=== PATIENT | female | born 1955 | race Two or more races ===

== ENCOUNTER 2025-02-03 01:26 | Inpatient (IN) | payer MEDICAID, SELFPAY ==
[2025-02-03] VITALS (166 sets, daily range): BP systolic 69–300; BP diastolic 2–95; PULSE 69–158; RESP 0–86; TEMP 36.3–41; O2SAT 86–100; BMI 26.6
--- NOTE | 2025-02-03 01:37 | EKG_ITS ---
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
--- NOTE | 2025-02-03 01:38 | EDNOTE_ITS ---
ED SOB =RME/HPI General Chief Complaint: Shortness of Breath/Dyspnea Stated Complaint: SOB Time Seen by Provider: 02/03/25 01:37 Arrival date/time: 02/03/25 01:26 RME / HPI RME / HPI Narrative: Dr. Barrera?s Main ED Evaluation: 69yo female with known history of cirrhosis brought in by EMS after neighbors found the patient down in respiratory distress. Patient was found to be hypoxic with an oxygen saturation in the mid 80s and was placed on a nonrebreather mask with correction of hypoxia. Patient was minimally tachycardic in the field in the 140s and is febrile with a temperature of 105.8. Upon ED arrival, patient noted having a productive cough and diarrhea for the last 2 days. No reported dysuria, vomiting, or chest pain. Related Data Home Medications ?Medication ?Instructions ?Recorded ?Confirmed No Known Home Medications 10/18/2309/25 Allergies Allergy/AdvReac Type Severity Reaction Status Date / Time No Known Allergies Allergy Verified 10/18/23 07:36 Review of Systems Review of Systems Systems Reviewed: All systems reviewed, normal except as documented Past Medical History Past Medical History NEUROLOGIC: Negative Seizures CARDIAC: Negative Congestive Heart Failure RESPIRATORY: Negative Chronic Obstructive Pulmonary Disease (COPD) GENITOURINARY: Negative Renal Disease MUSCULOSKELETAL: Positive Fractures (left leg fx years ago) ENDOCRINE: Negative Diabetes Mellitus Type 1 or Diabetes Mellitus Type 2 OTHER HISTORY: Negative Blood Transfusions, Blood Transfusion Reaction or Anesthesia Reactions Social History SMOKING STATUS: Never smoker ED Exam Narrative Physical exam: GENERAL APPEARANCE: alert and oriented x 2/3 with assistance, notably moderately jaundiced, in mild distress HEENT: Normocephalic, atraumatic; pupils equal, round, reactive to light; EOMI; scleral icterus; mucous membranes pink, moist; oropharynx clear NECK: Supple, no JVD; mild tenderness to the posterior midline cervical thoracic junction LUNGS: Diminished breath sounds; no wheezes, no rales, no rhonchi HEART: Regular rate, regular rhythm; normal S1, S2; no murmurs ABDOMEN: non distended; soft, nontender BACK: no CVA tenderness EXTREMITIES: atraumatic; no edema NEUROLOGIC: awake; alert and oriented x2/3; can follow simple commands, cranial nerves II-XII grossly intact; no focal sensory or motor deficits PSYCHIATRIC: appropriate mood and affect SKIN: warm, dry, jaundice; no rashes Course Course Course Narrative: 0123: Sepsis alert initiated. Orders made at this time are congruent with ED Adult Sepsis Order List. Re-evaluation is to be completed. 0205: LR IVF started. We are being cautious with IVF due to the patient's history of cirrhosis. 0336: Sepsis reassessment performed consisting of lab review, vitals, physical exam including auscultation of heart, lungs, and visual evaluation of capillary refills, mucosal membranes and extremities. Quality Measures Possible source: genitourinary Blood cultures ordered: yes Antibiotic ordered: Yes Pertinent labs: 02/03/25 02:05 Lactic Acid 15.0 H* mMol/L (0.4-2.0) Procalcitonin 7.47 H ng/ml (0.0-0.49) sepsis Orders Category Date Time Status Sole Seamer STAT Care 02/03/25 01:58 Active Continuous Pulse Oximetry STAT Care 02/03/25 01:58 Completed Cooling [place] Application NOW Care 02/03/25 01:56 Active EKG (ED ONLY) *Do not use* NOW Care 02/03/25 01:37 Completed Myles [Urinary Catheter] QS Care 02/03/25 02:13 Active In and Out Catheter [id number] Care 02/03/25 01:58 Completed Insert IV NOW Care 02/03/25 01:58 Active NPO STAT Care 02/03/25 01:58 Active Strict Intake and Output Routine Care 02/03/25 01:[address] abdomen pelvis wo con Stat Exams 02/03/25 02:[address] cervical spine wo con Stat Exams 02/03/25 02:[address] facial bones wo con Stat Exams 02/03/25 02:[address] head/brain wo con Stat Exams 02/03/25 02:[address] lumbar spine wo con Stat Exams 02/03/25 02:[address] thoracic spine wo con Stat Exams 02/03/25 02:13 Taken EKG (ED Only) Stat Exams 02/03/25 01:37 Draft US abdomen limited Stat Exams 02/03/25 04:23 Taken XR chest 1V SEPSIS PROTOCOL Stat Exams 02/03/25 02:05 Taken ABG [Arterial Blood Gas] Stat Lab 02/03/25 02:47 Completed ABG [Arterial Blood Gas] Stat Lab 02/03/25 06:09 Completed Ammonia Stat Lab 02/03/25 04:24 Ordered B-Type Natriuretic Peptide Stat Lab 02/03/25 02:05 Completed Blood Culture (Lab) Stat Lab 02/03/25 02:05 Received CBC Stat Lab 02/03/25 02:05 Results Comprehensive Metabolic Panel Stat Lab 02/03/25 02:05 Completed LDH (Lactate Dehydrogenase) Stat Lab 02/03/25 02:05 Completed Lactate (Lactic Acid) Stat Lab 02/03/25 02:05 Completed Lactic Acid, 3 HR Stat Lab 02/03/25 05:23 Ordered Lipase Stat Lab 02/03/25 02:05 Completed Magnesium Stat Lab 02/03/25 02:05 Completed Partial Thromboplastin Time Stat Lab 02/03/25 02:10 Completed Phosphorous Stat Lab 02/03/25 02:05 Completed Procalcitonin Stat Lab 02/03/25 02:05 Completed Prothrombin Time with INR Stat Lab 02/03/25 02:10 Completed Troponin I Stat Lab 02/03/25 02:05 Completed Urinalysis Stat Lab 02/03/25 02:14 Completed Urine Culture Stat Lab 02/03/25 02:14 Received Acetaminophen Supp [Tylenol Supp] Med 02/03/25 01:58 Discontinued 650 mg OR Q8HR PRN Acetaminophen Supp [Tylenol Supp] Med 02/03/25 01:56 Discontinued 650 mg OR X1 ONE Dextrose 5%-Water [D5w] 1,000 ml Med 02/03/25 03:38 Discontinued Sodium Bicarb 8.4% 50ml Vial* 150 meq IV 100 mls/hr Dextrose 5%-Water [D5w] 1,000 ml Med 02/03/25 06:18 Ordered Sodium Bicarb 8.4% 50ml Vial* 150 meq IV 200 mls/hr Dextrose 5%-Water [D5w] 1,000 ml Med 02/03/25 03:41 Discontinued Sodium Bicarb 8.4% 50ml Vial* 150 meq IV 75 mls/hr Norepinephrine/D5W 8mg/250ml [Levophed in D5W 8mg/250ml Med 02/03/25 05:57 Discontinued ] 8 mg in 250 ml IV .STK-MED Norepinephrine/D5W 8mg/250ml [Levophed in D5W 8mg/250ml Med 02/03/25 06:02 Active ] 8 mg in 250 ml IV 0.05 mcg/kg/min Ondansetron Inj [Zofran Inj] Med 02/03/25 02:03 Active 4 mg IVP Q6HR PRN Pharmacy Renal Dose Adjustment Med 02/03/25 02:03 Active 1 each XX PRN PRN Piper/Tazo 3.375 gm Premix [Zosyn] Med 02/03/25 01:58 Discontinued 3.375 gm in 50 ml IV X1 Ringers Lactated 1000 ml [Lactated Ringers] 1,000 ml Med 02/03/25 01:57 Discontinued IV 999 mls/hr Sodium Bicarb 8.4% 50ml Vial* Med 02/03/25 03:26 Discontinued 50 meq IV X1 ONE Sodium Bicarb 8.4% 50ml Vial* Med 02/03/25 03:26 Discontinued 50 meq IV X1 ONE Sodium Bicarb 8.4% 50ml Vial* Med 02/03/25 06:17 Once 50 meq IV X1 ONE Sodium Bicarb 8.4% 50ml Vial* Med 02/03/25 06:18 Once 50 meq IV X1 ONE Oxygen Delivery NOW RT 02/03/25 01:58 Active Vital Signs Vital signs: Vital Signs Temperature 105.8 F H 02/03/25 01:31 Pulse Rate 138 H 02/03/25 01:31 Respiratory Rate 30 H 02/03/25 01:31 Blood Pressure 111/46 L 02/03/25 01:31 Pulse Oximetry (%) 98 02/03/25 01:31 Oxygen Delivery Method Oxy Mask 02/03/25 01:31 Oxygen Flow Rate 15 02/03/25 01:31 Shortness of Breath / Dyspnea MDM Narrative MDM Narrative:: Scribe Attestation: 02/03/25 Shaenka Seaman am scribing for and in the presence of Dr. Barrera. 69yo female with known history of cirrhosis brought in by EMS after neighbors found the patient down in respiratory distress. Patient was found to be hypoxic with an oxygen saturation in the mid 80s and was placed on a nonrebreather mask with correction of hypoxia. Please see PE findings. Lab markers demonstrate normal WBC count, chronic anemia Hgb 10.9, platelets pending, no left shift or associated bandemia. Coagulation tests demonstrate markedly increased INR a 1.8. Chemistries note CO2 <10, HIRA with markedly reduction in eGFR from 60 to 40, Lactate markedly elevated at 15, Total Bilirubin with elevated transaminases and alkaline phosphatase in addition to LDH. Troponin elevated at 0.7 and BNP 487. Procalcitonin 7.4. UA with gross evidence of infection, toxicology negative. CT head and cervical spine are pending. Patient was immediately triaged to monitor bed and sepsis protocol initiated. After cultures were obtained, empiric antibiotics were administered. Patient was treated aggressively with antipyretic therapies with reduction of temperature from 105 to 100.8. Patient's sensorium remained unchanged, easily arousable and able to follow simple commands. Patient presenting with severe sepsis with associated significant UTI and biliary obstruction. Discussed case with hospitalist, who suggests gallbladder ultrasound to r/o ascending cholangitis. Will also obtain serum ammonia to r/o hepatic encephalopathy. Patient's tachycardic improved and sodium bicarb drip initiated to correct underlying acidosis. Patient started becoming hypotensive to the 60s-70s systolic and was started on Levophed. Patient signed out to AM provider. Dx: acute severe sepsis, UTI, obstructive jaundice, severe metabolic acidosis, HIRA. Patient data External records reviewed:: [facility] previous records (Per chart review, patient was seen here on 08/28/23 for skin irritation.) and EMS form Clinical information provided by:: patient Social determinants that could affect healthcare access:: none Patient has the following chronic illnesses:: cirrhosis How is presenting disease/condition affected by chronic disease/condition?: exacerbated by Evaluation data The following diagnostics were reviewed and interpreted by me:: lab results, radiology exam(s) and EKG tracing(s) Lab and/or radiology exams considered but not ordered:: none Interpretation Summary: CXR shows no pleural effusions, borderline cardiomegaly, slightly increased interstitial markings throughout, according to my interpretation. EKG done at 0138, sinus tachycardia, rate of 144, no ST segment changes, left axis deviation, normal intervals, low QRS voltage, according to my interpretation. [facility] Preliminary Report Draft Patient: ARTHUR BLEVINS [facility]. Record#: [id number] Birthdate: 1955 Age/Sex: 69 / F Location: [facility] Attending Dr: Ordering Physician: Date of Service: Procedure(s): Accession Number(s): cc: ~ CT maxillofacial without intravenous contrast (axial sections with sagittal and coronal reformats). February 03, 2025 at 0414 hours Clinical History: Fall. Comparison: No prior study is available for comparison. Findings: There is no fracture. The maxillary sinus and orbital boucher are intact. No fluid levels are seen. No evidence of intraorbital hematoma, proptosis, globe injury or radiodense foreign body. The zygomatic arches and mandible are intact. The visualized soft tissues are unremarkable. The left maxillary sinus is filled with mucus. Dental cavities. Impression: No acute maxillofacial fracture. Severe left maxillary sinusitis. Dental cavities. Referral through dental services recommended. Report Electronically Signed By: Alexi Corrales 02/03/2025 5:27:43 AM [EST]- [facility] Preliminary Report Draft Patient: ARTHUR BLEVINS [facility]. Record#: [id number] Birthdate: 1955 Age/Sex: 69 / F Location: [facility] Attending Dr: Ordering Physician: Date of Service: Procedure(s): Accession Number(s): cc: ~ CT scan of the head without intravenous contrast (axial sections with sagittal and coronal reformats) February 03, 2025 0414 hours Clinical History: Fall. Comparison: None. Findings: There is no evidence of intracranial hemorrhage, mass effect or midline shift. There are periventricular white matter hypodensities, compatible with chronic small vessel ischemia. There is moderate volume loss. The calvarium is intact. The mastoid air cells are clear. The left maxillary sinus is filled with mucus. Subcutaneous right frontal scalp hematoma. Bilateral basal ganglia calcifications. Impression: 1. No evidence of intracranial hemorrhage, midline shift or calvarial fracture. 2. Periventricular chronic small vessel ischemia and volume loss. 3. Left maxillary sinusitis. Report Electronically Signed By: Alexi Corrales 02/03/2025 5:29:43 AM [EST [facility] Preliminary Report Draft Patient: ARTHUR BLEVINS [facility]. Record#: [id number] Birthdate: 1955 Age/Sex: 69 / F Location: [facility] Attending Dr: Ordering Physician: Date of Service: Procedure(s): Accession Number(s): cc: ~ CT scan of the cervical spine without intravenous contrast (axial sections with sagittal and coronal reformats) February 03, 2025 0414 hours Clinical History: Fall. Comparison: None. Findings: There is no fracture or subluxation. The prevertebral soft tissues are unremarkable. Degenerative changes of the imaged portions of the spine. Chronic multilevel disc disease. Impression: No evidence of fracture or subluxation. Report Electronically Signed By: Alexi Corrales 02/03/2025 5:34:11 AM [EST --------- [facility] Preliminary Report Draft Patient: ARTHUR BLEVINS [facility]. Record#: [id number] Birthdate: 1955 Age/Sex: 69 / F Location: [facility] Attending Dr: Ordering Physician: Date of Service: Procedure(s): Accession Number(s): cc: ~ CT scan of the lumbar spine without intravenous contrast (axial sections with sagittal and coronal reformats) February 03, 2025 0422 hours Clinical History: FALL Comparison: None. Findings: No acute fractures. Mild anterolisthesis of L4. Chronic multilevel disc disease without evidence of spinal canal stenosis or neuroforaminal narrowing. Impression: No acute fractures. Chronic multilevel disc disease, consider follow-up with MRI. Report Electronically Signed By: Alexi Corrales 02/03/2025 5:37:29 AM [EST] [facility] Preliminary Report Draft Patient: ARTHUR BLEVINS [facility]. Record#: [id number] Birthdate: 1955 Age/Sex: 69 / F Location: [facility] Attending Dr: Ordering Physician: Date of Service: Procedure(s): Accession Number(s): cc: ~ CT scan of the thoracic spine without intravenous contrast (axial sections with sagittal and coronal reformats) February 03, 2025 0422 hours Clinical History: FALL Comparison: None. 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 There is no fracture or subluxation. The thoracic vertebrae are normally aligned. The intervertebral disc spaces are maintained. There is no pre or paravertebral soft tissue abnormality. Impression: No acute fracture or subluxation. Report Electronically Signed By: Alexi Corrales 02/03/2025 5:40:00 AM [EST] [facility] Preliminary Report Draft Patient: ARTHUR BLEVINS. Record#: [id number] Birthdate: 1955 Age/Sex: 69 / F Location: [facility] Attending Dr: Ordering Physician: Date of Service: Procedure(s): Accession Number(s): cc: ~ CT scan of the abdomen and pelvis without intravenous contrast (axial sections with sagittal and coronal reformats) February 03, 2025 0420 hours Clinical History: Fall. Comparison: None. Findings: The lung bases are clear. The spleen, pancreas, adrenals and kidneys are unremarkable on this noncontrast study. Irregular liver margins. Status postcholecystectomy. Multiple (more than 10) hypodense liver lesions. The bowel is unremarkable. The urinary bladder is nondistended, limited evaluation. Myles catheter in place. Rectal probe in place. There is no free air. Small ascites. Degenerative changes of the imaged portions of the spine. Chronic multilevel disc disease. No acute fractures. Loss of the physiologic lumbar lordosis. Vascular calcifications. No evidence of appendicitis. The uterus and ovaries are within normal limits. Impression: 1. No acute fractures. 2. Cirrhosis associated with ascites. 3. Indeterminate hypodense liver lesions, further evaluation with EKG imaging to assess for acute or cellular carcinoma is recommended. Report Electronically Signed By: Alexi Corrales 02/03/2025 5:43:28 AM [EST] Medications / Prescriptions Medications or Prescriptions considered but not ordered:: none Medication administrations:: Medication Administration History Norepinephrine/Dextrose (Levophed In D5w 8mg/250ml) 8 mg in 250 mls @ 5.606 mls/hr IV .Q24H PRN; Protocol PRN Reason: PER PROTOCOL Stop: 03/05/25 06:01 Last Admin: 02/03/25 06:13 Dose: 0.05 mcg/kg/min, 5.606 mls/hr Documented By: ANA Sodium Bicarbonate 150 meq/ (Dextrose) 1,150 mls @ 200 mls/hr IV .Q5H45M [facility] Stop: 03/05/25 06:16 Ondansetron HCl (Ondansetron Inj 2 Mg/Ml Inj 2 Ml) 4 mg IVP Q6HR PRN; Protocol PRN Reason: NAUSEA OR VOMITING Stop: 03/05/25 02:02 Pharmacy Consult (Pharmacy Renal Dose Adjustment 1 Ea) 1 each XX PRN PRN PRN Reason: CONSULT Stop: 03/05/25 02:02 Sodium Bicarbonate (Sodium Bicarb Inj 8.4% 1 Meq/Ml 50 Ml Vial) 50 meq IV X1 ONE Stop: 02/03/25 06:18 Discontinued Medications Acetaminophen (Acetaminophen Supp 650 Mg Supp) 650 mg OR X1 ONE Stop: 02/03/25 01:57 Last Admin: 02/03/25 02:05 Dose: 650 mg Documented By: ANA Acetaminophen (Acetaminophen Supp 650 Mg Supp) 650 mg OR Q8HR PRN PRN Reason: Fever > 100.4 Stop: 03/05/25 01:57 Lactated Ringer's (Lactated Ringers) 1,000 mls @ 999 mls/hr IV .Q1H1M ONE Stop: 02/03/25 02:57 Last Infusion: 02/03/25 03:06 Dose: Infused Documented By: JOSE LUIS Admin: 02/03/25 02:05 Dose: 999 mls/hr Documented By: ANA Piperacillin/Tazobactam/Dextrose (Zosyn) 3.375 gm in 50 mls @ 100 mls/hr IV X1 ONE Stop: 02/03/25 02:27 Last Infusion: 02/03/25 02:53 Dose: Infused Documented By: JOSE LUIS Admin: 02/03/25 02:23 Dose: 100 mls/hr Documented By: KARI Sodium Bicarbonate 150 meq/ (Dextrose) 1,150 mls @ 100 mls/hr IV .[id number] [facility] Stop: 03/05/25 03:37 Last Admin: 02/03/25 04:45 Dose: Not Given Documented By: JOSE LUIS Non-Admin Reason: Discontinued Sodium Bicarbonate 150 meq/ (Dextrose) 1,150 mls @ 75 mls/hr IV .[id number] [facility] Stop: 03/05/25 03:40 Last Admin: 02/03/25 04:08 Dose: 75 mls/hr Documented By: ANA Norepinephrine/Dextrose (Levophed In D5w 8mg/250ml) Confirm Administered Dose 8 mg in 250 mls @ ud IV .STK-MED ONE Stop: 02/03/25 05:58 Last Admin: 02/03/25 06:12 Dose: Not Given Documented By: ANA Non-Admin Reason: Duplicate Medication on eMAR Sodium Bicarbonate (Sodium Bicarb Inj 8.4% 1 Meq/Ml 50 Ml Vial) 50 meq IV X1 ONE Stop: 02/03/25 03:27 Last Admin: 02/03/25 03:33 Dose: 50 meq Documented By: JOSE LUIS Sodium Bicarbonate (Sodium Bicarb Inj 8.4% 1 Meq/Ml 50 Ml Vial) 50 meq IV X1 ONE Stop: 02/03/25 03:27 Last Admin: 02/03/25 03:33 Dose: 50 meq Documented By: JOSE LUIS see above Consultations Consultation(s) initiated? (list below): Yes Consultation #1 (Physician, Specialty, Details): Discussed case with Dr. Rosales, the resident physician, attending Dr. Edgar from Hospitalist service regarding admission. Discussed patients ED course, exam findings, labs, and radiology results. The Hospitalist requests US abdomen and ammonia level. Time: 04:18 Diagnosis Shortness of Breath Differential Diagnosis: acute exacerbation of chronic obstructive airways disease, congestive heart failure, community acquired pneumonia, asthma with exacerbation and other (UTI, metabolic acidosis) Most likely diagnosis given after review of the tests above:: acute severe sepsis, UTI, obstructive jaundice, severe metabolic acidosis, HIRA Admission Indicated Admission indicated?: not indicated Admission Request Was there a request for admission?: No Disposition Plan Disposition Plan: other (specify) (Signed out to Dr. Blake at 6 AM.) Critical Care Time Critical Care Time Critical Care Time: Yes Total Critical Care Time (min.): 45 Attestation: The high probability of sudden, clinically significant deterioration in the patient?s condition required the highest level of my preparedness to intervene urgently. The services I provided to this patient were to treat and/or prevent clinically significant deterioration. Services included the following: chart data review, reviewing nursing notes and/or old charts, documentation time, media consultant collaboration regarding findings and treatment options, medication orders and management, direct patient care, vital sign assessments and ordering, interpreting and reviewing diagnostic studies and lab tests. Aggregate critical care time includes only time during which I was engaged in work directly related to the patient?s care, as described above, whether at bedside or elsewhere in the Emergency Department. It did not include time spent performing other reported procedures or the services of residents, students, nurses or physician assistants. Discharge Plan Prescriptions/Referrals Prescriptions/Med Rec: No Action No Known Home Medications Referrals: Jordan Back MD [Primary Care Provider] - In 1 week Problem List Clinical Impression: Severe sepsis, UTI (urinary tract infection) due to Enterococcus, Obstructive jaundice, Metabolic acidosis, HIRA (acute kidney injury) Patient/Caregiver Discharge Instructions Print Language: Qatari
[2025-02-03] MEDS: ACETAMINOPHEN SUPP 650 MG SUPP PR (02:05)
[2025-02-03] MEDS: RINGERS LACTATED 1000 ML 1,000 ML 999 ML IV (02:05)
--- NOTE | 2025-02-03 02:05 | XR_ITS ---
Examination: AP chest single view Technique one AP portable semiupright chest single view Date and time: February 03, 2025 0239 hours Comparison April 12, 2022 INDICATIONS: Sepsis protocol FINDINGS: Suspicious for early bilateral perihilar pneumonia. Normal heart size Moderate osteopenia IMPRESSION: Suspicious for early bilateral perihilar pneumonia.
--- NOTE | 2025-02-03 02:13 | XR_ITS ---
Examination: CT maxillofacial, without intravenous contrast. 2-D sagittal reconstructions. 3-D reconstructions. Date and time of exam:February 03, 2025 0414 hours INDICATIONS: Ground-level fall today with injury to the face, facial pain CTDI: vol (mGy):21.7. DLP: (mGycm):383. Technique: Multiple axial images of maxillofacial region, 3.0 mm slice thickness. 2-D sagittal and coronal reconstructions. 3-D reconstructions. Low dose protocols were performed. One or more of the following dose reduction techniques were used; automated exposure control, adjustment of the mA and/or KV according to patient size, use of iterative reconstruction technique. Findings: Frontal bone intact. Orbits intact. No nasal bone fracture. Opacification left maxillary antrum. Maxillary dental caries. Maxilla mandible is intact Patient motion degrades this study IMPRESSION: Limited study, patient motion. No acute facial fracture.
--- NOTE | 2025-02-03 02:13 | XR_ITS ---
Examination: CT brain head without contrast. 2-D sagittal coronal reconstructions Date and time of exam:February 03, 2025 0414 hours INDICATIONS: Ground-level fall today with injury to the head, head pain CTDI: vol (mGy):53.5. DLP: (mGycm):1003. Technique: Multiple CT axial sections of the brain have been obtained, 5 mm slice thickness. Contrast has not been administered. 2-D sagittal, coronal reconstructions have been obtained Low dose protocols were performed. One or more of the following dose reduction techniques were used; automated exposure control, adjustment of the mA and/or KV according to patient size, use of iterative reconstruction technique. Findings: No significant ventricular enlargement. Intra-axial or extra-axial hemorrhage density is not seen. No mass effect or midline shift Basal cisterns are not remarkable. Fourth ventricle is midline. Cranial vault intact. Impression: Negative for acute hemorrhage, mass effect or midline shift
--- NOTE | 2025-02-03 02:13 | XR_ITS ---
Examination: CT thoracic spine, without contrast. 2-D sagittal reconstructions. 2-D coronal reconstructions. 3-D reconstructions. Date and time of exam:February 03, 2025 0422 hours INDICATIONS: Ground-level fall today with injury to the back, back pain CTDI: vol (mGy):39.7 DLP: (mGycm):1341 Technique: Multiple 1.25 mm axial sections of the thoracic spine without intravenous contrast have been obtained. 2-D sagittal and coronal reconstructions have been obtained. 3-D reconstructions have been obtained. Low dose protocols were performed. One or more of the following dose reduction techniques were used; automated exposure control, adjustment of the mA and/or KV according to patient size, use of iterative reconstruction technique. Findings: Adequate alignment thoracic vertebral bodies on the lateral view No thoracic vertebral body compression fracture Thoracic pedicles lamina transverse and posterior spinous processes appear intact No focal thoracic disc protrusion IMPRESSION: No acute thoracic fracture
--- NOTE | 2025-02-03 02:13 | XR_ITS ---
Examination: CT lumbar spine, without contrast. 2-D sagittal reconstructions. 2-D coronal reconstructions. 3-D reconstructions. Date and time of exam:February 03, 2025 0422 hours INDICATIONS: Patient fell today with injury to the lower back, lower back pain CTDI: vol (mGy):37.1 DLP: (mGycm):879 Technique: Multiple 1.25 mm axial sections of the lumbar spine without intravenous contrast have been obtained. 2-D sagittal and coronal reconstructions have been obtained. 3-D reconstructions have been obtained. Low dose protocols were performed. One or more of the following dose reduction techniques were used; automated exposure control, adjustment of the mA and/or KV according to patient size, use of iterative reconstruction technique. Findings: Prominent osteopenia. Minimal anterolisthesis L4 on L5 No lumbar vertebral body compression fracture Lumbar pedicles laminae transverse and posterior spinous processes intact L5-S1 5 mm central lumbar disc bulge extending to the foraminal regions with mild right L5 ganglionic compression L4-L5 2 mm central lumbar disc bulge L3-L4 3 mm central lumbar disc bulge L2-L3 no disc protrusion L1-L2 no disc protrusion IMPRESSION: No acute lumbar fracture L5-S1 5 mm central number disc bulge with mild right L5 ganglionic compression
--- NOTE | 2025-02-03 02:13 | XR_ITS ---
Examination: CT cervical spine without contrast 2-D sagittal reconstructions 2-D coronal reconstructions 3-D reconstructions. Exam date and time:February 03, 2025 0414 hours INDICATIONS: Ground-level fall today with injury to the neck, neck pain CTDI:vol (mGy) 15 DLP: (mGycm) 264 Technique: Multiple 2 mm axial sections of the cervical spine have been obtained. The coronal and sagittal reconstructions have been obtained. 3-D reconstructions have been obtained. Low dose protocols were performed. One or more of the following dose reduction techniques were used; automated exposure control, adjustment of the mA and/or KV according to patient size, use of iterative reconstruction technique. Findings: Axial sections demonstrate intact base of the skull. C1 exhibit satisfactory relationship to the odontoid. No acute cervical vertebral body fracture seen. Alignment posterior spinous processes satisfactory. Impression: No acute cervical fracture.
--- NOTE | 2025-02-03 02:13 | XR_ITS ---
Examination: CT abdomen and pelvis without contrast. Coronal 3-D reconstructions. Sagittal 2-D reconstructions. Date and time of exam:February 03, 2025 0420 hours INDICATIONS: Patient fell today with injury to the abdomen, abdomen pain and pelvic pain CTDI: vol (mGy): 12.4 DLP: (mGycm): 655 Technique: Axial images of the abdomen have been obtained, 3 mm slice thickness Intravenous contrast material has not been administered. Low dose protocols were performed. One or more of the following dose reduction techniques were used; automated exposure control, adjustment of the mA and/or KV according to patient size, use of iterative reconstruction technique. Findings: Cirrhosis, liver lobular in contour Numerous subcentimeter liver lesions Mild to moderate ascites No liver or splenic or renal laceration Absent gallbladder No pancreatic mass Abdominal aorta intact No free air Normal appendix No bowel obstruction Anteverted uterus Urinary Myles catheter in contracted bladder No lumbar fracture Hips bones of the pelvis is intact IMPRESSION: No abdominal parenchymal laceration Cirrhosis Numerous liver lesions, recommend MRI abdomen liver follow up pre and postcontrast to exclude multifocal primary hepatocellular carcinoma, hepatic metastases Moderate ascites
[2025-02-03] MEDS: PIPER/TAZO 3.375 GM PREMIX 3.375 GM/50 ML BAG IV (02:23)
[2025-02-03 02:24] LABS: Collection Type, Urine Clean Catch
[2025-02-03 02:31] LABS: Lactate (Lactic Acid) 15.0 mMol/L (0.4-2.0)
[2025-02-03 02:46] LABS: Bacteria,Urine 4+; Bilirubin,Urine 4+ (Negative); Blood,Urine 2+ (Negative); Clarity,Urine Turbid (Clear/Hazy); Color,Urine Drk-Yellow (Lt Yel-Yel); Glucose, Urine Negative (Negative); Ketones,Urine Trace (Negative); Leukocyte Esterase,Urine Positive (Negative); Nitrite,Urine Positive (Negative); PH,Urine 6.0 (5.0-7.0); Protein,Urine 1+ (Neg - Trace); RBC,Urine 3 /hpf (0-3); Specific Gravity,Urine 1.013 (1.001-1.035); Squamous Epithelial Cell,Urine 1 /hpf (0-5); Urobilinogen,Urine 2.0 mg/dL (0.0-1.0); WBC,Urine 80 /hpf (0-5)
[2025-02-03 02:53] LABS: INR 1.8 (0.9-1.3); Partial Thromboplastin Time 41.3 Seconds (22.0-36.0); Prothrombin Time 18.6 Seconds (9.0-12.2)
[2025-02-03 02:58] LABS: Base Excess -17 (-3-3); HCO3 8 mEq/L (20-26); Inspired O2, VO2 Liters 10 L/min; Inspired Oxygen, FIO2 21 %; O2 Saturation 100 % (91-98); PCO2 18 mmHg (32.0-48.0); PO2 192 mmHg (83-108); pH, Arterial 7.25 (7.35-7.45)
[2025-02-03 02:59] LABS: Alanine Aminotransferase 58 U/L (10-49); Albumin, Serum 2.5 gm/dL (3.4-4.8); Albumin/Globulin Ratio 0.6 (1.2-2.2); Alkaline Phosphatase 301 U/L (46-116); Anion Gap 22 (7-16); Aspartate Amino Transferase 241 U/L (0-34); B-Type Natriuretic Peptide 487 pg/mL (0-100); BUN/Creatinine Ratio 9 Ratio (12-20); Bilirubin,Total 15.9 mg/dL (0.3-1.2); Blood Urea Nitrogen 13 mg/dL (9-23); Calcium 7.9 mg/dL (8.3-10.6); Calcium (Corrected) 9.1 mg/dL (8.5-10.1); Chloride 101 mMol/L (98-107); Creatinine (Component) 1.4 mg/dL (0.6-1.3); Estimated Creatinine Clearance 30.3 mL/min (>60); Globulin 4.5 gm/dL (2.3-3.5); Glucose 84 mg/dL (74-106); LDH (Lactate Dehydrogenase) 518 U/L (120-246); Lipase 64 U/L (12-53); Magnesium 1.4 mg/dL (1.6-2.6); Osmolality,Calculated 265 (275-295); Phosphorous 3.8 mg/dL (2.4-5.1); Potassium 4.9 mMol/L (3.4-5.1); Procalcitonin 7.47 ng/ml (0.0-0.49); Sodium 133 mMol/L (136-145); Total Protein 7.0 gm/dL (5.7-8.2); eGFR 41 See Note
[2025-02-03 03:06] LABS: Carbon Dioxide < 10.0 mMol/L (20.0-31.0); Troponin I 0.077 ng/mL (0.0-0.045)
[2025-02-03 03:07] LABS: Allen Test Performed/OK; Puncture Site Right Radial
[2025-02-03] MEDS: SODIUM BICARB INJ 8.4% 1 mEq/ML 50 ML VIAL 50 MEQ IV ×4 (03:33→06:25)
[2025-02-03 03:38] LABS: Basophils # (Auto) 0.1 Thou/mm3 (0.0-0.2); Basophils % (Auto) 1 % (0-2.5); Eosinophils # (Auto) 0.1 Thou/mm3 (0.0-0.5); Eosinophils % (Auto) 1 % (0-10); Hematocrit 32.3 % (36.0-46.0); Hemoglobin 10.9 g/dL (12.0-16.0); Immature Granulocytes Auto 0.14 Thou/mm3 (0.00-0.00); Lymphocytes # (Auto) 1.6 Thou/mm3 (1.0-4.8); Lymphocytes % (Auto) 22 % (10-50); Mean Corpuscular HGB Conc 33.7 g/dl (31.0-37.0); Mean Corpuscular Hemoglobin 37.8 pg (25.0-35.0); Mean Corpuscular Volume 112 fL (80-100); Monocytes # (Auto) 0.2 Thou/mm3 (0.0-0.8); Monocytes % (Auto) 2 % (0-12); Neutrophils # (Auto) 5.3 Thou/mm3 (1.8-7.7); Neutrophils % (Auto) 72 % (37-80); Nucleated Red Blood Cell # 0.05 Thou/mm3 (0.00-0.00); Nucleated Red Blood Cell % 1 /100 WBC (0); RDW Standard Deviation 80.3 fL (36.4-46.3); Red Blood Count 2.88 Miln/mm3 (4.00-5.20); White Blood Count 7.3 Thou/mm3 (3.6-11.0)
[2025-02-03] MEDS: Sodium Bicarb 8.4% 50ml Vial* 150 MEQ in DEXTROSE 5%-WATER 1,000 ML 75 MEQ IV (04:08)
--- NOTE | 2025-02-03 04:23 | XR_ITS ---
Examination: Abdomen sonogram, Limited Date and time of exam: February 03, 2025 0540 hours INDICATIONS: Altered mental status abdominal pain today Technique: Real-time dee scale transabdominal sonographic images of the upper abdomen obtained. Findings: Gallbladder not visualized Common bile duct 5 mm no stones Pancreatic head 2.2 cm Liver 10.8 cm irregular contour Normal hepatopedal portal venous flow Patent IVC Clat-pa-[id number] ascites IMPRESSION: No common bile duct stones Cirrhosis Drxc-qg-lznpxwha ascites
--- NOTE | 2025-02-03 04:40 | PC.NURSE ---
I HAVE CALLED THE [facility] 10 TIMES IF NOT MORE AND HAVEN'T RECEIVED A ANSWER YET. I CHECKED UP IN [facility] TO SEE IF THE TECH MIGHT BE UPSTAIRS AND THEY STATED THEY HAVENT SEEN HER. CHARGE NURSE ISMAEL WAS MADE AWARE.
[2025-02-03 05:23] LABS: Reflex Lactate? Y
--- NOTE | 2025-02-03 05:28 | PRELIM_ITS ---
CT maxillofacial without intravenous contrast (axial sections with sagittal and coronal reformats). February 03, 2025 at 0414 hours Clinical History: Fall. Comparison: No prior study is available for comparison. Findings: There is no fracture. The maxillary sinus and orbital boucher are intact. No fluid levels are seen. No evidence of intraorbital hematoma, proptosis, globe injury or radiodense foreign body. The zygomatic arches and mandible are intact. The visualized soft tissues are unremarkable. The left maxillary sinus is filled with mucus. Dental cavities. Impression: No acute maxillofacial fracture. Severe left maxillary sinusitis. Dental cavities. Referral through dental services recommended. Report Electronically Signed By: Alexi Corrales 02/03/2025 5:27:43 AM [EST]
--- NOTE | 2025-02-03 05:30 | PRELIM_ITS ---
CT scan of the head without intravenous contrast (axial sections with sagittal and coronal reformats) February 03, 2025 0414 hours Clinical History: Fall. Comparison: None. Findings: There is no evidence of intracranial hemorrhage, mass effect or midline shift. There are periventricular white matter hypodensities, compatible with chronic small vessel ischemia. There is moderate volume loss. The calvarium is intact. The mastoid air cells are clear. The left maxillary sinus is filled with mucus. Subcutaneous right frontal scalp hematoma. Bilateral basal ganglia calcifications. Impression: 1. No evidence of intracranial hemorrhage, midline shift or calvarial fracture. 2. Periventricular chronic small vessel ischemia and volume loss. 3. Left maxillary sinusitis. Report Electronically Signed By: Alexi Corrales 02/03/2025 5:29:43 AM [EST]
--- NOTE | 2025-02-03 05:34 | PRELIM_ITS ---
CT scan of the cervical spine without intravenous contrast (axial sections with sagittal and coronal reformats) February 03, 2025 0414 hours Clinical History: Fall. Comparison: None. Findings: There is no fracture or subluxation. The prevertebral soft tissues are unremarkable. Degenerative changes of the imaged portions of the spine. Chronic multilevel disc disease. Impression: No evidence of fracture or subluxation. Report Electronically Signed By: Alexi Corrales 02/03/2025 5:34:11 AM [EST]
--- NOTE | 2025-02-03 05:37 | PRELIM_ITS ---
CT scan of the lumbar spine without intravenous contrast (axial sections with sagittal and coronal reformats) February 03, 2025 0422 hours Clinical History: FALL Comparison: None. Findings: No acute fractures. Mild anterolisthesis of L4. Chronic multilevel disc disease without evidence of spinal canal stenosis or neuroforaminal narrowing. Impression: No acute fractures. Chronic multilevel disc disease, consider follow-up with MRI. Report Electronically Signed By: Alexi Corrales 02/03/2025 5:37:29 AM [EST]
--- NOTE | 2025-02-03 05:40 | PRELIM_ITS ---
CT scan of the thoracic spine without intravenous contrast (axial sections with sagittal and coronal reformats) February 03, 2025 0422 hours Clinical History: FALL Comparison: None. 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 There is no fracture or subluxation. The thoracic vertebrae are normally aligned. The intervertebral disc spaces are maintained. There is no pre or paravertebral soft tissue abnormality. Impression: No acute fracture or subluxation. Report Electronically Signed By: Alexi Corrales 02/03/2025 5:40:00 AM [EST]
--- NOTE | 2025-02-03 05:43 | PRELIM_ITS ---
CT scan of the abdomen and pelvis without intravenous contrast (axial sections with sagittal and coronal reformats) February 03, 2025 0420 hours Clinical History: Fall. Comparison: None. Findings: The lung bases are clear. The spleen, pancreas, adrenals and kidneys are unremarkable on this noncontrast study. Irregular liver margins. Status postcholecystectomy. Multiple (more than 10) hypodense liver lesions. The bowel is unremarkable. The urinary bladder is nondistended, limited evaluation. Myles catheter in place. Rectal probe in place. There is no free air. Small ascites. Degenerative changes of the imaged portions of the spine. Chronic multilevel disc disease. No acute fractures. Loss of the physiologic lumbar lordosis. Vascular calcifications. No evidence of appendicitis. The uterus and ovaries are within normal limits. Impression: 1. No acute fractures. 2. Cirrhosis associated with ascites. 3. Indeterminate hypodense liver lesions, further evaluation with EKG imaging to assess for acute or cellular carcinoma is recommended. Report Electronically Signed By: Alexi Corrales 02/03/2025 5:43:28 AM [EST]
[2025-02-03 06:11] LABS: Platelet Count 61 Thou/mm3 (140-440)
[2025-02-03 06:13] LABS: PCO2 63 mmHg (32.0-48.0)
[2025-02-03] MEDS: Norepinephrine/D5W 8mg/250ml 8 MG/250 ML BAG 5.606 MG IV (06:13)
[2025-02-03 06:14] LABS: Allen Test Performed/OK; Base Excess -16 (-3-3); HCO3 15 mEq/L (20-26); O2 Saturation 98 % (91-98); PO2 149 mmHg (83-108); Puncture Site Right Radial
[2025-02-03 06:15] LABS: pH, Arterial 7.00 (7.35-7.45)
[2025-02-03] MEDS: Sodium Bicarb 8.4% 50ml Vial* 150 MEQ in DEXTROSE 5%-WATER 1,000 ML 200 MEQ IV (06:26)
[2025-02-03] MEDS: SODIUM CHLORIDE 0.9% 500 ML 500 ML 1000 ML IV (06:36)
[2025-02-03 06:37] LABS: Path Review Blood Smear Sent to Pathologist; Slide Review Platelets confirmed
--- NOTE | 2025-02-03 06:37 | PC.NURSE ---
provider notified about seizure like activity. per provider its most likely tremors
[2025-02-03] MEDS: SODIUM CHLORIDE 0.9% 500 ML 500 ML IV ×2 (06:41→06:50)
--- NOTE | 2025-02-03 06:53 | EDNOTE_ITS ---
Emergency Room Addendum <Landy Singh - Last Filed: 02/03/25 08:46> Addendum Narrative: 0600: Care assumed from Dr. Barbour, the previous shift emergency physician. Past medical, surgical, social and family history reviewed. Vitals and home medications reviewed. I will assume the care of the patient at this time, pending ultrasound abdomen. Hospitalist team were requesting ultrasound to rule out ascending cholangitis prior to admission Please refer to the emergency department record for history and examination from initial visit.?The following addendum documentation note is intended to reflect any pending information, findings, or radiology results not included in the patient?s initial chart. EMS notes reviewed by me. Per EMS run sheet, the patient was found by neighbor at midnight today and evidently altered. Prehospital vital signs: 117/59, HR 140, RR 35, saturating 80s on room air and 98% on non-rebreather, started on IV fluids. Nursing notes reviewed by me. Vital signs reviewed by me. [facility] medical records reviewed by me. Patient was last evaluated in the ED 08/28/2023 for skin irritation. A chest xray performed to confirm ETT and OG tube placement. It appears the tube had shifted down to 23cm and was pulled back to 21cm. Repeat CXR appears improved. RADIOLOGY _ Ordering Physician: Chago Barbour DO Date of Service: 02/03/25 Procedure(s): US abdomen limited Accession Number(s): [id number] cc: Chago Barbour DO; Jordan Back MD; Lul Killian MD~ Examination: Abdomen sonogram, Limited Date and time of exam: February 03, 2025 0540 hours INDICATIONS: Altered mental status abdominal pain today Technique: Real-time dee scale transabdominal sonographic images of the upper abdomen obtained. Findings: Gallbladder not visualized Common bile duct 5 mm no stones Pancreatic head 2.2 cm Liver 10.8 cm irregular contour Normal hepatopedal portal venous flow Patent IVC Rlca-lp-[id number] ascites IMPRESSION: No common bile duct stones Cirrhosis Bnpx-pp-oerjrang ascites Dictated By: Lul Killian MD Signed By: <Electronically signed by Lul Killian MD in [place]>02/03/25 0747 _ <Clarisse Blake MD - Last Filed: 02/03/25 09:04> Addendum Narrative: 0600: Care assumed from Dr. Barbour, the previous shift emergency physician. Past medical, surgical, social and family history reviewed. Vitals and home medications reviewed. I will assume the care of the patient at this time, pending ultrasound abdomen. Hospitalist team were requesting ultrasound to rule out ascending cholangitis prior to admission Please refer to the emergency department record for history and examination from initial visit.?The following addendum documentation note is intended to reflect any pending information, findings, or radiology results not included in the patient?s initial chart. EMS notes reviewed by me. Per EMS run sheet, the patient was found by neighbor at midnight today and evidently altered. Prehospital vital signs: 117/59, HR 140, RR 35, saturating 80s on room air and 98% on non-rebreather, started on IV fluids. Nursing notes reviewed by me. Vital signs reviewed by me. [facility] medical records reviewed by me. Patient was last evaluated in the ED 08/28/2023 for skin irritation. 0805h: A chest xray performed to confirm ETT and OG tube placement. It appears the tube had shifted down to 23cm and was pulled back to 21cm at this time. Repeat CXR appears improved. Pt to be going to ICU. RADIOLOGY _ Ordering Physician: Chago Barbour DO Date of Service: 02/03/25 Procedure(s): US abdomen limited Accession Number(s): [id number] cc: Chago Barbour DO; Jordan Back MD; Lul Killian MD~ Examination: Abdomen sonogram, Limited Date and time of exam: February 03, 2025 0540 hours INDICATIONS: Altered mental status abdominal pain today Technique: Real-time dee scale transabdominal sonographic images of the upper abdomen obtained. Findings: Gallbladder not visualized Common bile duct 5 mm no stones Pancreatic head 2.2 cm Liver 10.8 cm irregular contour Normal hepatopedal portal venous flow Patent IVC [id number]-kv-vxgjgtrn ascites IMPRESSION: No common bile duct stones Cirrhosis Ntwi-ya-islsyniu ascites Dictated By: Lul Killian MD Signed By: <Electronically signed by Lul Killian MD in [place]>02/03/25 0747 _ ED Procedures <Landy Singh - Last Filed: 02/03/25 08:46> Central Line Placement Right IJ: Time Out Performed: Yes Patient Placed on Monitor/Pulse Ox: Yes Prep: mask, gown and gloves Central Line Prep: Chlorhexidine scrub Ultrasound Used for Placement: Yes Central Line Lumen Inserted: triple Post Procedure: sutured in place, good blood return, all ports aspirated, flushed, capped and sterile dressing applied Patient Tolerated Procedure: well and no complications Complications: none Intubation sedative: other (Propofol ) Mg Given: 90 paralytic: Rocuronium Mg Given: 70 Laryngoscope: Janette (#4) ET Tube Size: 7 ET Tube Uncuffed: No Tube Secured Depth (cm): 21 Tube Secured Location: other (gums) Tube Placement Confirmation: visualized tube passing through cords, equal breath sounds bilaterally, no breath sounds over epigastrium and confirmation by capnometry Patient Tolerated Procedure: well and no complications Intubation Complications: none
[2025-02-03] MEDS: PROPOFOL INJ 10 MG/ML VIAL 20 ML 90 MG IV (07:02)
[2025-02-03] MEDS: ROCURONIUM INJ 10 MG/ML VIAL 10 ML 70 MG IV (07:02)
--- NOTE | 2025-02-03 07:10 | XR_ITS ---
Examination: AP chest single view Technique one AP portable supine chest single view Date and time: February 03, 2025 0800 hours Comparison February 03, 2025 0239 hours INDICATIONS: Hypoxic respiratory failure postintubation. FINDINGS: Endotracheal tube tip projects 2.5 cm in the right mainstem bronchus with total atelectasis left lung Orogastric tube in the stomach, the tip is below the level of the film IMPRESSION: Retract the endotracheal tube 4 cm
--- NOTE | 2025-02-03 07:12 | PD.RESEVENT ---
Documentation for date of: 02/03/25 Event Note Event Note: Patient seen in the ED for evaluation of jaundice, altered mental status, and concern for acute liver failure with rule-out acute cholangitis and sepsis. On exam, patient is ill-appearing, minimally responsive, with marked jaundice and right periorbital contusion. Initial labs notable for severe metabolic acidosis (pH 7.25, HCO3 8, AG 22, lactate 15), hyperbilirubinemia (15.9), transaminitis, coagulopathy (INR 1.8), HIRA (Cr 1.4 from baseline 0.7), and UA with pyuria and bacteriuria. Blood and urine cultures sent; patient started on broad-spectrum antibiotics. . CT head, cervical spine, and chest/abdomen/pelvis are pending, as is repeat ABG. Also gallbladder ultrasound still pending to rule in rule out acute cholangitis. we evaluated the patient at bedside; ED will continue workup and discuss case with the morning medicine team for admission versus transfer. ----- Plan discussed with attending physician Dr. Tala Baker MD PGY-1 Internal Medicine
[2025-02-03 07:15] LABS: Lactic Acid, 3 HR 14.5 mMol/L (0.4-2.0)
--- NOTE | 2025-02-03 07:27 | XR_ITS ---
Examination: AP chest single view TECHNIQUE: AP portable supine chest single view Date and time: February 03, 2025 0809 hours Comparison February 03, 2025 0802 hours FINDINGS: Endotracheal tube tip remains in the right mainstem bronchus with partial atelectasis left lung Normal heart size Orogastric tube in the stomach Right internal jugular central line tip right atrium IMPRESSION: Retract the tracheal tube 3 cm
[2025-02-03 07:30] LABS: Ammonia 61 uMol/L (11-32)
--- NOTE | 2025-02-03 07:33 | ECHO_ITS ---
Transthoracic Echo Report Ht (in): 59 Wt (lb): 131 Exam Location: Echo Lab Status: Emergency Non Destructive Testing Technician: Estella Ross Indications: Procedure Performed: BP: 113 / 67 HR: 81 MEASUREMENTS (Male / Female) Normal Values 2D ECHO LV Diastolic Diameter PLAX 5.2 cm 4.2 - 5.9 / 3.9 - 5.3 cm LV Systolic Diameter PLAX 3.5 cm IVS Diastolic Thickness 0.7 cm 0.6 - 1.0 / 0.6 - 0.9 cm LVPW Diastolic Thickness 0.7 cm 0.6 - 1.0 / 0.6 - 0.9 cm LV Relative Wall Thickness 0.3 LVOT Diameter 1.7 cm Aortic Root Diameter 2.5 cm LA Systolic Diameter LX 3.3 cm 3.0 - 4.0 / 2.7 - 3.8 cm LV Ejection Fraction MOD BP 51.5 % >= 55 % LV Cardiac Index MOD BP 2195.5 cm?/min?m? LV Ejection Fraction MOD 4C 53.9 % LV Cardiac Index MOD 4C 2205.7 cm?/min?m? LV Ejection Fraction 4C AL 56.2 % LV Cardiac Index 4C AL 2411.8 cm?/min?m? LV Ejection Fraction MOD 2C 49.9 % LV Cardiac Index MOD 2C 2210.7 cm?/min?m? LV Ejection Fraction 2C AL 52.2 % LV Cardiac Index 2C AL 2359.7 cm?/min?m? LA Volume Index 23.9 cm?/m? 16 - 28 cm?/m? Ascending Aorta Diameter 2.4 cm M-MODE Aortic Root Diameter MM 2.4 cm LA Systolic Diameter MM 3.4 cm LA Ao Ratio MM 1.4 AV Cusp Separation MM 1.5 cm DOPPLER AV Peak Velocity 122.0 cm/s AV Peak Gradient 6.0 mmHg AV Mean Gradient 3.0 mmHg AV Velocity Time Integral 24.9 cm LVOT Peak Velocity 93.8 cm/s LVOT Peak Gradient 3.5 mmHg LVOT Velocity Time Integral 21.3 cm LVOT Cardiac Index 2462.7 cm?/min?m? AV Area Cont Eq vti 1.9 cm? AV Area Cont Eq pk 1.7 cm? MV Area PHT 3.8 cm? MR Peak Velocity 357.0 cm/s MR Peak Gradient 51.0 mmHg Mitral E Point Velocity 66.0 cm/s Mitral A Point Velocity 64.0 cm/s Mitral E to A Ratio 1.0 LV E' Lateral Velocity 6.5 cm/s Mitral E to LV E' Lateral Ratio 10.1 LV E' Septal Velocity 6.4 cm/s Mitral E to LV E' Septal Ratio 10.3 TR Peak Velocity 211.0 cm/s TR Peak Gradient 17.8 mmHg PV Peak Velocity 77.4 cm/s PV Peak Gradient 2.4 mmHg FINDINGS Left Ventricle Normal left ventricular size, wall thickness, systolic function with no obvious regional wall motion abnormalities.there is grade I diastolic dysfunction of the left ventricle (impaired relaxation pattern). The ejection fraction is visually estimated at 50-55 %. Right Ventricle The right ventricle is normal in size and systolic function. The estimated right ventricular systolic pressure, 26mmHg. Left Atrium The left atrium is normal by two-dimensional, color flow and Doppler imaging with no structural abnormalities, no thrombus formation present. Right Atrium The right atrium is normal by two-dimensional imaging, color flow and Doppler imaging with no structural abnormalities, no thrombus formation present. Atrial Septum The interatrial septum appears normal with no evidence of a shunt. Aorta The aorta is normal by two-dimensional, color flow and Doppler interrogation. Mitral Valve The mitral valve is normal by two-dimensional, color flow and Doppler interrogation. Mild mitral regurgitation. Aortic Valve There is no significant aortic valve regurgitation. Tricuspid Valve The tricuspid valve is normal by two-dimensional, color flow and Doppler interrogation. There is mild tricuspid valve regurgitation. Pulmonic Valve The pulmonic valve is not well visualized. There is no significant pulmonic valve regurgitation. Vessels The pulmonary artery appears normal. The inferior vena cava pulmonary and hepatic veins appear normal. Pericardium The pericardium is normal by two-dimensional imaging. There is no significant pericardial effusion. CONCLUSIONS Indication:Bradycardia Normal LV size and function.Grade I diastolic dysfunction. Estimated EF 55-60%. Normal RV size and function. Mildly elevated RVSP from 30 to 35 mmHg. Mild MR, Mild TR. No pericardial effusion Sukhdev Figueroa (Electronically Signed) Final Date: 05 February 2025 01:14
[2025-02-03 07:40] LABS: Base Excess -10 (-3-3); HCO3 18 mEq/L (20-26); Inspired Oxygen, FIO2 80 %; O2 Saturation 99 % (91-98); PCO2 49 mmHg (32.0-48.0); PO2 168 mmHg (83-108)
[2025-02-03 07:43] LABS: Allen Test Performed/OK; Puncture Site Left Radial; pH, Arterial 7.18 (7.35-7.45)
[2025-02-03 07:50] LABS: Base Excess, Venous -9 (-3-3); O2 Saturation, Venous 99 % (96-97); PCO2, Venous 37 mmHg (36-56); PO2, Venous 110 mmHg (15-58); pH, Venous 7.28 (7.33-7.66)
--- NOTE | 2025-02-03 08:12 | ESPR_ITS ---
Documentation for date of: 02/03/25 Subjective Subjective Interval history: This is a 69yo F who was found down at 1am in her house. A neighbor found her on the floor unresponsive and she had apparently fallen and hit her head. EMS was called and the pt was brought into the ER. On arrival she was noted to be altered and febrile with a temp of 105.8. Initial labs showed a metabolic acidosis with appropriate respiratory compensation. She became progressively more lethargic and obtunded as the night progressed. At 6am she was unresponsive and hypotensive. She was given a total of 2.5lts of IVF in the ER and intubated. She was started on vasopressor support and a central line was placed. Pt was brought up to the ICU. A bedside echo was done which showed a hyperdynamic LV with no pericardial effusion. SvO2 was sent off of the brown port from the central line and pt was given vanc/zosyn. A cheeta was placed for hemodynamics and PLR performed. pt was found to not be fluid responsive. There are no family available for additional information. pts s/o 2 months ago and there is no immediate family around. Critical Care Note Critical care time (min.): 80 Exam Vital Signs Temp Pulse Resp BP Pulse Ox O2 Del Method O2 Flow Rate 98.1 F 132 H 32 H 110/75 100 Mechanical Ventilation 11 02/03/25 07:49 02/03/25 07:49 02/03/25 07:49 02/03/25 07:49 02/03/25 07:49 02/03/25 07:49 02/03/25 05:00 FiO2 80 02/03/25 07:49 Narrative Exam Gen- intubated, not on sedation, obese, ill appearing, GCS 6T HEENT- NC, hematoma on R frontal area, bruising and echymosis over R eye, oral mucosa hydrated, sclera icteric, PERRL, ETT/OGT in place Chest- LCTAB, HRRR, no increase in WOB Abd- s/nt/bs+ sluggish, no rebound Ext- mottling to knees, pulses palp, no clubbing, no focal deficits Drips levophed Physical Exam Completion Physical Exam Complete?: Yes 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 02/04/25 12:02 02/04/25 12:02 Labs: Laboratory Results - last 24 hr 02/03/25 02/03/25 02/03/25 02:05 02:10 02:14 WBC 7.3 RBC 2.88 L Hgb 10.9 L Hct 32.3 L MCV 112 H MCH 37.8 H MCHC 33.7 RDW Std Deviation 80.3 H Plt Count 61 L Neut % (Auto) 72 Lymph % (Auto) 22 [place] % (Auto) 2 Eos % (Auto) 1 Baso % (Auto) 1 Neut # (Auto) 5.3 Lymph # (Auto) 1.6 [place] # (Auto) 0.2 Eos # (Auto) 0.1 Baso # (Auto) 0.1 Immature Gran # (Auto) 0.14 H Absolute Nucleated RBC 0.05 H Immature Gran % 2 H Nucleated RBC % 1 H Smear Path Review Sent to Pathologist PT 18.6 H INR 1.8 H APTT 41.3 H Puncture Site ABG pH ABG pCO2 ABG pO2 ABG HCO3 ABG O2 Saturation ABG Base Excess VBG pH VBG pCO2 VBG pO2 VBG O2 Sat (Joelle) VBG Base Excess Oxygen Liter Flow FiO2 Sodium 133 L Potassium 4.9 Chloride 101 Carbon Dioxide < 10.0 L* Anion Gap 22 H BUN 13 Creatinine 1.4 H Estim Creat Clear Calc 30.3 L eGFR 41 L BUN/Creatinine Ratio 9 L Glucose 84 Calculated Osmolality 265 L Lactic Acid 15.0 H* Calcium 7.9 L Corrected Calcium 9.1 Phosphorus 3.8 Magnesium 1.4 L Total Bilirubin 15.9 H AST 241 H ALT 58 H Alkaline Phosphatase 301 H Ammonia Lactate Dehydrogenase 518 H Troponin I 0.077 H* B-Natriuretic Peptide 487 H* Total Protein 7.0 Albumin 2.5 L Globulin 4.5 H Albumin/Globulin Ratio 0.6 L Lipase 64 H Procalcitonin 7.47 H Ur Collection Type Clean Catch Urine Color Drk-Yellow A Urine Clarity Turbid A Urine pH 6.0 Ur Specific [place] 1.013 Urine Protein 1+ A Urine Glucose (UA) Negative Urine Ketones Trace Urine Blood 2+ A Urine Nitrite Positive Urine Bilirubin 4+ A Urine Urobilinogen (Auto) 2.0 Ur Leukocyte Esterase Positive Urine RBC 3 Urine WBC 80 H Ur Squamous Epith Cells 1 Urine Bacteria 4+ A Misc Test Result Platelets confirmed 02/03/25 02/03/25 02/03/25 02:47 06:09 06:54 WBC RBC Hgb Hct MCV MCH MCHC RDW Std Deviation Plt Count Neut % (Auto) Lymph % (Auto) [place] % (Auto) Eos % (Auto) Baso % (Auto) Neut # (Auto) Lymph # (Auto) [place] # (Auto) Eos # (Auto) Baso # (Auto) Immature Gran # (Auto) Absolute Nucleated RBC Immature Gran % Nucleated RBC % Smear Path Review PT INR APTT Puncture Site Right Radial Right Radial ABG pH 7.25 L 7.00 L* D ABG pCO2 18 L* 63 H D ABG pO2 192 H 149 H D ABG HCO3 8 L* 15 L ABG O2 Saturation 100 H 98 ABG Base Excess -17 L -16 L VBG pH VBG pCO2 VBG pO2 VBG O2 Sat (Joelle) VBG Base Excess Oxygen Liter Flow 10 FiO2 21 Sodium Potassium Chloride Carbon Dioxide Anion Gap BUN Creatinine Estim Creat Clear Calc eGFR BUN/Creatinine Ratio Glucose Calculated Osmolality Lactic Acid 14.5 H* Calcium Corrected Calcium Phosphorus Magnesium Total Bilirubin AST ALT Alkaline Phosphatase Ammonia 61 H Lactate Dehydrogenase Troponin I B-Natriuretic Peptide Total Protein Albumin Globulin Albumin/Globulin Ratio Lipase Procalcitonin Ur Collection Type Urine Color Urine Clarity Urine pH Ur Specific [place] Urine Protein Urine Glucose (UA) Urine Ketones Urine Blood Urine Nitrite Urine Bilirubin Urine Urobilinogen (Auto) Ur Leukocyte Esterase Urine RBC Urine WBC Ur Squamous Epith Cells Urine Bacteria Misc Test Result 02/03/25 02/03/25 07:19 07:30 WBC RBC Hgb Hct MCV MCH MCHC RDW Std Deviation Plt Count Neut % (Auto) Lymph % (Auto) [place] % (Auto) Eos % (Auto) Baso % (Auto) Neut # (Auto) Lymph # (Auto) [place] # (Auto) Eos # (Auto) Baso # (Auto) Immature Gran # (Auto) Absolute Nucleated RBC Immature Gran % Nucleated RBC % Smear Path Review PT INR APTT Puncture Site Left Radial ABG pH 7.18 L* D ABG pCO2 49 H D ABG pO2 168 H ABG HCO3 18 L ABG O2 Saturation 99 H ABG Base Excess -10 L VBG pH 7.28 L VBG pCO2 37 VBG pO2 110 H VBG O2 Sat (Joelle) 99 H VBG Base Excess -9 L Oxygen Liter Flow FiO2 80 Sodium Potassium Chloride Carbon Dioxide Anion Gap BUN Creatinine Estim Creat Clear Calc eGFR BUN/Creatinine Ratio Glucose Calculated Osmolality Lactic Acid Calcium Corrected Calcium Phosphorus Magnesium Total Bilirubin AST ALT Alkaline Phosphatase Ammonia Lactate Dehydrogenase Troponin I B-Natriuretic Peptide Total Protein Albumin Globulin Albumin/Globulin Ratio Lipase Procalcitonin Ur Collection Type Urine Color Urine Clarity Urine pH Ur Specific [place] Urine Protein Urine Glucose (UA) Urine Ketones Urine Blood Urine Nitrite Urine Bilirubin Urine Urobilinogen (Auto) Ur Leukocyte Esterase Urine RBC Urine WBC Ur Squamous Epith Cells Urine Bacteria Misc Test Result Assessment & Plan Additional Plan Additional Plan: In brief this is a 69yo F admitted to the ICU with distributive 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 on vanc/zosyn, likely sepsis, bcx, sputum and ucx taken and pending. LA elevated -> given IVF - on levophed, start vasopressin if we reach moderate dose levophed Tropinemia- likely related to demand ischemia, fu on repeat, EKG without ST elevation or depression Resp Acute resp failure- intubated and on MV, fu with ABG and CXR Renal HypoNa- mild, monitor, in the setting of cirrhosis AGMA- 2/2 LA - initial ABG shows an appropriate respiratory compensation, fu ABG shows respiratory failure with a resp acidosis - breaux formula calculated HIRA- minimal UOP, monitor i/os - ? of hepatorenal therefore started on albumin, octreotide and on vasopressor support - check urine lytes - has received IVF HypoMg- replete with IV mag GI Cirrhosis- started on lactulose and rifaxamin - elevated LFTs - check viral hep panel - alcohol level added on Liver masses- check an AFP, will need eval for HCC hypoalbuminemia- in the setting of cirrhosis - check uprotein/cr ratio Endo stable Heme Anemia macrocytic- check b12/folate thrombocytopenia- in the setting of sepsis and cirrhosis Coagulopathy- INR of 1.8, monitor DVT proph- heparin [id number] ID UTI- on vanc/zosyn case d/w ICU team and ER labs, imaging, records reviewed ~ 80ccmin required for eval, exam, review, interention, discussion and formulation of POC for this critically ill pt in septic shock Provider Notation Provider Notation: Although this document has been carefully reviewed, there may still be some phonetic and other typographical errors. These errors are purely grammatical due to imperfections in the software program and should not be construed in any way to compromise the substance of the patient's medical care during this visit. Thank you for the opportunity and privilege in assisting you with this patient's care and management.
[2025-02-03] MEDS: ALBUMIN HUMAN 25% IVPB 25 GM/100 ML BTL IV ×5 (08:17→23:13)
[2025-02-03 08:18] LABS: Alanine Aminotransferase 145 U/L (10-49); Albumin, Serum 2.0 gm/dL (3.4-4.8); Albumin/Globulin Ratio 0.6 (1.2-2.2); Alkaline Phosphatase 261 U/L (46-116); Anion Gap 21 (7-16); Aspartate Amino Transferase 696 U/L (0-34); BUN/Creatinine Ratio 8 Ratio (12-20); Bilirubin,Total 13.2 mg/dL (0.3-1.2); Blood Urea Nitrogen 12 mg/dL (9-23); Calcium 7.1 mg/dL (8.3-10.6); Calcium (Corrected) 8.7 mg/dL (8.5-10.1); Carbon Dioxide 16.7 mMol/L (20.0-31.0); Chloride 102 mMol/L (98-107); Creatinine (Component) 1.6 mg/dL (0.6-1.3); Estimated Creatinine Clearance 26.5 mL/min (>60); Globulin 3.5 gm/dL (2.3-3.5); Glucose 80 mg/dL (74-106); Osmolality,Calculated 278 (275-295); Potassium 3.2 mMol/L (3.4-5.1); Sodium 140 mMol/L (136-145); Total Protein 5.5 gm/dL (5.7-8.2); eGFR 35 See Note
--- NOTE | 2025-02-03 08:56 | XR_ITS ---
Examination: AP chest single view TECHNIQUE: Portable AP sitting chest single view Date and time: February 03, 2025 0943 hours Comparison chest film today 0809 hours INDICATIONS: Hypoxic respiratory failure, repositioned tracheal tube. FINDINGS: Endotracheal tube tip 25 mm above marzena Minor atelectasis left base Right internal jugular central line tip right atrium Orogastric tube in the distal stomach versus duodenal bulb IMPRESSION: Endotracheal tube tip 25 mm above marzena
[2025-02-03] MEDS: PIPER/TAZO 2.25 GM 2.25 GM/50 ML BAG IV ×4 (09:15→23:13)
[2025-02-03] MEDS: Magnesium Sulfate 4 GM Ivpb 4 GM/50 ML BAG IV (09:15)
[2025-02-03] MEDS: VANCOMYCIN/WATER 1GM IVPB 200 ML IV (09:18)
[2025-02-03] MEDS: LACTULOSE SYRUP 20 GM/30 ML UDC NG (09:43)
--- NOTE | 2025-02-03 09:48 | PC.CC ---
0800-ASW attempted to complete an initial with pt; however, upon arriving to the bedside, pt was in the process of being intubated. ASW received a call from the pts tenant named Ivania [phone]. Ivania stated she found her landlord on the grass this morning and called the ambulance immediately. Ivania stated the pts spouse about 3 months ago and since the, the pt has been drinking non-stop daily. Ivania reported the pt drinks beer and hard liquor. Ivania reported the pt has brother who resides in [facility], but does not know his name or how to get a hold of him. Ivania reported that the pt has a man who lives with her and she will contact him to ask if he is related or if he can reach any family members. Ivania stated she will call back with any information she is able to find out. It should be known that Ivania stated the pt fell this morning around 12am, was not witnessed by Ivania, but was told to her by the person who lives with the pt. It should also be known that the person listed on the face sheet as Next of Kin is her .
--- NOTE | 2025-02-03 11:04 | PC.SS ---
PHYSICIAN OBSTETRICIAN conducted phone contact with patient?s friend Ivania Suarez .? Friend, Ivania Suarez; reports possessing acquaintance with patient for approximately 11 (+) years.? Patient?s spouse approximately 3 months ago.? Patient now possesses new roommate, friend of spouse.? Per friend, patient possesses a brother who resides in the [facility].? Friend, Ivania; does not possess contact information for patient?s brother.? Friend, Ivania; also relayed that the patient possesses a son who resides in [facility], no contact information available for patient?s son.? Friend, Ivania; expressed to PHYSICIAN OBSTETRICIAN willingness to be POC for the patient.? Friend, Ivania; will notify PHYSICIAN OBSTETRICIAN if able to obtain contact information for the patient?s brother.? PHYSICIAN OBSTETRICIAN updated ICU bedside nurse.
--- NOTE | 2025-02-03 11:12 | PC.SS ---
CONCRETE TILE MACHINE OPERATOR conducted phone contact with patient?s friend Ivania Suarez to conduct initial assessment on behalf of the patient.? Patient resides at home with roommate.? Patient utilizes a walker to assist with ambulation.? Patient does not utilize home oxygen.? Patient requires assistance with completion of ADL?s.? Friend assists the patient with meal preparation and transport.? Designation of surrogate medical decision maker is pending.? Friend attempting to obtain contact information to patient?s brother.? Patient?s PCP is Dr. Back JEREMÍAS.? Unknown if patient possesses any specialty providers.? financial services representative will discuss discharge needs at an appropriate future time.? No further intervention required at this time, social work manager will be available to address any further concerns.? POC: Ivania Suarez D/C Plan: Pending
--- NOTE | 2025-02-03 11:25 | PD.RESHP ---
Documentation for date of: 02/03/25 [facility] History of Present Illness Chief complaint: Altered sensorium History of present illness: Patient is intubated and mechanically ventilated so most of the history is taken from the chart review. 69-year-old female with unknown past medical history was brought to the hospital in view of altered sensorium. Per nurse, patient probably had a fall the day before admission in the morning following which she was okay until the neighbors blood to recheck her in the evening, found to be unconscious for which they called the EMS and was brought to the hospital. In the ED, patient is minimally responsive with marked icterus and periorbital contusion. Patient was found to be hypoxic with oxygen saturation in the mid 80s and was initially placed on a nonrebreather mask with correction of hypoxia. Later patient was found to be tachycardic with heart rate around 140s and febrile with a temperature of 105.8 ?F. Patient was intubated in view of acute encephalopathy and hypoxia. ICU is consulted in view of acute hypoxic respiratory failure in the setting of acute encephalopathy and suspected septic shock. In the ED, patient received 1 dose of acetaminophen 650 mg per rectum. 1 L LR bolus followed by 1.5 L of NS bolus in view of suspected septic shock. Initial labs revealed hemoglobin 10.9, platelets 61, INR 1.8, sodium 133, bicarb less than 10, anion gap 22, BUN 13, creatinine 1.4, lactic acid 15, magnesium 1.4, total bilirubin 15.9, AST 241, ALT 58, albumin 2.5, procalcitonin 7.47. EKG showed sinus tachycardia with no acute ST and T wave changes chest x-ray showed bilateral increased vascularity. Abdomen/pelvis CT showed cirrhosis, mild to moderate ascites, absent gallbladder. Cervical spine CT, face CT, head CT, thoracic spine CT, lumbar spine CT did not show any acute fractures. Abdominal ultrasound showed no CBD stones. Initial chest x-ray done showed endotracheal tube tip 2.5 cm in the right mainstem bronchus with atelectasis of the left lung following which the endotracheal tube is retacted and repeat chest x-ray was done that showed minor atelectasis of the left base. Patient is admitted to ICU in view of septic shock, possible decompensated cirrhosis, HIRA. Review of Systems Review of Systems ROS Unobtainable: unobtainable due to mental status, unobtainable due to medical condition and due to endotracheal tube Exam Vital Signs Temp Pulse Resp BP Pulse Ox O2 Del Method O2 Flow Rate 98.1 F 113 H 31 H 113/78 100 Mechanical Ventilation 11 02/03/25 07:49 02/03/25 10:15 02/03/25 10:15 02/03/25 10:15 02/03/25 10:15 02/03/25 07:49 02/03/25 05:00 FiO2 80 02/03/25 07:49 Narrative Exam General: Sedated and mechanically ventilated HEENT: Normocephalic, atraumatic, mucous membranes moist.Noted to have right frontal hematoma and ecchymosis on the right eye. Noted to have dislocated teeth. Heart: Regular rate and rhythm, no murmurs. Lungs: Clear to auscultation with no wheezing or crackles.Noted to have decreased breath sounds on the left side Abdomen: Soft, moderately distended, nontender, positive bowel sounds. ?No guarding or rebound tenderness. Neurologic:Sedated and mechanically ventilated Extremities: No edema. Noted all peripheral pulses Skin: Noted to have ecchymotic patches on the right side of the abdomen and also on the right hand from the IV catheterization Results: Labs 02/04/25 12:02 02/04/25 18:50 Labs: Short CBC 02/03/25 Range/Units 02:05 WBC 7.3 (3.6-11.0) Thou/mm3 Hgb 10.9 L (12.0-16.0) g/dL Hct 32.3 L (36.0-46.0) % Plt Count 61 L (140-440) Thou/mm3 BMP 02/03/25 02/03/25 02:05 07:30 Sodium 133 L 140 Potassium 4.9 3.2 L D Chloride 101 102 Carbon Dioxide < 10.0 L* 16.7 L BUN 13 12 Creatinine 1.4 H 1.6 H Glucose 84 80 Calcium 7.9 L 7.1 L Cardiac Enzymes 02/03/25 Range/Units 02:05 Troponin I 0.077 H* (0.0-0.045) ng/mL Liver Function 02/03/25 02/03/25 Range/Units 02:05 07:30 Total Bilirubin 15.9 H 13.2 H D (0.3-1.2) mg/dL AST 241 H 696 H* (0-34) U/L ALT 58 H 145 H (10-49) U/L Alkaline Phosphatase 301 H 261 H D (46-116) U/L Albumin 2.5 L 2.0 L D (3.4-4.8) gm/dL Urine 02/03/25 Range/Units 02:14 Urine Color Drk-Yellow A (Lt Yel-Yel) Urine Clarity Turbid A (Clear/Hazy) Urine pH 6.0 (5.0-7.0) Ur Specific [place] 1.013 (1.001-1.035) Urine Protein 1+ A (Neg - Trace) Urine Glucose (UA) Negative (Negative) ABG Interpretation ABG results: 02/03/25 02/03/25 02/03/25 02:47 06:09 07:19 ABG pH 7.25 L 7.00 L* D 7.18 L* D ABG pCO2 18 L* 63 H D 49 H D ABG pO2 192 H 149 H D 168 H ABG HCO3 8 L* 15 L 18 L ABG O2 Saturation 100 H 98 99 H ABG Base Excess -17 L -16 L -10 L VBG pH VBG pCO2 VBG pO2 VBG Base Excess 02/03/25 07:30 ABG pH ABG pCO2 ABG pO2 ABG HCO3 ABG O2 Saturation ABG Base Excess VBG pH 7.28 L VBG pCO2 37 VBG pO2 110 H VBG Base Excess -9 L Quality Measures Quality Measures sepsis Current suspected stage: septic shock (LA >4 and/or hypotension) Sepsis reassessment completed at (date): 02/03/25 Sepsis reassessment completed at (time): 15:00 Possible source: genitourinary Blood cultures ordered: yes Antibiotic ordered: Yes Advance care planning discussed with:: patient Medications Home Medications and Allergies Home Medications ?Medication ?Instructions ?Recorded ?Confirmed ?Type No Known Home Medications 10/18/23 10/18/23 History Allergies Allergy/AdvReac Type Severity Reaction Status Date / Time No Known Allergies Allergy Verified 10/18/23 07:36 Visit Medications Acetaminophen (Acetaminophen Supp 650 Mg Supp) 650 mg DC Q4HR PRN PRN Reason: PAIN SCALE 1-3 (mild Stop: 03/05/25 07:32 Norepinephrine/Dextrose (Levophed In D5w 8mg/250ml) 8 mg in 250 mls @ 5.606 mls/hr IV .Q24H PRN; Protocol PRN Reason: PER PROTOCOL Stop: 03/05/25 06:01 Last Titration: 02/03/25 06:30 Dose: 0.2 mcg/kg/min, 22.425 mls/hr Sodium Bicarbonate 150 meq/ (Dextrose) 1,150 mls @ 200 mls/hr IV .[id number] JAYRO Stop: 03/05/25 06:16 Last Infusion: 02/03/25 07:15 Dose: 0 mls/hr Dexmedetomidine/Sodium Chloride (Precedex Ivpb) 400 mcg in 100 mls @ 2.99 mls/hr IV .Q24H PRN; Protocol PRN Reason: Per PROTOCOL Stop: 03/05/25 06:50 Albumin Human (Albuminar-25 Ivpb) 25 gm in 100 mls @ 100 mls/hr IV QDAY JAYRO Stop: 02/06/25 08:59 Last Admin: 02/03/25 09:17 Dose: 100 mls/hr Magnesium Sulfate (Magnesium Sulfate Ivpb) 4 gm in 50 mls @ 12.5 mls/hr IV X1 ONE Stop: 02/03/25 11:36 Last Admin: 02/03/25 09:15 Dose: 12.5 mls/hr Piperacillin/Tazobactam/Dextrose (Zosyn) 2.25 gm in 50 mls @ 100 mls/hr IV Q6HR JAYRO Stop: 02/10/25 11:59 Albumin Human (Albuminar-25 Ivpb) 25 gm in 100 mls @ 100 mls/hr IV Q6HR JAYRO Stop: 02/06/25 11:59 Potassium Chloride (Kcl Ivpb) 20 meq in 100 mls @ 50 mls/hr IV Q2H JAYRO Stop: 02/03/25 15:16 Octreotide Acetate 1,000 mcg/ (Sodium Chloride) 102 mls @ 5.1 mls/hr IV .Q20H JAYRO; Protocol Stop: 02/08/25 11:19 Lactulose (Lactulose Syrup 20 Gm/30 Ml Udc) 30 gm NG TID JAYRO; Protocol Stop: 03/05/25 13:59 Ondansetron HCl (Ondansetron Inj 2 Mg/Ml Inj 2 Ml) 4 mg IVP Q6HR PRN; Protocol PRN Reason: NAUSEA OR VOMITING Stop: 03/05/25 02:02 Pantoprazole Sodium (Pantoprazole Inj 40 Mg Vial) 40 mg IVP QDAY [facility] Stop: 03/05/25 08:59 Last Admin: 02/03/25 09:42 Dose: 40 mg Pharmacy Consult (Pharmacy Renal Dose Adjustment 1 Ea) 1 each XX PRN PRN PRN Reason: CONSULT Stop: 03/05/25 02:02 Discontinued Medications Acetaminophen (Acetaminophen Supp 650 Mg Supp) 650 mg DC X1 ONE Stop: 02/03/25 01:57 Last Admin: 02/03/25 02:05 Dose: 650 mg Acetaminophen (Acetaminophen Supp 650 Mg Supp) 650 mg DC Q8HR PRN PRN Reason: Fever > 100.4 Stop: 03/05/25 01:57 Lactated Ringer's (Lactated Ringers) 1,000 mls @ 999 mls/hr IV .Q1H1M ONE Stop: 02/03/25 02:57 Last Infusion: 02/03/25 03:06 Dose: Infused Piperacillin/Tazobactam/Dextrose (Zosyn) 3.375 gm in 50 mls @ 100 mls/hr IV X1 ONE Stop: 02/03/25 02:27 Last Infusion: 02/03/25 02:53 Dose: Infused Sodium Bicarbonate 150 meq/ (Dextrose) 1,150 mls @ 100 mls/hr IV .[id number] [facility] Stop: 03/05/25 03:37 Last Admin: 02/03/25 04:45 Dose: Not Given Sodium Bicarbonate 150 meq/ (Dextrose) 1,150 mls @ 75 mls/hr IV .[id number] [facility] Stop: 03/05/25 03:40 Last Infusion: 02/03/25 07:15 Dose: 0 mls/hr Sodium Chloride (Ns) 500 mls @ 500 mls/hr IV .Q1H ONE Stop: 02/03/25 07:23 Last Infusion: 02/03/25 07:53 Dose: Infused Sodium Chloride (Ns) 500 mls @ 1,000 mls/hr IV .Q30M ONE Stop: 02/03/25 07:05 Last Infusion: 02/03/25 07:52 Dose: Infused Vancomycin HCl (Vancomycin/Water 1gm Ivpb) 200 mls @ 120 mls/hr IV X1 ONE Stop: 02/03/25 08:23 Last Admin: 02/03/25 09:18 Dose: 120 mls/hr Albumin Human (Albuminar-25 Ivpb) 25 gm in 100 mls @ 100 mls/hr IV X1 ONE Stop: 02/03/25 08:35 Last Admin: 02/03/25 08:17 Dose: 100 mls/hr Piperacillin/Tazobactam/Dextrose (Zosyn) 2.25 gm in 50 mls @ 100 mls/hr IV X1 ONE; Protocol Stop: 02/03/25 08:14 Last Admin: 02/03/25 09:15 Dose: 100 mls/hr Lactulose (Lactulose Syrup 20 Gm/30 Ml Udc) 20 gm NG TID JAYRO; Protocol Stop: 03/05/25 07:44 Last Admin: 02/03/25 09:43 Dose: 20 gm Lactulose (Lactulose Syrup 20 Gm/30 Ml Udc) 10 gm NG X1 ONE; Protocol Stop: 02/03/25 11:21 Midazolam HCl (Midazolam Inj 1 Mg/Ml Vial 2 Ml) 5 mg IVP X1 ONE Stop: 02/03/25 07:05 Last Admin: 02/03/25 07:09 Dose: Not Given Propofol (Propofol Inj 10 Mg/Ml Vial 20 Ml) 90 mg IV X1 ONE Stop: 02/03/25 06:49 Last Admin: 02/03/25 07:02 Dose: 90 mg Rocuronium [place] (Rocuronium Inj 10 Mg/Ml Vial 10 Ml) 70 mg IV X1 ONE Stop: 02/03/25 06:49 Last Admin: 02/03/25 07:02 Dose: 70 mg Sodium Bicarbonate (Sodium Bicarb Inj 8.4% 1 Meq/Ml 50 Ml Vial) 50 meq IV X1 ONE Stop: 02/03/25 03:27 Last Admin: 02/03/25 03:33 Dose: 50 meq Sodium Bicarbonate (Sodium Bicarb Inj 8.4% 1 Meq/Ml 50 Ml Vial) 50 meq IV X1 ONE Stop: 02/03/25 03:27 Last Admin: 02/03/25 03:33 Dose: 50 meq Sodium Bicarbonate (Sodium Bicarb Inj 8.4% 1 Meq/Ml 50 Ml Vial) 50 meq IV X1 ONE Stop: 02/03/25 06:18 Last Admin: 02/03/25 06:25 Dose: 50 meq Sodium Bicarbonate (Sodium Bicarb Inj 8.4% 1 Meq/Ml 50 Ml Vial) 50 meq IV X1 ONE Stop: 02/03/25 06:19 Last Admin: 02/03/25 06:25 Dose: 50 meq Assessment & Plan Plan 69-year-old female with unknown past medical history was brought to the hospital in view of altered sensorium. Per nurse, patient probably had a fall the day before admission in the morning following which she was okay until the neighbors blood to recheck her in the evening, found to be unconscious for which they called the EMS and was brought to the hospital. In the ED, patient is minimally responsive with marked icterus and periorbital contusion. Patient was found to be hypoxic with oxygen saturation in the mid 80s and was initially placed on a nonrebreather mask with correction of hypoxia. Later patient was found to be tachycardic with heart rate around 140s and febrile with a temperature of 105.8 ?F. Patient was intubated in view of acute encephalopathy and hypoxia. ICU is consulted in view of acute hypoxic respiratory failure in the setting of acute encephalopathy and suspected septic shock. 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 Could be possible cause of septic encephalopathy - Hepatic encephalopathy. Patient has stigmata of chronic liver failure. Icterus, appears chronically ill, ascites. - Metabolic encephalopathy: Patient was found to have high anion gap metabolic acidosis with lactic acidosis at the time of presentation. -Sedation: Patient received rocuronium and propofol for the intubation. In the setting of the liver failure, there will be decreased platelets that could cause the sedation but patient was noted to be in altered sensorium even before coming to the hospital. So less likely the cause of acute encephalopathy Diagnosis: - In the ED, temperature is 105.8 ?F - Labs showed bicarb less than 10, anion gap 22, lactic acid 15, total bilirubin 15.9, AST 241, ALT 58 - CT head did not show any evidence of fracture/hemorrhage. Plan: - Started on empiric antibiotics, Zosyn 2.25 g every 8 hourly [02/03- - Started on lactulose 30 g 3 times daily, rifaximin 550 Mg twice daily - Currently on Precedex and fentanyl drip, will wean off if patient becomes hemodynamically stable and underlying condition is resolved - For metabolic acidosis, patient was given multiple doses of bicarb despite which patient remained acidotic and was started on CRRT CVS # Shock Differential diagnosis: Distributive versus hypovolemic versus obstructive versus cardiogenic - Distributive: Likely sepsis. Patient does not have any hives or airway edema which rules out anaphylaxis. Patient was noted to have temperature of 105.8 ?F. -Hypovolemic: History is unknown. No evidence of any recent severe GI bleed as the hemoglobin is stable - Obstructive versus cardiogenic:. Bedside echocardiogram was done and heart appears to be hyperdynamic without any evidence of cardiac tamponade or RV strain Diagnostic test: - Patient was found to have low MAP less than 65 mmHg despite fluid resuscitation - In the ED, temperature is 105.8 ?F - Labs showed bicarb less than 10, anion gap 22, lactic acid 15, total bilirubin 15.9, AST 241, ALT 58 - Procalcitonin is 7.47 Plan: - Blood and urine cultures were sent - Started on Zosyn [02/03- - 2.5 L of bolus was given in the ED - NICOM done at the bedside showed unresponsiveness to the fluid - Started on Levophed in view of low MAP - Started on albumin 25 g every 6 hourly - Arterial line is placed to measure blood pressure accurately - Patient was given a dose of hydrocortisone 100 mg # Sinus tachycardia - At the time of admission, patient was found to have pulse rate of 138 - EKG showed sinus tachycardia with no ST and T wave changes - Likely in response to the febrile episode Plan: - Patient was given 2.5 L of IV fluid bolus - Will continue telemetry monitoring # Elevated troponins Likely in the setting of demand ischemia -Troponin at the tie of admission is 0.077 - EKG showed sinus tachycardia with no ST and T wave changes - Will continue Telemetry monitoring - Very low suspicion of ACS at this point of time Respiratory # Acute hypoxic respiratory failure Likely multifactorial, in the setting of Acute encephalopathy and Sepsis - Patient came in with altered sensorium and found aline having mixed metabolic and respiratory acidosis - ABG at the time of admission is pH 7.25, pCO2 18, HCO3 8 - Patient is intubated in the ED for which she received Rocuronium and propofol Plan - Will continue mechanical ventilation - Will treat the underlying sepsis and shock - On precedex and fentanyl drip GI # Decompensated Cirrhosis with Ascites, cause unknown # Hyperbilirubinemia # Hypoalbuminemia - Patient came in altered sensorium and couldnt get much history - Noted icterus and abdominal distension at the time of admission - Labs showed hyperbilirubinemia, 15.9, AST 241, ALT 58, albumin 2.5, INR 1.8 - Noted to have previous history of hemorrhoids - CT Abdomen showed cirrhosis with ascites - MELD score is 29, 27 to 32% mortality in the next 90 days - Child class C Plan - Ordered hepatitis panel - Patient appears to have poor prognosis in the setting of high MELD score and Trista class C - If the patient improves after this acute setting, will recommend to follow-up for the liver transplant. # Transaminitis - At the time of admission, AST is 241, ALT is 58 - Repeat liver panel showed significant elevations transaminase levels to 696, 145 - Likely patient had ischemic hepatitis in the setting of ongoing shock Plan - Will start patient on CRRT in view of multiorgan dysfunction - Will continue to monitor liver enzymes # Hypoalbuminemia - Albumin at the time of admission is 2.5 - Patient was given 50 g of albumin at the time of admission Plan - Will will continue patient on 25 g albumin IV every 6 hourly Renal # Acute kidney injury - Baseline creatinine is 0.6 - Creatinine at the time of admission is 1.4 and patient appears to be oliguric with urine output less than 400 mL in the last 24 hours - Repeat renal functions showed continues uptrending creatinine and clinically patient is oliguric - Likely in the setting of ongoing shock, HRS cannot be ruled out at this time as the patient is having shock Plan - Dialysis catheter was placed in the right femoral vein - [employer] Teacher, Dr. Steward is consulted and will start on CRRT based on her recommendations. - Urine electrolytes sent - Will continue to monitor renal functions and renally dose medications # High anion gap metabolic acidosis # Lactic acidosis - Likely in the setting of ongoing shock and multiorgan dysfunction - Found to have bicarb less than 10, anion gap 22, lactate 15 at the time of admission Plan - Patient was given 2 doses of bicarb at the time of admission - Patient is started on CRRT - Will continue to monitor renal functions and trend lactate # Mild hyponatremia - Sodium at the time of the admission is 133 likely in the setting of chronic liver disease and ongoing HIRA Plan - Will monitor sodium levels and treat accordingly # Hypomagnesemia - Magnesium at the time of admission is 1.4, likely nutritional in the setting of suspected chronic liver disease Plan - Patient was repleted with 4 g of IV magnesium - Will continue to monitor the magnesium levels Hematology # Thrombocytopenia - Platelets at the time of admission is 61,000 but patient does not appear to be actively bleeding at this point of time - Likely in the setting of sepsis and chronic liver disease Plan - Will continue to monitor platelets and if patient develops any bleeding manifestations or if the platelet counts trend downward critically, we will consider transfusion ID # Sepsis - Blood cultures showed GNR bacteremia Plan - Started on Zosyn - Will wait for final cultures Musculoskeletal # No active problems as of now Endocrinology # No acute problems as of now Hospital Maintenance: Dispo: ICU for septic shock DVT ppx: SCD GI ppx: Protonix Diet: NPO for now IV lines: Right IJV CENTRAL line, Right femoral arterial and dialysis catheter Code status: Full Patient plan of care was discussed with the Superintendent Pipelines Dr. Aurelia Leslie, PGY2
[2025-02-03 11:27] LABS: Alcohol, Blood Medical < 10.0 mg/dL (0-10.0)
[2025-02-03] MEDS: POTASSIUM CHL 20 mEq IVPB 20 MEQ/100 ML BAG 50 MEQ IV ×2 (11:49→14:14)
[2025-02-03] MEDS: OCTREOTIDE ACET INJ 1,000 MCG in SODIUM CHLORIDE 0.9% 100 ML 5.1 MCG IV (11:50)
[2025-02-03] MEDS: LACTULOSE SYRUP 20 GM/30 ML UDC 10 GM NG (12:06)
[2025-02-03 13:43] LABS: Allen Test Performed/OK; Base Excess -13 (-3-3); HCO3 12 mEq/L (20-26); Inspired Oxygen, FIO2 50 %; O2 Saturation 100 % (91-98); PCO2 23 mmHg (32.0-48.0); PO2 159 mmHg (83-108); Puncture Site Right Radial; pH, Arterial 7.30 (7.35-7.45)
[2025-02-03] MEDS: LACTULOSE SYRUP 20 GM/30 ML UDC 30 GM NG ×2 (14:15→21:47)
[2025-02-03 14:27] LABS: Lactate (Lactic Acid) 18.0 mMol/L (0.4-2.0)
[2025-02-03 14:47] LABS: Alanine Aminotransferase 330 U/L (10-49); Albumin, Serum 2.7 gm/dL (3.4-4.8); Albumin/Globulin Ratio 0.8 (1.2-2.2); Alkaline Phosphatase 155 U/L (46-116); Anion Gap 27 (7-16); BUN/Creatinine Ratio 7 Ratio (12-20); Bilirubin,Total 15.1 mg/dL (0.3-1.2); Blood Urea Nitrogen 15 mg/dL (9-23); Calcium 7.4 mg/dL (8.3-10.6); Calcium (Corrected) 8.4 mg/dL (8.5-10.1); Chloride 101 mMol/L (98-107); Creatinine (Component) 2.1 mg/dL (0.6-1.3); Estimated Creatinine Clearance 20.2 mL/min (>60); Globulin 3.3 gm/dL (2.3-3.5); Glucose 51 mg/dL (74-106); Osmolality,Calculated 275 (275-295); Potassium 3.8 mMol/L (3.4-5.1); Sodium 139 mMol/L (136-145); Total Protein 6.0 gm/dL (5.7-8.2); eGFR 25 See Note
[2025-02-03] MEDS: DEXMEDETOMIDINE 400 MCG IVPB 400 MCG/100 ML BAG IV (14:49)
[2025-02-03 15:06] LABS: Carbon Dioxide 11.5 mMol/L (20.0-31.0)
[2025-02-03 15:07] LABS: Aspartate Amino Transferase 1657 U/L (0-34)
[2025-02-03] MEDS: fentaNYL CIT INJ 50 mCg/ML AMP 2ML IVP (15:20)
[2025-02-03] MEDS: fentaNYL 2,500 MCG/250 ML BAG 2,500 MCG/250 ML BAG IV (15:30)
[2025-02-03 15:43] LABS: AFP Non-Pregnant 3.30 ng/mL (<8.10); Hepatitis A Antibody IgM Non Reactive (Non React); Hepatitis B Core Antibody IgM Non Reactive (Non React); Hepatitis B Surface Antigen Non Reactive (Non React); Hepatitis C Antibody Non Reactive (Non React)
[2025-02-03 15:47] LABS: Peritoneal Fluid WBC 192 /cmm
[2025-02-03 15:48] LABS: Peritoneal Fluid Mononuclear 82 %; Peritoneal Fluid Polynuclear 18 %; RBC,Peritoneal Fluid 1000 /cmm
[2025-02-03 15:49] LABS: Peritoneal Fluid Appearance Hazy; Peritoneal Fluid Color Yellow
[2025-02-03] MEDS: MIDAZOLAM INJ 1 MG/ML VIAL 2 ML 2 MG IVP (15:58)
[2025-02-03 15:59] LABS: Folate 11.72 ng/mL (>5.38)
[2025-02-03 16:05] LABS: Albumin, Peritoneal Fluid 1.3 gm/dL; Amylase,Peritoneal Fluid 30 IU/L; Glucose,Peritoneal Fluid 80 mg/dL; Protein Total,Peritoneal Fluid 3 g/dL
[2025-02-03] MEDS: Norepinephrine/D5W 8mg/250ml 8 MG/250 ML BAG 31.395 MG IV (16:06)
[2025-02-03] MEDS: VASOPRESSIN IN NS IVPB 20 UNIT/100 ML BAG 9 UNIT IV (16:30)
[2025-02-03] MEDS: HYDROCORTISONE SOD SUCC INJ 100 MG 2 ML VIAL IV (16:30)
[2025-02-03 17:20] LABS: Reflex Lactate? Y
--- NOTE | 2025-02-03 17:32 | PC.SS ---
REGIONAL COORDINATOR met at bedside with patient's spouse previous career placement specialist, Rell Delgado . staker surveying informed REGIONAL COORDINATOR that he possessed regular contact with the patient including after expiration of patient's spouse. staker surveying confirmed that patient possessed a brother in [place] area but did not have contact information. staker surveying, Rell Delgado; inquired about being designated patient's POC. REGIONAL COORDINATOR shared that patient's friend Ivania Romeljean pierrepankaj listed as POC. REGIONAL COORDINATOR contacted Ivania Boucher to confirm transitioning POC to Rell Delgado. Ivania Boucher confirmed that Lorena Delgado was familiar with patient and had provided career placement specialist services to patient's spouse. Ivania Boucher agreed that Rell Delgado should by patient's POC. REGIONAL COORDINATOR updated ICU community health education coordinator and bedside nurse.
--- NOTE | 2025-02-03 17:37 | PD.RESCONSUL ---
HPI Data of Consult Consult date: 02/03/25 Requesting Physician: Aurelia Blake MD Admitting Provider: Aurelia Blake MD Attending Provider: Aurelia Blake MD Primary Care Provider: Jordan Back MD Consult Narrative Reason for consult: intractable lactic acidosis, cf HD History of present illness: unable to obtain history from patient as she is intubated. HPI per chart review I attempted to call the life partner number listed in chart, number not in service. Ms. Merino is a 69 yo woman with unknown past medical history, who was found down at 1 am by her neighbor, she was unresponsive and with head strike, facial contusions and fractured teeth noted, she was brought to the ED, where she had altered mental status, was febrile to 105. Pt became increasingly legargic and obtunded. Pt was assessed by the night IM team, who described her as ll-appearing, minimally responsive, with marked jaundice and right periorbital contusion. Initial labs notable for severe metabolic acidosis (pH 7.25, HCO3 8, AG 22, lactate 15), hyperbilirubinemia (15.9), transaminitis, coagulopathy (INR 1.8), HIRA (Cr 1.4 from baseline 0.7), and UA with pyuria and bacteriuria. Blood and urine cultures sent; patient started on broad-spectrum antibiotics. . CT head, cervical spine, and chest/abdomen/pelvis are pending, as is repeat ABG. Also gallbladder ultrasound still pending to rule in rule out acute cholangitis. ED gave 2.5 L fluids, and intubated pt. SHe was started on pressors, central line was placed and admitted to the ICU. ECHO demonstrated hyper dynamic LV wo pericardial effusion. SvO2 was sent off of the brown port from the central line and pt was given vanc/zosyn. A cheeta was placed for hemodynamics and PLR performed. pt was found to not be fluid responsive. There are no family available for additional information. pts s/o 2 months ago and there is no immediate family around. 02/03/2025 Nephrology consulted. Pt seen and examined at bedside in ICU. Pt with UE in restraints, severely jaundiced, sclera icteric, with + fluid wave. is intubated. R IJ and R fem line, art line with SBPs 140s. Pt on nor epi and vasopressin. Lactic acidosis uptrended to 18. Cr 2.1, egfr 25. AGMA. cirrhosis with shock liver, hep panel negative, UTI, on vanc and zosyn. Plan for CRRT today. cc:: cc: Aurelia Blake MD Review of Systems Review of Systems ROS Unobtainable: due to endotracheal tube Past Medical History Past Medical History NEUROLOGIC: Negative Seizures CARDIAC: Negative Congestive Heart Failure RESPIRATORY: Negative Chronic Obstructive Pulmonary Disease (COPD) GENITOURINARY: Negative Renal Disease MUSCULOSKELETAL: Positive Fractures ENDOCRINE: Negative Diabetes Mellitus Type 1 or Diabetes Mellitus Type 2 OTHER HISTORY: Negative Blood Transfusions, Blood Transfusion Reaction or Anesthesia Reactions Family History OTHER FAMILY HX: unable to obtain Surgical History OTHER SURGICAL HX: unable to obtain Social History SMOKING STATUS: Unknown if ever smoked Exam Vital Signs Temp Pulse Resp BP Pulse Ox O2 Del Method O2 Flow Rate 98.3 F 94 34 H 112/71 99 Mechanical Ventilation 11 02/03/25 16:00 02/03/25 17:10 02/03/25 17:10 02/03/25 17:10 02/03/25 17:10 02/03/25 16:00 02/03/25 05:00 FiO2 80 02/03/25 16:00 Narrative Exam GENERAL: pt intubated with UE in restraints, no acute distress. HEENT: Head AT/ NC. Mucous membranes moist. eyes icteric, R central line NECK: Supple, no lymphadenopathy, no carotid bruits. CARDIOVASCULAR: RRR. Normal S1/S2, No m/r/g. No pitting edema of bilateral LEs. RESPIRATORY: intubated on mechanical ventilation. lungs with crackles bilaterally GASTROINTESTINAL: Abdomen soft, non tender no palpable masses. Bowel sounds hypoactive, + fluid wave mildly distended , right fem cath MUSCULOSKELETAL:? No cyanosis or edema, no visible joint swelling. LE cold to touch, pulses palpable , UE with restraints, SCDs in place NEUROLOGICAL: unable to assess neuro fxn pt intubated SKIN: No obvious rashes, jaundice, normal turgor. Results Labs 02/03/25 02:05 02/03/25 23:32 Labs: Short CBC 02/03/25 Range/Units 02:05 WBC 7.3 (3.6-11.0) Thou/mm3 Hgb 10.9 L (12.0-16.0) g/dL Hct 32.3 L (36.0-46.0) % Plt Count 61 L (140-440) Thou/mm3 BMP 02/03/25 02/03/25 02/03/25 02:05 07:30 14:08 Sodium 133 L 140 139 Potassium 4.9 3.2 L D 3.8 D Chloride 101 102 101 Carbon Dioxide < 10.0 L* 16.7 L 11.5 L* BUN 13 12 15 Creatinine 1.4 H 1.6 H 2.1 H D Glucose 84 80 51 L Calcium 7.9 L 7.1 L 7.4 L Cardiac Enzymes 02/03/25 Range/Units 02:05 Troponin I 0.077 H* (0.0-0.045) ng/mL Liver Function 02/03/25 02/03/25 02/03/25 Range/Units 02:05 07:30 14:08 Total Bilirubin 15.9 H 13.2 H D 15.1 H D (0.3-1.2) mg/dL AST 241 H 696 H* 1657 H* (0-34) U/L ALT 58 H 145 H 330 H (10-49) U/L Alkaline Phosphatase 301 H 261 H D 155 H D (46-116) U/L Albumin 2.5 L 2.0 L D 2.7 L D (3.4-4.8) gm/dL Urine 02/03/25 Range/Units 02:14 Urine Color Drk-Yellow A (Lt Yel-Yel) Urine Clarity Turbid A (Clear/Hazy) Urine pH 6.0 (5.0-7.0) Ur Specific [place] 1.013 (1.001-1.035) Urine Protein 1+ A (Neg - Trace) Urine Glucose (UA) Negative (Negative) ABG Interpretation ABG results: 02/03/25 02/03/25 02/03/25 02:47 06:09 07:19 ABG pH 7.25 L 7.00 L* D 7.18 L* D ABG pCO2 18 L* 63 H D 49 H D ABG pO2 192 H 149 H D 168 H ABG HCO3 8 L* 15 L 18 L ABG O2 Saturation 100 H 98 99 H ABG Base Excess -17 L -16 L -10 L VBG pH VBG pCO2 VBG pO2 VBG Base Excess 02/03/25 02/03/25 07:30 13:32 ABG pH 7.30 L D ABG pCO2 23 L D ABG pO2 159 H ABG HCO3 12 L ABG O2 Saturation 100 H ABG Base Excess -13 L VBG pH 7.28 L VBG pCO2 37 VBG pO2 110 H VBG Base Excess -9 L Quality Measures Quality Measures sepsis Current suspected stage: septic shock (LA >4 and/or hypotension) Sepsis reassessment completed at (date): 02/03/25 Sepsis reassessment completed at (time): 18:00 Possible source: genitourinary Blood cultures ordered: yes Antibiotic ordered: Yes Advance care planning discussed with:: other (pt intubated, unable to contact family ) Medications Home Medications and Allergies Home Medications ?Medication ?Instructions ?Recorded ?Confirmed ?Type No Known Home Medications 10/18/23 10/18/23 History Allergies Allergy/AdvReac Type Severity Reaction Status Date / Time No Known Allergies Allergy Verified 10/18/23 07:36 Visit Medications Acetaminophen (Acetaminophen Supp 650 Mg Supp) 650 mg HI Q4HR PRN PRN Reason: PAIN SCALE 1-3 (mild Stop: 03/05/25 07:32 Hydrocortisone Sodium Succinate (Hydrocortisone Sod Succ Inj 100 Mg 2 Ml Vial) 50 mg IV Q6HR JAYRO Stop: 03/05/25 17:59 Norepinephrine/Dextrose (Levophed In D5w 8mg/250ml) 8 mg in 250 mls @ 5.606 mls/hr IV .Q24H PRN; Protocol PRN Reason: PER PROTOCOL Stop: 03/05/25 06:01 Last Titration: 02/03/25 17:15 Dose: 0.32 mcg/kg/min, 35.88 mls/hr Dexmedetomidine/Sodium Chloride (Precedex Ivpb) 400 mcg in 100 mls @ 2.99 mls/hr IV .Q24H PRN; Protocol PRN Reason: Per PROTOCOL Stop: 03/05/25 06:50 Last Titration: 02/03/25 17:00 Dose: 1.4 mcg/kg/hr, 20.93 mls/hr Piperacillin/Tazobactam/Dextrose (Zosyn) 2.25 gm in 50 mls @ 100 mls/hr IV Q6HR JAYRO Stop: 02/10/25 11:59 Last Admin: 02/03/25 12:06 Dose: 100 mls/hr Albumin Human (Albuminar-25 Ivpb) 25 gm in 100 mls @ 100 mls/hr IV Q6HR JAYRO Stop: 02/06/25 11:59 Last Admin: 02/03/25 12:06 Dose: 100 mls/hr Octreotide Acetate 1,000 mcg/ (Sodium Chloride) 102 mls @ 5.1 mls/hr IV .Q20H JAYRO; Protocol Stop: 02/08/25 11:19 Last Admin: 02/03/25 11:50 Dose: 50 mcg/hr, 5.1 mls/hr Fentanyl Citrate (Sublimaze Inj 2,500 Mcg/250 Ml Bag) 2,500 mcg in 250 mls @ 2.5 mls/hr IV .Q24H PRN; Protocol PRN Reason: PER PROTOCOL Stop: 02/08/25 15:26 Last Titration: 02/03/25 17:00 Dose: 75 mcg/hr, 7.5 mls/hr Vasopressin/Sodium Chloride (Vasostrict/Ns Ivpb) 20 unit in 100 mls @ 9 mls/hr IV .Q11H7M PRN; Protocol PRN Reason: PER PROTOCOL Stop: 03/05/25 16:14 Last Admin: 02/03/25 16:30 Dose: 0.03 unit/min, 9 mls/hr Lactulose (Lactulose Syrup 20 Gm/30 Ml Udc) 30 gm NG TID JAYRO; Protocol Stop: 03/05/25 13:59 Last Admin: 02/03/25 14:15 Dose: 30 gm Ondansetron HCl (Ondansetron Inj 2 Mg/Ml Inj 2 Ml) 4 mg IVP Q6HR PRN; Protocol PRN Reason: NAUSEA OR VOMITING Stop: 03/05/25 02:02 Pantoprazole Sodium (Pantoprazole Inj 40 Mg Vial) 40 mg IVP QDAY JAYRO Stop: 03/05/25 08:59 Last Admin: 02/03/25 09:42 Dose: 40 mg Pharmacy Consult (Pharmacy Renal Dose Adjustment 1 Ea) 1 each XX PRN PRN PRN Reason: CONSULT Stop: 03/05/25 02:02 Rifaximin (Rifaximin 550 Mg Tablet) 550 mg NG BID [facility] Stop: 02/10/25 13:29 Last Admin: 02/03/25 14:14 Dose: 550 mg Discontinued Medications Acetaminophen (Acetaminophen Supp 650 Mg Supp) 650 mg HI X1 ONE Stop: 02/03/25 01:57 Last Admin: 02/03/25 02:05 Dose: 650 mg Acetaminophen (Acetaminophen Supp 650 Mg Supp) 650 mg HI Q8HR PRN PRN Reason: Fever > 100.4 Stop: 03/05/25 01:57 Fentanyl Citrate (Fentanyl Cit Inj 50 Mcg/Ml Amp 2ml) 50 mcg IVP X1 ONE Stop: 02/03/25 15:17 Last Admin: 02/03/25 15:20 Dose: 50 mcg Hydrocortisone Sodium Succinate (Hydrocortisone Sod Succ Inj 100 Mg 2 Ml Vial) 100 mg IV X1 ONE Stop: 02/03/25 16:16 Last Admin: 02/03/25 16:30 Dose: 100 mg Lactated Ringer's (Lactated Ringers) 1,000 mls @ 999 mls/hr IV .Q1H1M ONE Stop: 02/03/25 02:57 Last Infusion: 02/03/25 03:06 Dose: Infused Piperacillin/Tazobactam/Dextrose (Zosyn) 3.375 gm in 50 mls @ 100 mls/hr IV X1 ONE Stop: 02/03/25 02:27 Last Infusion: 02/03/25 02:53 Dose: Infused Sodium Bicarbonate 150 meq/ (Dextrose) 1,150 mls @ 100 mls/hr IV .[id number] [facility] Stop: 03/05/25 03:37 Last Admin: 02/03/25 04:45 Dose: Not Given Sodium Bicarbonate 150 meq/ (Dextrose) 1,150 mls @ 75 mls/hr IV .[id number] [facility] Stop: 03/05/25 03:40 Last Infusion: 02/03/25 07:15 Dose: 0 mls/hr Sodium Bicarbonate 150 meq/ (Dextrose) 1,150 mls @ 200 mls/hr IV .Q5H45M [facility] Stop: 03/05/25 06:16 Last Admin: 02/03/25 12:25 Dose: Not Given Sodium Chloride (Ns) 500 mls @ 500 mls/hr IV .Q1H ONE Stop: 02/03/25 07:23 Last Infusion: 02/03/25 07:53 Dose: Infused Sodium Chloride (Ns) 500 mls @ 1,000 mls/hr IV .Q30M ONE Stop: 02/03/25 07:05 Last Infusion: 02/03/25 07:52 Dose: Infused Vancomycin HCl (Vancomycin/Water 1gm Ivpb) 200 mls @ 120 mls/hr IV X1 ONE Stop: 02/03/25 08:23 Last Admin: 02/03/25 09:18 Dose: 120 mls/hr Albumin Human (Albuminar-25 Ivpb) 25 gm in 100 mls @ 100 mls/hr IV QDAY [facility] Stop: 02/06/25 08:59 Last Admin: 02/03/25 09:17 Dose: 100 mls/hr Albumin Human (Albuminar-25 Ivpb) 25 gm in 100 mls @ 100 mls/hr IV X1 ONE Stop: 02/03/25 08:35 Last Admin: 02/03/25 08:17 Dose: 100 mls/hr Magnesium Sulfate (Magnesium Sulfate Ivpb) 4 gm in 50 mls @ 12.5 mls/hr IV X1 ONE Stop: 02/03/25 11:36 Last Admin: 02/03/25 09:15 Dose: 12.5 mls/hr Piperacillin/Tazobactam/Dextrose (Zosyn) 2.25 gm in 50 mls @ 100 mls/hr IV X1 ONE; Protocol Stop: 02/03/25 08:14 Last Admin: 02/03/25 09:15 Dose: 100 mls/hr Potassium Chloride (Kcl Ivpb) 20 meq in 100 mls @ 50 mls/hr IV Q2H JAYRO Stop: 02/03/25 15:16 Last Admin: 02/03/25 14:14 Dose: 50 mls/hr Dexmedetomidine/Sodium Chloride (Precedex Ivpb) 200 mcg in 50 mls @ 2.99 mls/hr IV .[id number] PRN; Protocol PRN Reason: Per PROTOCOL Stop: 03/05/25 13:40 Lactulose (Lactulose Syrup 20 Gm/30 Ml Udc) 20 gm NG TID JAYRO; Protocol Stop: 03/05/25 07:44 Last Admin: 02/03/25 09:43 Dose: 20 gm Lactulose (Lactulose Syrup 20 Gm/30 Ml Udc) 10 gm NG X1 ONE; Protocol Stop: 02/03/25 11:21 Last Admin: 02/03/25 12:06 Dose: 10 gm Midazolam HCl (Midazolam Inj 1 Mg/Ml Vial 2 Ml) 5 mg IVP X1 ONE Stop: 02/03/25 07:05 Last Admin: 02/03/25 07:09 Dose: Not Given Midazolam HCl (Midazolam Inj 1 Mg/Ml Vial 2 Ml) 2 mg IVP X1 ONE Stop: 02/03/25 15:53 Last Admin: 02/03/25 15:58 Dose: 2 mg Propofol (Propofol Inj 10 Mg/Ml Vial 20 Ml) 90 mg IV X1 ONE Stop: 02/03/25 06:49 Last Admin: 02/03/25 07:02 Dose: 90 mg Rocuronium [place] (Rocuronium Inj 10 Mg/Ml Vial 10 Ml) 70 mg IV X1 ONE Stop: 02/03/25 06:49 Last Admin: 02/03/25 07:02 Dose: 70 mg Sodium Bicarbonate (Sodium Bicarb Inj 8.4% 1 Meq/Ml 50 Ml Vial) 50 meq IV X1 ONE Stop: 02/03/25 03:27 Last Admin: 02/03/25 03:33 Dose: 50 meq Sodium Bicarbonate (Sodium Bicarb Inj 8.4% 1 Meq/Ml 50 Ml Vial) 50 meq IV X1 ONE Stop: 02/03/25 03:27 Last Admin: 02/03/25 03:33 Dose: 50 meq Sodium Bicarbonate (Sodium Bicarb Inj 8.4% 1 Meq/Ml 50 Ml Vial) 50 meq IV X1 ONE Stop: 02/03/25 06:18 Last Admin: 02/03/25 06:25 Dose: 50 meq Sodium Bicarbonate (Sodium Bicarb Inj 8.4% 1 Meq/Ml 50 Ml Vial) 50 meq IV X1 ONE Stop: 02/03/25 06:19 Last Admin: 02/03/25 06:25 Dose: 50 meq Assessment & Plan Plan Ms Merino, is a 69 yo woman with an unknown PMH, who was admitted to the ICU for mgmt of distributive shock. Pt was intubated in the ED. AGAMA 2/2 Lactic acid uptrended to 18. remains on pressors, levofed and vasopressin. Nephrology consulted. #Anion Gap Metabolic Acidosis 2/2 lactic acidosis Lactic acidosis uptrended to 18 PLAN: - CRRT today, given LA is dialyzable, no heparin with HD, given coagulopathic labs - gave bicarb #HIRA #query ATN type 1 vs hepatorenal syndrome given pt is in shock, cannot dx hepatorenal syndrome. pt remains on pressors see #septic shock below Dx - UA with 1+ protein - pending Urine proteine Cr ration - strict I and O, pt has greco - renally dose medications - avoid nephrotoxic agents #Septic Shock #query 2/2 SBP vs UTI sofa score: 13 end organ damage: shock liver, >>LFTs 2/2 shock, acute elevation in troponin 0.077 (no st elevations or depressions on EKG) BP 70s /40s, procal 7.74, febrile on admission Greco catheter in place draining dark urine with blood. arterial line in place Dx - UA with 4+ biliruben, Leuk est + and nitrities + with WBC 80 and 4+ bacteria - pending Urine Cx - Blood culture pending - paracentesis fluid analysis: Alb 1.3, WBC 18%, Tx - fluid ressucitation per shock protocol, given ~3L fluids - on vanc and zosyn - on norepi and vassopressin per ICU team - ICU to manage #Cirrhosis #Acute ischemic hepatitis/shock liver #Acites, SAAG >1.1 #query malignancy given numerous liver masses on CTAP acute rise in LFT likely 2/2 to hypotension in setting of septic shock coagulopathy with elevated PT, INR, PTT thrombocytopenia with PLT 61 pt is severely jaundiced on exam, sclera icteric, +abdominal fluid wave Dx - Abdominal US with mild ascites, cirrhosis, - hepatitis panel negative - Utox negative, etoh negative - Tumor markers: AFP wnl, Tx - albumin 25 bid - octreotide drip #electrolyte abnormalities #acute hypoxic respiratory failure- intubated #acute encephalopathy (query etiology 2/2 sepsis vs shock vs acidosis) #Facial trauma 2/2 fall with headstrike, no fractures #L orbital eye contusion #Tooth fractures #macrocytic anemia - f/u b12 and folate Plan discussed with nephrology attending Dr. Bin Sagastume MD Internal Medicine PGY-1 Attending Provider Attestation/Addendum Patient seen and examined with resident physician Dr. Sagastume. Note reviewed, agree with findings and recommendations. Patient with septic shock, intractable lactic acidosis and HIRA. Decided to proceed with CRRT. She is currently on 2 pressors. Orders for CRRT given. CRRT for 16 hours 3K 40 bicarbonate 3.5 calcium qB 100-150 qD 100 Saline flush 50 mL/h Citrasate, no heparin prognosis remains guarded. Thank you Dr. Blake for allowing me to participate in the care of Ms. Merino
[2025-02-03 18:11] LABS: Lactic Acid, 3 HR 18.0 mMol/L (0.4-2.0)
[2025-02-03 18:14] LABS: Chloride,Urine Random < 20.0 mMol/L (55.0-125.0); Creatinine,Random Urine 109 mg/dL (30-125); Protein Total, Random Urine 88 mg/dL (1-14); Sodium,Urine Random < 15.0 mMol/L (20.0-110.0)
[2025-02-03] MEDS: HYDROCORTISONE SOD SUCC INJ 100 MG 2 ML VIAL 50 MG IV ×2 (18:32→23:12)
[2025-02-03 18:40] LABS: Albumin, Serum 2.6 gm/dL (3.4-4.8); Anion Gap 27 (7-16); BUN/Creatinine Ratio 7 Ratio (12-20); Blood Urea Nitrogen 17 mg/dL (9-23); Calcium 7.3 mg/dL (8.3-10.6); Calcium (Corrected) 8.4 mg/dL (8.5-10.1); Chloride 102 mMol/L (98-107); Creatinine (Component) 2.3 mg/dL (0.6-1.3); Estimated Creatinine Clearance 18.4 mL/min (>60); Glucose 58 mg/dL (74-106); Osmolality,Calculated 278 (275-295); Phosphorous 5.9 mg/dL (2.4-5.1); Potassium 4.3 mMol/L (3.4-5.1); Sodium 140 mMol/L (136-145); eGFR 23 See Note
[2025-02-03 18:47] LABS: Carbon Dioxide 10.8 mMol/L (20.0-31.0)
[2025-02-03] MEDS: DEXMEDETOMIDINE 400 MCG IVPB 400 MCG/100 ML BAG 20.93 MCG IV (19:00)
--- NOTE | 2025-02-03 19:06 | PD.INTPROC ---
PROCEDURES: Procedure Date / Time 02/03/25 735 Arterial Line Indication(s): frequent arterial line sampling and shock Informed consent obtained: procedure done urgently Time out done, and the following verified: correct patient, side and site, procedure and patient position Technique used: guide wire technique Post-Procedure: line sutured into place Patient tolerated procedure: well Complications: pain Site: right and femoral Procedure comment: hematoma at site Central Line Placement Right Femoral: Indication(s): other (HD catheter) Informed consent obtained: procedure done urgently Time out done, and the following verified: correct patient, side and site, procedure and patient position Patient placed on monitor/pulse ox: Yes Hand Hygiene: scrub and alcohol-based hand rub Max Sterile Barrier Techniques used: cap, mask, sterile gown, sterile gloves and sterile full body drape Central line prep: Chlorhexidine scrub and sterile drapes applied Local anesthesia used: lidocaine 1% Amount of anesthesia used (mL): 5 Ultrasound used for placement: Yes Sterile Technique if Ultrasound used, including sterile gel: yes Central line lumen inserted: triple (TriFlow) Post procedure: sutured in place, good blood return, all ports aspirated, flushed, capped and sterile dressing applied Patient tolerated procedure: well and no complications EBL(ml): 8 Complications: none
[2025-02-03 20:49] LABS: Base Excess -16 (-3-3); HCO3 10 mEq/L (20-26); Inspired Oxygen, FIO2 50 %; O2 Saturation 100 % (91-98); PCO2 23 mmHg (32.0-48.0); PO2 145 mmHg (83-108); pH, Arterial 7.25 (7.35-7.45)
[2025-02-03 20:50] LABS: Allen Test Performed/OK; Puncture Site Arterial Line
--- NOTE | 2025-02-03 21:18 | PC.RT ---
fio2 titrated to 35% per abg results
--- NOTE | 2025-02-03 21:20 | PC.RT ---
fio2 increased back to 50% per DR. hartley order
--- NOTE | 2025-02-03 22:25 | PC.NURSE ---
Pt's ventilator began to malfunction with circuit disconnect and low baseline alarm. RT Annetta contacted to troubleshoot. Pt temporarily bagged while ventilator replaced. Volume control settings resumed on new ventilator: VT 400, RR 34, Peep 5, FiO2 50%, pt tolderating well
[2025-02-03] MEDS: DEXTROSE 50%-WATER INJ 50 ML SYRINGE IVP (22:49)
[2025-02-03] MEDS: Norepinephrine/D5W 8mg/250ml 8 MG/250 ML BAG 17.94 MG IV (23:43)
[2025-02-04] VITALS (198 sets, daily range): BP systolic 73–183; BP diastolic 30–93; PULSE 63–94; RESP 5–35; TEMP 35.9–36.5; O2SAT 65–100; BMI 27.3
[2025-02-04 00:07] LABS: Lactate (Lactic Acid) 12.6 mMol/L (0.4-2.0)
[2025-02-04 00:18] LABS: Carcinoembryonic Antigen 4.3 ng/mL (0.0-5.0)
[2025-02-04 01:03] LABS: Alanine Aminotransferase 429 U/L (10-49); Albumin, Serum 2.8 gm/dL (3.4-4.8); Alkaline Phosphatase 121 U/L (46-116); Anion Gap 23 (7-16); BUN/Creatinine Ratio 10 Ratio (12-20); Bilirubin,Direct 10.8 mg/dL (0.0-0.3); Bilirubin,Total 15.9 mg/dL (0.3-1.2); Blood Urea Nitrogen 14 mg/dL (9-23); Calcium 7.3 mg/dL (8.3-10.6); Carbon Dioxide 16.7 mMol/L (20.0-31.0); Chloride 98 mMol/L (98-107); Creatinine (Component) 1.4 mg/dL (0.6-1.3); Estimated Creatinine Clearance 30.3 mL/min (>60); Glucose 156 mg/dL (74-106); Osmolality,Calculated 279 (275-295); Phosphorous 3.3 mg/dL (2.4-5.1); Potassium 4.1 mMol/L (3.4-5.1); Sodium 138 mMol/L (136-145); Total Protein 5.8 gm/dL (5.7-8.2); eGFR 41 See Note
[2025-02-04 01:11] LABS: Aspartate Amino Transferase 2246 U/L (0-34)
[2025-02-04] MEDS: VASOPRESSIN IN NS IVPB 20 UNIT/100 ML BAG 9 UNIT IV ×2 (01:24→13:04)
[2025-02-04 02:39] LABS: Reflex Lactate? Y
[2025-02-04 03:12] LABS: Lactic Acid, 3 HR 9.6 mMol/L (0.4-2.0)
[2025-02-04 04:05] LABS: Base Excess 2 (-3-3); HCO3 23 mEq/L (20-26); Inspired Oxygen, FIO2 50 %; O2 Saturation 101 % (91-98); PCO2 24 mmHg (32.0-48.0); PO2 150 mmHg (83-108); pH, Arterial 7.60 (7.35-7.45)
[2025-02-04 04:08] LABS: Puncture Site Arterial Line
[2025-02-04 04:09] LABS: Allen Test Performed/OK
--- NOTE | 2025-02-04 04:33 | PC.RT ---
fio2 titrated to 40%BG RESULTS. Dr. hartley made aware.
[2025-02-04] MEDS: PIPER/TAZO 2.25 GM 2.25 GM/50 ML BAG IV ×4 (05:06→23:54)
[2025-02-04] MEDS: ALBUMIN HUMAN 25% IVPB 25 GM/100 ML BTL IV ×4 (05:06→23:54)
[2025-02-04] MEDS: HYDROCORTISONE SOD SUCC INJ 100 MG 2 ML VIAL 50 MG IV ×4 (05:07→23:54)
[2025-02-04] MEDS: LACTULOSE SYRUP 20 GM/30 ML UDC 30 GM NG (05:07)
[2025-02-04] MEDS: fentaNYL 2,500 MCG/250 ML BAG 2,500 MCG/250 ML BAG 17.5 MCG IV (05:36)
[2025-02-04] MEDS: DEXMEDETOMIDINE 400 MCG IVPB 400 MCG/100 ML BAG 20.93 MCG IV ×4 (05:36→22:11)
[2025-02-04] MEDS: DEXTROSE 50%-WATER INJ 50 ML SYRINGE IVP (05:56)
[2025-02-04 06:04] LABS: Lactate (Lactic Acid) 8.1 mMol/L (0.4-2.0)
[2025-02-04 06:07] LABS: Basophils # (Auto) 0.0 Thou/mm3 (0.0-0.2); Basophils % (Auto) 0 % (0-2.5); Eosinophils # (Auto) 0.0 Thou/mm3 (0.0-0.5); Eosinophils % (Auto) 0 % (0-10); Hematocrit 20.2 % (36.0-46.0); Immature Granulocytes Auto 0.60 Thou/mm3 (0.00-0.00); Lymphocytes # (Auto) 0.3 Thou/mm3 (1.0-4.8); Lymphocytes % (Auto) 3 % (10-50); Mean Corpuscular HGB Conc 34.2 g/dl (31.0-37.0); Mean Corpuscular Hemoglobin 37.3 pg (25.0-35.0); Mean Corpuscular Volume 109 fL (80-100); Monocytes # (Auto) 0.5 Thou/mm3 (0.0-0.8); Monocytes % (Auto) 4 % (0-12); Neutrophils # (Auto) 10.7 Thou/mm3 (1.8-7.7); Neutrophils % (Auto) 88 % (37-80); Nucleated Red Blood Cell # 0.02 Thou/mm3 (0.00-0.00); Nucleated Red Blood Cell % 0 /100 WBC (0); RDW Standard Deviation 79.4 fL (36.4-46.3); Red Blood Count 1.85 Miln/mm3 (4.00-5.20); White Blood Count 12.1 Thou/mm3 (3.6-11.0)
[2025-02-04 06:54] LABS: Hemoglobin 6.9 g/dL (12.0-16.0)
[2025-02-04 06:55] LABS: Platelet Count 18 Thou/mm3 (140-440)
[2025-02-04 06:56] LABS: Base Excess 0 (-3-3); HCO3 25 mEq/L (20-26); Inspired Oxygen, FIO2 40 %; O2 Saturation 95 % (91-98); PCO2 36 mmHg (32.0-48.0); PO2 71 mmHg (83-108); pH, Arterial 7.44 (7.35-7.45)
[2025-02-04 06:56] LABS: Alanine Aminotransferase 474 U/L (10-49); Albumin, Serum 2.9 gm/dL (3.4-4.8); Albumin/Globulin Ratio 1.0 (1.2-2.2); Alkaline Phosphatase 111 U/L (46-116); Anion Gap 16 (7-16); BUN/Creatinine Ratio 7 Ratio (12-20); Bilirubin,Total 16.1 mg/dL (0.3-1.2); Blood Urea Nitrogen 6 mg/dL (9-23); Calcium 7.8 mg/dL (8.3-10.6); Calcium (Corrected) 8.7 mg/dL (8.5-10.1); Carbon Dioxide 24.3 mMol/L (20.0-31.0); Chloride 97 mMol/L (98-107); Creatinine (Component) 0.9 mg/dL (0.6-1.3); Estimated Creatinine Clearance 47.8 mL/min (>60); Globulin 2.9 gm/dL (2.3-3.5); Glucose 68 mg/dL (74-106); Osmolality,Calculated 269 (275-295); Phosphorous 1.7 mg/dL (2.4-5.1); Potassium 4.1 mMol/L (3.4-5.1); Sodium 137 mMol/L (136-145); Total Protein 5.8 gm/dL (5.7-8.2); eGFR > 60 See Note
[2025-02-04 07:00] LABS: Allen Test Not Performed; Puncture Site Arterial Line
[2025-02-04 07:07] LABS: Aspartate Amino Transferase 2385 U/L (0-34)
--- NOTE | 2025-02-04 07:21 | XR_ITS ---
Examination: AP chest single view Technique one AP portable semiupright chest single view Date and time: February 04, 2025 0740 hours Comparison February 03, 2025 INDICATIONS: History left lung atelectasis hypoxic respiratory failure postintubation FINDINGS: Mild atelectasis left lung remains Endotracheal tube tip 11 mm above marzena Right internal jugular central line tip right atrium Orogastric tube in the stomach IMPRESSION: There remains mild atelectasis left lung
[2025-02-04] MEDS: OCTREOTIDE ACET INJ 1,000 MCG in SODIUM CHLORIDE 0.9% 100 ML 5.1 MCG IV (07:22)
[2025-02-04 07:47] LABS: Basophils # (Auto) 0.1 Thou/mm3 (0.0-0.2); Basophils % (Auto) 1 % (0-2.5); Eosinophils # (Auto) 0.0 Thou/mm3 (0.0-0.5); Eosinophils % (Auto) 0 % (0-10); Immature Granulocytes Auto 0.29 Thou/mm3 (0.00-0.00); Lymphocytes # (Auto) 0.4 Thou/mm3 (1.0-4.8); Lymphocytes % (Auto) 3 % (10-50); Mean Corpuscular HGB Conc 34.8 g/dl (31.0-37.0); Mean Corpuscular Hemoglobin 38.1 pg (25.0-35.0); Mean Corpuscular Volume 110 fL (80-100); Monocytes # (Auto) 0.4 Thou/mm3 (0.0-0.8); Monocytes % (Auto) 4 % (0-12); Neutrophils # (Auto) 9.7 Thou/mm3 (1.8-7.7); Neutrophils % (Auto) 90 % (37-80); Nucleated Red Blood Cell # 0.00 Thou/mm3 (0.00-0.00); Nucleated Red Blood Cell % 0 /100 WBC (0); RDW Standard Deviation 79.4 fL (36.4-46.3); Red Blood Count 1.68 Miln/mm3 (4.00-5.20); White Blood Count 10.8 Thou/mm3 (3.6-11.0)
[2025-02-04 08:09] LABS: Hematocrit 18.4 % (36.0-46.0); Platelet Count 16 Thou/mm3 (140-440)
[2025-02-04 08:10] LABS: Hemoglobin 6.4 g/dL (12.0-16.0); Troponin I 0.369 ng/mL (0.0-0.045)
[2025-02-04] MEDS: PHYTONADIONE INJ 10 MG/ML AMP SC (08:30)
[2025-02-04 08:39] LABS: INR 4.3 (0.9-1.3); Partial Thromboplastin Time 73.5 Seconds (22.0-36.0)
[2025-02-04 08:40] LABS: Prothrombin Time 42.6 Seconds (9.0-12.2)
[2025-02-04 08:45] LABS: Reflex Lactate? Y
[2025-02-04 09:06] LABS: Slide Review Platelets confirmed
[2025-02-04 09:08] LABS: Slide Review Platelets confirmed
--- NOTE | 2025-02-04 09:12 | ESPR_ITS ---
Documentation for date of: 02/04/25 Subjective Subjective Interval history: hx per chart review: Ms. Merino is a 69 yo woman with unknown past medical history, who was found down at 1 am by her neighbor, she was unresponsive and with head strike, facial contusions and fractured teeth noted, she was brought to the ED, where she had altered mental status, was febrile to 105. Pt became increasingly legargic and obtunded. Pt was assessed by the night IM team, who described her as ll- appearing, minimally responsive, with marked jaundice and right periorbital contusion. Initial labs notable for severe metabolic acidosis (pH 7.25, HCO3 8, AG 22, lactate 15), hyperbilirubinemia (15.9), transaminitis, coagulopathy (INR 1.8), HIRA (Cr 1.4 from baseline 0.7), and UA with pyuria and bacteriuria. Blood and urine cultures sent; patient started on broad-spectrum antibiotics. . CT head, cervical spine, and chest/abdomen/pelvis are pending, as is repeat ABG. Also gallbladder ultrasound still pending to rule in rule out acute cholangitis. ED gave 2.5 L fluids, and intubated pt. SHe was started on pressors, central line was placed and admitted to the ICU. ECHO demonstrated hyper dynamic LV wo pericardial effusion. SvO2 was sent off of the brown port from the central line and pt was given vanc/zosyn. A cheeta was placed for hemodynamics and PLR performed. pt was found to not be fluid responsive. There are no family available for additional information. pts s/o 2 months ago and there is no immediate family around. 02/03/2025 Nephrology consulted. Pt seen and examined at bedside in ICU. Pt with UE in restraints, severely jaundiced, sclera icteric, with + fluid wave. is intubated. R IJ and R fem line, art line with SBPs 140s. Pt on nor epi and vasopressin. Lactic acidosis uptrended to 18. Cr 2.1, egfr 25. AGMA. cirrhosis with shock liver, hep panel negative, UTI, on vanc and zosyn. Plan for CRRT today. 02/04/2025: patient seen and examined in ICU. Pt with BUE in restraints. jaundiced, remaines intubated. RIJ and R fem line, art line with SBP 110s. Pt remains on pressors, however have been weaned. Lactic acidosis downtrending to 6.4. Cr 0.9, egfr >60. AGMA, LFTs continue to uptrend in setting of shocked liver. UTI continues on vanc and zosyn. CRRT continues. Exam Vital Signs Temp Pulse Resp BP Pulse Ox O2 Del Method O2 Flow Rate 97.2 F 78 22 H 88/62 L 98 Mechanical Ventilation 11 02/04/25 09:03 02/04/25 09:03 02/04/25 09:03 02/04/25 09:03 02/04/25 09:03 02/04/25 08:00 02/03/25 05:00 FiO2 40 02/04/25 08:00 Narrative Exam GENERAL: pt intubated with UE in restraints, no acute distress. HEENT: Head AT/ NC. Mucous membranes moist. eyes icteric, R central line NECK: Supple, no lymphadenopathy, no carotid bruits. CARDIOVASCULAR: RRR. Normal S1/S2, No m/r/g. No pitting edema of bilateral LEs. RESPIRATORY: intubated on mechanical ventilation. lungs with crackles bilaterally GASTROINTESTINAL: Abdomen soft, non tender no palpable masses. Bowel sounds hypoactive, + fluid wave mildly distended , right fem cath MUSCULOSKELETAL:? No cyanosis or edema, no visible joint swelling. LE cold to touch, pulses palpable , UE with restraints, SCDs in place NEUROLOGICAL: unable to assess neuro fxn pt intubated SKIN: No obvious rashes, jaundice, normal turgor. Objective Labs 02/05/25 05:35 02/04/25 22:23 Labs: Laboratory Results - last 24 hr 02/03/25 02/03/25 02/03/25 02:10 02:14 07:30 WBC RBC Hgb Hct MCV MCH MCHC RDW Std Deviation Plt Count Neut % (Auto) Lymph % (Auto) Wharton % (Auto) Eos % (Auto) Baso % (Auto) Neut # (Auto) Lymph # (Auto) Wharton # (Auto) Eos # (Auto) Baso # (Auto) Immature Gran # (Auto) Absolute Nucleated RBC Immature Gran % Nucleated RBC % PT INR APTT Puncture Site ABG pH ABG pCO2 ABG pO2 ABG HCO3 ABG O2 Saturation ABG Base Excess FiO2 Sodium Potassium Chloride Carbon Dioxide Anion Gap BUN Creatinine Estim Creat Clear Calc eGFR BUN/Creatinine Ratio Glucose Calculated Osmolality Lactic Acid Calcium Corrected Calcium Phosphorus Total Bilirubin Direct Bilirubin AST ALT Alkaline Phosphatase Troponin I Total Protein Albumin Globulin Albumin/Globulin Ratio Tumor Marker AFP 3.30 Carcinoembryonic Ag Folate 11.72 Ur Random Creatinine 109 U Random Total Protein 88 H Ur Random Sodium < 15.0 L Ur Random Chloride < 20.0 L Peritoneal Color Peritoneal Appearance Peritoneal WBC Peritoneal RBC Periton Polynucl WBCs Periton Mononucl WBCs Peritoneal Tot Protein Peritoneal Albumin Peritoneal Glucose Peritoneal Amylase Ethyl Alcohol < 10.0 Hepatitis A IgM Ab Non Reactive Hep Bs Antigen Non Reactive Hep B Core IgM Ab Non Reactive Hepatitis C Antibody Non Reactive Misc Test Result Blood Type Antibody Screen Crossmatch Blood Bank Wristband ID 02/03/25 02/03/25 02/03/25 13:30 13:32 14:08 WBC RBC Hgb Hct MCV MCH MCHC RDW Std Deviation Plt Count Neut % (Auto) Lymph % (Auto) Wharton % (Auto) Eos % (Auto) Baso % (Auto) Neut # (Auto) Lymph # (Auto) Wharton # (Auto) Eos # (Auto) Baso # (Auto) Immature Gran # (Auto) Absolute Nucleated RBC Immature Gran % Nucleated RBC % PT INR APTT Puncture Site Right Radial ABG pH 7.30 L D ABG pCO2 23 L D ABG pO2 159 H ABG HCO3 12 L ABG O2 Saturation 100 H ABG Base Excess -13 L FiO2 50 Sodium 139 Potassium 3.8 D Chloride 101 Carbon Dioxide 11.5 L* Anion Gap 27 H BUN 15 Creatinine 2.1 H D Estim Creat Clear Calc 20.2 L eGFR 25 L BUN/Creatinine Ratio 7 L Glucose 51 L Calculated Osmolality 275 Lactic Acid 18.0 H* Calcium 7.4 L Corrected Calcium 8.4 L Phosphorus Total Bilirubin 15.1 H D Direct Bilirubin AST 1657 H* ALT 330 H Alkaline Phosphatase 155 H D Troponin I Total Protein 6.0 Albumin 2.7 L D Globulin 3.3 Albumin/Globulin Ratio 0.8 L Tumor Marker AFP Carcinoembryonic Ag Folate Ur Random Creatinine U Random Total Protein Ur Random Sodium Ur Random Chloride Peritoneal Color Yellow Peritoneal Appearance Hazy Peritoneal WBC 192 Peritoneal RBC 1000 Periton Polynucl WBCs 18 Periton Mononucl WBCs 82 Peritoneal Tot Protein 3 Peritoneal Albumin 1.3 Peritoneal Glucose 80 Peritoneal Amylase 30 Ethyl Alcohol Hepatitis A IgM Ab Hep Bs Antigen Hep B Core IgM Ab Hepatitis C Antibody Misc Test Result Blood Type Antibody Screen Crossmatch Blood Bank Wristband ID 02/03/25 02/03/25 02/03/25 17:55 20:35 23:32 WBC RBC Hgb Hct MCV MCH MCHC RDW Std Deviation Plt Count Neut % (Auto) Lymph % (Auto) Wharton % (Auto) Eos % (Auto) Baso % (Auto) Neut # (Auto) Lymph # (Auto) Wharton # (Auto) Eos # (Auto) Baso # (Auto) Immature Gran # (Auto) Absolute Nucleated RBC Immature Gran % Nucleated RBC % PT INR APTT Puncture Site Arterial Line ABG pH 7.25 L ABG pCO2 23 L ABG pO2 145 H ABG HCO3 10 L ABG O2 Saturation 100 H ABG Base Excess -16 L FiO2 50 Sodium 140 138 Potassium 4.3 D 4.1 Chloride 102 98 Carbon Dioxide 10.8 L* 16.7 L Anion Gap 27 H 23 H BUN 17 14 Creatinine 2.3 H 1.4 H D Estim Creat Clear Calc 18.4 L 30.3 L eGFR 23 L 41 L BUN/Creatinine Ratio 7 L 10 L Glucose 58 L 156 H D Calculated Osmolality 278 279 Lactic Acid 18.0 H* 12.6 H* Calcium 7.3 L 7.3 L Corrected Calcium 8.4 L Phosphorus 5.9 H 3.3 Total Bilirubin 15.9 H D Direct Bilirubin 10.8 H AST 2246 H* ALT 429 H Alkaline Phosphatase 121 H D Troponin I Total Protein 5.8 Albumin 2.6 L 2.8 L Globulin Albumin/Globulin Ratio Tumor Marker AFP Carcinoembryonic Ag 4.3 Folate Ur Random Creatinine U Random Total Protein Ur Random Sodium Ur Random Chloride Peritoneal Color Peritoneal Appearance Peritoneal WBC Peritoneal RBC Periton Polynucl WBCs Periton Mononucl WBCs Peritoneal Tot Protein Peritoneal Albumin Peritoneal Glucose Peritoneal Amylase Ethyl Alcohol Hepatitis A IgM Ab Hep Bs Antigen Hep B Core IgM Ab Hepatitis C Antibody Misc Test Result Blood Type Antibody Screen Crossmatch Blood Bank Wristband ID 02/04/25 02/04/25 02/04/25 02:55 03:51 05:10 WBC 12.1 H D RBC 1.85 L* Hgb 6.9 L* D Hct 20.2 L* D MCV 109 H MCH 37.3 H MCHC 34.2 RDW Std Deviation 79.4 H Plt Count 18 L* D Neut % (Auto) 88 H Lymph % (Auto) 3 L Wharton % (Auto) 4 Eos % (Auto) 0 Baso % (Auto) 0 Neut # (Auto) 10.7 H Lymph # (Auto) 0.3 L Wharton # (Auto) 0.5 Eos # (Auto) 0.0 Baso # (Auto) 0.0 Immature Gran # (Auto) 0.60 H Absolute Nucleated RBC 0.02 H Immature Gran % 5 H Nucleated RBC % 0 PT INR APTT Puncture Site Arterial Line ABG pH 7.60 H D ABG pCO2 24 L ABG pO2 150 H ABG HCO3 23 ABG O2 Saturation 101 H ABG Base Excess 2 FiO2 50 Sodium 137 Potassium 4.1 Chloride 97 L Carbon Dioxide 24.3 Anion Gap 16 BUN 6 L Creatinine 0.9 D Estim Creat Clear Calc 47.8 L eGFR > 60 BUN/Creatinine Ratio 7 L Glucose 68 L D Calculated Osmolality 269 L Lactic Acid 9.6 H* 8.1 H* Calcium 7.8 L Corrected Calcium 8.7 Phosphorus 1.7 L Total Bilirubin 16.1 H Direct Bilirubin AST 2385 H* ALT 474 H Alkaline Phosphatase 111 Troponin I Total Protein 5.8 Albumin 2.9 L Globulin 2.9 Albumin/Globulin Ratio 1.0 L Tumor Marker AFP Carcinoembryonic Ag Folate Ur Random Creatinine U Random Total Protein Ur Random Sodium Ur Random Chloride Peritoneal Color Peritoneal Appearance Peritoneal WBC Peritoneal RBC Periton Polynucl WBCs Periton Mononucl WBCs Peritoneal Tot Protein Peritoneal Albumin Peritoneal Glucose Peritoneal Amylase Ethyl Alcohol Hepatitis A IgM Ab Hep Bs Antigen Hep B Core IgM Ab Hepatitis C Antibody Misc Test Result Platelets confirmed Blood Type Antibody Screen Crossmatch Blood Bank Wristband ID 02/04/25 02/04/25 06:42 07:32 WBC 10.8 RBC 1.68 L* Hgb 6.4 L* Hct 18.4 L* MCV 110 H MCH 38.1 H MCHC 34.8 RDW Std Deviation 79.4 H Plt Count 16 L* Neut % (Auto) 90 H Lymph % (Auto) 3 L Wharton % (Auto) 4 Eos % (Auto) 0 Baso % (Auto) 1 Neut # (Auto) 9.7 H Lymph # (Auto) 0.4 L Wharton # (Auto) 0.4 Eos # (Auto) 0.0 Baso # (Auto) 0.1 Immature Gran # (Auto) 0.29 H Absolute Nucleated RBC 0.00 Immature Gran % 3 H Nucleated RBC % 0 PT 42.6 H* D INR 4.3 H* APTT 73.5 H D Puncture Site Arterial Line ABG pH 7.44 D ABG pCO2 36 D ABG pO2 71 L D ABG HCO3 25 ABG O2 Saturation 95 ABG Base Excess 0 FiO2 40 Sodium Potassium Chloride Carbon Dioxide Anion Gap BUN Creatinine Estim Creat Clear Calc eGFR BUN/Creatinine Ratio Glucose Calculated Osmolality Lactic Acid Calcium Corrected Calcium Phosphorus Total Bilirubin Direct Bilirubin AST ALT Alkaline Phosphatase Troponin I 0.369 H* D Total Protein Albumin Globulin Albumin/Globulin Ratio Tumor Marker AFP Carcinoembryonic Ag Folate Ur Random Creatinine U Random Total Protein Ur Random Sodium Ur Random Chloride Peritoneal Color Peritoneal Appearance Peritoneal WBC Peritoneal RBC Periton Polynucl WBCs Periton Mononucl WBCs Peritoneal Tot Protein Peritoneal Albumin Peritoneal Glucose Peritoneal Amylase Ethyl Alcohol Hepatitis A IgM Ab Hep Bs Antigen Hep B Core IgM Ab Hepatitis C Antibody Misc Test Result Platelets confirmed Blood Type O Positive Antibody Screen NEGATIVE Crossmatch See Detail Blood Bank Wristband ID Yes ABG Interpretation ABG results: 02/03/25 02/03/25 02/03/25 02:47 06:09 07:19 ABG pH 7.25 L 7.00 L* D 7.18 L* D ABG pCO2 18 L* 63 H D 49 H D ABG pO2 192 H 149 H D 168 H ABG HCO3 8 L* 15 L 18 L ABG O2 Saturation 100 H 98 99 H ABG Base Excess -17 L -16 L -10 L VBG pH VBG pCO2 VBG pO2 VBG Base Excess 02/03/25 02/03/25 02/03/25 07:30 13:32 20:35 ABG pH 7.30 L D 7.25 L ABG pCO2 23 L D 23 L ABG pO2 159 H 145 H ABG HCO3 12 L 10 L ABG O2 Saturation 100 H 100 H ABG Base Excess -13 L -16 L VBG pH 7.28 L VBG pCO2 37 VBG pO2 110 H VBG Base Excess -9 L 02/04/25 02/04/25 03:51 06:42 ABG pH 7.60 H D 7.44 D ABG pCO2 24 L 36 D ABG pO2 150 H 71 L D ABG HCO3 23 25 ABG O2 Saturation 101 H 95 ABG Base Excess 2 0 VBG pH VBG pCO2 VBG pO2 VBG Base Excess Quality Measures Quality Measures sepsis Current suspected stage: sepsis Possible source: genitourinary Blood cultures ordered: yes Antibiotic ordered: Yes Advance care planning discussed with:: other (no family, no working contact info. ) Assessment & Plan Assessment Current Active Medications: Generic Name Dose Route Start Last Admin Trade Name Freq PRN Reason Stop Dose Admin Acetaminophen 650 mg 02/03/25 07:33 Acetaminophen Supp 650 Mg Supp [place] 03/05/25 07:32 Q4HR PRN PAIN SCALE 1-3 (mild Hydrocortisone Sodium Succinate 50 mg 02/03/25 18:00 02/04/25 05:07 Hydrocortisone Sod Succ Inj 100 Mg 2 Ml Vial IV 03/05/25 17:59 50 mg Q6HR JAYRO Administration Norepinephrine/Dextrose 8 mg in 250 mls @ 5.606 mls/hr 02/03/25 06:02 02/04/25 07:25 Levophed In D5w 8mg/250ml IV 03/05/25 06:01 0.04 mcg/kg/min .Q24H PRN 4.485 mls/hr PER PROTOCOL Titration Protocol 0.05 MCG/KG/MIN Dexmedetomidine/Sodium Chloride 400 mcg in 100 mls @ 2.99 mls/hr 02/03/25 06:51 02/04/25 08:00 Precedex Ivpb IV 03/05/25 06:50 1.4 mcg/kg/hr .Q24H PRN 20.93 mls/hr Per PROTOCOL Titration Protocol 0.2 MCG/KG/HR Piperacillin/Tazobactam/Dextrose 2.25 gm in 50 mls @ 100 mls/hr 02/03/25 12:00 02/04/25 05:06 Zosyn IV 02/10/25 11:59 100 mls/hr Q6HR JAYRO Administration Albumin Human 25 gm in 100 mls @ 100 mls/hr 02/03/25 12:00 02/04/25 08:02 Albuminar-25 Ivpb IV 02/06/25 11:59 Infused Q6HR JAYRO Infusion Octreotide Acetate 1,000 mcg/ 102 mls @ 5.1 mls/hr 02/03/25 11:19 02/04/25 07:22 Sodium Chloride IV 02/08/25 11:19 50 mcg/hr .Q20H JAYRO 5.1 mls/hr Administration Protocol 50 MCG/HR Fentanyl Citrate 2,500 mcg in 250 mls @ 2.5 mls/hr 02/03/25 15:27 02/04/25 07:50 Sublimaze Inj 2,500 Mcg/250 Ml Bag IV 02/08/25 15:26 0 mcg/hr .Q24H PRN 0 mls/hr PER PROTOCOL Titration Protocol 25 MCG/HR Vasopressin/Sodium Chloride 20 unit in 100 mls @ 9 mls/hr 02/03/25 16:15 02/04/25 01:24 Vasostrict/Ns Ivpb IV 03/05/25 16:14 0.03 unit/min .Q11H7M PRN 9 mls/hr PER PROTOCOL Administration Protocol 0.03 UNIT/MIN Lactulose 30 gm 02/03/25 14:00 02/04/25 05:07 Lactulose Syrup 20 Gm/30 Ml Udc NG 03/05/25 13:59 30 gm TID JAYRO Administration Protocol Ondansetron HCl 4 mg 02/03/25 02:03 Ondansetron Inj 2 Mg/Ml Inj 2 Ml IVP 03/05/25 02:02 Q6HR PRN NAUSEA OR VOMITING Protocol Pantoprazole Sodium 40 mg 02/03/25 09:00 02/04/25 08:30 Pantoprazole Inj 40 Mg Vial IVP 03/05/25 08:59 40 mg QDAY JAYRO Administration Pharmacy Consult 1 each 02/03/25 02:03 Pharmacy Renal Dose Adjustment 1 Ea XX 03/05/25 02:02 PRN PRN CONSULT Rifaximin 550 mg 02/03/25 13:30 02/03/25 21:47 Rifaximin 550 Mg Tablet NG 02/10/25 13:29 550 mg BID JAYRO Administration Plan Ms Merino, is a 69 yo woman with an unknown PMH, who was admitted to the ICU for mgmt of distributive shock. Pt was intubated in the ED. AGAMA 2/2 Lactic acid now downtrending to 6 today. Pt remains on pressors, levofed and vasopressin, weening. Nephrology consulted. Cont on CRRT today, with improvement in lactic acid. GNR bacteremia. LFT incr in setting of shock liver. query if social work can get in contact with neighbor who called 911 #Anion Gap Metabolic Acidosis 2/2 lactic acidosis Lactic acidosis uptrended to 18, now downtrending to 6 CRRT: 02/03 started at 2100, will continue 02/04 for ~24 hrs of HD PLAN: - cont CRRT - gave bicarb #HIRA #query ATN type 1 vs hepatorenal syndrome given pt is in shock, cannot dx hepatorenal syndrome. pt remains on pressors see #septic shock below on 02/04 Cr. 0.9 from 1.4 , BUN 6 from 14 Dx - UA with 1+ protein, 2+ RBC - Urine proteine Cr ratio 0.807 - strict I and O, pt has greco - renally dose medications - avoid nephrotoxic agents #Septic Shock #query 2/2 SBP vs UTI #GNR bacteremia 2/2 sofa score: 13 end organ damage: shock liver, >>LFTs 2/2 shock, acute elevation in troponin 0.077 (no st elevations or depressions on EKG) continues to uptrend, 0.369 BP 70s /40s, procal 7.74, febrile on admission on 02/04 SBP from art line 110s decreased pressure requirement Greco catheter in place draining dark urine with blood, UOP ~500 cc arterial line in place Dx - UA with 4+ biliruben, Leuk est + and nitrities + with WBC 80 and 4+ bacteria - pending Urine Cx - Blood culture GNR , pending speciation - paracentesis fluid analysis: Alb 1.3, WBC 18%, Tx - fluid ressucitation per shock protocol, given ~3L fluids given - on vanc and zosyn - on norepi and vassopressin being weaned per ICU team - ICU to manage #Cirrhosis #Acute ischemic hepatitis/shock liver #Acites, SAAG >1.1 #query malignancy given numerous liver masses on CTAP acute rise in LFT likely 2/2 to hypotension in setting of septic shock coagulopathy with elevated PT, INR, PTT thrombocytopenia with PLT 61 pt is severely jaundiced on exam, sclera icteric, +abdominal fluid wave Dx - Abdominal US with mild ascites, cirrhosis, - hepatitis panel negative - Utox negative, etoh negative - Tumor markers: AFP wnl, CEA wnl Tx - albumin 25 bid - octreotide drip #electrolyte abnormalities #acute hypoxic respiratory failure- intubated #acute encephalopathy (query etiology 2/2 sepsis vs shock vs acidosis) #Facial trauma 2/2 fall with headstrike, no fractures #L orbital eye contusion #Tooth fractures #macrocytic anemia - f/u b12 - folate wnl Plan discussed with nephrology attending Dr. Bin Sagastume MD Internal Medicine PGY-1 Attending Provider Attestation/Addendum Patient seen and examined with resident physician Dr. Sagastume. Note reviewed, agree with findings and recommendations. Patient with septic shock, intractable lactic acidosis and HIRA. Decided to proceed with CRRT. She is currently on 2 pressors. Remains on ventilator. Currently in ICU. Continue with CRRT today Lactic acid improving. Orders for CRRT given. CRRT for 12 hours 3K 40 bicarbonate 3.5 calcium qB 100-150 qD 100 Saline flush 50 mL/h Citrasate, no heparin prognosis remains guarded. Critical care time spent more than 40 minutes regarding plan of care and disease management Please see CRRT flowsheet.
[2025-02-04 09:41] LABS: Lactic Acid, 3 HR 6.4 mMol/L (0.4-2.0)
[2025-02-04 09:58] LABS: D-Dimer > 3820 ng/mL (<600)
[2025-02-04] MEDS: HEPARIN SOD INJ 1000 UNIT/ML VIAL 10 ML 3000 UNIT INDWELLCAT (10:12)
--- NOTE | 2025-02-04 10:52 | PC.DIETICIAN ---
Nutrition prescription Vital 1.2 at 20 ml/hr via NG tube by pump. Advance 10 ml every 8 hrs to goal rate of 50 ml/hr x 24 hrs. If no IV fluids, water flushes of 25 ml/hr (or per MD).
[2025-02-04] MEDS: DEXMEDETOMIDINE 400 MCG IVPB 400 MCG/100 ML BAG 17.94 MCG IV (11:11)
[2025-02-04] MEDS: POT PHOS 15 mMol in NS 250 ML 15 MMOL/250 ML BAG 62.5 MMOL IV (11:31)
--- NOTE | 2025-02-04 11:59 | PC.SS ---
Update: Patient remains intubated/sedated. Patient participating with dialysis. Roll Picker is Dr. Steward. Patient receiving pressor support. NG tube in place, feedings started. Patient receiving IV antibiotics. Nettie catheter in place. Dr. Dailey is consulting.
[2025-02-04 12:19] LABS: Basophils # (Auto) 0.1 Thou/mm3 (0.0-0.2); Basophils % (Auto) 1 % (0-2.5); Eosinophils # (Auto) 0.0 Thou/mm3 (0.0-0.5); Eosinophils % (Auto) 0 % (0-10); Hematocrit 23.0 % (36.0-46.0); Immature Granulocytes Auto 0.08 Thou/mm3 (0.00-0.00); Lymphocytes # (Auto) 0.3 Thou/mm3 (1.0-4.8); Lymphocytes % (Auto) 4 % (10-50); Mean Corpuscular HGB Conc 34.8 g/dl (31.0-37.0); Mean Corpuscular Hemoglobin 36.4 pg (25.0-35.0); Mean Corpuscular Volume 105 fL (80-100); Monocytes # (Auto) 0.2 Thou/mm3 (0.0-0.8); Monocytes % (Auto) 3 % (0-12); Neutrophils # (Auto) 6.7 Thou/mm3 (1.8-7.7); Neutrophils % (Auto) 91 % (37-80); Nucleated Red Blood Cell # 0.00 Thou/mm3 (0.00-0.00); Nucleated Red Blood Cell % 0 /100 WBC (0); RDW Standard Deviation 79.1 fL (36.4-46.3); Red Blood Count 2.20 Miln/mm3 (4.00-5.20); White Blood Count 7.4 Thou/mm3 (3.6-11.0)
[2025-02-04 12:29] LABS: Hemoglobin 8.0 g/dL (12.0-16.0); Platelet Count 15 Thou/mm3 (140-440)
[2025-02-04 12:35] LABS: Albumin, Serum 3.1 gm/dL (3.4-4.8); Anion Gap 15 (7-16); BUN/Creatinine Ratio 7 Ratio (12-20); Blood Urea Nitrogen 6 mg/dL (9-23); Calcium 7.4 mg/dL (8.3-10.6); Calcium (Corrected) 8.1 mg/dL (8.5-10.1); Carbon Dioxide 21.9 mMol/L (20.0-31.0); Chloride 97 mMol/L (98-107); Creatinine (Component) 0.9 mg/dL (0.6-1.3); Estimated Creatinine Clearance 47.8 mL/min (>60); Glucose 81 mg/dL (74-106); Osmolality,Calculated 264 (275-295); Phosphorous 2.6 mg/dL (2.4-5.1); Potassium 4.3 mMol/L (3.4-5.1); Sodium 134 mMol/L (136-145); eGFR > 60 See Note
[2025-02-04 13:05] LABS: Fibrinogen 116 mg/dL (175-375); INR 4.7 (0.9-1.3); Partial Thromboplastin Time 84.1 Seconds (22.0-36.0)
[2025-02-04] MEDS: LACTULOSE SYRUP 20 GM/30 ML UDC 45 GM NG ×2 (13:06→21:12)
[2025-02-04 13:24] LABS: Prothrombin Time 46.1 Seconds (9.0-12.2)
[2025-02-04] MEDS: MIDAZOLAM INJ 1 MG/ML VIAL 2 ML 2 MG IVP (13:30)
--- NOTE | 2025-02-04 13:56 | PD.INTPROG ---
Documentation for date of: 02/04/25 Subjective Subjective Interval history: This is a 69yo F who was found down at 1am in her house. A neighbor found her on the floor unresponsive and she had apparently fallen and hit her head. EMS was called and the pt was brought into the ER. On arrival she was noted to be altered and febrile with a temp of 105.8. Initial labs showed a metabolic acidosis with appropriate respiratory compensation. She became progressively more lethargic and obtunded as the night progressed. At 6am she was unresponsive and hypotensive. She was given a total of 2.5lts of IVF in the ER and intubated. She was started on vasopressor support and a central line was placed. Pt was brought up to the ICU. A bedside echo was done which showed a hyperdynamic LV with no pericardial effusion. SvO2 was sent off of the brown port from the central line and pt was given vanc/zosyn. A cheeta was placed for hemodynamics and PLR performed. pt was found to not be fluid responsive. There are no family available for additional information. pts s/o 2 months ago and there is no immediate family around. 02/04- overnight dropped h/h , no evidence of active bleed, wakes up but does not follow commands, decrease in levo needs today, 1 BM yesterday, no fever overnight, poor UOP Critical Care Note Critical care time (min.): 45 Exam Vital Signs Temp Pulse Resp BP Pulse Ox O2 Del Method O2 Flow Rate 97.7 F 83 35 H 120/55 L 99 Mechanical Ventilation 11 02/04/25 12:42 02/04/25 12:42 02/04/25 12:42 02/04/25 12:42 02/04/25 12:42 02/04/25 08:00 02/03/25 05:00 FiO2 40 02/04/25 10:24 Narrative Exam Gen- intubated, sedated, obese, ill appearing, jaundice HEENT- NC, echymosis over R eye and hematoma over R forehead, pinpoint pupils, ETT/OGT in place Chest- LCTAB, HRRR, no increase in WOB Abd- firm, bs diminished, no palp masses Ext - no edema, pulses palp but weak, mottling has improved somewhat from yesterday, no focal deficits Vent AC VC Drips levo vaso octreotide Physical Exam Completion Physical Exam Complete?: Yes Objective - Supervising Floorperson Labs 02/04/25 12:02 02/04/25 12:02 Labs: Laboratory Results - last 24 hr 02/03/25 02/03/25 02/03/25 02:10 02:14 07:30 WBC RBC Hgb Hct MCV MCH MCHC RDW Std Deviation Plt Count Neut % (Auto) Lymph % (Auto) Island % (Auto) Eos % (Auto) Baso % (Auto) Neut # (Auto) Lymph # (Auto) Island # (Auto) Eos # (Auto) Baso # (Auto) Immature Gran # (Auto) Absolute Nucleated RBC Immature Gran % Nucleated RBC % PT INR APTT Fibrinogen D-Dimer Puncture Site ABG pH ABG pCO2 ABG pO2 ABG HCO3 ABG O2 Saturation ABG Base Excess FiO2 Sodium Potassium Chloride Carbon Dioxide Anion Gap BUN Creatinine Estim Creat Clear Calc eGFR BUN/Creatinine Ratio Glucose Calculated Osmolality Lactic Acid Calcium Corrected Calcium Phosphorus Total Bilirubin Direct Bilirubin AST ALT Alkaline Phosphatase Troponin I Total Protein Albumin Globulin Albumin/Globulin Ratio Tumor Marker AFP 3.30 Carcinoembryonic Ag Folate 11.72 Ur Random Creatinine 109 U Random Total Protein 88 H Ur Random Sodium < 15.0 L Ur Random Chloride < 20.0 L Peritoneal Color Peritoneal Appearance Peritoneal WBC Peritoneal RBC Periton Polynucl WBCs Periton Mononucl WBCs Peritoneal Tot Protein Peritoneal Albumin Peritoneal Glucose Peritoneal Amylase Hepatitis A IgM Ab Non Reactive Hep Bs Antigen Non Reactive Hep B Core IgM Ab Non Reactive Hepatitis C Antibody Non Reactive Misc Test Result Blood Type Antibody Screen Crossmatch Blood Bank Wristband ID Blood Bank Comment 02/03/25 02/03/25 02/03/25 13:30 14:08 17:55 WBC RBC Hgb Hct MCV MCH MCHC RDW Std Deviation Plt Count Neut % (Auto) Lymph % (Auto) Island % (Auto) Eos % (Auto) Baso % (Auto) Neut # (Auto) Lymph # (Auto) Island # (Auto) Eos # (Auto) Baso # (Auto) Immature Gran # (Auto) Absolute Nucleated RBC Immature Gran % Nucleated RBC % PT INR APTT Fibrinogen D-Dimer Puncture Site ABG pH ABG pCO2 ABG pO2 ABG HCO3 ABG O2 Saturation ABG Base Excess FiO2 Sodium 139 140 Potassium 3.8 D 4.3 D Chloride 101 102 Carbon Dioxide 11.5 L* 10.8 L* Anion Gap 27 H 27 H BUN 15 17 Creatinine 2.1 H D 2.3 H Estim Creat Clear Calc 20.2 L 18.4 L eGFR 25 L 23 L BUN/Creatinine Ratio 7 L 7 L Glucose 51 L 58 L Calculated Osmolality 275 278 Lactic Acid 18.0 H* 18.0 H* Calcium 7.4 L 7.3 L Corrected Calcium 8.4 L 8.4 L Phosphorus 5.9 H Total Bilirubin 15.1 H D Direct Bilirubin AST 1657 H* ALT 330 H Alkaline Phosphatase 155 H D Troponin I Total Protein 6.0 Albumin 2.7 L D 2.6 L Globulin 3.3 Albumin/Globulin Ratio 0.8 L Tumor Marker AFP Carcinoembryonic Ag Folate Ur Random Creatinine U Random Total Protein Ur Random Sodium Ur Random Chloride Peritoneal Color Yellow Peritoneal Appearance Hazy Peritoneal WBC 192 Peritoneal RBC 1000 Periton Polynucl WBCs 18 Periton Mononucl WBCs 82 Peritoneal Tot Protein 3 Peritoneal Albumin 1.3 Peritoneal Glucose 80 Peritoneal Amylase 30 Hepatitis A IgM Ab Hep Bs Antigen Hep B Core IgM Ab Hepatitis C Antibody Misc Test Result Blood Type Antibody Screen Crossmatch Blood Bank Wristband ID Blood Bank Comment 02/03/25 02/03/25 02/04/25 20:35 23:32 02:55 WBC RBC Hgb Hct MCV MCH MCHC RDW Std Deviation Plt Count Neut % (Auto) Lymph % (Auto) Island % (Auto) Eos % (Auto) Baso % (Auto) Neut # (Auto) Lymph # (Auto) Island # (Auto) Eos # (Auto) Baso # (Auto) Immature Gran # (Auto) Absolute Nucleated RBC Immature Gran % Nucleated RBC % PT INR APTT Fibrinogen D-Dimer Puncture Site Arterial Line ABG pH 7.25 L ABG pCO2 23 L ABG pO2 145 H ABG HCO3 10 L ABG O2 Saturation 100 H ABG Base Excess -16 L FiO2 50 Sodium 138 Potassium 4.1 Chloride 98 Carbon Dioxide 16.7 L Anion Gap 23 H BUN 14 Creatinine 1.4 H D Estim Creat Clear Calc 30.3 L eGFR 41 L BUN/Creatinine Ratio 10 L Glucose 156 H D Calculated Osmolality 279 Lactic Acid 12.6 H* 9.6 H* Calcium 7.3 L Corrected Calcium Phosphorus 3.3 Total Bilirubin 15.9 H D Direct Bilirubin 10.8 H AST 2246 H* ALT 429 H Alkaline Phosphatase 121 H D Troponin I Total Protein 5.8 Albumin 2.8 L Globulin Albumin/Globulin Ratio Tumor Marker AFP Carcinoembryonic Ag 4.3 Folate Ur Random Creatinine U Random Total Protein Ur Random Sodium Ur Random Chloride Peritoneal Color Peritoneal Appearance Peritoneal WBC Peritoneal RBC Periton Polynucl WBCs Periton Mononucl WBCs Peritoneal Tot Protein Peritoneal Albumin Peritoneal Glucose Peritoneal Amylase Hepatitis A IgM Ab Hep Bs Antigen Hep B Core IgM Ab Hepatitis C Antibody Misc Test Result Blood Type Antibody Screen Crossmatch Blood Bank Wristband ID Blood Bank Comment 02/04/25 02/04/25 02/04/25 03:51 05:10 06:42 WBC 12.1 H D RBC 1.85 L* Hgb 6.9 L* D Hct 20.2 L* D MCV 109 H MCH 37.3 H MCHC 34.2 RDW Std Deviation 79.4 H Plt Count 18 L* D Neut % (Auto) 88 H Lymph % (Auto) 3 L Island % (Auto) 4 Eos % (Auto) 0 Baso % (Auto) 0 Neut # (Auto) 10.7 H Lymph # (Auto) 0.3 L Island # (Auto) 0.5 Eos # (Auto) 0.0 Baso # (Auto) 0.0 Immature Gran # (Auto) 0.60 H Absolute Nucleated RBC 0.02 H Immature Gran % 5 H Nucleated RBC % 0 PT INR APTT Fibrinogen D-Dimer Puncture Site Arterial Line Arterial Line ABG pH 7.60 H D 7.44 D ABG pCO2 24 L 36 D ABG pO2 150 H 71 L D ABG HCO3 23 25 ABG O2 Saturation 101 H 95 ABG Base Excess 2 0 FiO2 50 40 Sodium 137 Potassium 4.1 Chloride 97 L Carbon Dioxide 24.3 Anion Gap 16 BUN 6 L Creatinine 0.9 D Estim Creat Clear Calc 47.8 L eGFR > 60 BUN/Creatinine Ratio 7 L Glucose 68 L D Calculated Osmolality 269 L Lactic Acid 8.1 H* Calcium 7.8 L Corrected Calcium 8.7 Phosphorus 1.7 L Total Bilirubin 16.1 H Direct Bilirubin AST 2385 H* ALT 474 H Alkaline Phosphatase 111 Troponin I Total Protein 5.8 Albumin 2.9 L Globulin 2.9 Albumin/Globulin Ratio 1.0 L Tumor Marker AFP Carcinoembryonic Ag Folate Ur Random Creatinine U Random Total Protein Ur Random Sodium Ur Random Chloride Peritoneal Color Peritoneal Appearance Peritoneal WBC Peritoneal RBC Periton Polynucl WBCs Periton Mononucl WBCs Peritoneal Tot Protein Peritoneal Albumin Peritoneal Glucose Peritoneal Amylase Hepatitis A IgM Ab Hep Bs Antigen Hep B Core IgM Ab Hepatitis C Antibody Misc Test Result Platelets confirmed Blood Type Antibody Screen Crossmatch Blood Bank Wristband ID Blood Bank Comment 02/04/25 02/04/25 02/04/25 07:32 09:19 12:02 WBC 10.8 7.4 RBC 1.68 L* 2.20 L Hgb 6.4 L* 8.0 L D Hct 18.4 L* 23.0 L MCV 110 H 105 H MCH 38.1 H 36.4 H MCHC 34.8 34.8 RDW Std Deviation 79.4 H 79.1 H Plt Count 16 L* 15 L* Neut % (Auto) 90 H 91 H Lymph % (Auto) 3 L 4 L Island % (Auto) 4 3 Eos % (Auto) 0 0 Baso % (Auto) 1 1 Neut # (Auto) 9.7 H 6.7 Lymph # (Auto) 0.4 L 0.3 L Island # (Auto) 0.4 0.2 Eos # (Auto) 0.0 0.0 Baso # (Auto) 0.1 0.1 Immature Gran # (Auto) 0.29 H 0.08 H Absolute Nucleated RBC 0.00 0.00 Immature Gran % 3 H 1 H Nucleated RBC % 0 0 PT 42.6 H* D 46.1 H* D INR 4.3 H* 4.7 H* APTT 73.5 H D 84.1 H D Fibrinogen 116 L D-Dimer > 3820 H Puncture Site ABG pH ABG pCO2 ABG pO2 ABG HCO3 ABG O2 Saturation ABG Base Excess FiO2 Sodium 134 L Potassium 4.3 Chloride 97 L Carbon Dioxide 21.9 Anion Gap 15 BUN 6 L Creatinine 0.9 Estim Creat Clear Calc 47.8 L eGFR > 60 BUN/Creatinine Ratio 7 L Glucose 81 Calculated Osmolality 264 L Lactic Acid 6.4 H* Calcium 7.4 L Corrected Calcium 8.1 L Phosphorus 2.6 Total Bilirubin Direct Bilirubin AST ALT Alkaline Phosphatase Troponin I 0.369 H* D Total Protein Albumin 3.1 L Globulin Albumin/Globulin Ratio Tumor Marker AFP Carcinoembryonic Ag Folate Ur Random Creatinine U Random Total Protein Ur Random Sodium Ur Random Chloride Peritoneal Color Peritoneal Appearance Peritoneal WBC Peritoneal RBC Periton Polynucl WBCs Periton Mononucl WBCs Peritoneal Tot Protein Peritoneal Albumin Peritoneal Glucose Peritoneal Amylase Hepatitis A IgM Ab Hep Bs Antigen Hep B Core IgM Ab Hepatitis C Antibody Misc Test Result Platelets confirmed Blood Type O Positive Antibody Screen NEGATIVE Crossmatch See Detail Blood Bank Wristband ID Yes Blood Bank Comment FFP Ready Assessment & Plan Additional Plan Additional Plan: In brief this is a 69yo F admitted to the ICU with distributive shock a/p [employer] REHAB[employer]IT[employer]IST Acute encephalopathy- multifactorial and 2/2 sepsis, shock, acidosis and hepatic etiologies - on lacutlose - on sedation at this time Facial Trauma- CT without fx CV Shock- cheeta and bedside echo done, hemodynamic data consistent with distributive shock. on vanc/zosyn, likely sepsis, bcx, sputum and ucx taken and pending. LA elevated -> given IVF - on levophed and vasopressin - Bcx with GNR - LA cleared with CRRT Tropinemia- likely related to demand ischemia, fu on repeat, EKG without ST elevation or depression - minimally elevated in setting of HIRA and shock - echo pending Resp Acute resp failure- intubated and on MV, fu with ABG and CXR - ween as able Renal HypoNa- mild, monitor, in the setting of cirrhosis AGMA- 2/2 LA - initial ABG shows an appropriate respiratory compensation, fu ABG shows respiratory failure with a resp acidosis - breaux formula calculated - improving today HIRA- minimal UOP, monitor i/os - ? of hepatorenal therefore started on albumin, octreotide and on vasopressor support - check urine lytes - has received IVF - creatinine improved however on CRRT-> still with low UOP HypoMg- replete with IV mag GI Cirrhosis- started on lactulose and rifaxamin - elevated LFTs-> ? 2/2 ischemic hepatitis - check viral hep panel-> NTD - alcohol level added on->NTD Liver masses- check an AFP, will need eval for HCC hypoalbuminemia- in the setting of cirrhosis - check uprotein/cr ratio Endo Hypoglycemia- started on tube feeds Heme Anemia macrocytic- check b12/folate-> wnl - h/h trended down overnight - no overt bleeding noted - ? dilutional v occult bleed - given 2uPRBCs and fu on h/h - PLTs are 16 and therefore at risk for spontaneous bleeds thrombocytopenia- in the setting of sepsis and cirrhosis - dropped today - check DIC panel - transfuse - ? replated to sepsis Coagulopathy- INR up to 4 today - FFP DVT proph- heparin [id number] - on hold today for increased risk of bleeding ID UTI- on vanc/zosyn - stop vanc and cont zosyn Sepsis- on zosyn with GNR bacteremia case d/w ICU team and ER labs, imaging, records reviewed ~ 45ccmin required for eval, exam, review, interention, discussion and formulation of POC for this critically ill pt in septic shock Provider Notation Provider Notation: Although this document has been carefully reviewed, there may still be some phonetic and other typographical errors. These errors are purely grammatical due to imperfections in the software program and should not be construed in any way to compromise the substance of the patient's medical care during this visit. Thank you for the opportunity and privilege in assisting you with this patient's care and management.
[2025-02-04 14:45] LABS: Slide Review Platelets confirmed
--- NOTE | 2025-02-04 19:03 | PC.NURSE ---
at 1600, multiple attempts to obtain consent for HD unsuccesfull from pt POC, per Dr. Leslie and Dr. Steward, HD emergent
--- NOTE | 2025-02-04 19:05 | PC.NURSE ---
at 0946, TABLO machine alarming to shutdown and manually return blood, manual return complete, [employer] representative called by Ramin at bedside, per Rep., heat cycle complete as well as machine checks, all completed, machine restarted and priming, machine again alarms to shutdown middle of prime, per [employer] rep. use different machine, TABLO 8 undergoing heat cycle will be complete at about 1400 per Ramin, Dr. Steward notified of machine stopped as well as new lab results, Per Dr. Steward, complete 12 hours and K and Ca changed per Bin Luna orders
[2025-02-04 19:06] LABS: Lactate (Lactic Acid) 6.7 mMol/L (0.4-2.0)
[2025-02-04 19:36] LABS: Albumin, Serum 3.6 gm/dL (3.4-4.8); Anion Gap 13 (7-16); BUN/Creatinine Ratio 6 Ratio (12-20); Blood Urea Nitrogen < 5 mg/dL (9-23); Calcium 9.0 mg/dL (8.3-10.6); Calcium (Corrected) 9.3 mg/dL (8.5-10.1); Carbon Dioxide 24.6 mMol/L (20.0-31.0); Chloride 98 mMol/L (98-107); Creatinine (Component) 0.8 mg/dL (0.6-1.3); Estimated Creatinine Clearance 53.7 mL/min (>60); Glucose 101 mg/dL (74-106); Osmolality,Calculated 269 (275-295); Phosphorous 2.5 mg/dL (2.4-5.1); Potassium 5.0 mMol/L (3.4-5.1); Sodium 136 mMol/L (136-145); eGFR > 60 See Note
--- NOTE | 2025-02-04 21:53 | PD.RESPRO ---
Documentation for date of: 02/04/25 Subjective Subjective Interval history: Patient is intubated and mechanically ventilated so most of the history is taken from the chart review. 69-year-old female with unknown past medical history was brought to the hospital in view of altered sensorium. Per nurse, patient probably had a fall the day before admission in the morning following which she was okay until the neighbors blood to recheck her in the evening, found to be unconscious for which they called the EMS and was brought to the hospital. In the ED, patient is minimally responsive with marked icterus and periorbital contusion. Patient was found to be hypoxic with oxygen saturation in the mid 80s and was initially placed on a nonrebreather mask with correction of hypoxia. Later patient was found to be tachycardic with heart rate around 140s and febrile with a temperature of 105.8 ?F. Patient was intubated in view of acute encephalopathy and hypoxia. ICU is consulted in view of acute hypoxic respiratory failure in the setting of acute encephalopathy and suspected septic shock. In the ED, patient received 1 dose of acetaminophen 650 mg per rectum. 1 L LR bolus followed by 1.5 L of NS bolus in view of suspected septic shock. Initial labs revealed hemoglobin 10.9, platelets 61, INR 1.8, sodium 133, bicarb less than 10, anion gap 22, BUN 13, creatinine 1.4, lactic acid 15, magnesium 1.4, total bilirubin 15.9, AST 241, ALT 58, albumin 2.5, procalcitonin 7.47. EKG showed sinus tachycardia with no acute ST and T wave changes chest x-ray showed bilateral increased vascularity. Abdomen/pelvis CT showed cirrhosis, mild to moderate ascites, absent gallbladder. Cervical spine CT, face CT, head CT, thoracic spine CT, lumbar spine CT did not show any acute fractures. Abdominal ultrasound showed no CBD stones. Initial chest x-ray done showed endotracheal tube tip 2.5 cm in the right mainstem bronchus with atelectasis of the left lung following which the endotracheal tube is retacted and repeat chest x-ray was done that showed minor atelectasis of the left base. Patient is admitted to ICU in view of septic shock, possible decompensated cirrhosis, HIRA. 02/04/2025: Patient is seen and examined at bedside in the ICU. Sedated and on mechanical ventilator. Overnight, patient was found to have hypoglycemic episodes blood glucose of 50 for which patient was given D50 twice. Patient was on CRRT throughout the night. Vitals are stable and patient was found to decreased vasopressors since last night. On examination, patient is found to have abdominal distention for which she was kept on low intermittent suction and later was started on trickle feeds. Labs done this morning showed hemoglobin 6.9, platelets 18,000, WBC 12.1, INR 4.7, BUN 6, creatinine 0.9, lactate 8.1, total bilirubin 16.1, AST 2385, ALT 474. Later fibrinogen is ordered to evaluate for DIC. Repeat CBC showed hemoglobin of 6.4 and platelet count of 16. Ordered 2 PRBC, 1 platelet, 3 FFP transfusions. 1 PRBC and FFP's kept on hold. Will repeat H&H after the blood transfusion. Consent for transfusion is taken from her friend Danny, could not get hold of her brother. Will continue CRRT till 7 PM. Will continue to monitor renal and liver function tests. Despite CRRT, patient is likely to have poor prognosis in the setting of acute liver failure and acute kidney failure. Exam Vital Signs Temp Pulse Resp BP Pulse Ox O2 Del Method O2 Flow Rate 97.1 F 64 24 H 78/59 L 96 Mechanical Ventilation 11 02/04/25 21:39 02/04/25 21:45 02/04/25 21:39 02/04/25 21:45 02/04/25 21:39 02/04/25 16:00 02/03/25 05:00 FiO2 40 02/04/25 19:54 Narrative Exam General: Sedated and mechanically ventilated HEENT: Normocephalic, atraumatic, mucous membranes moist.Noted to have right frontal hematoma and ecchymosis on the right eye. Noted to have dislocated teeth. Heart: Regular rate and rhythm, no murmurs. Lungs: Clear to auscultation with no wheezing or crackles.Noted to have decreased breath sounds on the left side Abdomen: Soft, moderately distended, nontender, positive bowel sounds. ?No guarding or rebound tenderness. Neurologic:Sedated and mechanically ventilated Extremities: No edema. Noted all peripheral pulses Skin: Noted to have ecchymotic patches on the right side of the abdomen and also on the right hand from the IV catheterization Objective Labs 02/05/25 05:35 02/05/25 05:35 Labs: Laboratory Results - last 24 hr 02/03/25 02/04/25 02/04/25 23:32 02:55 03:51 WBC RBC Hgb Hct MCV MCH MCHC RDW Std Deviation Plt Count Neut % (Auto) Lymph % (Auto) Canyon % (Auto) Eos % (Auto) Baso % (Auto) Neut # (Auto) Lymph # (Auto) [place] # (Auto) Eos # (Auto) Baso # (Auto) Immature Gran # (Auto) Absolute Nucleated RBC Immature Gran % Nucleated RBC % PT INR APTT Fibrinogen D-Dimer Puncture Site Arterial Line ABG pH 7.60 H D ABG pCO2 24 L ABG pO2 150 H ABG HCO3 23 ABG O2 Saturation 101 H ABG Base Excess 2 FiO2 50 Sodium 138 Potassium 4.1 Chloride 98 Carbon Dioxide 16.7 L Anion Gap 23 H BUN 14 Creatinine 1.4 H D Estim Creat Clear Calc 30.3 L eGFR 41 L BUN/Creatinine Ratio 10 L Glucose 156 H D Calculated Osmolality 279 Lactic Acid 12.6 H* 9.6 H* Calcium 7.3 L Corrected Calcium Phosphorus 3.3 Total Bilirubin 15.9 H D Direct Bilirubin 10.8 H AST 2246 H* ALT 429 H Alkaline Phosphatase 121 H D Troponin I Total Protein 5.8 Albumin 2.8 L Globulin Albumin/Globulin Ratio Carcinoembryonic Ag 4.3 Misc Test Result Blood Type Antibody Screen Crossmatch Blood Bank Wristband ID Blood Bank Comment 02/04/25 02/04/25 02/04/25 05:10 06:42 07:32 WBC 12.1 H D 10.8 RBC 1.85 L* 1.68 L* Hgb 6.9 L* D 6.4 L* Hct 20.2 L* D 18.4 L* MCV 109 H 110 H MCH 37.3 H 38.1 H MCHC 34.2 34.8 RDW Std Deviation 79.4 H 79.4 H Plt Count 18 L* D 16 L* Neut % (Auto) 88 H 90 H Lymph % (Auto) 3 L 3 L [place] % (Auto) 4 4 Eos % (Auto) 0 0 Baso % (Auto) 0 1 Neut # (Auto) 10.7 H 9.7 H Lymph # (Auto) 0.3 L 0.4 L [place] # (Auto) 0.5 0.4 Eos # (Auto) 0.0 0.0 Baso # (Auto) 0.0 0.1 Immature Gran # (Auto) 0.60 H 0.29 H Absolute Nucleated RBC 0.02 H 0.00 Immature Gran % 5 H 3 H Nucleated RBC % 0 0 PT 42.6 H* D INR 4.3 H* APTT 73.5 H D Fibrinogen D-Dimer Puncture Site Arterial Line ABG pH 7.44 D ABG pCO2 36 D ABG pO2 71 L D ABG HCO3 25 ABG O2 Saturation 95 ABG Base Excess 0 FiO2 40 Sodium 137 Potassium 4.1 Chloride 97 L Carbon Dioxide 24.3 Anion Gap 16 BUN 6 L Creatinine 0.9 D Estim Creat Clear Calc 47.8 L eGFR > 60 BUN/Creatinine Ratio 7 L Glucose 68 L D Calculated Osmolality 269 L Lactic Acid 8.1 H* Calcium 7.8 L Corrected Calcium 8.7 Phosphorus 1.7 L Total Bilirubin 16.1 H Direct Bilirubin AST 2385 H* ALT 474 H Alkaline Phosphatase 111 Troponin I 0.369 H* D Total Protein 5.8 Albumin 2.9 L Globulin 2.9 Albumin/Globulin Ratio 1.0 L Carcinoembryonic Ag Misc Test Result Platelets confirmed Platelets confirmed Blood Type O Positive Antibody Screen NEGATIVE Crossmatch See Detail Blood Bank Wristband ID Yes Blood Bank Comment FFP Ready 02/04/25 02/04/25 02/04/25 09:19 12:02 18:50 WBC 7.4 RBC 2.20 L Hgb 8.0 L D Hct 23.0 L MCV 105 H MCH 36.4 H MCHC 34.8 RDW Std Deviation 79.1 H Plt Count 15 L* Neut % (Auto) 91 H Lymph % (Auto) 4 L Canyon % (Auto) 3 Eos % (Auto) 0 Baso % (Auto) 1 Neut # (Auto) 6.7 Lymph # (Auto) 0.3 L [place] # (Auto) 0.2 Eos # (Auto) 0.0 Baso # (Auto) 0.1 Immature Gran # (Auto) 0.08 H Absolute Nucleated RBC 0.00 Immature Gran % 1 H Nucleated RBC % 0 PT 46.1 H* D INR 4.7 H* APTT 84.1 H D Fibrinogen 116 L D-Dimer > 3820 H Puncture Site ABG pH ABG pCO2 ABG pO2 ABG HCO3 ABG O2 Saturation ABG Base Excess FiO2 Sodium 134 L 136 Potassium 4.3 5.0 D Chloride 97 L 98 Carbon Dioxide 21.9 24.6 Anion Gap 15 13 BUN 6 L < 5 L Creatinine 0.9 0.8 Estim Creat Clear Calc 47.8 L 53.7 L eGFR > 60 > 60 BUN/Creatinine Ratio 7 L 6 L Glucose 81 101 Calculated Osmolality 264 L 269 L Lactic Acid 6.4 H* 6.7 H* Calcium 7.4 L 9.0 D Corrected Calcium 8.1 L 9.3 Phosphorus 2.6 2.5 Total Bilirubin Direct Bilirubin AST ALT Alkaline Phosphatase Troponin I Total Protein Albumin 3.1 L 3.6 D Globulin Albumin/Globulin Ratio Carcinoembryonic Ag Misc Test Result Platelets confirmed Blood Type Antibody Screen Crossmatch Blood Bank Wristband ID Blood Bank Comment ABG Interpretation ABG results: 02/03/25 02/03/25 02/03/25 02:47 06:09 07:19 ABG pH 7.25 L 7.00 L* D 7.18 L* D ABG pCO2 18 L* 63 H D 49 H D ABG pO2 192 H 149 H D 168 H ABG HCO3 8 L* 15 L 18 L ABG O2 Saturation 100 H 98 99 H ABG Base Excess -17 L -16 L -10 L VBG pH VBG pCO2 VBG pO2 VBG Base Excess 02/03/25 02/03/25 02/03/25 07:30 13:32 20:35 ABG pH 7.30 L D 7.25 L ABG pCO2 23 L D 23 L ABG pO2 159 H 145 H ABG HCO3 12 L 10 L ABG O2 Saturation 100 H 100 H ABG Base Excess -13 L -16 L VBG pH 7.28 L VBG pCO2 37 VBG pO2 110 H VBG Base Excess -9 L 02/04/25 02/04/25 03:51 06:42 ABG pH 7.60 H D 7.44 D ABG pCO2 24 L 36 D ABG pO2 150 H 71 L D ABG HCO3 23 25 ABG O2 Saturation 101 H 95 ABG Base Excess 2 0 VBG pH VBG pCO2 VBG pO2 VBG Base Excess Quality Measures Quality Measures sepsis Current suspected stage: septic shock (LA >4 and/or hypotension) Sepsis reassessment completed at (date): 02/04/25 Sepsis reassessment completed at (time): 18:00 Possible source: genitourinary Blood cultures ordered: yes Antibiotic ordered: Yes Advance care planning discussed with:: other Assessment & Plan Assessment Current Active Medications: Generic Name Dose Route Start Last Admin Trade Name Freq PRN Reason Stop Dose Admin Acetaminophen 650 mg 02/03/25 07:33 Acetaminophen Supp 650 Mg Supp MD 03/05/25 07:32 Q4HR PRN PAIN SCALE 1-3 (mild Heparin Sodium (Porcine) 3,000 unit 02/04/25 10:06 02/04/25 10:12 Heparin Sod Inj 1000 Unit/Ml Vial 10 Ml INDWELLCAT 02/18/25 10:05 3,000 unit PRN PRN Administration HD catheter Hydrocortisone Sodium Succinate 50 mg 02/03/25 18:00 02/04/25 17:14 Hydrocortisone Sod Succ Inj 100 Mg 2 Ml Vial IV 03/05/25 17:59 50 mg Q6HR JAYRO Administration Norepinephrine/Dextrose 8 mg in 250 mls @ 5.606 mls/hr 02/03/25 06:02 02/04/25 21:00 Levophed In D5w 8mg/250ml IV 03/05/25 06:01 0.01 mcg/kg/min .Q24H PRN 1.121 mls/hr PER PROTOCOL Titration Protocol 0.05 MCG/KG/MIN Dexmedetomidine/Sodium Chloride 400 mcg in 100 mls @ 2.99 mls/hr 02/03/25 06:51 02/04/25 21:00 Precedex Ivpb IV 03/05/25 06:50 1.4 mcg/kg/hr .Q24H PRN 20.93 mls/hr Per PROTOCOL Titration Protocol 0.2 MCG/KG/HR Piperacillin/Tazobactam/Dextrose 2.25 gm in 50 mls @ 100 mls/hr 02/03/25 12:00 02/04/25 17:13 Zosyn IV 02/10/25 11:59 100 mls/hr Q6HR JAYRO Administration Albumin Human 25 gm in 100 mls @ 100 mls/hr 02/03/25 12:00 02/04/25 17:13 Albuminar-25 Ivpb IV 02/06/25 11:59 100 mls/hr Q6HR JAYRO Administration Octreotide Acetate 1,000 mcg/ 102 mls @ 5.1 mls/hr 02/03/25 11:19 08/12/25 07:22 Sodium Chloride IV 02/08/25 11:19 50 mcg/hr .Q20H JAYRO 5.1 mls/hr Administration Protocol 50 MCG/HR Fentanyl Citrate 2,500 mcg in 250 mls @ 2.5 mls/hr 02/03/25 15:27 02/04/25 21:00 Sublimaze Inj 2,500 Mcg/250 Ml Bag IV 02/08/25 15:26 125 mcg/hr .Q24H PRN 12.5 mls/hr PER PROTOCOL Titration Protocol 25 MCG/HR Vasopressin/Sodium Chloride 20 unit in 100 mls @ 9 mls/hr 02/03/25 16:15 02/04/25 13:04 Vasostrict/Ns Ivpb IV 03/05/25 16:14 0.03 unit/min .Q11H7M PRN 9 mls/hr PER PROTOCOL Administration Protocol 0.03 UNIT/MIN Lactulose 45 gm 02/04/25 14:00 02/04/25 21:12 Lactulose Syrup 20 Gm/30 Ml Udc NG 03/06/25 13:59 45 gm TID JAYRO Administration Protocol Ondansetron HCl 4 mg 02/03/25 02:03 Ondansetron Inj 2 Mg/Ml Inj 2 Ml IVP 03/05/25 02:02 Q6HR PRN NAUSEA OR VOMITING Protocol Pantoprazole Sodium 40 mg 02/03/25 09:00 02/04/25 08:30 Pantoprazole Inj 40 Mg Vial IVP 03/05/25 08:59 40 mg QDAY JAYRO Administration Pharmacy Consult 1 each 02/03/25 02:03 Pharmacy Renal Dose Adjustment 1 Ea XX 03/05/25 02:02 PRN PRN CONSULT Rifaximin 550 mg 02/03/25 13:30 02/04/25 21:11 Rifaximin 550 Mg Tablet NG 02/10/25 13:29 550 mg BID JAYRO Administration Plan 69-year-old female with unknown past medical history was brought to the hospital in view of altered sensorium. Per nurse, patient probably had a fall the day before admission in the morning following which she was okay until the neighbors blood to recheck her in the evening, found to be unconscious for which they called the EMS and was brought to the hospital. In the ED, patient is minimally responsive with marked icterus and periorbital contusion. Patient was found to be hypoxic with oxygen saturation in the mid 80s and was initially placed on a nonrebreather mask with correction of hypoxia. Later patient was found to be tachycardic with heart rate around 140s and febrile with a temperature of 105.8 ?F. Patient was intubated in view of acute encephalopathy and hypoxia. 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 Could be possible cause of septic encephalopathy - Hepatic encephalopathy. Patient has stigmata of chronic liver failure. Icterus, appears chronically ill, ascites. - Metabolic encephalopathy: Patient was found to have high anion gap metabolic acidosis with lactic acidosis at the time of presentation. -Sedation: Patient received rocuronium and propofol for the intubation. In the setting of the liver failure, there will be decreased platelets that could cause the sedation but patient was noted to be in altered sensorium even before coming to the hospital. So less likely the cause of acute encephalopathy Diagnosis: - In the ED, temperature is 105.8 ?F - Labs showed bicarb less than 10, anion gap 22, lactic acid 15, total bilirubin 15.9, AST 241, ALT 58 - CT head did not show any evidence of fracture/hemorrhage. Plan: - Started on empiric antibiotics, Zosyn 2.25 g every 8 hourly [02/03- - Started on lactulose 30 g 3 times daily and increased to 45 g 3 times daily as of 02/04/2025, rifaximin 550 Mg twice daily - Currently on Precedex and fentanyl drip, will wean off if patient becomes hemodynamically stable and underlying condition is improving - For metabolic acidosis, patient was given multiple doses of bicarb despite which patient remained acidotic and was started on CRRT - Will continue CRRT CVS # Shock Differential diagnosis: Distributive versus hypovolemic versus obstructive versus cardiogenic - Distributive: Likely sepsis. Patient does not have any hives or airway edema which rules out anaphylaxis. Patient was noted to have temperature of 105.8 ?F. -Hypovolemic: History is unknown. No evidence of any recent severe GI bleed as the hemoglobin is stable - Obstructive versus cardiogenic:. Bedside echocardiogram was done and heart appears to be hyperdynamic without any evidence of cardiac tamponade or RV strain Diagnostic test: - Patient was found to have low MAP less than 65 mmHg despite fluid resuscitation - In the ED, temperature is 105.8 ?F - Labs showed bicarb less than 10, anion gap 22, lactic acid 15, total bilirubin 15.9, AST 241, ALT 58 - Procalcitonin is 7.47 - Blood cultures showed Gram negative bacteremia Plan: - Started on Zosyn [02/03- - 2.5 L of bolus was given in the ED - NICOM done at the bedside showed unresponsiveness to the fluid - Started on Levophed and vasopressin in view of low MAP - Started on albumin 25 g IV every 6 hourly - Arterial line is placed to measure blood pressure accurately - Patient was given a dose of hydrocortisone 100 mg and started on Hydrocortisone 50mg IV every 6th hrly. # Sinus tachycardia - At the time of admission, patient was found to have pulse rate of 138 - EKG showed sinus tachycardia with no ST and T wave changes - Likely in response to the febrile episode. Later as patient is started on levophed, found to be tachycardic which is likely due to vasopressors Plan: - Patient was given 2.5 L of IV fluid bolus - Will continue telemetry monitoring # Elevated troponins Likely in the setting of demand ischemia -Troponin at the time of admission is 0.077, later downtrended - EKG showed sinus tachycardia with no ST and T wave changes - Will continue Telemetry monitoring - Very low suspicion of ACS at this point of time Respiratory # Acute hypoxic respiratory failure Likely multifactorial, in the setting of Acute encephalopathy and Sepsis - Patient came in with altered sensorium and found aline having mixed metabolic and respiratory acidosis - ABG at the time of admission is pH 7.25, pCO2 18, HCO3 8 - Patient is intubated in the ED for which she received Rocuronium and propofol Plan - Will continue mechanical ventilation - Will treat the underlying sepsis and shock - On precedex and fentanyl drip GI # Decompensated Cirrhosis with Ascites, 2/2 Alcohol # Hyperbilirubinemia # Hypoalbuminemia - Patient came in altered sensorium and couldnt get much history - Noted icterus and abdominal distension at the time of admission - Labs showed hyperbilirubinemia, 15.9, AST 241, ALT 58, albumin 2.5, INR 1.8 - Noted to have previous history of hemorrhoids - CT Abdomen showed cirrhosis with ascites - MELD score is 29, 27 to 32% mortality in the next 90 days - Child class C Plan - Ordered hepatitis panel, came back negative - Patient appears to have poor prognosis in the setting of high MELD score and Trista class C - If the patient improves after this acute setting, will recommend to follow-up for the liver transplant. # Transaminitis - At the time of admission, AST is 241, ALT is 58 - Repeat liver panel showed significant elevations transaminase levels to 696, 145 - Likely patient had ischemic hepatitis in the setting of ongoing shock Plan - Will start patient on CRRT in view of multiorgan dysfunction - Will continue to monitor liver enzymes # Hypoalbuminemia - Albumin at the time of admission is 2.5 - Patient was given 50 g of albumin at the time of admission Plan - Will will continue patient on 25 g albumin IV every 6 hourly Renal # Acute kidney injury - Baseline creatinine is 0.6 - Creatinine at the time of admission is 1.4 and patient appears to be oliguric with urine output less than 400 mL in the last 24 hours - Repeat renal functions showed continues uptrending creatinine and clinically patient is oliguric - Likely in the setting of ongoing shock, HRS cannot be ruled out at this time as the patient is having shock Plan - Dialysis catheter was placed in the right femoral vein - Evaporator Supervisor, Dr. Steward is consulted and will start on CRRT based on her recommendations - Urine electrolytes sent, FeNa is 0.5 --> Likely prerenal in the setting of Shock - Will continue to monitor renal functions and renally dose medications # High anion gap metabolic acidosis # Lactic acidosis - Likely in the setting of ongoing shock and multiorgan dysfunction - Found to have bicarb less than 10, anion gap 22, lactate 15 at the time of admission Plan - Patient was given 2 doses of bicarb at the time of admission - Patient is started on CRRT - Will continue to monitor renal functions and trend lactate # Mild hyponatremia - Sodium at the time of the admission is 133 likely in the setting of chronic liver disease and ongoing HIRA Plan - Will monitor sodium levels and treat accordingly # Hypomagnesemia - Magnesium at the time of admission is 1.4, likely nutritional in the setting of suspected chronic liver disease Plan - Patient was repleted with 4 g of IV magnesium - Will continue to monitor the magnesium levels Hematology # Thrombocytopenia - Platelets at the time of admission is 61,000 but patient does not appear to be actively bleeding at this point of time - Likely in the setting of sepsis and chronic liver disease - Platelets on 02/04/2025 is 16,000 Plan - Started on 1 platelet transfusion - Will continue to monitor the platelet count and bleeding manifestations # Anemia - Hemoglobin at the time of admission is at 10.9, but her baseline hemoglobin is around 8, the hemoglobin in the admission could be due to some hemoconcentration - Hemoglobin on 02/04/2025 is 6.9, repeat hemoglobin is 6.4 - Monitor could be multifactorial, likely in the setting of multiple build with the dose and correction of hemoconcentration, suspicion of possible DIC Plan - Started on 2 PRBC transfusion - Will repeat H&H after the transfusion - 1 PRBC is kept in reserve # Coagulopathy - INR at the time of admission is 1.8 - INR on 02/04/2025 is 4.7 - Likely multifactorial in the setting of sepsis, decompensated liver disease, suspected possible DIC - Currently patient does not noted to have any active bleeding manifestations Plan - Ordered 4 FFP's - Each bag contains 300 mL and patient weighs around 60 kg - Per calculation, patient needs 15 mL/kg-so patient needs 900 mL of FFP's - 1 FFP is kept in the resolved. Will repeat coagulation studies if the INR is still elevated, will transfuse the FFP in the next 6 hours. # Suspected DIC - Likely multifactorial in the setting of liver disease, sepsis - Patient might be having coagulopathy from the liver disease, completely cannot be ruled out but as the patient developing worsening INR, low platelet count, anemia, suspecting DIC Plan - Fibrinogen levels are ordered - 2 PRBC, 3 FFP, 1 platelet transfusion is ordered - Will repeat CBC and coagulation studies after the transfusions - Will continue to monitor for bleeding manifestations and we will try to treat the underlying condition. ID # Sepsis - Blood cultures showed GNR bacteremia Plan - Started on Zosyn - Will wait for final cultures Musculoskeletal # No active problems as of now Endocrinology # No acute problems as of now Hospital Maintenance: Dispo: ICU for septic shock DVT ppx: SCD GI ppx: Protonix Diet: Tube feeds, trickle IV lines: Right IJV CENTRAL line, Right femoral arterial and dialysis catheter Code status: Full Patient plan of care was discussed with the Radioisotope Production Operator Dr. Aurelia Leslie, PGY2
[2025-02-04 21:59] LABS: Reflex Lactate? Y
[2025-02-04 22:39] LABS: Lactic Acid, 3 HR 5.5 mMol/L (0.4-2.0)
[2025-02-04 23:25] LABS: Base Excess 1 (-3-3); HCO3 28 mEq/L (20-26); Inspired Oxygen, FIO2 40 %; O2 Saturation 94 % (91-98); PCO2 57 mmHg (32.0-48.0); PO2 78 mmHg (83-108); pH, Arterial 7.30 (7.35-7.45)
[2025-02-04 23:28] LABS: Allen Test Not Performed; Puncture Site Right Femoral
[2025-02-04 23:59] LABS: Albumin, Serum 3.7 gm/dL (3.4-4.8); Anion Gap 10 (7-16); BUN/Creatinine Ratio 6 Ratio (12-20); Blood Urea Nitrogen < 5 mg/dL (9-23); Calcium 9.3 mg/dL (8.3-10.6); Calcium (Corrected) 9.5 mg/dL (8.5-10.1); Carbon Dioxide 27.0 mMol/L (20.0-31.0); Chloride 97 mMol/L (98-107); Creatinine (Component) 0.8 mg/dL (0.6-1.3); Estimated Creatinine Clearance 53.7 mL/min (>60); Glucose 103 mg/dL (74-106); Osmolality,Calculated 265 (275-295); Phosphorous 2.0 mg/dL (2.4-5.1); Potassium 4.4 mMol/L (3.4-5.1); Sodium 134 mMol/L (136-145); eGFR > 60 See Note
[2025-02-05] VITALS (156 sets, daily range): BP systolic 51–183; BP diastolic 26–89; PULSE 7–96; RESP 12–53; TEMP 35.6–36.6; O2SAT 88–100
[2025-02-05] MEDS: VASOPRESSIN IN NS IVPB 20 UNIT/100 ML BAG 9 UNIT IV ×3 (01:01→22:50)
[2025-02-05 01:18] LABS: Basophils # (Auto) 0.0 Thou/mm3 (0.0-0.2); Basophils % (Auto) 0 % (0-2.5); Eosinophils # (Auto) 0.9 Thou/mm3 (0.0-0.5); Eosinophils % (Auto) 7 % (0-10); Hematocrit 26.7 % (36.0-46.0); Hemoglobin 8.9 g/dL (12.0-16.0); Immature Granulocytes Auto 0.15 Thou/mm3 (0.00-0.00); Lymphocytes # (Auto) 0.4 Thou/mm3 (1.0-4.8); Lymphocytes % (Auto) 3 % (10-50); Mean Corpuscular HGB Conc 33.3 g/dl (31.0-37.0); Mean Corpuscular Hemoglobin 32.7 pg (25.0-35.0); Mean Corpuscular Volume 98 fL (80-100); Monocytes # (Auto) 0.4 Thou/mm3 (0.0-0.8); Monocytes % (Auto) 4 % (0-12); Neutrophils # (Auto) 9.8 Thou/mm3 (1.8-7.7); Neutrophils % (Auto) 85 % (37-80); Nucleated Red Blood Cell # 0.00 Thou/mm3 (0.00-0.00); Nucleated Red Blood Cell % 0 /100 WBC (0); RDW Standard Deviation 95.1 fL (36.4-46.3); Red Blood Count 2.72 Miln/mm3 (4.00-5.20); White Blood Count 11.6 Thou/mm3 (3.6-11.0)
[2025-02-05 01:30] LABS: Base Excess 3 (-3-3); HCO3 28 mEq/L (20-26); Inspired Oxygen, FIO2 75 %; O2 Saturation 94 % (91-98); PCO2 45 mmHg (32.0-48.0); PO2 69 mmHg (83-108); pH, Arterial 7.40 (7.35-7.45)
[2025-02-05 01:36] LABS: Allen Test Performed/OK; Puncture Site Right Radial
[2025-02-05] MEDS: fentaNYL 2,500 MCG/250 ML BAG 2,500 MCG/250 ML BAG 27.5 MCG IV (02:00)
[2025-02-05] MEDS: ALBUTEROL/IPRATROPIUM (Duoneb) RT SOL 3 ML NEBU INH (02:47)
[2025-02-05 03:34] LABS: Platelet Count 41 Thou/mm3 (140-440)
[2025-02-05] MEDS: DEXMEDETOMIDINE 400 MCG IVPB 400 MCG/100 ML BAG 20.93 MCG IV ×3 (03:36→20:10)
[2025-02-05 03:59] LABS: Slide Review Platelets confirmed
[2025-02-05 04:03] LABS: Band Neutrophils (Manual) 5 % (0-6); Lymphocytes (Manual) 2 % (20-44); Metamyelocytes (Manual) 2 % (0-0); Monocytes (Manual) 2 % (2-9); Neutrophils (Manual) 89 % (50-70); Toxic Vacuolation Slight
[2025-02-05 04:04] LABS: Toxic Granulation 1+
[2025-02-05] MEDS: OCTREOTIDE ACET INJ 1,000 MCG in SODIUM CHLORIDE 0.9% 100 ML 5.1 MCG IV (04:19)
[2025-02-05] MEDS: HEPARIN SOD INJ 1000 UNIT/ML VIAL 10 ML 3000 UNIT INDWELLCAT (04:37)
[2025-02-05 05:02] LABS: Base Excess 4 (-3-3); HCO3 29 mEq/L (20-26); Inspired Oxygen, FIO2 65 %; O2 Saturation 99 % (91-98); PCO2 44 mmHg (32.0-48.0); PO2 100 mmHg (83-108); pH, Arterial 7.42 (7.35-7.45)
[2025-02-05] MEDS: ALBUMIN HUMAN 25% IVPB 25 GM/100 ML BTL IV ×3 (05:03→18:13)
[2025-02-05] MEDS: HYDROCORTISONE SOD SUCC INJ 100 MG 2 ML VIAL 50 MG IV ×3 (05:03→18:14)
[2025-02-05] MEDS: LACTULOSE SYRUP 20 GM/30 ML UDC 45 GM NG (05:04)
[2025-02-05] MEDS: PIPER/TAZO 2.25 GM 2.25 GM/50 ML BAG IV ×3 (05:04→18:14)
[2025-02-05 05:16] LABS: Allen Test Not Performed; Puncture Site Arterial Line
--- NOTE | 2025-02-05 06:00 | XR_ITS ---
Examination: AP chest single view Technique one AP portable semiupright chest single view Date and time: February 05, 2025 0454 hours Comparison February 04, 2025 INDICATIONS: Hypoxic respiratory failure, history total left lung atelectasis this week FINDINGS: There remains atelectasis and/or pneumonia at the left lung base Right internal jugular central line tip right atrium Endotracheal tube tip 3.2 cm above marzena Mild vascular congestion Orogastric tube is in the stomach, the tip is below the level of the film IMPRESSION: There remains atelectasis and/or pneumonia at the left lung base, clinical correlation advised
[2025-02-05 06:08] LABS: Lactate (Lactic Acid) 5.1 mMol/L (0.4-2.0)
[2025-02-05 06:14] LABS: Basophils # (Auto) 0.0 Thou/mm3 (0.0-0.2); Basophils % (Auto) 0 % (0-2.5); Eosinophils # (Auto) 0.0 Thou/mm3 (0.0-0.5); Eosinophils % (Auto) 0 % (0-10); Hematocrit 26.7 % (36.0-46.0); Hemoglobin 9.0 g/dL (12.0-16.0); Immature Granulocytes Auto 0.12 Thou/mm3 (0.00-0.00); Lymphocytes # (Auto) 0.3 Thou/mm3 (1.0-4.8); Lymphocytes % (Auto) 3 % (10-50); Mean Corpuscular HGB Conc 33.7 g/dl (31.0-37.0); Mean Corpuscular Hemoglobin 32.8 pg (25.0-35.0); Mean Corpuscular Volume 97 fL (80-100); Monocytes # (Auto) 0.4 Thou/mm3 (0.0-0.8); Monocytes % (Auto) 4 % (0-12); Neutrophils # (Auto) 9.2 Thou/mm3 (1.8-7.7); Neutrophils % (Auto) 92 % (37-80); Nucleated Red Blood Cell # 0.02 Thou/mm3 (0.00-0.00); Nucleated Red Blood Cell % 0 /100 WBC (0); RDW Standard Deviation 95.4 fL (36.4-46.3); Red Blood Count 2.74 Miln/mm3 (4.00-5.20); White Blood Count 10.0 Thou/mm3 (3.6-11.0)
[2025-02-05 06:20] LABS: Platelet Count 35 Thou/mm3 (140-440)
[2025-02-05 06:58] LABS: Alanine Aminotransferase 367 U/L (10-49); Albumin, Serum 4.0 gm/dL (3.4-4.8); Albumin/Globulin Ratio 1.5 (1.2-2.2); Alkaline Phosphatase 107 U/L (46-116); Anion Gap 14 (7-16); Aspartate Amino Transferase 1363 U/L (0-34); BUN/Creatinine Ratio 6 Ratio (12-20); Bilirubin,Total 15.7 mg/dL (0.3-1.2); Blood Urea Nitrogen < 5 mg/dL (9-23); Carbon Dioxide 27.2 mMol/L (20.0-31.0); Chloride 94 mMol/L (98-107); Creatinine (Component) 0.8 mg/dL (0.6-1.3); Estimated Creatinine Clearance 53.7 mL/min (>60); Globulin 2.6 gm/dL (2.3-3.5); Glucose 108 mg/dL (74-106); Magnesium 1.4 mg/dL (1.6-2.6); Osmolality,Calculated 268 (275-295); Phosphorous 2.2 mg/dL (2.4-5.1); Potassium 4.3 mMol/L (3.4-5.1); Sodium 135 mMol/L (136-145); Total Protein 6.6 gm/dL (5.7-8.2); eGFR > 60 See Note
[2025-02-05 07:09] LABS: Calcium 9.9 mg/dL (8.3-10.6); Calcium (Corrected) 9.9 mg/dL (8.5-10.1)
[2025-02-05 08:01] LABS: INR 2.2 (0.9-1.3); Partial Thromboplastin Time 49.3 Seconds (22.0-36.0); Prothrombin Time 22.6 Seconds (9.0-12.2)
[2025-02-05] MEDS: NAPH,KPH MBDB 1 PACKET (1.5 GM) NG (08:19)
[2025-02-05] MEDS: Magnesium Sulfate 4 GM Ivpb 4 GM/50 ML BAG IV (08:20)
[2025-02-05 09:01] LABS: Reflex Lactate? Y
[2025-02-05] MEDS: DEXMEDETOMIDINE 400 MCG IVPB 400 MCG/100 ML BAG 17.94 MCG IV (09:07)
[2025-02-05 09:41] LABS: Base Excess 2 (-3-3); HCO3 27 mEq/L (20-26); Inspired Oxygen, FIO2 65 %; O2 Saturation 95 % (91-98); PCO2 44 mmHg (32.0-48.0); PO2 74 mmHg (83-108); pH, Arterial 7.39 (7.35-7.45)
--- NOTE | 2025-02-05 09:43 | PC.SS ---
Update: Patient remains intubated/Sedated. Presser support discontinued, NG- tube in place. Feeds are currently on hold. Patient is receiving IV ABX. Patient in position of greco catheter. No Dialysis scheduled for today. Dr. Mejia consulting.
[2025-02-05 09:47] LABS: Lactic Acid, 3 HR 6.3 mMol/L (0.4-2.0)
[2025-02-05 09:48] LABS: Allen Test Not Performed; Puncture Site Arterial Line
--- NOTE | 2025-02-05 10:10 | ESPR_ITS ---
Documentation for date of: 02/05/25 Subjective Subjective Interval history: This is a 69yo F who was found down at 1am in her house. A neighbor found her on the floor unresponsive and she had apparently fallen and hit her head. EMS was called and the pt was brought into the ER. On arrival she was noted to be altered and febrile with a temp of 105.8. Initial labs showed a metabolic acidosis with appropriate respiratory compensation. She became progressively more lethargic and obtunded as the night progressed. At 6am she was unresponsive and hypotensive. She was given a total of 2.5lts of IVF in the ER and intubated. She was started on vasopressor support and a central line was placed. Pt was brought up to the ICU. A bedside echo was done which showed a hyperdynamic LV with no pericardial effusion. SvO2 was sent off of the brown port from the central line and pt was given vanc/zosyn. A cheeta was placed for hemodynamics and PLR performed. pt was found to not be fluid responsive. There are no family available for additional information. pts s/o 2 months ago and there is no immediate family around. 02/04- overnight dropped h/h , no evidence of active bleed, wakes up but does not follow commands, decrease in levo needs today, 1 BM yesterday, no fever overnight, poor UOP 02/05-overnight patient had elevated peak inspiratory pressures on the ventilator. She was also noted to have increased abdominal distention. She has had no bowel movement since arrival. Her vent settings were adjusted on the ventilator and her OG tube was placed to low intermittent suction. There was a total of more than 2 L of fluid immediately suctioned from the patient's stomach consistent of gastric content. She is currently afebrile and continues with no urinary output Critical Care Note Critical care time (min.): 55 Exam Vital Signs Temp Pulse Resp BP Pulse Ox O2 Del Method O2 Flow Rate 96.1 F L 68 28 H 70/50 L 95 Mechanical Ventilation 11 02/05/25 08:00 02/05/25 09:45 02/05/25 09:45 02/05/25 09:45 02/05/25 09:45 02/05/25 08:00 02/04/25 21:55 FiO2 65 02/05/25 08:00 Narrative Exam General-intubated and sedated, ill-appearing, jaundiced HEENT-normocephalic, atraumatic, sclera icteric, pupils pinpoint, ET tube and OG tube in place, dried blood in the oral cavity Chest-lungs clear to auscultation, diminished at bases, heart regular rhythmic, no increased work of breathing Abdomen-firm, distended, bowel sounds diminished, no palpable organomegaly, no fluid shift appreciated at this time Extremities-edema, pulses palpable, withdraws, no clubbing, mottling has improved Drips Levophed Vasopressin Octreotide Vent AC VC Physical Exam Completion Physical Exam Complete?: Yes Objective - Terminal [facility] Labs 02/05/25 05:35 02/05/25 05:35 Labs: Laboratory Results - last 24 hr 02/03/25 02/04/25 02/04/25 02:10 07:32 12:02 WBC 7.4 RBC 2.20 L Hgb 8.0 L D Hct 23.0 L MCV 105 H MCH 36.4 H MCHC 34.8 RDW Std Deviation 79.1 H Plt Count 15 L* Neut % (Auto) 91 H Lymph % (Auto) 4 L [place] % (Auto) 3 Eos % (Auto) 0 Baso % (Auto) 1 Neut # (Auto) 6.7 Lymph # (Auto) 0.[address] [place] # (Auto) 0.2 Eos # (Auto) 0.0 Baso # (Auto) 0.1 Immature Gran # (Auto) 0.08 H Absolute Nucleated RBC 0.00 Immature Gran % 1 H Neutrophils % (Manual) Monocytes % (Manual) Metamyelocytes % Nucleated RBC % 0 Band Neutrophils Lymphocytes (Manual) Toxic Granulation Toxic Vacuolation PT 46.1 H* D INR 4.7 H* APTT 84.1 H D Fibrinogen 116 L Puncture Site ABG pH ABG pCO2 ABG pO2 ABG HCO3 ABG O2 Saturation ABG Base Excess FiO2 Sodium 134 L Potassium 4.3 Chloride 97 L Carbon Dioxide 21.9 Anion Gap 15 BUN 6 L Creatinine 0.9 Estim Creat Clear Calc 47.8 L eGFR > 60 BUN/Creatinine Ratio 7 L Glucose 81 Calculated Osmolality 264 L Lactic Acid Calcium 7.4 L Corrected Calcium 8.1 L Phosphorus 2.6 Magnesium Total Bilirubin AST ALT Alkaline Phosphatase Total Protein Albumin 3.1 L Globulin Albumin/Globulin Ratio Vitamin B12 Not Performed. Misc Test Result Platelets confirmed Blood Type O Positive Antibody Screen NEGATIVE Crossmatch See Detail Blood Bank Wristband ID Yes Blood Bank Comment FFP Ready 02/04/25 02/04/25 02/04/25 18:50 22:23 23:10 WBC RBC Hgb Hct MCV MCH MCHC RDW Std Deviation Plt Count Neut % (Auto) Lymph % (Auto) [place] % (Auto) Eos % (Auto) Baso % (Auto) Neut # (Auto) Lymph # (Auto) [place] # (Auto) Eos # (Auto) Baso # (Auto) Immature Gran # (Auto) Absolute Nucleated RBC Immature Gran % Neutrophils % (Manual) Monocytes % (Manual) Metamyelocytes % Nucleated RBC % Band Neutrophils Lymphocytes (Manual) Toxic Granulation Toxic Vacuolation PT INR APTT Fibrinogen Puncture Site Right Femoral ABG pH 7.30 L D ABG pCO2 57 H D ABG pO2 78 L ABG HCO3 28 H ABG O2 Saturation 94 ABG Base Excess 1 FiO2 40 Sodium 136 134 L Potassium 5.0 D 4.4 D Chloride 98 97 L Carbon Dioxide 24.6 27.0 Anion Gap 13 10 BUN < 5 L < 5 L Creatinine 0.8 0.8 Estim Creat Clear Calc 53.7 L 53.7 L eGFR > 60 > 60 BUN/Creatinine Ratio 6 L 6 L Glucose 101 103 Calculated Osmolality 269 L 265 L Lactic Acid 6.7 H* 5.5 H* Calcium 9.0 D 9.3 Corrected Calcium 9.3 9.5 Phosphorus 2.5 2.0 L Magnesium Total Bilirubin AST ALT Alkaline Phosphatase Total Protein Albumin 3.6 D 3.7 Globulin Albumin/Globulin Ratio Vitamin B12 Misc Test Result Blood Type Antibody Screen Crossmatch Blood Bank Wristband ID Blood Bank Comment 02/05/25 02/05/25 02/05/25 00:32 01:20 04:34 WBC 11.6 H D RBC 2.72 L Hgb 8.9 L Hct 26.7 L MCV 98 MCH 32.7 MCHC 33.3 RDW Std Deviation 95.1 H Plt Count 41 L D Neut % (Auto) 85 H Lymph % (Auto) 3 L [place] % (Auto) 4 Eos % (Auto) 7 Baso % (Auto) 0 Neut # (Auto) 9.8 H Lymph # (Auto) 0.[address] [place] # (Auto) 0.4 Eos # (Auto) 0.9 H Baso # (Auto) 0.0 Immature Gran # (Auto) 0.15 H Absolute Nucleated RBC 0.00 Immature Gran % 1 H Neutrophils % (Manual) 89 H Monocytes % (Manual) 2 Metamyelocytes % 2 H Nucleated RBC % 0 Band Neutrophils 5 Lymphocytes (Manual) 2 L Toxic Granulation 1+ Toxic Vacuolation Slight PT INR APTT Fibrinogen Puncture Site Right Radial Arterial Line ABG pH 7.40 D 7.42 ABG pCO2 45 D 44 ABG pO2 69 L 100 D ABG HCO3 28 H 29 H ABG O2 Saturation 94 99 H ABG Base Excess 3 4 H FiO2 75 65 Sodium Potassium Chloride Carbon Dioxide Anion Gap BUN Creatinine Estim Creat Clear Calc eGFR BUN/Creatinine Ratio Glucose Calculated Osmolality Lactic Acid Calcium Corrected Calcium Phosphorus Magnesium Total Bilirubin AST ALT Alkaline Phosphatase Total Protein Albumin Globulin Albumin/Globulin Ratio Vitamin B12 Misc Test Result Platelets confirmed Blood Type Antibody Screen Crossmatch Blood Bank Wristband ID Blood Bank Comment 02/05/25 02/05/25 05:35 09:20 WBC 10.0 RBC 2.74 L Hgb 9.0 L Hct 26.7 L MCV 97 MCH 32.8 MCHC 33.7 RDW Std Deviation 95.4 H Plt Count 35 L Neut % (Auto) 92 H Lymph % (Auto) 3 L [place] % (Auto) 4 Eos % (Auto) 0 Baso % (Auto) 0 Neut # (Auto) 9.2 H Lymph # (Auto) 0.[address] [place] # (Auto) 0.4 Eos # (Auto) 0.0 Baso # (Auto) 0.0 Immature Gran # (Auto) 0.12 H Absolute Nucleated RBC 0.02 H Immature Gran % 1 H Neutrophils % (Manual) Monocytes % (Manual) Metamyelocytes % Nucleated RBC % 0 Band Neutrophils Lymphocytes (Manual) Toxic Granulation Toxic Vacuolation PT 22.6 H D INR 2.2 H APTT 49.3 H D Fibrinogen Puncture Site Arterial Line ABG pH 7.39 ABG pCO2 44 ABG pO2 74 L D ABG HCO3 27 H ABG O2 Saturation 95 ABG Base Excess 2 FiO2 65 Sodium 135 L Potassium 4.3 Chloride 94 L Carbon Dioxide 27.2 Anion Gap 14 BUN < 5 L Creatinine 0.8 Estim Creat Clear Calc 53.7 L eGFR > 60 BUN/Creatinine Ratio 6 L Glucose 108 H Calculated Osmolality 268 L Lactic Acid 5.1 H* 6.3 H* Calcium 9.9 Corrected Calcium 9.9 Phosphorus 2.2 L Magnesium 1.4 L Total Bilirubin 15.7 H AST 1363 H* ALT 367 H Alkaline Phosphatase 107 Total Protein 6.6 Albumin 4.0 Globulin 2.6 Albumin/Globulin Ratio 1.5 Vitamin B12 Misc Test Result Blood Type Antibody Screen Crossmatch Blood Bank Wristband ID Blood Bank Comment Assessment & Plan Additional Plan Additional Plan: In brief this is a 69yo F admitted to the ICU with distributive shock a/p INTERVENTIONAL TECH Acute encephalopathy- multifactorial and 2/2 sepsis, shock, acidosis and hepatic etiologies - on lactulose however does not appear to be tolerating at this time. Will attempt rectal lactulose after abdomen pelvis CT - on sedation at this time Facial Trauma- CT without fx CV Shock- cheeta and bedside echo done, hemodynamic data consistent with distributive shock. on vanc/zosyn, likely sepsis, bcx, sputum and ucx taken and pending. LA elevated -> given IVF - on levophed and vasopressin - Bcx with GNR-> still to be speciated - LA cleared with CRRT-> off CRRT today, lactic acid still present at 5 and repeat check later this morning at 6. Patient appears to still be making lactic acid unclear source Tropinemia- likely related to demand ischemia, fu on repeat, EKG without ST elevation or depression - minimally elevated in setting of HIRA and shock - echo done and shows diastolic dysfunction with a normal EF and no wall motion abnormality Resp Acute resp failure- intubated and on MV, fu with ABG and CXR - ween as able - Plateau pressures less than 30 with elevated peak inspiratory pressures this morning. It is felt that the elevated peak is very pressures are likely secondary to the increase in intra-abdominal pressure. There was some decrease in PIP with OG tube placed to suction - She is currently on low tidal volume ventilation - not a candidate for extubation today Renal HypoNa- mild, monitor, in the setting of cirrhosis AGMA- 2/2 LA - Continues to have an elevated lactate -Check abdomen/pelvis CT with IV contrast to evaluate for source HIRA- minimal UOP, monitor i/os - ? of hepatorenal therefore started on albumin, octreotide and on vasopressor support - check urine lytes - has received IVF - creatinine improved however on CRRT-> still with low UOP -Remains virtually anuric -Followed by nephrology HypoMg- replete with IV mag once more today GI Cirrhosis- started on lactulose and rifaxamin - elevated LFTs-> ? 2/2 ischemic hepatitis - check viral hep panel-> NTD - alcohol level added on->NTD -LFTs appear to be trending downward which correlate to her improving blood pressure and decreasing vasopressor requirement Liver masses- check an AFP, will need eval for HCC hypoalbuminemia- in the setting of cirrhosis - check uprotein/cr ratio Abdominal distention-will check a abdomen pelvis CT today with IV contrast the question is small bowel obstruction and/or ischemic bowel -If CT is negative will consider MT lactulose for help with the hepatic encephalopathy Endo Hypoglycemia- started on tube feeds Heme Anemia macrocytic- check b12/folate-> wnl - h/h trended down overnight - no overt bleeding noted - ? dilutional v occult bleed - given 2uPRBCs and fu on h/h - PLTs are 16 and therefore at risk for spontaneous bleeds thrombocytopenia- in the setting of sepsis and cirrhosis - dropped today - check DIC panel - transfuse - ? replated to sepsis Coagulopathy- INR up to 4 today - FFP DVT proph- heparin [id number] - on hold today for increased risk of bleeding ID UTI- on vanc/zosyn - stop vanc and cont zosyn Sepsis- on zosyn with GNR bacteremia - Cultures resulted back today as E. coli from both blood and urine sensitive to Zosyn case d/w ICU team labs, imaging, records reviewed ~ 55ccmin required for eval, exam, review, interention, discussion and formulation of POC for this critically ill pt in septic shock Provider Notation Provider Notation: Although this document has been carefully reviewed, there may still be some phonetic and other typographical errors. These errors are purely grammatical due to imperfections in the software program and should not be construed in any way to compromise the substance of the patient's medical care during this visit. Thank you for the opportunity and privilege in assisting you with this patient's care and management.
--- NOTE | 2025-02-05 10:14 | ESPR_ITS ---
Documentation for date of: 02/05/25 Subjective Subjective Interval history: hx per chart review: Ms. Merino is a 69 yo woman with unknown past medical history, who was found down at 1 am by her neighbor, she was unresponsive and with head strike, facial contusions and fractured teeth noted, she was brought to the ED, where she had altered mental status, was febrile to 105. Pt became increasingly legargic and obtunded. Pt was assessed by the night IM team, who described her as ll- appearing, minimally responsive, with marked jaundice and right periorbital contusion. Initial labs notable for severe metabolic acidosis (pH 7.25, HCO3 8, AG 22, lactate 15), hyperbilirubinemia (15.9), transaminitis, coagulopathy (INR 1.8), HIRA (Cr 1.4 from baseline 0.7), and UA with pyuria and bacteriuria. Blood and urine cultures sent; patient started on broad-spectrum antibiotics. . CT head, cervical spine, and chest/abdomen/pelvis are pending, as is repeat ABG. Also gallbladder ultrasound still pending to rule in rule out acute cholangitis. ED gave 2.5 L fluids, and intubated pt. SHe was started on pressors, central line was placed and admitted to the ICU. ECHO demonstrated hyper dynamic LV wo pericardial effusion. SvO2 was sent off of the brown port from the central line and pt was given vanc/zosyn. A cheeta was placed for hemodynamics and PLR performed. pt was found to not be fluid responsive. There are no family available for additional information. pts s/o 2 months ago and there is no immediate family around. 02/03/2025 Nephrology consulted. Pt seen and examined at bedside in ICU. Pt with UE in restraints, severely jaundiced, sclera icteric, with + fluid wave. is intubated. R IJ and R fem line, art line with SBPs 140s. Pt on nor epi and vasopressin. Lactic acidosis uptrended to 18. Cr 2.1, egfr 25. AGMA. cirrhosis with shock liver, hep panel negative, UTI, on vanc and zosyn. Plan for CRRT today. 02/04/2025: patient seen and examined in ICU. Pt with BUE in restraints. jaundiced, remaines intubated. RIJ and R fem line, art line with SBP 110s. Pt remains on pressors, however have been weaned. Lactic acidosis downtrending to 6.4. Cr 0.9, egfr >60. AGMA, LFTs continue to uptrend in setting of shocked liver. UTI continues on vanc and zosyn. CRRT continues. 02/05/2025: Patient seen and examined in ICU. pt with BUE restraints, jaundiced, remains intubated, RIJ, and R fem line, art line with sbp SBP 70s. Pt remains on pressors. Lactic acidosis 6.3 from 5.1 uptrending. LFT downtrending AST 1363. Mag and Phos are low. No HD today Exam Vital Signs Temp Pulse Resp BP Pulse Ox O2 Del Method O2 Flow Rate 96.1 F L 68 28 H 70/50 L 95 Mechanical Ventilation 11 02/05/25 08:00 02/05/25 09:45 02/05/25 09:45 02/05/25 09:45 02/05/25 09:45 02/05/25 08:00 02/04/25 21:55 FiO2 65 02/05/25 08:00 Narrative Exam GENERAL: pt intubated with UE in restraints, no acute distress. HEENT: Head AT/ NC. Mucous membranes moist. eyes icteric, R central line NECK: Supple, no lymphadenopathy, no carotid bruits. CARDIOVASCULAR: RRR. Normal S1/S2, No m/r/g. No pitting edema of bilateral LEs. RESPIRATORY: intubated on mechanical ventilation. lungs with crackles bilaterally GASTROINTESTINAL: Abdomen tense, and distended no palpable masses. Bowel sounds hypoactive, + fluid wave mildly distended , right fem cath MUSCULOSKELETAL:? No cyanosis or edema, no visible joint swelling. LE cold to touch, pulses palpable , UE with restraints, SCDs in place NEUROLOGICAL: unable to assess neuro fxn pt intubated SKIN: No obvious rashes, jaundice, normal turgor. Objective Labs 02/05/25 15:45 02/05/25 15:45 Labs: Laboratory Results - last 24 hr 02/03/25 02/04/25 02/04/25 02:10 07:32 12:02 WBC 7.4 RBC 2.20 L Hgb 8.0 L D Hct 23.0 L MCV 105 H MCH 36.4 H MCHC 34.8 RDW Std Deviation 79.1 H Plt Count 15 L* Neut % (Auto) 91 H Lymph % (Auto) 4 L [place] % (Auto) 3 Eos % (Auto) 0 Baso % (Auto) 1 Neut # (Auto) 6.7 Lymph # (Auto) 0.3 L [place] # (Auto) 0.2 Eos # (Auto) 0.0 Baso # (Auto) 0.1 Immature Gran # (Auto) 0.08 H Absolute Nucleated RBC 0.00 Immature Gran % 1 H Neutrophils % (Manual) Monocytes % (Manual) Metamyelocytes % Nucleated RBC % 0 Band Neutrophils Lymphocytes (Manual) Toxic Granulation Toxic Vacuolation PT 46.1 H* D INR 4.7 H* APTT 84.1 H D Fibrinogen 116 L Puncture Site ABG pH ABG pCO2 ABG pO2 ABG HCO3 ABG O2 Saturation ABG Base Excess FiO2 Sodium 134 L Potassium 4.3 Chloride 97 L Carbon Dioxide 21.9 Anion Gap 15 BUN 6 L Creatinine 0.9 Estim Creat Clear Calc 47.8 L eGFR > 60 BUN/Creatinine Ratio 7 L Glucose 81 Calculated Osmolality 264 L Lactic Acid Calcium 7.4 L Corrected Calcium 8.1 L Phosphorus 2.6 Magnesium Total Bilirubin AST ALT Alkaline Phosphatase Total Protein Albumin 3.1 L Globulin Albumin/Globulin Ratio Vitamin B12 Not Performed. Misc Test Result Platelets confirmed Blood Type O Positive Antibody Screen NEGATIVE Crossmatch See Detail Blood Bank Wristband ID Yes Blood Bank Comment FFP Ready 02/04/25 02/04/25 02/04/25 18:50 22:23 23:10 WBC RBC Hgb Hct MCV MCH MCHC RDW Std Deviation Plt Count Neut % (Auto) Lymph % (Auto) [place] % (Auto) Eos % (Auto) Baso % (Auto) Neut # (Auto) Lymph # (Auto) [place] # (Auto) Eos # (Auto) Baso # (Auto) Immature Gran # (Auto) Absolute Nucleated RBC Immature Gran % Neutrophils % (Manual) Monocytes % (Manual) Metamyelocytes % Nucleated RBC % Band Neutrophils Lymphocytes (Manual) Toxic Granulation Toxic Vacuolation PT INR APTT Fibrinogen Puncture Site Right Femoral ABG pH 7.30 L D ABG pCO2 57 H D ABG pO2 78 L ABG HCO3 28 H ABG O2 Saturation 94 ABG Base Excess 1 FiO2 40 Sodium 136 134 L Potassium 5.0 D 4.4 D Chloride 98 97 L Carbon Dioxide 24.6 27.0 Anion Gap 13 10 BUN < 5 L < 5 L Creatinine 0.8 0.8 Estim Creat Clear Calc 53.7 L 53.7 L eGFR > 60 > 60 BUN/Creatinine Ratio 6 L 6 L Glucose 101 103 Calculated Osmolality 269 L 265 L Lactic Acid 6.7 H* 5.5 H* Calcium 9.0 D 9.3 Corrected Calcium 9.3 9.5 Phosphorus 2.5 2.0 L Magnesium Total Bilirubin AST ALT Alkaline Phosphatase Total Protein Albumin 3.6 D 3.7 Globulin Albumin/Globulin Ratio Vitamin B12 Misc Test Result Blood Type Antibody Screen [place] Blood Bank [facility] Blood Bank Comment 02/05/25 02/05/25 02/05/25 00:32 01:20 04:34 WBC 11.6 H D RBC 2.72 L Hgb 8.9 L Hct 26.7 L MCV 98 MCH 32.7 MCHC 33.3 RDW Std Deviation 95.1 H Plt Count 41 L D Neut % (Auto) 85 H Lymph % (Auto) 3 L [place] % (Auto) 4 Eos % (Auto) 7 Baso % (Auto) 0 Neut # (Auto) 9.8 H Lymph # (Auto) 0.4 L [place] # (Auto) 0.4 Eos # (Auto) 0.9 H Baso # (Auto) 0.0 Immature Gran # (Auto) 0.15 H Absolute Nucleated RBC 0.00 Immature Gran % 1 H Neutrophils % (Manual) 89 H Monocytes % (Manual) 2 Metamyelocytes % 2 H Nucleated RBC % 0 Band Neutrophils 5 Lymphocytes (Manual) 2 L Toxic Granulation 1+ Toxic Vacuolation Slight PT INR APTT Fibrinogen Puncture Site Right Radial Arterial Line ABG pH 7.40 D 7.42 ABG pCO2 45 D 44 ABG pO2 69 L 100 D ABG HCO3 28 H 29 H ABG O2 Saturation 94 99 H ABG Base Excess 3 4 H FiO2 75 65 Sodium Potassium Chloride Carbon Dioxide Anion Gap BUN Creatinine Estim Creat Clear Calc eGFR BUN/Creatinine Ratio Glucose Calculated Osmolality Lactic Acid Calcium Corrected Calcium Phosphorus Magnesium Total Bilirubin AST ALT Alkaline Phosphatase Total Protein Albumin Globulin Albumin/Globulin Ratio Vitamin B12 Misc Test Result Platelets confirmed Blood Type Antibody Screen [place] Blood Bank [facility] Blood Bank Comment 02/05/25 02/05/25 05:35 09:20 WBC 10.0 RBC 2.74 L Hgb 9.0 L Hct 26.7 L MCV 97 MCH 32.8 MCHC 33.7 RDW Std Deviation 95.4 H Plt Count 35 L Neut % (Auto) 92 H Lymph % (Auto) 3 L [place] % (Auto) 4 Eos % (Auto) 0 Baso % (Auto) 0 Neut # (Auto) 9.2 H Lymph # (Auto) 0.3 L [place] # (Auto) 0.4 Eos # (Auto) 0.0 Baso # (Auto) 0.0 Immature Gran # (Auto) 0.12 H Absolute Nucleated RBC 0.02 H Immature Gran % 1 H Neutrophils % (Manual) Monocytes % (Manual) Metamyelocytes % Nucleated RBC % 0 Band Neutrophils Lymphocytes (Manual) Toxic Granulation Toxic Vacuolation PT 22.6 H D INR 2.2 H APTT 49.3 H D Fibrinogen Puncture Site Arterial Line ABG pH 7.39 ABG pCO2 44 ABG pO2 74 L D ABG HCO3 27 H ABG O2 Saturation 95 ABG Base Excess 2 FiO2 65 Sodium 135 L Potassium 4.3 Chloride 94 L Carbon Dioxide 27.2 Anion Gap 14 BUN < 5 L Creatinine 0.8 Estim Creat Clear Calc 53.7 L eGFR > 60 BUN/Creatinine Ratio 6 L Glucose 108 H Calculated Osmolality 268 L Lactic Acid 5.1 H* 6.3 H* Calcium 9.9 Corrected Calcium 9.9 Phosphorus 2.2 L Magnesium 1.4 L Total Bilirubin 15.7 H AST 1363 H* ALT 367 H Alkaline Phosphatase 107 Total Protein 6.6 Albumin 4.0 Globulin 2.6 Albumin/Globulin Ratio 1.5 Vitamin B12 Misc Test Result Blood Type Antibody Screen Crossmatch Blood Bank Wristband ID Blood Bank Comment ABG Interpretation ABG results: 02/03/25 02/03/25 02/03/25 02:47 06:09 07:19 ABG pH 7.25 L 7.00 L* D 7.18 L* D ABG pCO2 18 L* 63 H D 49 H D ABG pO2 192 H 149 H D 168 H ABG HCO3 8 L* 15 L 18 L ABG O2 Saturation 100 H 98 99 H ABG Base Excess -17 L -16 L -10 L VBG pH VBG pCO2 VBG pO2 VBG Base Excess 02/03/25 02/03/25 02/03/25 07:30 13:32 20:35 ABG pH 7.30 L D 7.25 L ABG pCO2 23 L D 23 L ABG pO2 159 H 145 H ABG HCO3 12 L 10 L ABG O2 Saturation 100 H 100 H ABG Base Excess -13 L -16 L VBG pH 7.28 L VBG pCO2 37 VBG pO2 110 H VBG Base Excess -9 L 02/04/25 02/04/25 02/04/25 03:51 06:42 23:10 ABG pH 7.60 H D 7.44 D 7.30 L D ABG pCO2 24 L 36 D 57 H D ABG pO2 150 H 71 L D 78 L ABG HCO3 23 25 28 H ABG O2 Saturation 101 H 95 94 ABG Base Excess 2 0 1 VBG pH VBG pCO2 VBG pO2 VBG Base Excess 02/05/25 02/05/25 02/05/25 01:20 04:34 09:20 ABG pH 7.40 D 7.42 7.39 ABG pCO2 45 D 44 44 ABG pO2 69 L 100 D 74 L D ABG HCO3 28 H 29 H 27 H ABG O2 Saturation 94 99 H 95 ABG Base Excess 3 4 H 2 VBG pH VBG pCO2 VBG pO2 VBG Base Excess Quality Measures Quality Measures sepsis Current suspected stage: sepsis Possible source: genitourinary Blood cultures ordered: yes Antibiotic ordered: Yes Advance care planning discussed with:: other (no contact info available ) Assessment & Plan Assessment Current Active Medications: Generic Name Dose Route Start Last Admin Trade Name Freq PRN Reason Stop Dose Admin Acetaminophen 650 mg 02/03/25 07:33 Acetaminophen Supp 650 Mg Supp VT 03/05/25 07:32 Q4HR PRN PAIN SCALE 1-3 (mild Heparin Sodium (Porcine) 3,000 unit 02/04/25 10:06 02/05/25 04:37 Heparin Sod Inj 1000 Unit/Ml Vial 10 Ml INDWELLCAT 02/18/25 10:05 3,000 unit PRN PRN Administration HD catheter Hydrocortisone Sodium Succinate 50 mg 02/03/25 18:00 02/05/25 05:03 Hydrocortisone Sod Succ Inj 100 Mg 2 Ml Vial IV 03/05/25 17:59 50 mg Q6HR JAYRO Administration Norepinephrine/Dextrose 8 mg in 250 mls @ 5.606 mls/hr 02/03/25 06:02 02/05/25 07:15 Levophed In D5w 8mg/250ml IV 03/05/25 06:01 0 mcg/kg/min .Q24H PRN 0 mls/hr PER PROTOCOL Titration Protocol 0.05 MCG/KG/MIN Dexmedetomidine/Sodium Chloride 400 mcg in 100 mls @ 2.99 mls/hr 02/03/25 06:51 02/05/25 10:00 Precedex Ivpb IV 03/05/25 06:50 1 mcg/kg/hr .Q24H PRN 14.95 mls/hr Per PROTOCOL Titration Protocol 0.2 MCG/KG/HR Piperacillin/Tazobactam/Dextrose 2.25 gm in 50 mls @ 100 mls/hr 02/03/25 12:00 02/05/25 07:00 Zosyn IV 02/10/25 11:59 Infused Q6HR JAYRO Infusion Albumin Human 25 gm in 100 mls @ 100 mls/hr 02/03/25 12:00 02/05/25 07:00 Albuminar-25 Ivpb IV 02/06/25 11:59 Infused Q6HR JAYRO Infusion Octreotide Acetate 1,000 mcg/ 102 mls @ 5.1 mls/hr 02/03/25 11:19 02/05/25 04:19 Sodium Chloride IV 02/08/25 11:19 50 mcg/hr .Q20H JAYRO 5.1 mls/hr Administration Protocol 50 MCG/HR Fentanyl Citrate 2,500 mcg in 250 mls @ 2.5 mls/hr 02/03/25 15:27 02/05/25 09:00 Sublimaze Inj 2,500 Mcg/250 Ml Bag IV 02/08/25 15:26 0 mcg/hr .Q24H PRN 0 mls/hr PER PROTOCOL Titration Protocol 25 MCG/HR Vasopressin/Sodium Chloride 20 unit in 100 mls @ 9 mls/hr 02/03/25 16:15 02/05/25 10:00 Vasostrict/Ns Ivpb IV 03/05/25 16:14 0.03 unit/min .Q11H7M PRN 9 mls/hr PER PROTOCOL Titration Protocol 0.03 UNIT/MIN Magnesium Sulfate 4 gm in 50 mls @ 12.5 mls/hr 02/05/25 07:51 02/05/25 08:20 Magnesium Sulfate Ivpb IV 02/05/25 11:50 12.5 mls/hr X1 ONE Administration Lactulose 45 gm 02/04/25 14:00 02/05/25 05:04 Lactulose Syrup 20 Gm/30 Ml Udc NG 03/06/25 13:59 45 gm TID JAYRO Administration Protocol Midazolam HCl 2 mg 02/05/25 07:32 Midazolam Inj 1 Mg/Ml Vial 2 Ml IVP 02/10/25 07:31 Q4H PRN AGITATION OR ANXIETY Ondansetron HCl 4 mg 02/03/25 02:03 Ondansetron Inj 2 Mg/Ml Inj 2 Ml IVP 03/05/25 02:02 Q6HR PRN NAUSEA OR VOMITING Protocol Pantoprazole Sodium 40 mg 02/03/25 09:00 02/05/25 08:19 Pantoprazole Inj 40 Mg Vial IVP 03/05/25 08:59 40 mg QDAY JAYRO Administration Pharmacy Consult 1 each 02/03/25 02:03 Pharmacy Renal Dose Adjustment 1 Ea XX 03/05/25 02:02 PRN PRN CONSULT Rifaximin 550 mg 02/03/25 13:30 02/05/25 08:19 Rifaximin 550 Mg Tablet NG 02/10/25 13:29 550 mg BID JAYRO Administration Plan Ms Merino, is a 69 yo woman with an unknown PMH, who was admitted to the ICU for mgmt of distributive shock. Pt was intubated in the ED. AGAMA 2/2 Lactic acid now downtrending to 6 today. Pt remains on pressors, levofed and vasopressin, weening. Nephrology consulted. CRRT yesterday, with improvement in lactic acid. GNR bacteremia. LFT incr in setting of shock liver. query if social work can get in contact with neighbor who called 911 #Anion Gap Metabolic Acidosis 2/2 lactic acidosis Lactic acidosis uptrended to 18, now downtrending to 5.3 CRRT: 02/03 started at 2100, will continue 02/04 for ~24 hrs of HD PLAN: - no HD today #HIRA - resolving with CRRT #query ATN type 1 vs hepatorenal syndrome given pt is in shock, cannot dx hepatorenal syndrome. pt remains on pressors see #septic shock below on 02/04 Cr. 0.9 from 1.4 , BUN 6 from 14 on 02/05 Cr 0.8, BUN <5, minimal UOP 40. Dx - UA with 1+ protein, 2+ RBC - Urine proteine Cr ratio 0.807 - strict I and O, pt has greco - renally dose medications - avoid nephrotoxic agents #Septic Shock #query 2/2 SBP vs UTI #GNR bacteremia 2/2- E Coli sofa score: 13 end organ damage: shock liver, >>LFTs 2/2 shock, acute elevation in troponin 0.077 (no st elevations or depressions on EKG) continues to uptrend, 0.369 BP 70s /40s, procal 7.74, febrile on admission on 02/04 SBP from art line 110s decreased pressure requirement on 02/05 pt remains on pressers, Lactic acid uptrending, 5.1 to 6.3. Greco catheter in place draining dark urine with blood, UOP ~40 cc arterial line in place Dx - UA with 4+ biliruben, Leuk est + and nitrities + with WBC 80 and 4+ bacteria - Urine Cx- ecoli - Blood culture ecoli - paracentesis fluid analysis: Alb 1.3, WBC 18% Tx - on vanc and zosyn - on pressors per ICU team - ICU to manage #Cirrhosis #Acute ischemic hepatitis/shock liver #Acites, SAAG >1.1 #query malignancy given numerous liver masses on CTAP acute rise in LFT likely 2/2 to hypotension in setting of septic shock coagulopathy with elevated PT, INR, PTT thrombocytopenia with PLT 61 pt is severely jaundiced on exam, sclera icteric, +abdominal fluid wave Dx - Abdominal US with mild ascites, cirrhosis, - hepatitis panel negative - Utox negative, etoh negative - Tumor markers: AFP wnl, CEA wnl Tx - albumin 25 bid - octreotide drip #electrolyte abnormalities #acute hypoxic respiratory failure- intubated #acute encephalopathy (query etiology 2/2 sepsis vs shock vs acidosis) #Facial trauma 2/2 fall with headstrike, no fractures #L orbital eye contusion #Tooth fractures #macrocytic anemia - f/u b12 - folate wnl Plan discussed with nephrology attending Dr. Bin Sagastume MD Internal Medicine PGY-1 Attending Provider Attestation/Addendum Patient seen and examined with resident physician Dr. Sagastume. Note reviewed, agree with findings and recommendations. Patient with septic shock, intractable lactic acidosis and HIRA. Decided to proceed with CRRT. She is currently on 2 pressors. Remains on ventilator. Currently in ICU. Patient received 2 CRRT sessions so far. Lactic acid improving. Hold off on dialysis today. Will monitor renal function and urine output closely Critical care time spent 30 minutes regarding plan of care and disease management
--- NOTE | 2025-02-05 10:14 | XR_ITS ---
Examination: CT abdomen with intravenous contrast CT pelvis with intravenous contrast 2-D coronal reconstructions 2-D sagittal reconstructions Date and time of exam:January 2025 1204 hours Comparison February 03, 2025 INDICATIONS: Septic shock today, diagnosis cirrhosis, numerous liver lesions on CT abdomen study without contrast February 03, 2025. CTDI: vol (mGy) 15.1 DLP: (mGycm) 827 Technique: Multiple axial sections of the abdomen and pelvis have been obtained. 64 slice high-resolution scanner used. 3 mm axial sections have been obtained, post intravenous injection 60 cc [id number] 2-D sagittal, coronal reconstructions obtained. Low dose protocols were performed. One or more of the following dose reduction techniques were used; automated exposure control, adjustment of the mA and/or KV according to patient size, use of iterative reconstruction technique. Findings: Prominent pneumonia left base Minimal right pleural fluid Mild enlargement cardiac contour Cirrhosis, liver nodular in contour The liver is replaced by numerous subcentimeter liver lesions Spleen is not enlarged Significant ascites No pancreatic mass Absent gallbladder Common bile duct 10 mm There are abnormal fluid distended small bowel loops throughout the abdomen The right colon is air distended, there is air in the wall of the right colon and tiny air droplets which appear to project outside the wall of the colon consistent with ischemic bowel Atrophic uterus IMPRESSION: Prominent pneumonia left base Ischemic bowel, right colon, air droplets in the wall of the bowel and projecting outside the wall of the right colon, recommend surgical consultation Also abnormal small bowel loops fluid distended with wall thickening, ischemic small bowel would be included in the differential
[2025-02-05 11:14] LABS: Slide Review Platelets confirmed
[2025-02-05] MEDS: MIDAZOLAM INJ 1 MG/ML VIAL 2 ML 2 MG IVP (14:39)
[2025-02-05] MEDS: DEXTROSE 50%-WATER INJ 50 ML SYRINGE IVP (14:43)
[2025-02-05 16:06] LABS: Lactate (Lactic Acid) 5.3 mMol/L (0.4-2.0)
[2025-02-05 16:08] LABS: Basophils # (Auto) 0.1 Thou/mm3 (0.0-0.2); Basophils % (Auto) 1 % (0-2.5); Eosinophils # (Auto) 0.0 Thou/mm3 (0.0-0.5); Eosinophils % (Auto) 0 % (0-10); Hematocrit 22.0 % (36.0-46.0); Immature Granulocytes Auto 0.09 Thou/mm3 (0.00-0.00); Lymphocytes # (Auto) 0.3 Thou/mm3 (1.0-4.8); Lymphocytes % (Auto) 3 % (10-50); Mean Corpuscular HGB Conc 32.3 g/dl (31.0-37.0); Mean Corpuscular Hemoglobin 32.6 pg (25.0-35.0); Mean Corpuscular Volume 101 fL (80-100); Monocytes # (Auto) 0.4 Thou/mm3 (0.0-0.8); Monocytes % (Auto) 5 % (0-12); Neutrophils # (Auto) 7.2 Thou/mm3 (1.8-7.7); Neutrophils % (Auto) 90 % (37-80); Nucleated Red Blood Cell # 0.00 Thou/mm3 (0.00-0.00); Nucleated Red Blood Cell % 0 /100 WBC (0); RDW Standard Deviation 100.8 fL (36.4-46.3); Red Blood Count 2.18 Miln/mm3 (4.00-5.20); White Blood Count 8.0 Thou/mm3 (3.6-11.0)
[2025-02-05 16:14] LABS: Hemoglobin 7.1 g/dL (12.0-16.0)
[2025-02-05 16:15] LABS: Platelet Count 22 Thou/mm3 (140-440)
--- NOTE | 2025-02-05 16:19 | PC.SS ---
WAFER F[employer]ICATOR attempted phone contact with patient's POC, Rell Delgado . No response unable to leave voicemail. Will attempt contact at later date.
[2025-02-05 16:37] LABS: Alanine Aminotransferase 250 U/L (10-49); Albumin, Serum 2.9 gm/dL (3.4-4.8); Albumin/Globulin Ratio 1.7 (1.2-2.2); Alkaline Phosphatase 68 U/L (46-116); Anion Gap 13 (7-16); Aspartate Amino Transferase 835 U/L (0-34); BUN/Creatinine Ratio 5 Ratio (12-20); Bilirubin,Total 11.7 mg/dL (0.3-1.2); Blood Urea Nitrogen 5 mg/dL (9-23); Calcium 7.0 mg/dL (8.3-10.6); Calcium (Corrected) 7.9 mg/dL (8.5-10.1); Carbon Dioxide 19.3 mMol/L (20.0-31.0); Chloride 107 mMol/L (98-107); Creatinine (Component) 1.0 mg/dL (0.6-1.3); Estimated Creatinine Clearance 43.0 mL/min (>60); Globulin 1.7 gm/dL (2.3-3.5); Glucose 130 mg/dL (74-106); Osmolality,Calculated 276 (275-295); Potassium 3.5 mMol/L (3.4-5.1); Sodium 139 mMol/L (136-145); Total Protein 4.6 gm/dL (5.7-8.2); eGFR > 60 See Note
[2025-02-05 16:54] LABS: Partial Thromboplastin Time 65.0 Seconds (22.0-36.0)
--- NOTE | 2025-02-05 16:55 | PD.SURCONS ---
HPI Consult details Consult date: 02/05/25 Reason for consultation narrative: The patient was seen in consultation because of possible ischemic colitis seen on the CT scan History of present illness: Patient has been admitted with respiratory failure and intubated and she has been in septic shock. Patient also was requiring vasopressors to keep her blood pressure. She is not perfusing and has no urine output. Patient has a history of cirrhosis and ascites Meds Home Medications and Allergies Home Medications ?Medication ?Instructions ?Recorded ?Confirmed ?Type No Known Home Medications 10/18/23 02/05/25 History Allergies Allergy/AdvReac Type Severity Reaction Status Date / Time No Known Allergies Allergy Verified 10/18/23 07:36 Exam Vital Signs Temp Pulse Resp BP Pulse Ox O2 Del Method O2 Flow Rate 97.2 F 80 29 H 111/72 93 L Mechanical Ventilation 11 02/05/25 16:00 02/05/25 16:05 02/05/25 16:05 02/05/25 16:05 02/05/25 16:05 02/05/25 16:00 02/04/25 21:55 FiO2 65 02/05/25 16:00 Narrative Exam Physical examination revealed thin built female who is on the respirator. It is difficult to evaluate her abdomen because she is intubated. But the abdomen seems to be full if not distended Results Results: Laboratory Laboratory Narrative: Patient's laboratory work was reviewed. She has a severe thrombocytopenia and hypoalbuminemia and prolonged PTT probably secondary to cirrhosis Results: Imaging Imaging narrative: CT scan showed contracted liver with possible cirrhosis and free fluid suggesting ascites. There are air droplets in the cecum suggesting ischemic colitis and dilated small bowel loops. Assessment & Plan Additional Assessment Additional comments: Impression: Septic shock Cirrhosis of the liver with possible ascites Thrombocytopenia Coagulation abnormalities Plan Plan: Patient is at high risk for any surgical intervention now. I do not think she will survive surgery. The fluid in the abdomen may be due to ascites or inflammatory fluid and it is hard to differentiate. Abdominal evaluation unfortunately is not possible because of the intubation and obtundation. I think we should talk to the family members and see if we can provide comfort care. If her condition improves we can reevaluate her again thank you
[2025-02-05 17:28] LABS: Fibrinogen 92 mg/dL (175-375)
[2025-02-05 17:39] LABS: Slide Review Platelets confirmed
--- NOTE | 2025-02-05 18:18 | ESPR_ITS ---
Documentation for date of: 02/05/25 Subjective Subjective Interval history: Patient is intubated and mechanically ventilated so most of the history is taken from the chart review. 69-year-old female with unknown past medical history was brought to the hospital in view of altered sensorium. Per nurse, patient probably had a fall the day before admission in the morning following which she was okay until the neighbors blood to recheck her in the evening, found to be unconscious for which they called the EMS and was brought to the hospital. In the ED, patient is minimally responsive with marked icterus and periorbital contusion. Patient was found to be hypoxic with oxygen saturation in the mid 80s and was initially placed on a nonrebreather mask with correction of hypoxia. Later patient was found to be tachycardic with heart rate around 140s and febrile with a temperature of 105.8 ?F. Patient was intubated in view of acute encephalopathy and hypoxia. ICU is consulted in view of acute hypoxic respiratory failure in the setting of acute encephalopathy and suspected septic shock. In the ED, patient received 1 dose of acetaminophen 650 mg per rectum. 1 L LR bolus followed by 1.5 L of NS bolus in view of suspected septic shock. Initial labs revealed hemoglobin 10.9, platelets 61, INR 1.8, sodium 133, bicarb less than 10, anion gap 22, BUN 13, creatinine 1.4, lactic acid 15, magnesium 1.4, total bilirubin 15.9, AST 241, ALT 58, albumin 2.5, procalcitonin 7.47. EKG showed sinus tachycardia with no acute ST and T wave changes chest x-ray showed bilateral increased vascularity. Abdomen/pelvis CT showed cirrhosis, mild to moderate ascites, absent gallbladder. Cervical spine CT, face CT, head CT, thoracic spine CT, lumbar spine CT did not show any acute fractures. Abdominal ultrasound showed no CBD stones. Initial chest x-ray done showed endotracheal tube tip 2.5 cm in the right mainstem bronchus with atelectasis of the left lung following which the endotracheal tube is retacted and repeat chest x-ray was done that showed minor atelectasis of the left base. Patient is admitted to ICU in view of septic shock, possible decompensated cirrhosis, HIRA. 02/04/2025: Patient is seen and examined at bedside in the ICU. Sedated and on mechanical ventilator. Overnight, patient was found to have hypoglycemic episodes blood glucose of 50 for which patient was given D50 twice. Patient was on CRRT throughout the night. Vitals are stable and patient was found to decreased vasopressors since last night. On examination, patient is found to have abdominal distention for which she was kept on low intermittent suction and later was started on trickle feeds. Labs done this morning showed hemoglobin 6.9, platelets 18,000, WBC 12.1, INR 4.7, BUN 6, creatinine 0.9, lactate 8.1, total bilirubin 16.1, AST 2385, ALT 474. Later fibrinogen is ordered to evaluate for DIC. Repeat CBC showed hemoglobin of 6.4 and platelet count of 16. Ordered 2 PRBC, 1 platelet, 3 FFP transfusions. 1 PRBC and FFP's kept on hold. Will repeat H&H after the blood transfusion. Consent for transfusion is taken from her friend Danny, could not get hold of her brother. Will continue CRRT till 7 PM. Will continue to monitor renal and liver function tests. Despite CRRT, patient is likely to have poor prognosis in the setting of acute liver failure and acute kidney failure. 02/05/2025: Patient is seen and examined at bedside in the ICU. No acute overnight events. Still anuric. Patient was on low-dose vasopressors including vasopressin and on Levophed. Early in the morning, patient is noted to have high peak pressures and noted to have severe abdominal distention for which patient was connected to the suction and found to have almost 2 to 2.5 L of residual volume. Vitals are stable. Labs done this morning showed hemoglobin 9, platelets 35, INR 2.2, sodium 135, creatinine 0.8, glucose 108, lactate 5.1, phosphorus 2.2, magnesium 1.4, total bilirubin 15.7, AST 1363, ALT 367. As patient is having abdominal distention and later found to have lactate elevation from 5.1-6.3, also noted to have multiple liver lesions on the CT abdomen/pelvis, suspected to have either malignancy or small bowel obstruction or ongoing ischemia for which repeat CT abdomen/pelvis was done with IV contrast and patient was found to have ischemic colitis in the right colon, prominent pneumonia in the left base. General surgeon, Dr. Rocha was consulted in view of ongoing ischemic colitis, recommended that in view of patient's critical illness we will hold off any surgical procedures for now. Repeat blood work was done around 3:45 PM that showed hemoglobin 7.1, platelets 22, fibrinogen 92, potassium 3.5, bicarb 19.3, creatinine 1, liver enzymes downtrended to AST 835, ALT 250, total bilirubin 11.7. Ordered 2 PRBC, 1 FFP, 1 platelet, 6 cryoprecipitate transfusion in view of suspected possible ongoing DIC. Will transfuse all these blood products which might help in improving the perfusion to the ischemic bowel. Will continue to trend lactate levels and monitor for urine output. Dr. Steward is following the patient and held off CRRT for today and wants to monitor for today. Exam Vital Signs Temp Pulse Resp BP Pulse Ox O2 Del Method O2 Flow Rate 97.2 F 80 29 H 111/72 93 L Mechanical Ventilation 11 02/05/25 16:00 02/05/25 16:05 02/05/25 16:05 02/05/25 16:05 02/05/25 16:05 02/05/25 16:00 02/04/25 21:55 FiO2 65 02/05/25 16:00 Narrative Exam General: Sedated and mechanically ventilated HEENT: Normocephalic, atraumatic, mucous membranes moist.Noted to have right frontal hematoma and ecchymosis on the right eye. Noted to have dislocated teeth. Heart: Regular rate and rhythm, no murmurs. Lungs: Clear to auscultation with no wheezing or crackles.Noted to have decreased breath sounds on the left side Abdomen: Soft, moderately distended, nontender, positive bowel sounds. ?No guarding or rebound tenderness. Neurologic:Sedated and mechanically ventilated Extremities: No edema. Noted all peripheral pulses Skin: Noted to have ecchymotic patches on the right side of the abdomen and also on the right hand from the IV catheterization Objective Labs 02/05/25 15:45 02/05/25 15:45 Labs: Laboratory Results - last 24 hr 02/03/25 02/04/25 02/04/25 02:10 07:32 18:50 WBC RBC Hgb Hct MCV MCH MCHC RDW Std Deviation Plt Count Neut % (Auto) Lymph % (Auto) Living[place] % (Auto) Eos % (Auto) Baso % (Auto) Neut # (Auto) Lymph # (Auto) Living[place] # (Auto) Eos # (Auto) Baso # (Auto) Immature Gran # (Auto) Absolute Nucleated RBC Immature Gran % Neutrophils % (Manual) Monocytes % (Manual) Metamyelocytes % Nucleated RBC % Band Neutrophils Lymphocytes (Manual) Toxic Granulation Toxic Vacuolation PT INR APTT Fibrinogen Puncture Site ABG pH ABG pCO2 ABG pO2 ABG HCO3 ABG O2 Saturation ABG Base Excess FiO2 Sodium 136 Potassium 5.0 D Chloride 98 Carbon Dioxide 24.6 Anion Gap 13 BUN < 5 L Creatinine 0.8 Estim Creat Clear Calc 53.7 L eGFR > 60 BUN/Creatinine Ratio 6 L Glucose 101 Calculated Osmolality 269 L Lactic Acid 6.7 H* Calcium 9.0 D Corrected Calcium 9.3 Phosphorus 2.5 Magnesium Total Bilirubin AST ALT Alkaline Phosphatase Total Protein Albumin 3.6 D Globulin Albumin/Globulin Ratio Vitamin B12 Not Performed. Misc Test Result Blood Type O Positive Antibody Screen NEGATIVE Crossmatch See Detail Blood Bank Wristband ID Yes Blood Bank Comment FFP Ready 02/04/25 02/04/25 02/05/25 22:23 23:10 00:32 WBC 11.6 H D RBC 2.72 L Hgb 8.9 L Hct 26.7 L MCV 98 MCH 32.7 MCHC 33.3 RDW Std Deviation 95.1 H Plt Count 41 L D Neut % (Auto) 85 H Lymph % (Auto) 3 L Livingston % (Auto) 4 Eos % (Auto) 7 Baso % (Auto) 0 Neut # (Auto) 9.8 H Lymph # (Auto) 0.4 L Livingston # (Auto) 0.4 Eos # (Auto) 0.9 H Baso # (Auto) 0.0 Immature Gran # (Auto) 0.15 H Absolute Nucleated RBC 0.00 Immature Gran % 1 H Neutrophils % (Manual) 89 H Monocytes % (Manual) 2 Metamyelocytes % 2 H Nucleated RBC % 0 Band Neutrophils 5 Lymphocytes (Manual) 2 L Toxic Granulation 1+ Toxic Vacuolation Slight PT INR APTT Fibrinogen Puncture Site Right Femoral ABG pH 7.30 L D ABG pCO2 57 H D ABG pO2 78 L ABG HCO3 28 H ABG O2 Saturation 94 ABG Base Excess 1 FiO2 40 Sodium 134 L Potassium 4.4 D Chloride 97 L Carbon Dioxide 27.0 Anion Gap 10 BUN < 5 L Creatinine 0.8 Estim Creat Clear Calc 53.7 L eGFR > 60 BUN/Creatinine Ratio 6 L Glucose 103 Calculated Osmolality 265 L Lactic Acid 5.5 H* Calcium 9.3 Corrected Calcium 9.5 Phosphorus 2.0 L Magnesium Total Bilirubin AST ALT Alkaline Phosphatase Total Protein Albumin 3.7 Globulin Albumin/Globulin Ratio Vitamin B12 Misc Test Result Platelets confirmed Blood Type Antibody Screen Crossmatch Blood Bank [facility] ID Blood Bank Comment 02/05/25 02/05/25 02/05/25 01:20 04:34 05:35 WBC 10.0 RBC 2.74 L Hgb 9.0 L Hct 26.7 L MCV 97 MCH 32.8 MCHC 33.7 RDW Std Deviation 95.4 H Plt Count 35 L Neut % (Auto) 92 H Lymph % (Auto) 3 L Livingston % (Auto) 4 Eos % (Auto) 0 Baso % (Auto) 0 Neut # (Auto) 9.2 H Lymph # (Auto) 0.3 L Livingston # (Auto) 0.4 Eos # (Auto) 0.0 Baso # (Auto) 0.0 Immature Gran # (Auto) 0.12 H Absolute Nucleated RBC 0.02 H Immature Gran % 1 H Neutrophils % (Manual) Monocytes % (Manual) Metamyelocytes % Nucleated RBC % 0 Band Neutrophils Lymphocytes (Manual) Toxic Granulation Toxic Vacuolation PT 22.6 H D INR 2.2 H APTT 49.3 H D Fibrinogen Puncture Site Right Radial Arterial Line ABG pH 7.40 D 7.42 ABG pCO2 45 D 44 ABG pO2 69 L 100 D ABG HCO3 28 H 29 H ABG O2 Saturation 94 99 H ABG Base Excess 3 4 H FiO2 75 65 Sodium 135 L Potassium 4.3 Chloride 94 L Carbon Dioxide 27.2 Anion Gap 14 BUN < 5 L Creatinine 0.8 Estim Creat Clear Calc 53.7 L eGFR > 60 BUN/Creatinine Ratio 6 L Glucose 108 H Calculated Osmolality 268 L Lactic Acid 5.1 H* Calcium 9.9 Corrected Calcium 9.9 Phosphorus 2.2 L Magnesium 1.4 L Total Bilirubin 15.7 H AST 1363 H* ALT 367 H Alkaline Phosphatase 107 Total Protein 6.6 Albumin 4.0 Globulin 2.6 Albumin/Globulin Ratio 1.5 Vitamin B12 Misc Test Result Platelets confirmed Blood Type Antibody Screen Crossmatch Blood Bank [facility] Blood Bank Comment 02/05/25 02/05/25 09:20 15:45 WBC 8.0 RBC 2.18 L Hgb 7.1 L D Hct 22.0 L MCV 101 H MCH 32.6 MCHC 32.3 RDW Std Deviation 100.8 H Plt Count 22 L* D Neut % (Auto) 90 H Lymph % (Auto) 3 L Living[place] % (Auto) 5 Eos % (Auto) 0 Baso % (Auto) 1 Neut # (Auto) 7.2 Lymph # (Auto) 0.3 L Living[place] # (Auto) 0.4 Eos # (Auto) 0.0 Baso # (Auto) 0.1 Immature Gran # (Auto) 0.09 H Absolute Nucleated RBC 0.00 Immature Gran % 1 H Neutrophils % (Manual) Monocytes % (Manual) Metamyelocytes % Nucleated RBC % 0 Band Neutrophils Lymphocytes (Manual) Toxic Granulation Toxic Vacuolation PT INR APTT 65.0 H D Fibrinogen 92 L* Puncture Site Arterial Line ABG pH 7.39 ABG pCO2 44 ABG pO2 74 L D ABG HCO3 27 H ABG O2 Saturation 95 ABG Base Excess 2 FiO2 65 Sodium 139 Potassium 3.5 D Chloride 107 Carbon Dioxide 19.3 L Anion Gap 13 BUN 5 L Creatinine 1.0 Estim Creat Clear Calc 43.0 L eGFR > 60 BUN/Creatinine Ratio 5 L Glucose 130 H Calculated Osmolality 276 Lactic Acid 6.3 H* 5.3 H* Calcium 7.0 L D Corrected Calcium 7.9 L D Phosphorus Magnesium Total Bilirubin 11.7 H D AST 835 H* ALT 250 H Alkaline Phosphatase 68 D Total Protein 4.6 L Albumin 2.9 L D Globulin 1.7 L Albumin/Globulin Ratio 1.7 Vitamin B12 Misc Test Result Platelets confirmed Blood Type Antibody Screen Crossmatch Blood Bank Wristband ID Blood Bank Comment ABG Interpretation ABG results: 02/03/25 02/03/25 02/03/25 02:47 06:09 07:19 ABG pH 7.25 L 7.00 L* D 7.18 L* D ABG pCO2 18 L* 63 H D 49 H D ABG pO2 192 H 149 H D 168 H ABG HCO3 8 L* 15 L 18 L ABG O2 Saturation 100 H 98 99 H ABG Base Excess -17 L -16 L -10 L VBG pH VBG pCO2 VBG pO2 VBG Base Excess 02/03/25 02/03/25 02/03/25 07:30 13:32 20:35 ABG pH 7.30 L D 7.25 L ABG pCO2 23 L D 23 L ABG pO2 159 H 145 H ABG HCO3 12 L 10 L ABG O2 Saturation 100 H 100 H ABG Base Excess -13 L -16 L VBG pH 7.28 L VBG pCO2 37 VBG pO2 110 H VBG Base Excess -9 L 02/04/25 02/04/25 02/04/25 03:51 06:42 23:10 ABG pH 7.60 H D 7.44 D 7.30 L D ABG pCO2 24 L 36 D 57 H D ABG pO2 150 H 71 L D 78 L ABG HCO3 23 25 28 H ABG O2 Saturation 101 H 95 94 ABG Base Excess 2 0 1 VBG pH VBG pCO2 VBG pO2 VBG Base Excess 02/05/25 02/05/25 02/05/25 01:20 04:34 09:20 ABG pH 7.40 D 7.42 7.39 ABG pCO2 45 D 44 44 ABG pO2 69 L 100 D 74 L D ABG HCO3 28 H 29 H 27 H ABG O2 Saturation 94 99 H 95 ABG Base Excess 3 4 H 2 VBG pH VBG pCO2 VBG pO2 VBG Base Excess Quality Measures Quality Measures sepsis Current suspected stage: septic shock (LA >4 and/or hypotension) Sepsis reassessment completed at (date): 02/05/25 Sepsis reassessment completed at (time): 16:00 Possible source: genitourinary Blood cultures ordered: yes Antibiotic ordered: Yes Advance care planning discussed with:: other Assessment & Plan Assessment Current Active Medications: Generic Name Dose Route Start Last Admin Trade Name Freq PRN Reason Stop Dose Admin Acetaminophen 650 mg 02/03/25 07:33 Acetaminophen Supp 650 Mg Supp MA 03/05/25 07:32 Q4HR PRN PAIN SCALE 1-3 (mild Heparin Sodium (Porcine) 3,000 unit 02/04/25 10:06 02/05/25 04:37 Heparin Sod Inj 1000 Unit/Ml Vial 10 Ml INDWELLCAT 02/18/25 10:05 3,000 unit PRN PRN Administration HD catheter Hydrocortisone Sodium Succinate 50 mg 02/03/25 18:00 02/05/25 18:14 Hydrocortisone Sod Succ Inj 100 Mg 2 Ml Vial IV 03/05/25 17:59 50 mg Q6HR JAYRO Administration Norepinephrine/Dextrose 8 mg in 250 mls @ 5.606 mls/hr 02/03/25 06:02 02/05/25 16:00 Levophed In D5w 8mg/250ml IV 03/05/25 06:01 0.07 mcg/kg/min .Q24H PRN 7.849 mls/hr PER PROTOCOL Titration Protocol 0.05 MCG/KG/MIN Dexmedetomidine/Sodium Chloride 400 mcg in 100 mls @ 2.99 mls/hr 02/03/25 06:51 02/05/25 16:00 Precedex Ivpb IV 03/05/25 06:50 1.4 mcg/kg/hr .Q24H PRN 20.93 mls/hr Per PROTOCOL Titration Protocol 0.2 MCG/KG/HR Piperacillin/Tazobactam/Dextrose 2.25 gm in 50 mls @ 100 mls/hr 02/03/25 12:00 02/05/25 18:14 Zosyn IV 02/10/25 11:59 100 mls/hr Q6HR JAYRO Administration Albumin Human 25 gm in 100 mls @ 100 mls/hr 02/03/25 12:00 02/05/25 18:13 Albuminar-25 Ivpb IV 02/06/25 11:59 100 mls/hr Q6HR JAYRO Administration Fentanyl Citrate 2,500 mcg in 250 mls @ 2.5 mls/hr 02/03/25 15:27 02/05/25 16:00 Sublimaze Inj 2,500 Mcg/250 Ml Bag IV 02/08/25 15:26 125 mcg/hr .Q24H PRN 12.5 mls/hr PER PROTOCOL Titration Protocol 25 MCG/HR Vasopressin/Sodium Chloride 20 unit in 100 mls @ 9 mls/hr 02/03/25 16:15 02/05/25 15:00 Vasostrict/Ns Ivpb IV 03/05/25 16:14 0.03 unit/min .Q11H7M PRN 9 mls/hr PER PROTOCOL Titration Protocol 0.03 UNIT/MIN Midazolam HCl 2 mg 02/05/25 07:32 02/05/25 14:39 Midazolam Inj 1 Mg/Ml Vial 2 Ml IVP 02/10/25 07:31 2 mg Q4H PRN Administration AGITATION OR ANXIETY Ondansetron HCl 4 mg 02/03/25 02:03 Ondansetron Inj 2 Mg/Ml Inj 2 Ml IVP 03/05/25 02:02 Q6HR PRN NAUSEA OR VOMITING Protocol Pantoprazole Sodium 40 mg 02/03/25 09:00 02/05/25 08:19 Pantoprazole Inj 40 Mg Vial IVP 03/05/25 08:59 40 mg QDAY JAYRO Administration Pharmacy Consult 1 each 02/03/25 02:03 Pharmacy Renal Dose Adjustment 1 Ea XX 03/05/25 02:02 PRN PRN CONSULT Plan 69-year-old female with unknown past medical history was brought to the hospital in view of altered sensorium. Per nurse, patient probably had a fall the day before admission in the morning following which she was okay until the neighbors blood to recheck her in the evening, found to be unconscious for which they called the EMS and was brought to the hospital. In the ED, patient is minimally responsive with marked icterus and periorbital contusion. Patient was found to be hypoxic with oxygen saturation in the mid 80s and was initially placed on a nonrebreather mask with correction of hypoxia. Later patient was found to be tachycardic with heart rate around 140s and febrile with a temperature of 105.8 ?F. Patient was intubated in view of acute encephalopathy and hypoxia. 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 Could be possible cause of septic encephalopathy - Hepatic encephalopathy. Patient has stigmata of chronic liver failure. Icterus, appears chronically ill, ascites. - Metabolic encephalopathy: Patient was found to have high anion gap metabolic acidosis with lactic acidosis at the time of presentation. -Sedation: Patient received rocuronium and propofol for the intubation. In the setting of the liver failure, there will be decreased platelets that could cause the sedation but patient was noted to be in altered sensorium even before coming to the hospital. So less likely the cause of acute encephalopathy Diagnosis: - In the ED, temperature is 105.8 ?F - Labs showed bicarb less than 10, anion gap 22, lactic acid 15, total bilirubin 15.9, AST 241, ALT 58 - CT head did not show any evidence of fracture/hemorrhage. Plan: - Started on empiric antibiotics, Zosyn 2.25 g every 8 hourly [8/11- - Started on lactulose 30 g 3 times daily and increased to 45 g 3 times daily as of 02/04/2025, rifaximin 550 Mg twice daily, held as of 02/05/2025 as patient developed ischemic colitis - Currently on Precedex and fentanyl drip, will wean off if patient becomes hemodynamically stable and underlying condition is improving - For metabolic acidosis, patient was given multiple doses of bicarb despite which patient remained acidotic and was started on CRRT and was stopped on 02/04/2025 around 7PM CVS # Shock Differential diagnosis: Distributive versus hypovolemic versus obstructive versus cardiogenic - Distributive: Likely sepsis. Patient does not have any hives or airway edema which rules out anaphylaxis. Patient was noted to have temperature of 105.8 ?F. -Hypovolemic: History is unknown. No evidence of any recent severe GI bleed as the hemoglobin is stable - Obstructive versus cardiogenic:. Bedside echocardiogram was done and heart appears to be hyperdynamic without any evidence of cardiac tamponade or RV strain Diagnostic test: - Patient was found to have low MAP less than 65 mmHg despite fluid resuscitation - In the ED, temperature is 105.8 ?F - Labs showed bicarb less than 10, anion gap 22, lactic acid 15, total bilirubin 15.9, AST 241, ALT 58 - Procalcitonin is 7.47 - Blood cultures showed Gram negative bacteremia, E.coli bacteremia Plan: - Started on Zosyn [02/03- - 2.5 L of bolus was given in the ED - NICOM done at the bedside showed unresponsiveness to the fluid - Started on Levophed and vasopressin in view of low MAP - Started on albumin 25 g IV every 6 hourly - Arterial line is placed to measure blood pressure accurately - Patient was given a dose of hydrocortisone 100 mg and started on Hydrocortisone 50mg IV every 6th hrly. # Sinus tachycardia, resolved - At the time of admission, patient was found to have pulse rate of 138 - EKG showed sinus tachycardia with no ST and T wave changes - Likely in response to the febrile episode. Later as patient is started on levophed, found to be tachycardic which is likely due to vasopressors Plan: - Patient was given 2.5 L of IV fluid bolus - Will continue telemetry monitoring # Elevated troponins, downtrended Likely in the setting of demand ischemia -Troponin at the time of admission is 0.077, later downtrended - EKG showed sinus tachycardia with no ST and T wave changes - Will continue Telemetry monitoring - Very low suspicion of ACS at this point of time Respiratory # Acute hypoxic respiratory failure Likely multifactorial, in the setting of Acute encephalopathy and Sepsis - Patient came in with altered sensorium and found aline having mixed metabolic and respiratory acidosis - ABG at the time of admission is pH 7.25, pCO2 18, HCO3 8 - Patient is intubated in the ED for which she received Rocuronium and propofol Plan - Will continue mechanical ventilation - Will treat the underlying sepsis and shock - On precedex and fentanyl drip, trying to wean her off. GI # Decompensated Cirrhosis with Ascites, 2/2 Alcohol # Hyperbilirubinemia # Hypoalbuminemia - Patient came in altered sensorium and couldnt get much history - Noted icterus and abdominal distension at the time of admission - Labs showed hyperbilirubinemia, 15.9, AST 241, ALT 58, albumin 2.5, INR 1.8 - Noted to have previous history of hemorrhoids - CT Abdomen showed cirrhosis with ascites - MELD score is 29, 27 to 32% mortality in the next 90 days - Child class C Plan - Ordered hepatitis panel, came back negative - Patient appears to have poor prognosis in the setting of high MELD score and Trista class C - If the patient improves after this acute setting, will recommend to follow-up for the liver transplant. - Started octreotide drip at the time of admission and stopped on 02/05/2025 # Transaminitis, resolving - At the time of admission, AST is 241, ALT is 58 - Repeat liver panel showed significant elevations transaminase levels to 696, 145 and uptrended to 2385 and 474, downtrended to 835, 250 as of 02/05/2025 as of 02/05/2025 - Likely patient had ischemic hepatitis in the setting of ongoing shock Plan - Patient is on CRRT in view of multiorgan dysfunction from 02/03/2025 - 02/04/1025 for about more than 20hours - Will continue to monitor liver enzymes # Hypoalbuminemia - Albumin at the time of admission is 2.5 - Patient was given 50 g of albumin at the time of admission Plan - Will will continue patient on 25 g albumin IV every 6 hourly # Incidental finding, numerous liver masses noted on CT abdomen/pelvis - Patient was noted to have numerous liver lesions, subcentimeter masses on CT abdomen/pelvis done at the time of admission - Could be possible malignancy in the setting of cirrhosis - Tested negative for CEA Plan - CT abdomen/pelvis with contrast on 02/05/2025 that showed -liver is replaced with numerous subcentimeter liver lesions # Suspected ischemic colitis - Patient was found to have abdominal distention with high peak pressures noted on the ventilator on 02/05/2025 - OG tube was connected to the low intermittent suction and was found to have 2.5 L of fluid - Also noted to have lactate elevation from 5.1-6.3 Plan - CT abdomen/pelvis was done that showed ischemic bowel, right colon, air droplets in the wall of the bowel and projecting outside the wall of the right colon - Also abnormal small bowel loops fluid distended with wall thickening is noted - General Surgeon, Dr. Rocha is consulted and he recommended no surgical intervention as of now in view of patient's clinical condition and severe coagulopathy in the setting of ongoing sepsis and severe liver failure Renal # Acute kidney injury - Baseline creatinine is 0.6 - Creatinine at the time of admission is 1.4 and patient appears to be anuric with urine output less than 50 mL in the last 24 hours - Repeat renal functions as of 02/05/2025 showed BUN 5, Cr 1 - Likely in the setting of ongoing shock, HRS cannot be ruled out at this time as the patient is having shock Plan - Dialysis catheter was placed in the right femoral vein - Retail Marketing Coordinator, Dr. Steward is consulted and Received CRRT on 02/03 - 02/04 - Urine electrolytes sent, FeNa is 0.5 --> Likely prerenal in the setting of Shock - Will continue to monitor renal functions and renally dose medications # High anion gap metabolic acidosis, resolved # Lactic acidosis - Likely in the setting of ongoing shock and multiorgan dysfunction - Found to have bicarb less than 10, anion gap 22, lactate 15 at the time of admission Plan - Patient was given 2 doses of bicarb at the time of admission - Patient received CRRT - Despite CRRT patient appears to have uptrending lactate for which CT abdomen/pelvis is done and revealed ischemic colitis - Dr. Rocha is consulted and he recommended no surgical intervention as of now in view of patients clinical and hemodynamic status - Will continue to monitor renal functions and trend lactate # Mild hyponatremia, resolved - Sodium at the time of the admission is 133 likely in the setting of chronic liver disease and ongoing HIRA - Sodium levels as of 02/05/1025 is 139 Plan - Will monitor sodium levels and treat accordingly # Hypomagnesemia - Magnesium at the time of admission is 1.4, likely nutritional in the setting of suspected chronic liver disease - Magnesium as of today is 1.4 Plan - Patient was repleted with 4 g of IV magnesium - Will continue to monitor the magnesium levels Hematology # Thrombocytopenia - Platelets at the time of admission is 61,000 but patient does not appear to be actively bleeding at this point of time - Likely in the setting of sepsis and chronic liver disease - Platelets on 02/04/2025 is 16,000 --> 02/05, 22,000 Plan - 1 platelet transfusion is given on 02/04 - Transfuse 1 unit of platelets on 02/05 - Will continue to monitor the platelet count and bleeding manifestations # Anemia - Hemoglobin at the time of admission is at 10.9, but her baseline hemoglobin is around 8, the hemoglobin in the admission could be due to some hemoconcentration - Hemoglobin on 02/04/2025 is 6.9, repeat hemoglobin is 6.4 - Monitor could be multifactorial, likely in the setting of multiple build with the dose and correction of hemoconcentration, suspicion of possible DIC - Hb as of 02/05 is 7.1 Plan - 2 PRBC transfusion given on 02/04 - Started on 2 PRBC transfusion on 02/05 - Will repeat H&H after the transfusion # Coagulopathy - INR at the time of admission is 1.8 - INR on 02/04/2025 is 4.7 ---> 2.2 on 02/05 - Likely multifactorial in the setting of sepsis, decompensated liver disease, suspected possible DIC - Currently patient does not noted to have any active bleeding manifestations Plan - Ordered 4 FFP's on 02/04 and 3 FFP's are transfused - Each bag contains 300 mL and patient weighs around 60 kg - Per calculation, patient needs 15 mL/kg-so patient needs 900 mL of FFP's - 1 FFP is transfused on 02/05 # Suspected DIC - Likely multifactorial in the setting of liver disease, sepsis - Patient might be having coagulopathy from the liver disease, completely cannot be ruled out but as the patient developing worsening INR, low platelet count, anemia, suspecting DIC Plan - Fibrinogen levels are ordered - 116 on 02/04, 92 on 02/05 - Patient received 2 PRBC, 3 FFP, 1 Platelet on 02/04 - 2 PRBC, 1 FFP, 1 platelet transfusion, 6 Cryoprecipitates are ordered on 02/05 - Will repeat CBC and coagulation studies after the transfusions - Will continue to monitor for bleeding manifestations and we will try to treat the underlying condition. ID # Sepsis - Blood cultures showed GNR bacteremia, E.coli Plan - Started on Zosyn, sensitive on cultures - Will wait for final cultures Musculoskeletal # No active problems as of now Endocrinology # No acute problems as of now Hospital Maintenance: Dispo: ICU for septic shock DVT ppx: SCD GI ppx: Protonix Diet: Tube feeds, trickle IV lines: Right IJV CENTRAL line, Right femoral arterial and dialysis catheter Code status: Full Patient plan of care was discussed with the Basket Sorter Dr. Aurelia Leslie, PGY2
[2025-02-05 19:01] LABS: Reflex Lactate? Y
[2025-02-05] MEDS: POT PHOS 15 mMol in NS 250 ML 15 MMOL/250 ML BAG 62.5 MMOL IV ×2 (19:02→22:10)
[2025-02-05] MEDS: fentaNYL 2,500 MCG/250 ML BAG 2,500 MCG/250 ML BAG 7.5 MCG IV (20:21)
[2025-02-05 20:24] LABS: Lactic Acid, 3 HR 7.2 mMol/L (0.4-2.0)
[2025-02-06] VITALS (120 sets, daily range): BP systolic 83–171; BP diastolic 44–96; PULSE 62–82; RESP 16–34; TEMP 36.1–37.1; O2SAT 90–98; BMI 27.3
[2025-02-06] MEDS: HYDROCORTISONE SOD SUCC INJ 100 MG 2 ML VIAL 50 MG IV ×3 (00:54→21:05)
[2025-02-06] MEDS: DEXMEDETOMIDINE 400 MCG IVPB 400 MCG/100 ML BAG 20.93 MCG IV ×5 (01:05→21:00)
[2025-02-06] MEDS: MIDAZOLAM INJ 1 MG/ML VIAL 2 ML 2 MG IVP (02:22)
[2025-02-06] MEDS: PIPER/TAZO 2.25 GM 2.25 GM/50 ML BAG IV ×4 (02:22→17:38)
[2025-02-06] MEDS: Norepinephrine/D5W 8mg/250ml 8 MG/250 ML BAG 5.606 MG IV (02:56)
[2025-02-06 05:10] LABS: Base Excess -4 (-3-3); HCO3 23 mEq/L (20-26); Inspired Oxygen, FIO2 65 %; O2 Saturation 92 % (91-98); PCO2 51 mmHg (32.0-48.0); PO2 69 mmHg (83-108); pH, Arterial 7.27 (7.35-7.45)
[2025-02-06 05:18] LABS: Allen Test Performed/OK; Puncture Site Right Radial
[2025-02-06] MEDS: ALBUMIN HUMAN 25% IVPB 25 GM/100 ML BTL IV ×2 (06:25)
[2025-02-06 06:33] LABS: Lactate (Lactic Acid) 5.6 mMol/L (0.4-2.0)
[2025-02-06 07:03] LABS: INR 3.4 (0.9-1.3)
[2025-02-06 07:06] LABS: Alanine Aminotransferase 360 U/L (10-49); Albumin, Serum 4.1 gm/dL (3.4-4.8); Albumin/Globulin Ratio 1.7 (1.2-2.2); Alkaline Phosphatase 67 U/L (46-116); Anion Gap 16 (7-16); BUN/Creatinine Ratio 6 Ratio (12-20); Blood Urea Nitrogen 11 mg/dL (9-23); Calcium 8.7 mg/dL (8.3-10.6); Calcium (Corrected) 8.7 mg/dL (8.5-10.1); Carbon Dioxide 21.4 mMol/L (20.0-31.0); Chloride 97 mMol/L (98-107); Creatinine (Component) 1.8 mg/dL (0.6-1.3); Estimated Creatinine Clearance 23.9 mL/min (>60); Globulin 2.4 gm/dL (2.3-3.5); Glucose 123 mg/dL (74-106); Osmolality,Calculated 268 (275-295); Potassium 5.8 mMol/L (3.4-5.1); Sodium 134 mMol/L (136-145); Total Protein 6.5 gm/dL (5.7-8.2); eGFR 30 See Note
[2025-02-06 07:23] LABS: Prothrombin Time 34.2 Seconds (9.0-12.2)
[2025-02-06 07:29] LABS: Bilirubin,Total 18.1 mg/dL (0.3-1.2)
[2025-02-06 07:32] LABS: Aspartate Amino Transferase 1084 U/L (0-34)
--- NOTE | 2025-02-06 07:52 | XR_ITS ---
Examination: AP chest single view Technique one AP portable semiupright chest single view Date and time: February 06, 2025 0824 hours Comparison February 05, 2025 INDICATIONS: Hypoxic respiratory failure this week. FINDINGS: Significant pneumonia left base Mild pneumonia right upper lobe. Endotracheal tube tip 2.2 cm above marzena Right internal jugular central line tip right atrium Orogastric tube distal stomach IMPRESSION: Significant pneumonia left base
--- NOTE | 2025-02-06 08:25 | PD.INTPROG ---
Documentation for date of: 02/06/25 Subjective Subjective Interval history: This is a 69yo F who was found down at 1am in her house. A neighbor found her on the floor unresponsive and she had apparently fallen and hit her head. EMS was called and the pt was brought into the ER. On arrival she was noted to be altered and febrile with a temp of 105.8. Initial labs showed a metabolic acidosis with appropriate respiratory compensation. She became progressively more lethargic and obtunded as the night progressed. At 6am she was unresponsive and hypotensive. She was given a total of 2.5lts of IVF in the ER and intubated. She was started on vasopressor support and a central line was placed. Pt was brought up to the ICU. A bedside echo was done which showed a hyperdynamic LV with no pericardial effusion. SvO2 was sent off of the brown port from the central line and pt was given vanc/zosyn. A cheeta was placed for hemodynamics and PLR performed. pt was found to not be fluid responsive. There are no family available for additional information. pts s/o 2 months ago and there is no immediate family around. 02/04- overnight dropped h/h , no evidence of active bleed, wakes up but does not follow commands, decrease in levo needs today, 1 BM yesterday, no fever overnight, poor UOP 02/05-overnight patient had elevated peak inspiratory pressures on the ventilator. She was also noted to have increased abdominal distention. She has had no bowel movement since arrival. Her vent settings were adjusted on the ventilator and her OG tube was placed to low intermittent suction. There was a total of more than 2 L of fluid immediately suctioned from the patient's stomach consistent of gastric content. She is currently afebrile and continues with no urinary output 02/06-yesterday had a drop in her H&H with worsening coagulopathy. Her abdomen was distended and a CT was performed. This showed ischemic colitis along with question of small bowel ischemia. Surgery was consulted. Her lactic acid remains elevated, she is coagulopathic, she had a drop in her fibrinogen and platelets. FFP's, cryo, platelets and PRBCs were ordered for her. She remains anuric and when sedation is lightened she remains minimally responsive Critical Care Note Critical care time (min.): 50 Exam Vital Signs Temp Pulse Resp BP Pulse Ox O2 Del Method O2 Flow Rate 98.8 F 76 29 H 106/66 93 L Mechanical Ventilation 11 02/06/25 08:10 02/06/25 08:10 02/06/25 08:10 02/06/25 08:10 02/06/25 08:10 02/05/25 16:00 02/06/25 07:07 FiO2 65 02/06/25 06:39 Narrative Exam [id number], jaundiced, GCS 7T M4, E2, V1, overweight HEENT-normocephalic, small hematoma on right forehead, improvement to the bruising over her right eyelid, sclera icteric, pupils pinpoint and sluggish, edema of the sclera, ET tube and OG tube in place, oral mucosa is dry, dried blood in the oral cavity, small laceration on her upper inner lip Chest-lung sounds diminished, no expiratory wheeze, heart rate regular and rhythmic, no bruits, increased work of breathing Abdomen-firm, distended, absent bowel sounds Extremities-edema, pulses palpable, mottling over bilateral lower extremities to the level of mid thigh, jaundice, multiple areas of ecchymosis throughout, no clubbing Vent AC/VC Drips Levophed Vasopressin Precedex Fentanyl Physical Exam Completion Physical Exam Complete?: Yes Objective - [facility] Labs 02/06/25 08:15 02/06/25 06:20 Labs: Laboratory Results - last 24 hr 02/03/25 02/04/25 02/05/25 02:10 07:32 05:35 WBC RBC Hgb Hct MCV MCH MCHC RDW Std Deviation Plt Count Neut % (Auto) Lymph % (Auto) Rowan % (Auto) Eos % (Auto) Baso % (Auto) Neut # (Auto) Lymph # (Auto) Rowan # (Auto) Eos # (Auto) Baso # (Auto) Immature Gran # (Auto) Absolute Nucleated RBC Immature Gran % Nucleated RBC % PT INR APTT Fibrinogen Puncture Site ABG pH ABG pCO2 ABG pO2 ABG HCO3 ABG O2 Saturation ABG Base Excess FiO2 Sodium Potassium Chloride Carbon Dioxide Anion Gap BUN Creatinine Estim Creat Clear Calc eGFR BUN/Creatinine Ratio Glucose Calculated Osmolality Lactic Acid Calcium Corrected Calcium Total Bilirubin AST ALT Alkaline Phosphatase Total Protein Albumin Globulin Albumin/Globulin Ratio Vitamin B12 Not Performed. Misc Test Result Platelets confirmed Blood Type O Positive Antibody Screen NEGATIVE Crossmatch See Detail Blood Bank Wristband ID Yes Blood Bank Comment FFP Ready 02/05/25 02/05/25 02/05/25 09:20 15:45 19:52 WBC 8.0 RBC 2.18 L Hgb 7.1 L D Hct 22.0 L MCV 101 H MCH 32.6 MCHC 32.3 RDW Std Deviation 100.8 H Plt Count 22 L* D Neut % (Auto) 90 H Lymph % (Auto) 3 L Rowan % (Auto) 5 Eos % (Auto) 0 Baso % (Auto) 1 Neut # (Auto) 7.2 Lymph # (Auto) 0.3 L Rowan # (Auto) 0.4 Eos # (Auto) 0.0 Baso # (Auto) 0.1 Immature Gran # (Auto) 0.09 H Absolute Nucleated RBC 0.00 Immature Gran % 1 H Nucleated RBC % 0 PT INR APTT 65.0 H D Fibrinogen 92 L* Puncture Site Arterial Line ABG pH 7.39 ABG pCO2 44 ABG pO2 74 L D ABG HCO3 27 H ABG O2 Saturation 95 ABG Base Excess 2 FiO2 65 Sodium 139 Potassium 3.5 D Chloride 107 Carbon Dioxide 19.3 L Anion Gap 13 BUN 5 L Creatinine 1.0 Estim Creat Clear Calc 43.0 L eGFR > 60 BUN/Creatinine Ratio 5 L Glucose 130 H Calculated Osmolality 276 Lactic Acid 6.3 H* 5.3 H* 7.2 H* Calcium 7.0 L D Corrected Calcium 7.9 L D Total Bilirubin 11.7 H D AST 835 H* ALT 250 H Alkaline Phosphatase 68 D Total Protein 4.6 L Albumin 2.9 L D Globulin 1.7 L Albumin/Globulin Ratio 1.7 Vitamin B12 Misc Test Result Platelets confirmed Blood Type Antibody Screen Crossmatch Blood Bank Wristband ID Blood Bank Comment 02/06/25 02/06/25 04:50 06:20 WBC 12.1 H D RBC 3.53 L Hgb 10.8 L D Hct 33.0 L D MCV 94 MCH 30.6 MCHC 32.7 RDW Std Deviation 47.4 H Plt Count 247 D Neut % (Auto) 87 H Lymph % (Auto) 5 L Rowan % (Auto) 7 Eos % (Auto) 1 Baso % (Auto) 0 Neut # (Auto) 10.5 H Lymph # (Auto) 0.6 L Rowan # (Auto) 0.9 H Eos # (Auto) 0.1 Baso # (Auto) 0.1 Immature Gran # (Auto) 0.05 H Absolute Nucleated RBC 0.00 Immature Gran % 0 Nucleated RBC % 0 PT 34.2 H* D INR 3.4 H APTT Fibrinogen Puncture Site Right Radial ABG pH 7.27 L D ABG pCO2 51 H ABG pO2 69 L ABG HCO3 23 ABG O2 Saturation 92 ABG Base Excess -4 L FiO2 65 Sodium 134 L Potassium 5.8 H D Chloride 97 L Carbon Dioxide 21.4 Anion Gap 16 BUN 11 Creatinine 1.8 H D Estim Creat Clear Calc 23.9 L eGFR 30 L BUN/Creatinine Ratio 6 L Glucose 123 H Calculated Osmolality 268 L Lactic Acid 5.6 H* Calcium 8.7 D Corrected Calcium 8.7 Total Bilirubin 18.1 H* D AST 1084 H* ALT 360 H Alkaline Phosphatase 67 Total Protein 6.5 Albumin 4.1 D Globulin 2.4 Albumin/Globulin Ratio 1.7 Vitamin B12 Misc Test Result Blood Type Antibody Screen Crossmatch Blood Bank Wristband ID Blood Bank Comment Assessment & Plan Additional Plan Additional Plan: In brief this is a 69yo F admitted to the ICU with distributive shock a/p [employer] Acute encephalopathy- multifactorial and 2/2 sepsis, shock, acidosis and hepatic etiologies - Has been unable to tolerate lactulose - when sedation held does not wake up but becomes more agonal on the vent Facial Trauma- CT without fx CV Shock- cheeta and bedside echo done, hemodynamic data consistent with distributive shock. on vanc/zosyn, likely sepsis, bcx, sputum and ucx taken and pending. LA elevated -> given IVF - on levophed and vasopressin - Bcx with E.coli - LA cleared with CRRT - Unable to clear lactate, CT from yesterday shows bowel ischemia with pneumatosis intestinalis -Patient is a poor surgical candidate Tropinemia- likely related to demand ischemia, fu on repeat, EKG without ST elevation or depression - minimally elevated in setting of HIRA and shock - echo done and shows diastolic dysfunction with a normal EF and no wall motion abnormality Resp Acute resp failure- intubated and on MV, fu with ABG and CXR - ween as able - Plateau pressures less than 30 with elevated peak inspiratory pressures this morning. It is felt that the elevated peak is very pressures are likely secondary to the increase in intra-abdominal pressure. There was some decrease in PIP with OG tube placed to suction - She is currently on low tidal volume ventilation - Patient with some respiratory acidosis today therefore vent changes made we will follow-up on repeat ABG Renal HypoNa- mild, monitor, in the setting of cirrhosis AGMA- 2/2 LA - Continues to have an elevated lactate -Check abdomen/pelvis CT with IV contrast to evaluate for source-> appears to have ischemic colitis as well as possible small bowel ischemia HIRA- minimal UOP, monitor i/os - ? of hepatorenal therefore started on albumin, octreotide and on vasopressor support-> octreotide drip stopped yesterday - check urine lytes - has received IVF - Patient for hemodialysis today -Still anuric -Followed by nephrology -Net +8 L since hospital arrival HypoMg- replete with IV mag once more today GI Cirrhosis- started on lactulose and rifaxamin - elevated LFTs-> ? 2/2 ischemic hepatitis - check viral hep panel-> NTD - alcohol level added on->NTD -LFTs increasing again today - probable worsening shock liver Liver masses- check an AFP, will need eval for HCC hypoalbuminemia- in the setting of cirrhosis - check uprotein/cr ratio Abdominal distention-CT shows bowel ischemia. There appears to be pneumatosis intestinalis of the right colon and there is question of some ischemic changes in the small bowel as well - Surgical consultation was obtained - Patient is not an optimal surgical candidate at this time - Conservative management Endo Hypoglycemia- started on tube feeds Heme Anemia macrocytic- check b12/folate-> wnl - h/h trended down overnight - no overt bleeding noted - ? dilutional v occult bleed - given 2uPRBCs on 02/04 -Given additional 2 PRBCs overnight thrombocytopenia- in the setting of sepsis and cirrhosis - check DIC panel - transfuse additional platelets today - ? replated to sepsis - Improving Coagulopathy- INR elevated - FFP -Fibrinogen levels are also low therefore is been transfused cryoprecipitate as well DVT proph- SCDs ID UTI- on vanc/zosyn - stop vanc and cont zosyn Sepsis- on zosyn with GNR bacteremia - Cultures resulted back today as E. coli from both blood and urine sensitive to Zosyn case d/w ICU team and nephrology labs, imaging, records reviewed ~ 50ccmin required for eval, exam, review, interention, discussion and formulation of POC for this critically ill pt in septic shock Provider Notation Provider Notation: Although this document has been carefully reviewed, there may still be some phonetic and other typographical errors. These errors are purely grammatical due to imperfections in the software program and should not be construed in any way to compromise the substance of the patient's medical care during this visit. Thank you for the opportunity and privilege in assisting you with this patient's care and management.
[2025-02-06] MEDS: MIDAZOLAM INJ 1 MG/ML VIAL 2 ML IVP (08:40)
[2025-02-06] MEDS: ROCURONIUM INJ 10 MG/ML VIAL 10 ML 60 MG IV (08:41)
[2025-02-06 08:46] LABS: Basophils # (Auto) 0.1 Thou/mm3 (0.0-0.2); Basophils % (Auto) 1 % (0-2.5); Eosinophils # (Auto) 0.0 Thou/mm3 (0.0-0.5); Eosinophils % (Auto) 0 % (0-10); Hematocrit 31.5 % (36.0-46.0); Hemoglobin 10.2 g/dL (12.0-16.0); Immature Granulocytes Auto 0.09 Thou/mm3 (0.00-0.00); Lymphocytes # (Auto) 0.2 Thou/mm3 (1.0-4.8); Lymphocytes % (Auto) 4 % (10-50); Mean Corpuscular HGB Conc 32.4 g/dl (31.0-37.0); Mean Corpuscular Hemoglobin 31.8 pg (25.0-35.0); Mean Corpuscular Volume 98 fL (80-100); Monocytes # (Auto) 0.5 Thou/mm3 (0.0-0.8); Monocytes % (Auto) 7 % (0-12); Neutrophils # (Auto) 5.6 Thou/mm3 (1.8-7.7); Neutrophils % (Auto) 87 % (37-80); Nucleated Red Blood Cell # 0.00 Thou/mm3 (0.00-0.00); Nucleated Red Blood Cell % 0 /100 WBC (0); RDW Standard Deviation 93.8 fL (36.4-46.3); Red Blood Count 3.21 Miln/mm3 (4.00-5.20); White Blood Count 6.5 Thou/mm3 (3.6-11.0)
[2025-02-06 09:20] LABS: Platelet Count 14 Thou/mm3 (140-440)
[2025-02-06 09:26] LABS: Reflex Lactate? Y
[2025-02-06 09:32] LABS: Base Excess -4 (-3-3); HCO3 23 mEq/L (20-26); Inspired Oxygen, FIO2 50 %; O2 Saturation 93 % (91-98); PCO2 46 mmHg (32.0-48.0); PO2 70 mmHg (83-108); pH, Arterial 7.30 (7.35-7.45)
[2025-02-06 09:35] LABS: Allen Test Not Performed; Puncture Site Arterial Line
--- NOTE | 2025-02-06 09:41 | ESPR_ITS ---
Documentation for date of: 02/06/25 Subjective Subjective Interval history: hx per chart review: Ms. Merino is a 69 yo woman with unknown past medical history, who was found down at 1 am by her neighbor, she was unresponsive and with head strike, facial contusions and fractured teeth noted, she was brought to the ED, where she had altered mental status, was febrile to 105. Pt became increasingly legargic and obtunded. Pt was assessed by the night IM team, who described her as ll- appearing, minimally responsive, with marked jaundice and right periorbital contusion. Initial labs notable for severe metabolic acidosis (pH 7.25, HCO3 8, AG 22, lactate 15), hyperbilirubinemia (15.9), transaminitis, coagulopathy (INR 1.8), HIRA (Cr 1.4 from baseline 0.7), and UA with pyuria and bacteriuria. Blood and urine cultures sent; patient started on broad-spectrum antibiotics. . CT head, cervical spine, and chest/abdomen/pelvis are pending, as is repeat ABG. Also gallbladder ultrasound still pending to rule in rule out acute cholangitis. ED gave 2.5 L fluids, and intubated pt. SHe was started on pressors, central line was placed and admitted to the ICU. ECHO demonstrated hyper dynamic LV wo pericardial effusion. SvO2 was sent off of the brown port from the central line and pt was given vanc/zosyn. A cheeta was placed for hemodynamics and PLR performed. pt was found to not be fluid responsive. There are no family available for additional information. pts s/o 2 months ago and there is no immediate family around. 02/03/2025 Nephrology consulted. Pt seen and examined at bedside in ICU. Pt with UE in restraints, severely jaundiced, sclera icteric, with + fluid wave. is intubated. R IJ and R fem line, art line with SBPs 140s. Pt on nor epi and vasopressin. Lactic acidosis uptrended to 18. Cr 2.1, egfr 25. AGMA. cirrhosis with shock liver, hep panel negative, UTI, on vanc and zosyn. Plan for CRRT today. 02/04/2025: patient seen and examined in ICU. Pt with BUE in restraints. jaundiced, remaines intubated. RIJ and R fem line, art line with SBP 110s. Pt remains on pressors, however have been weaned. Lactic acidosis downtrending to 6.4. Cr 0.9, egfr >60. AGMA, LFTs continue to uptrend in setting of shocked liver. UTI continues on vanc and zosyn. CRRT continues. 02/05/2025: Patient seen and examined in ICU. pt with BUE restraints, jaundiced, remains intubated, RIJ, and R fem line, art line with sbp SBP 70s. Pt remains on pressors. Lactic acidosis 6.3 from 5.1 uptrending. LFT downtrending AST 1363. Mag and Phos are low. No HD today 02/06/2025: Patient seen and examined in ICU. pt with BUE restraints, jaundiced, remains intubated. Art line with sbp 100s, pt remains on pressors. Lactic acidL 5.6 from 7.1, LFT now uptrending, shock liver worsening T bili 18.K 5.8, BUN 11, Cr 1.8. CTAP with ischemic bowel, not a surgical candidate given coagulopathy and pressor requirement, per Dr. Rocha. Plan for conventional HD today Exam Vital Signs Temp Pulse Resp BP Pulse Ox O2 Del Method O2 Flow Rate 97.2 F 72 30 H 115/65 95 Mechanical Ventilation 11 02/06/25 09:40 02/06/25 09:40 02/06/25 09:40 02/06/25 09:40 02/06/25 09:40 02/05/25 16:00 02/06/25 07:07 FiO2 65 02/06/25 06:39 Narrative Exam GENERAL: pt intubated with UE in restraints, no acute distress. HEENT: Head AT/ NC. Mucous membranes moist. eyes icteric, R central line NECK: Supple, no lymphadenopathy, no carotid bruits. CARDIOVASCULAR: RRR. Normal S1/S2, No m/r/g. No pitting edema of bilateral LEs. RESPIRATORY: intubated on mechanical ventilation. lungs with crackles bilaterally GASTROINTESTINAL: Abdomen tense, and distended no palpable masses. Bowel sounds hypoactive, + fluid wave mildly distended , right fem cath Extremitis: BLE with mottling on upper thighs. MUSCULOSKELETAL:? No cyanosis or edema, no visible joint swelling. LE warm to touch, pulses palpable , UE with restraints, SCDs in place NEUROLOGICAL: unable to assess neuro fxn pt intubated SKIN: No obvious rashes, jaundice, normal turgor. Objective Labs 02/07/25 17:26 02/07/25 17:26 Labs: Laboratory Results - last 24 hr 02/04/25 02/05/25 02/05/25 07:32 05:35 09:20 WBC RBC Hgb Hct MCV MCH MCHC RDW Std Deviation Plt Count Neut % (Auto) Lymph % (Auto) [place] % (Auto) Eos % (Auto) Baso % (Auto) Neut # (Auto) Lymph # (Auto) [place] # (Auto) Eos # (Auto) Baso # (Auto) Immature Gran # (Auto) Absolute Nucleated RBC Immature Gran % Nucleated RBC % PT INR APTT Fibrinogen Puncture Site Arterial Line ABG pH 7.39 ABG pCO2 44 ABG pO2 74 L D ABG HCO3 27 H ABG O2 Saturation 95 ABG Base Excess 2 FiO2 65 Sodium Potassium Chloride Carbon Dioxide Anion Gap BUN Creatinine Estim Creat Clear Calc eGFR BUN/Creatinine Ratio Glucose Calculated Osmolality Lactic Acid 6.3 H* Calcium Corrected Calcium Total Bilirubin AST ALT Alkaline Phosphatase Total Protein Albumin Globulin Albumin/Globulin Ratio Misc Test Result Platelets confirmed Blood Type O Positive Antibody Screen NEGATIVE Crossmatch See Detail Blood Bank Wristband ID Yes Blood Bank Comment FFP Ready 02/05/25 02/05/25 02/06/25 15:45 19:52 04:50 WBC 8.0 RBC 2.18 L Hgb 7.1 L D Hct 22.0 L MCV 101 H MCH 32.6 MCHC 32.3 RDW Std Deviation 100.8 H Plt Count 22 L* D Neut % (Auto) 90 H Lymph % (Auto) 3 L [place] % (Auto) 5 Eos % (Auto) 0 Baso % (Auto) 1 Neut # (Auto) 7.2 Lymph # (Auto) 0.3 L [place] # (Auto) 0.4 Eos # (Auto) 0.0 Baso # (Auto) 0.1 Immature Gran # (Auto) 0.09 H Absolute Nucleated RBC 0.00 Immature Gran % 1 H Nucleated RBC % 0 PT INR APTT 65.0 H D Fibrinogen 92 L* Puncture Site Right Radial ABG pH 7.27 L D ABG pCO2 51 H ABG pO2 69 L ABG HCO3 23 ABG O2 Saturation 92 ABG Base Excess -4 L FiO2 65 Sodium 139 Potassium 3.5 D Chloride 107 Carbon Dioxide 19.3 L Anion Gap 13 BUN 5 L Creatinine 1.0 Estim Creat Clear Calc 43.0 L eGFR > 60 BUN/Creatinine Ratio 5 L Glucose 130 H Calculated Osmolality 276 Lactic Acid 5.3 H* 7.2 H* Calcium 7.0 L D Corrected Calcium 7.9 L D Total Bilirubin 11.7 H D AST 835 H* ALT 250 H Alkaline Phosphatase 68 D Total Protein 4.6 L Albumin 2.9 L D Globulin 1.7 L Albumin/Globulin Ratio 1.7 Misc Test Result Platelets confirmed Blood Type Antibody Screen Crossmatch Blood Bank Wristband ID Blood Bank Comment 02/06/25 02/06/25 06:20 08:15 WBC Cancelled 6.5 RBC Cancelled 3.21 L Hgb Cancelled 10.2 L D Hct Cancelled 31.5 L MCV Cancelled 98 MCH Cancelled 31.8 MCHC Cancelled 32.4 RDW Std Deviation Cancelled 93.8 H Plt Count Cancelled 14 L* D Neut % (Auto) Cancelled 87 H Lymph % (Auto) Cancelled 4 L [place] % (Auto) Cancelled 7 Eos % (Auto) Cancelled 0 Baso % (Auto) Cancelled 1 Neut # (Auto) Cancelled 5.6 Lymph # (Auto) Cancelled 0.2 L [place] # (Auto) Cancelled 0.5 Eos # (Auto) Cancelled 0.0 Baso # (Auto) Cancelled 0.1 Immature Gran # (Auto) Cancelled 0.09 H Absolute Nucleated RBC Cancelled 0.00 Immature Gran % Cancelled 1 H Nucleated RBC % Cancelled 0 PT 34.2 H* D INR 3.4 H APTT Fibrinogen Puncture Site ABG pH ABG pCO2 ABG pO2 ABG HCO3 ABG O2 Saturation ABG Base Excess FiO2 Sodium 134 L Potassium 5.8 H D Chloride 97 L Carbon Dioxide 21.4 Anion Gap 16 BUN 11 Creatinine 1.8 H D Estim Creat Clear Calc 23.9 L eGFR 30 L BUN/Creatinine Ratio 6 L Glucose 123 H Calculated Osmolality 268 L Lactic Acid 5.6 H* Calcium 8.7 D Corrected Calcium 8.7 Total Bilirubin 18.1 H* D AST 1084 H* ALT 360 H Alkaline Phosphatase 67 Total Protein 6.5 Albumin 4.1 D Globulin 2.4 Albumin/Globulin Ratio 1.7 Misc Test Result Blood Type Antibody Screen Crossmatch Blood Bank Wristband ID Blood Bank Comment ABG Interpretation ABG results: 02/03/25 02/03/25 02/03/25 02:47 06:09 07:19 ABG pH 7.25 L 7.00 L* D 7.18 L* D ABG pCO2 18 L* 63 H D 49 H D ABG pO2 192 H 149 H D 168 H ABG HCO3 8 L* 15 L 18 L ABG O2 Saturation 100 H 98 99 H ABG Base Excess -17 L -16 L -10 L VBG pH VBG pCO2 VBG pO2 VBG Base Excess 02/03/25 02/03/25 02/03/25 07:30 13:32 20:35 ABG pH 7.30 L D 7.25 L ABG pCO2 23 L D 23 L ABG pO2 159 H 145 H ABG HCO3 12 L 10 L ABG O2 Saturation 100 H 100 H ABG Base Excess -13 L -16 L VBG pH 7.28 L VBG pCO2 37 VBG pO2 110 H VBG Base Excess -9 L 02/04/25 02/04/25 02/04/25 03:51 06:42 23:10 ABG pH 7.60 H D 7.44 D 7.30 L D ABG pCO2 24 L 36 D 57 H D ABG pO2 150 H 71 L D 78 L ABG HCO3 23 25 28 H ABG O2 Saturation 101 H 95 94 ABG Base Excess 2 0 1 VBG pH VBG pCO2 VBG pO2 VBG Base Excess 02/05/25 02/05/25 02/05/25 01:20 04:34 09:20 ABG pH 7.40 D 7.42 7.39 ABG pCO2 45 D 44 44 ABG pO2 69 L 100 D 74 L D ABG HCO3 28 H 29 H 27 H ABG O2 Saturation 94 99 H 95 ABG Base Excess 3 4 H 2 VBG pH VBG pCO2 VBG pO2 VBG Base Excess 02/06/25 04:50 ABG pH 7.27 L D ABG pCO2 51 H ABG pO2 69 L ABG HCO3 23 ABG O2 Saturation 92 ABG Base Excess -4 L VBG pH VBG pCO2 VBG pO2 VBG Base Excess Quality Measures Quality Measures sepsis Current suspected stage: sepsis Possible source: genitourinary Blood cultures ordered: yes Antibiotic ordered: Yes Advance care planning discussed with:: other (no contact people ) Assessment & Plan Assessment Current Active Medications: Generic Name Dose Route Start Last Admin Trade Name Chiquis PRN Reason Stop Dose Admin Acetaminophen 650 mg 02/03/25 07:33 Acetaminophen Supp 650 Mg Supp TX 03/05/25 07:32 Q4HR PRN PAIN SCALE 1-3 (mild Heparin Sodium (Porcine) 3,000 unit 02/04/25 10:06 02/05/25 04:37 Heparin Sod Inj 1000 Unit/Ml Vial 10 Ml INDWELLCAT 02/18/25 10:05 3,000 unit PRN PRN Administration HD catheter Hydrocortisone Sodium Succinate 50 mg 02/03/25 18:00 02/06/25 06:25 Hydrocortisone Sod Succ Inj 100 Mg 2 Ml Vial IV 03/05/25 17:59 50 mg Q6HR JAYRO Administration Norepinephrine/Dextrose 8 mg in 250 mls @ 5.606 mls/hr 02/03/25 06:02 02/06/25 09:24 Levophed In D5w 8mg/250ml IV 03/05/25 06:01 0 mcg/kg/min .Q24H PRN 0 mls/hr PER PROTOCOL Titration Protocol 0.05 MCG/KG/MIN Dexmedetomidine/Sodium Chloride 400 mcg in 100 mls @ 2.99 mls/hr 02/03/25 06:51 02/06/25 09:00 Precedex Ivpb IV 03/05/25 06:50 1.4 mcg/kg/hr .Q24H PRN 20.93 mls/hr Per PROTOCOL Titration Protocol 0.2 MCG/KG/HR Piperacillin/Tazobactam/Dextrose 2.25 gm in 50 mls @ 100 mls/hr 02/03/25 12:00 02/06/25 06:25 Zosyn IV 02/10/25 11:59 100 mls/hr Q6HR JAYRO Administration Albumin Human 25 gm in 100 mls @ 100 mls/hr 02/03/25 12:00 02/06/25 06:25 Albuminar-25 Ivpb IV 02/06/25 11:59 100 mls/hr Q6HR JAYRO Administration Fentanyl Citrate 2,500 mcg in 250 mls @ 2.5 mls/hr 02/03/25 15:27 02/06/25 06:51 Sublimaze Inj 2,500 Mcg/250 Ml Bag IV 02/08/25 15:26 0 mcg/hr .Q24H PRN 0 mls/hr PER PROTOCOL Titration Protocol 25 MCG/HR Vasopressin/Sodium Chloride 20 unit in 100 mls @ 9 mls/hr 02/03/25 16:15 02/05/25 22:50 Vasostrict/Ns Ivpb IV 03/05/25 16:14 0.03 unit/min .Q11H7M PRN 9 mls/hr PER PROTOCOL Administration Protocol 0.03 UNIT/MIN Midazolam HCl 2 mg 02/05/25 07:32 02/06/25 02:22 Midazolam Inj 1 Mg/Ml Vial 2 Ml IVP 02/10/25 07:31 2 mg Q4H PRN Administration AGITATION OR ANXIETY Ondansetron HCl 4 mg 02/03/25 02:03 Ondansetron Inj 2 Mg/Ml Inj 2 Ml IVP 03/05/25 02:02 Q6HR PRN NAUSEA OR VOMITING Protocol Pantoprazole Sodium 40 mg 02/03/25 09:00 02/06/25 09:00 Pantoprazole Inj 40 Mg Vial IVP 03/05/25 08:59 40 mg QDAY JAYRO Administration Pharmacy Consult 1 each 02/03/25 02:03 Pharmacy Renal Dose Adjustment 1 Ea XX 03/05/25 02:02 PRN PRN CONSULT Plan Ms Merino, is a 69 yo woman with an unknown PMH, who was admitted to the ICU for mgmt of distributive shock. Pt was intubated in the ED. AGAMA 2/2 Lactic acid now downtrending to 6 today. Pt remains on pressors, levofed and vasopressin, weening. Nephrology consulted. CRRT , with improvement in lactic acid. GNR bacteremia. LFT incr in setting of shock liver. plan for conventional HD today #Anion Gap Metabolic Acidosis 2/2 lactic acidosis Lactic acidosis 5.6 from 7.2 CRRT: 02/03 started at 2100, will continue 02/04 for ~24 hrs of HD, 02/06 (conventional HD) PLAN: - conventional HD today #HIRA #query ATN type 1 vs hepatorenal syndrome given pt is in shock, cannot dx hepatorenal syndrome. pt remains on pressors see #septic shock below on 02/04 Cr. 0.9 from 1.4 , BUN 6 from 14 on 02/05 Cr 0.8, BUN <5, minimal UOP 40. on 02/06 Cr 1.8, BUN 11, mimimal UOP Dx - UA with 1+ protein, 2+ RBC - Urine protein Cr ratio 0.807 - strict I and O, pt has greco - renally dose medications - avoid nephrotoxic agents #Septic Shock #query 2/2 SBP vs UTI #GNR bacteremia 2/2- E Coli sofa score: 13 end organ damage: shock liver, >>LFTs 2/2 shock, acute elevation in troponin 0.077 (no st elevations or depressions on EKG) continues to uptrend, 0.369 BP 70s /40s, procal 7.74, febrile on admission on 02/04 SBP from art line 110s decreased pressure requirement on 02/05 pt remains on pressers, Lactic acid uptrending, 5.1 to 6.3. Greco catheter in place draining dark urine with blood, UOP ~40 cc arterial line in place Dx - UA with 4+ biliruben, Leuk est + and nitrities + with WBC 80 and 4+ bacteria - Urine Cx- ecoli - Blood culture ecoli - paracentesis fluid analysis: Alb 1.3, WBC 18% Tx - on vanc and zosyn - on pressors per ICU team - ICU to manage #Cirrhosis #Acute ischemic hepatitis/shock liver #Acites, SAAG >1.1 #query malignancy given numerous liver masses on CTAP acute rise in LFT likely 2/2 to hypotension in setting of septic shock coagulopathy with elevated PT, INR, PTT thrombocytopenia with PLT 14 pt is severely jaundiced on exam, sclera icteric, +abdominal fluid wave Dx - Abdominal US with mild ascites, cirrhosis, - hepatitis panel negative - Utox negative, etoh negative - Tumor markers: AFP wnl, CEA wnl Tx - albumin 25 bid - octreotide drip #ischemic bowel abdomen tense and distended. CTAP with ischemic bowel. -not surgical candidate per Dr. Rocha given coagulopathy and pressor requirement. #electrolyte abnormalities #acute hypoxic respiratory failure- intubated #acute encephalopathy (query etiology 2/2 sepsis vs shock vs acidosis) #Facial trauma 2/2 fall with headstrike, no fractures #L orbital eye contusion #Tooth fractures #macrocytic anemia - b12 elevated>>> - folate wnl Plan discussed with nephrology attending Dr. Bin Sagastume MD Internal Medicine PGY-1 Attending Provider Attestation/Addendum Patient seen and examined with resident physician Dr. Sagastume. Note reviewed, agree with findings and recommendations. Patient with septic shock, intractable lactic acidosis and HIRA. Decided to proceed with CRRT. She is currently on 2 pressors. Remains on ventilator. Currently in ICU. Patient received 2 CRRT sessions so far. Lactic acid improving. Hold off on dialysis today. Will monitor renal function and urine output closely 02/06/2025 patient remains in ICU. Multisystem organ failure- Hypoxic respiratory failure Ischemic liver Ischemic colitis Sepsis needing pressors Acute renal failure needing dialysis no family around. No want to make medical decisions for her. Decided to proceed with dialysis. Patient currently seen on dialysis. Tolerating dialysis without any problems. Hemodialysis for 3 hours, 2K, ultrafiltration 1-2 L, Epogen 6000, no heparin ordered. Plan of care discussed with the dialysis nurse. Please see dialysis flowsheet for further details. Insert my dialysis note Critical care time spent 40 minutes regarding plan of care and disease management
[2025-02-06 09:44] LABS: Vitamin B12 > 2000 pg/mL (211-911)
[2025-02-06] MEDS: VASOPRESSIN IN NS IVPB 20 UNIT/100 ML BAG 9 UNIT IV ×2 (11:17→22:51)
[2025-02-06 11:28] LABS: Slide Review Platelets confirmed
[2025-02-06 13:36] LABS: Basophils # (Auto) 0.1 Thou/mm3 (0.0-0.2); Basophils % (Auto) 1 % (0-2.5); Eosinophils # (Auto) 0.0 Thou/mm3 (0.0-0.5); Eosinophils % (Auto) 0 % (0-10); Hematocrit 34.3 % (36.0-46.0); Hemoglobin 10.9 g/dL (12.0-16.0); Immature Granulocytes Auto 0.09 Thou/mm3 (0.00-0.00); Lymphocytes # (Auto) 0.2 Thou/mm3 (1.0-4.8); Lymphocytes % (Auto) 3 % (10-50); Mean Corpuscular HGB Conc 31.8 g/dl (31.0-37.0); Mean Corpuscular Hemoglobin 31.2 pg (25.0-35.0); Mean Corpuscular Volume 98 fL (80-100); Monocytes # (Auto) 0.6 Thou/mm3 (0.0-0.8); Monocytes % (Auto) 8 % (0-12); Neutrophils # (Auto) 6.9 Thou/mm3 (1.8-7.7); Neutrophils % (Auto) 88 % (37-80); Nucleated Red Blood Cell # 0.00 Thou/mm3 (0.00-0.00); Nucleated Red Blood Cell % 0 /100 WBC (0); RDW Standard Deviation 95.3 fL (36.4-46.3); Red Blood Count 3.49 Miln/mm3 (4.00-5.20); White Blood Count 7.9 Thou/mm3 (3.6-11.0)
[2025-02-06 13:37] LABS: Platelet Count 20 Thou/mm3 (140-440)
--- NOTE | 2025-02-06 14:09 | ESPR_ITS ---
Documentation for date of: 02/06/25 Subjective Subjective Interval history: Patient is intubated and mechanically ventilated so most of the history is taken from the chart review. 69-year-old female with unknown past medical history was brought to the hospital in view of altered sensorium. Per nurse, patient probably had a fall the day before admission in the morning following which she was okay until the neighbors blood to recheck her in the evening, found to be unconscious for which they called the EMS and was brought to the hospital. In the ED, patient is minimally responsive with marked icterus and periorbital contusion. Patient was found to be hypoxic with oxygen saturation in the mid 80s and was initially placed on a nonrebreather mask with correction of hypoxia. Later patient was found to be tachycardic with heart rate around 140s and febrile with a temperature of 105.8 ?F. Patient was intubated in view of acute encephalopathy and hypoxia. ICU is consulted in view of acute hypoxic respiratory failure in the setting of acute encephalopathy and suspected septic shock. In the ED, patient received 1 dose of acetaminophen 650 mg per rectum. 1 L LR bolus followed by 1.5 L of NS bolus in view of suspected septic shock. Initial labs revealed hemoglobin 10.9, platelets 61, INR 1.8, sodium 133, bicarb less than 10, anion gap 22, BUN 13, creatinine 1.4, lactic acid 15, magnesium 1.4, total bilirubin 15.9, AST 241, ALT 58, albumin 2.5, procalcitonin 7.47. EKG showed sinus tachycardia with no acute ST and T wave changes chest x-ray showed bilateral increased vascularity. Abdomen/pelvis CT showed cirrhosis, mild to moderate ascites, absent gallbladder. Cervical spine CT, face CT, head CT, thoracic spine CT, lumbar spine CT did not show any acute fractures. Abdominal ultrasound showed no CBD stones. Initial chest x-ray done showed endotracheal tube tip 2.5 cm in the right mainstem bronchus with atelectasis of the left lung following which the endotracheal tube is retacted and repeat chest x-ray was done that showed minor atelectasis of the left base. Patient is admitted to ICU in view of septic shock, possible decompensated cirrhosis, HIRA. 02/04/2025: Patient is seen and examined at bedside in the ICU. Sedated and on mechanical ventilator. Overnight, patient was found to have hypoglycemic episodes blood glucose of 50 for which patient was given D50 twice. Patient was on CRRT throughout the night. Vitals are stable and patient was found to decreased vasopressors since last night. On examination, patient is found to have abdominal distention for which she was kept on low intermittent suction and later was started on trickle feeds. Labs done this morning showed hemoglobin 6.9, platelets 18,000, WBC 12.1, INR 4.7, BUN 6, creatinine 0.9, lactate 8.1, total bilirubin 16.1, AST 2385, ALT 474. Later fibrinogen is ordered to evaluate for DIC. Repeat CBC showed hemoglobin of 6.4 and platelet count of 16. Ordered 2 PRBC, 1 platelet, 3 FFP transfusions. 1 PRBC and FFP's kept on hold. Will repeat H&H after the blood transfusion. Consent for transfusion is taken from her friend Danny, could not get hold of her brother. Will continue CRRT till 7 PM. Will continue to monitor renal and liver function tests. Despite CRRT, patient is likely to have poor prognosis in the setting of acute liver failure and acute kidney failure. 02/05/2025: Patient is seen and examined at bedside in the ICU. No acute overnight events. Still anuric. Patient was on low-dose vasopressors including vasopressin and on Levophed. Early in the morning, patient is noted to have high peak pressures and noted to have severe abdominal distention for which patient was connected to the suction and found to have almost 2 to 2.5 L of residual volume. Vitals are stable. Labs done this morning showed hemoglobin 9, platelets 35, INR 2.2, sodium 135, creatinine 0.8, glucose 108, lactate 5.1, phosphorus 2.2, magnesium 1.4, total bilirubin 15.7, AST 1363, ALT 367. As patient is having abdominal distention and later found to have lactate elevation from 5.1-6.3, also noted to have multiple liver lesions on the CT abdomen/pelvis, suspected to have either malignancy or small bowel obstruction or ongoing ischemia for which repeat CT abdomen/pelvis was done with IV contrast and patient was found to have ischemic colitis in the right colon, prominent pneumonia in the left base. General surgeon, Dr. Rocha was consulted in view of ongoing ischemic colitis, recommended that in view of patient's critical illness we will hold off any surgical procedures for now. Repeat blood work was done around 3:45 PM that showed hemoglobin 7.1, platelets 22, fibrinogen 92, potassium 3.5, bicarb 19.3, creatinine 1, liver enzymes downtrended to AST 835, ALT 250, total bilirubin 11.7. Ordered 2 PRBC, 1 FFP, 1 platelet, 6 cryoprecipitate transfusion in view of suspected possible ongoing DIC. Will transfuse all these blood products which might help in improving the perfusion to the ischemic bowel. Will continue to trend lactate levels and monitor for urine output. Dr. Steward is following the patient and held off CRRT for today and wants to monitor for today. 02/06/2025: Patient is seen and examined at bedside in the ICU. No acute overnight events. Noted no urine output and bowel movements. This morning, patient is noted to have tense abdomen and peak pressures continue to elevate with patient biting the endotracheal tube, likely to have pain from the ischemic colitis. Patient was started on fentanyl drip in view of suspected pain following which the peak pressures came back to normal levels. Overnight, patient is on low-dose vasopressors Levophed 0.03 and vasopressin 0.03. Patient did get only 2 PRBC transfusion overnight. Will give the remaining blood products. Vitals are stable. On physical examination, patient noted to have mottling in bilateral lower extremities with feeble peripheral pulses. Labs done this morning showed hemoglobin 10.2, platelet count 14, WBC 6.5, INR 3.4, PT 34.2, sodium 134, potassium 5.8, creatinine 1.8, glucose 123, lactate 5.6, total bilirubin 18.1, AST 1084, ALT 360. Dr. Steward is following the patient and recommended conventional hemodialysis today at 250 mL/h as patient's blood pressure is stable. Will repeat labs in the afternoon once all the blood products are transfused. General surgeon, Dr. Rocha is following for the possible ischemic colitis and recommended no surgery as of now in view of coagulopathy and low platelet count. Talked to her friend, point of contact Rell Delgado who reported that patient had a son who lives in [facility] but does not have any contact with him and also could not get in contact with her brother who lives in [place]. Still trying to get in contact with her family members for goals of care discussion. In view of ongoing coagulopathy, DIC, acute liver failure, acute kidney failure, patient is likely to have poor prognosis. Will continue to monitor her vitals, labs and try to get in contact with the family for further decision making. Till then, patient will be given full treatment Exam Vital Signs Temp Pulse Resp BP Pulse Ox O2 Del Method O2 Flow Rate 97.4 F 68 30 H 106/66 96 Mechanical Ventilation 11 02/06/25 12:26 02/06/25 13:45 02/06/25 12:26 02/06/25 13:45 02/06/25 12:26 02/06/25 12:00 02/06/25 07:07 FiO2 50 02/06/25 12:26 Narrative Exam General: Sedated and mechanically ventilated HEENT: Normocephalic, atraumatic, mucous membranes moist.Noted to have right frontal hematoma and ecchymosis on the right eye. Noted to have dislocated teeth. Heart: Regular rate and rhythm, no murmurs. Lungs: Clear to auscultation with no wheezing or crackles.Noted to have decreased breath sounds on the left side Abdomen: Soft, moderately distended, nontender, positive bowel sounds. ?No guarding or rebound tenderness. Neurologic:Sedated and mechanically ventilated Extremities: No edema. Noted all peripheral pulses. noted mottling in the lower extremities Skin: Noted to have ecchymotic patches on the right side of the abdomen and also on the right hand from the IV catheterization Objective Labs 02/06/25 08:15 02/06/25 06:20 Labs: Laboratory Results - last 24 hr 02/04/25 02/05/25 02/05/25 07:32 15:45 19:52 WBC 8.0 RBC 2.18 L Hgb 7.1 L D Hct 22.0 L MCV 101 H MCH 32.6 MCHC 32.3 RDW Std Deviation 100.8 H Plt Count 22 L* D Neut % (Auto) 90 H Lymph % (Auto) 3 L [place] % (Auto) 5 Eos % (Auto) 0 Baso % (Auto) 1 Neut # (Auto) 7.2 Lymph # (Auto) 0.3 L [place] # (Auto) 0.4 Eos # (Auto) 0.0 Baso # (Auto) 0.1 Immature Gran # (Auto) 0.09 H Absolute Nucleated RBC 0.00 Immature Gran % 1 H Nucleated RBC % 0 PT INR APTT 65.0 H D Fibrinogen 92 L* Puncture Site ABG pH ABG pCO2 ABG pO2 ABG HCO3 ABG O2 Saturation ABG Base Excess FiO2 Sodium 139 Potassium 3.5 D Chloride 107 Carbon Dioxide 19.3 L Anion Gap 13 BUN 5 L Creatinine 1.0 Estim Creat Clear Calc 43.0 L eGFR > 60 BUN/Creatinine Ratio 5 L Glucose 130 H Calculated Osmolality 276 Lactic Acid 5.3 H* 7.2 H* Calcium 7.0 L D Corrected Calcium 7.9 L D Total Bilirubin 11.7 H D AST 835 H* ALT 250 H Alkaline Phosphatase 68 D Total Protein 4.6 L Albumin 2.9 L D Globulin 1.7 L Albumin/Globulin Ratio 1.7 Vitamin B12 Misc Test Result Platelets confirmed Blood Type O Positive Antibody Screen NEGATIVE Crossmatch See Detail Blood Bank Wristband ID Yes Blood Bank Comment FFP Ready 02/06/25 02/06/25 02/06/25 04:50 06:20 06:20 WBC Cancelled 7.9 RBC Cancelled Hgb Hct MCV MCH MCHC RDW Std Deviation Plt Count Neut % (Auto) Lymph % (Auto) [place] % (Auto) Eos % (Auto) Baso % (Auto) Neut # (Auto) Lymph # (Auto) [place] # (Auto) Eos # (Auto) Baso # (Auto) Immature Gran # (Auto) Absolute Nucleated RBC Immature Gran % Nucleated RBC % PT INR APTT Fibrinogen Puncture Site Right Radial ABG pH 7.27 L D ABG pCO2 51 H ABG pO2 69 L ABG HCO3 23 ABG O2 Saturation 92 ABG Base Excess -4 L FiO2 65 Sodium Potassium Chloride Carbon Dioxide Anion Gap BUN Creatinine Estim Creat Clear Calc eGFR BUN/Creatinine Ratio Glucose Calculated Osmolality Lactic Acid Calcium Corrected Calcium Total Bilirubin AST ALT Alkaline Phosphatase Total Protein Albumin Globulin Albumin/Globulin Ratio Vitamin B12 Misc Test Result Blood Type Antibody Screen Crossmatch Blood Bank Wristband ID Blood Bank Comment 02/06/25 02/06/25 02/06/25 06:20 06:20 06:20 WBC RBC 3.49 L Hgb Cancelled 10.9 L D Hct Cancelled 34.3 L D MCV Cancelled MCH MCHC RDW Std Deviation Plt Count Neut % (Auto) Lymph % (Auto) [place] % (Auto) Eos % (Auto) Baso % (Auto) Neut # (Auto) Lymph # (Auto) [place] # (Auto) Eos # (Auto) Baso # (Auto) Immature Gran # (Auto) Absolute Nucleated RBC Immature Gran % Nucleated RBC % PT INR APTT Fibrinogen Puncture Site ABG pH ABG pCO2 ABG pO2 ABG HCO3 ABG O2 Saturation ABG Base Excess FiO2 Sodium Potassium Chloride Carbon Dioxide Anion Gap BUN Creatinine Estim Creat Clear Calc eGFR BUN/Creatinine Ratio Glucose Calculated Osmolality Lactic Acid Calcium Corrected Calcium Total Bilirubin AST ALT Alkaline Phosphatase Total Protein Albumin Globulin Albumin/Globulin Ratio Vitamin B12 Misc Test Result Blood Type Antibody Screen Crossmatch Blood Bank [facility] Blood Bank Comment 02/06/25 02/06/25 02/06/25 06:20 06:20 06:20 WBC RBC Hgb Hct MCV 98 MCH Cancelled 31.2 MCHC Cancelled 31.8 RDW Std Deviation Cancelled Plt Count Neut % (Auto) Lymph % (Auto) [place] % (Auto) Eos % (Auto) Baso % (Auto) Neut # (Auto) Lymph # (Auto) [place] # (Auto) Eos # (Auto) Baso # (Auto) Immature Gran # (Auto) Absolute Nucleated RBC Immature Gran % Nucleated RBC % PT INR APTT Fibrinogen Puncture Site ABG pH ABG pCO2 ABG pO2 ABG HCO3 ABG O2 Saturation ABG Base Excess FiO2 Sodium Potassium Chloride Carbon Dioxide Anion Gap BUN Creatinine Estim Creat Clear Calc eGFR BUN/Creatinine Ratio Glucose Calculated Osmolality Lactic Acid Calcium Corrected Calcium Total Bilirubin AST ALT Alkaline Phosphatase Total Protein Albumin Globulin Albumin/Globulin Ratio Vitamin B12 Misc Test Result Blood Type Antibody Screen [facility] Blood Bank [facility] Blood Bank Comment 02/06/25 02/06/25 02/06/25 06:20 06:20 06:20 WBC RBC Hgb Hct MCV MCH MCHC RDW Std Deviation 95.3 H Plt Count Cancelled 20 L* Neut % (Auto) Cancelled 88 H Lymph % (Auto) Cancelled [place] % (Auto) Eos % (Auto) Baso % (Auto) Neut # (Auto) Lymph # (Auto) [place] # (Auto) Eos # (Auto) Baso # (Auto) Immature Gran # (Auto) Absolute Nucleated RBC Immature Gran % Nucleated RBC % PT INR APTT Fibrinogen Puncture Site ABG pH ABG pCO2 ABG pO2 ABG HCO3 ABG O2 Saturation ABG Base Excess FiO2 Sodium Potassium Chloride Carbon Dioxide Anion Gap BUN Creatinine Estim Creat Clear Calc eGFR BUN/Creatinine Ratio Glucose Calculated Osmolality Lactic Acid Calcium Corrected Calcium Total Bilirubin AST ALT Alkaline Phosphatase Total Protein Albumin Globulin Albumin/Globulin Ratio Vitamin B12 Misc Test Result Blood Type Antibody Screen [facility] Blood Bank [facility] Blood Bank Comment 02/06/25 02/06/25 02/06/25 06:20 06:20 06:20 WBC RBC Hgb Hct MCV MCH MCHC RDW Std Deviation Plt Count Neut % (Auto) Lymph % (Auto) 3 L [place] % (Auto) Cancelled 8 Eos % (Auto) Cancelled 0 Baso % (Auto) Cancelled Neut # (Auto) Lymph # (Auto) [place] # (Auto) Eos # (Auto) Baso # (Auto) Immature Gran # (Auto) Absolute Nucleated RBC Immature Gran % Nucleated RBC % PT INR APTT Fibrinogen Puncture Site ABG pH ABG pCO2 ABG pO2 ABG HCO3 ABG O2 Saturation ABG Base Excess FiO2 Sodium Potassium Chloride Carbon Dioxide Anion Gap BUN Creatinine Estim Creat Clear Calc eGFR BUN/Creatinine Ratio Glucose Calculated Osmolality Lactic Acid Calcium Corrected Calcium Total Bilirubin AST ALT Alkaline Phosphatase Total Protein Albumin Globulin Albumin/Globulin Ratio Vitamin B12 Misc Test Result [facility] Blood Bank Comment 02/06/25 02/06/25 02/06/25 06:20 06:20 06:20 WBC RBC Hgb Hct MCV MCH MCHC RDW Std Deviation Plt Count Neut % (Auto) Lymph % (Auto) [place] % (Auto) Eos % (Auto) Baso % (Auto) 1 Neut # (Auto) Cancelled 6.9 Lymph # (Auto) Cancelled 0.2 L [place] # (Auto) Cancelled Eos # (Auto) Baso # (Auto) Immature Gran # (Auto) Absolute Nucleated RBC Immature Gran % Nucleated RBC % PT INR APTT Fibrinogen Puncture Site ABG pH ABG pCO2 ABG pO2 ABG HCO3 ABG O2 Saturation ABG Base Excess FiO2 Sodium Potassium Chloride Carbon Dioxide Anion Gap BUN Creatinine Estim Creat Clear Calc eGFR BUN/Creatinine Ratio Glucose Calculated Osmolality Lactic Acid Calcium Corrected Calcium Total Bilirubin AST ALT Alkaline Phosphatase Total Protein Albumin Globulin Albumin/Globulin Ratio Vitamin B12 Misc Test Result Blood Type [facility] Blood Bank Comment 02/06/25 02/06/25 02/06/25 06:20 06:20 06:20 WBC RBC Hgb Hct MCV MCH MCHC RDW Std Deviation Plt Count Neut % (Auto) Lymph % (Auto) [place] % (Auto) Eos % (Auto) Baso % (Auto) Neut # (Auto) Lymph # (Auto) [place] # (Auto) 0.6 Eos # (Auto) Cancelled 0.0 Baso # (Auto) Cancelled 0.1 Immature Gran # (Auto) Cancelled Absolute Nucleated RBC Immature Gran % Nucleated RBC % PT INR APTT Fibrinogen Puncture Site ABG pH ABG pCO2 ABG pO2 ABG HCO3 ABG O2 Saturation ABG Base Excess FiO2 Sodium Potassium Chloride Carbon Dioxide Anion Gap BUN Creatinine Estim Creat Clear Calc eGFR BUN/Creatinine Ratio Glucose Calculated Osmolality Lactic Acid Calcium Corrected Calcium Total Bilirubin AST ALT Alkaline Phosphatase Total Protein Albumin Globulin Albumin/Globulin Ratio Vitamin B12 Misc Test Result Blood Type Antibody Screen [facility] Blood Bank [facility] Blood Bank Comment 02/06/25 02/06/25 02/06/25 06:20 06:20 06:20 WBC RBC Hgb Hct MCV MCH MCHC RDW Std Deviation Plt Count Neut % (Auto) Lymph % (Auto) [place] % (Auto) Eos % (Auto) Baso % (Auto) Neut # (Auto) Lymph # (Auto) [place] # (Auto) Eos # (Auto) Baso # (Auto) Immature Gran # (Auto) 0.09 H Absolute Nucleated RBC Cancelled 0.00 Immature Gran % Cancelled 1 H Nucleated RBC % Cancelled PT INR APTT Fibrinogen Puncture Site ABG pH ABG pCO2 ABG pO2 ABG HCO3 ABG O2 Saturation ABG Base Excess FiO2 Sodium Potassium Chloride Carbon Dioxide Anion Gap BUN Creatinine Estim Creat Clear Calc eGFR BUN/Creatinine Ratio Glucose Calculated Osmolality Lactic Acid Calcium Corrected Calcium Total Bilirubin AST ALT Alkaline Phosphatase Total Protein Albumin Globulin Albumin/Globulin Ratio Vitamin B12 Misc Test Result Blood Type Antibody Screen [facility] Blood Bank [facility] Blood Bank Comment 02/06/25 02/06/25 02/06/25 06:20 08:15 09:19 WBC 6.5 RBC 3.21 L Hgb 10.2 L Hct 31.5 L MCV 98 MCH 31.8 MCHC 32.4 RDW Std Deviation 93.8 H Plt Count 14 L* D Neut % (Auto) 87 H Lymph % (Auto) 4 L [place] % (Auto) 7 Eos % (Auto) 0 Baso % (Auto) 1 Neut # (Auto) 5.6 Lymph # (Auto) 0.2 L [place] # (Auto) 0.5 Eos # (Auto) 0.0 Baso # (Auto) 0.1 Immature Gran # (Auto) 0.09 H Absolute Nucleated RBC 0.00 Immature Gran % 1 H Nucleated RBC % 0 0 PT 34.2 H* D INR 3.4 H APTT Fibrinogen Puncture Site Arterial Line ABG pH 7.30 L ABG pCO2 46 ABG pO2 70 L ABG HCO3 23 ABG O2 Saturation 93 ABG Base Excess -4 L FiO2 50 Sodium 134 L Potassium 5.8 H D Chloride 97 L Carbon Dioxide 21.4 Anion Gap 16 BUN 11 Creatinine 1.8 H D Estim Creat Clear Calc 23.9 L eGFR 30 L BUN/Creatinine Ratio 6 L Glucose 123 H Calculated Osmolality 268 L Lactic Acid 5.6 H* Calcium 8.7 D Corrected Calcium 8.7 Total Bilirubin 18.1 H* D AST 1084 H* ALT 360 H Alkaline Phosphatase 67 Total Protein 6.5 Albumin 4.1 D Globulin 2.4 Albumin/Globulin Ratio 1.7 Vitamin B12 > 2000 H Misc Test Result Platelets confirmed Blood Type Antibody Screen Crossmatch Blood Bank Wristband ID Blood Bank Comment ABG Interpretation ABG results: 02/03/25 02/03/25 02/03/25 02:47 06:09 07:19 ABG pH 7.25 L 7.00 L* D 7.18 L* D ABG pCO2 18 L* 63 H D 49 H D ABG pO2 192 H 149 H D 168 H ABG HCO3 8 L* 15 L 18 L ABG O2 Saturation 100 H 98 99 H ABG Base Excess -17 L -16 L -10 L VBG pH VBG pCO2 VBG pO2 VBG Base Excess 02/03/25 02/03/25 02/03/25 07:30 13:32 20:35 ABG pH 7.30 L D 7.25 L ABG pCO2 23 L D 23 L ABG pO2 159 H 145 H ABG HCO3 12 L 10 L ABG O2 Saturation 100 H 100 H ABG Base Excess -13 L -16 L VBG pH 7.28 L VBG pCO2 37 VBG pO2 110 H VBG Base Excess -9 L 02/04/25 02/04/25 02/04/25 03:51 06:42 23:10 ABG pH 7.60 H D 7.44 D 7.30 L D ABG pCO2 24 L 36 D 57 H D ABG pO2 150 H 71 L D 78 L ABG HCO3 23 25 28 H ABG O2 Saturation 101 H 95 94 ABG Base Excess 2 0 1 VBG pH VBG pCO2 VBG pO2 VBG Base Excess 02/05/25 02/05/25 02/05/25 01:20 04:34 09:20 ABG pH 7.40 D 7.42 7.39 ABG pCO2 45 D 44 44 ABG pO2 69 L 100 D 74 L D ABG HCO3 28 H 29 H 27 H ABG O2 Saturation 94 99 H 95 ABG Base Excess 3 4 H 2 VBG pH VBG pCO2 VBG pO2 VBG Base Excess 02/06/25 02/06/25 04:50 09:19 ABG pH 7.27 L D 7.30 L ABG pCO2 51 H 46 ABG pO2 69 L 70 L ABG HCO3 23 23 ABG O2 Saturation 92 93 ABG Base Excess -4 L -4 L VBG pH VBG pCO2 VBG pO2 VBG Base Excess Quality Measures Quality Measures sepsis Current suspected stage: septic shock (LA >4 and/or hypotension) Sepsis reassessment completed at (date): 02/06/25 Sepsis reassessment completed at (time): 16:42 Possible source: genitourinary Blood cultures ordered: yes Antibiotic ordered: Yes Advance care planning discussed with:: patient Assessment & Plan Assessment Current Active Medications: Generic Name Dose Route Start Last Admin Trade Name Freq PRN Reason Stop Dose Admin Acetaminophen 650 mg 02/03/25 07:33 Acetaminophen Supp 650 Mg Supp MI 03/05/25 07:32 Q4HR PRN PAIN SCALE 1-3 (mild Heparin Sodium (Porcine) 3,000 unit 02/04/25 10:06 02/05/25 04:37 Heparin Sod Inj 1000 Unit/Ml Vial 10 Ml INDWELLCAT 02/18/25 10:05 3,000 unit PRN PRN Administration HD catheter Hydrocortisone Sodium Succinate 50 mg 02/06/25 21:00 Hydrocortisone Sod Succ Inj 100 Mg 2 Ml Vial IV 03/08/25 20:59 Q12HR JAYRO Norepinephrine/Dextrose 8 mg in 250 mls @ 5.606 mls/hr 02/03/25 06:02 02/06/25 09:24 Levophed In D5w 8mg/250ml IV 03/05/25 06:01 0 mcg/kg/min .Q24H PRN 0 mls/hr PER PROTOCOL Titration Protocol 0.05 MCG/KG/MIN Dexmedetomidine/Sodium Chloride 400 mcg in 100 mls @ 2.99 mls/hr 02/03/25 06:51 02/06/25 11:12 Precedex Ivpb IV 03/05/25 06:50 1.4 mcg/kg/hr .Q24H PRN 20.93 mls/hr Per PROTOCOL Administration Protocol 0.2 MCG/KG/HR Piperacillin/Tazobactam/Dextrose 2.25 gm in 50 mls @ 100 mls/hr 02/03/25 12:00 02/06/25 11:34 Zosyn IV 02/10/25 11:59 100 mls/hr Q6HR JAYRO Administration Fentanyl Citrate 2,500 mcg in 250 mls @ 2.5 mls/hr 02/03/25 15:27 02/06/25 09:55 Sublimaze Inj 2,500 Mcg/250 Ml Bag IV 02/08/25 15:26 125 mcg/hr .Q24H PRN 12.5 mls/hr PER PROTOCOL Titration Protocol 25 MCG/HR Vasopressin/Sodium Chloride 20 unit in 100 mls @ 9 mls/hr 02/03/25 16:15 02/06/25 11:17 Vasostrict/Ns Ivpb IV 03/05/25 16:14 0.03 unit/min .Q11H7M PRN 9 mls/hr PER PROTOCOL Administration Protocol 0.03 UNIT/MIN Midazolam HCl 2 mg 02/05/25 07:32 02/06/25 02:22 Midazolam Inj 1 Mg/Ml Vial 2 Ml IVP 02/10/25 07:31 2 mg Q4H PRN Administration AGITATION OR ANXIETY Ondansetron HCl 4 mg 02/03/25 02:03 Ondansetron Inj 2 Mg/Ml Inj 2 Ml IVP 03/05/25 02:02 Q6HR PRN NAUSEA OR VOMITING Protocol Pantoprazole Sodium 40 mg 02/03/25 09:00 02/06/25 09:00 Pantoprazole Inj 40 Mg Vial IVP 03/05/25 08:59 40 mg QDAY JAYRO Administration Pharmacy Consult 1 each 02/03/25 02:03 Pharmacy Renal Dose Adjustment 1 Ea XX 03/05/25 02:02 PRN PRN CONSULT Plan 69-year-old female with unknown past medical history was brought to the hospital in view of altered sensorium. Per nurse, patient probably had a fall the day before admission in the morning following which she was okay until the neighbors blood to recheck her in the evening, found to be unconscious for which they called the EMS and was brought to the hospital. In the ED, patient is minimally responsive with marked icterus and periorbital contusion. Patient was found to be hypoxic with oxygen saturation in the mid 80s and was initially placed on a nonrebreather mask with correction of hypoxia. Later patient was found to be tachycardic with heart rate around 140s and febrile with a temperature of 105.8 ?F. Patient was intubated in view of acute encephalopathy and hypoxia. ICU is consulted in view of acute hypoxic respiratory failure in the setting of acute encephalopathy and suspected septic shock. [employer]TER # Acute encephalopathy Differential diagnosis: Septic encephalopathy versus hepatic encephalopathy versus metabolic versus sedation versus multifactorial -Septic encephalopathy: Patient is found to have temperature of 105.8 degrees on heat at the time of admission. Could be possible cause of septic encephalopathy - Hepatic encephalopathy. Patient has stigmata of chronic liver failure. Icterus, appears chronically ill, ascites. - Metabolic encephalopathy: Patient was found to have high anion gap metabolic acidosis with lactic acidosis at the time of presentation. -Sedation: Patient received rocuronium and propofol for the intubation. In the setting of the liver failure, there will be decreased platelets that could cause the sedation but patient was noted to be in altered sensorium even before coming to the hospital. So less likely the cause of acute encephalopathy Diagnosis: - In the ED, temperature is 105.8 ?F - Labs showed bicarb less than 10, anion gap 22, lactic acid 15, total bilirubin 15.9, AST 241, ALT 58 - CT head did not show any evidence of fracture/hemorrhage. Plan: - Started on empiric antibiotics, Zosyn 2.25 g every 8 hourly [02/03- - Started on lactulose 30 g 3 times daily and increased to 45 g 3 times daily as of 02/04/2025, rifaximin 550 Mg twice daily, held as of 02/05/2025 as patient developed ischemic colitis - Currently on Precedex and fentanyl drip, will wean off if patient becomes hemodynamically stable and underlying condition is improving - For metabolic acidosis, patient was given multiple doses of bicarb despite which patient remained acidotic and was started on CRRT and was stopped on 02/04/2025 around 7PM [facility] # Shock Differential diagnosis: Distributive versus hypovolemic versus obstructive versus cardiogenic - Distributive: Likely sepsis. Patient does not have any hives or airway edema which rules out anaphylaxis. Patient was noted to have temperature of 105.8 ?F with E.coli bacteremia. - Hypovolemic: History is unknown. No evidence of any recent severe GI bleed or active bleeding noted. - Obstructive versus cardiogenic:. Bedside echocardiogram was done and heart appears to be hyperdynamic without any evidence of cardiac tamponade or RV strain Diagnostic test: - Patient was found to have low MAP less than 65 mmHg despite fluid resuscitation - In the ED, temperature is 105.8 ?F - Labs showed bicarb less than 10, anion gap 22, lactic acid 15, total bilirubin 15.9, AST 241, ALT 58 - Procalcitonin is 7.47 - Blood cultures showed Gram negative bacteremia, E.coli bacteremia Plan: - Started on Zosyn [02/03- - 2.5 L of bolus was given in the ED - NICOM done at the bedside showed unresponsiveness to the fluid - Started on Levophed and vasopressin in view of low MAP - Started on albumin 25 g IV every 6 hourly, stopped as of 02/06/2025, will restart if needed - Arterial line is placed to measure blood pressure accurately - Patient was given a dose of hydrocortisone 100 mg and started on Hydrocortisone 50mg IV every 6th hrly on 02/03 --> changed to every 12th hrly as of 02/06/2025 # Sinus tachycardia, resolved - At the time of admission, patient was found to have pulse rate of 138 - EKG showed sinus tachycardia with no ST and T wave changes - Likely in response to the febrile episode. Later as patient is started on levophed, found to be tachycardic which is likely due to vasopressors Plan: - Patient was given 2.5 L of IV fluid bolus - Will continue telemetry monitoring # Elevated troponins, downtrended Likely in the setting of demand ischemia -Troponin at the time of admission is 0.077, later downtrended - EKG showed sinus tachycardia with no ST and T wave changes - Will continue Telemetry monitoring - Very low suspicion of ACS at this point of time Respiratory # Acute hypoxic respiratory failure Likely multifactorial, in the setting of Acute encephalopathy and Sepsis - Patient came in with altered sensorium and found aline having mixed metabolic and respiratory acidosis - ABG at the time of admission is pH 7.25, pCO2 18, HCO3 8 - Patient is intubated in the ED for which she received Rocuronium and propofol Plan - Will continue mechanical ventilation - Will treat the underlying sepsis and shock - On precedex and fentanyl drip, trying to wean her off. GI # Decompensated Cirrhosis with Ascites, 2/2 Alcohol # Hyperbilirubinemia # Hypoalbuminemia - Patient came in altered sensorium and couldnt get much history - Noted icterus and abdominal distension at the time of admission - Labs showed hyperbilirubinemia, 15.9, AST 241, ALT 58, albumin 2.5, INR 1.8 - Noted to have previous history of hemorrhoids - CT Abdomen showed cirrhosis with ascites - MELD score is 29, 27 to 32% mortality in the next 90 days - Child class C Plan - Ordered hepatitis panel, came back negative - Patient appears to have poor prognosis in the setting of high MELD score and Trista class C - If the patient improves after this acute setting, will recommend to follow-up for the liver transplant. - Started octreotide drip at the time of admission on 02/03 and stopped on 02/05/2025 # Transaminitis - At the time of admission, AST is 241, ALT is 58 --> 02/06, AST 1084, ALT 360 - Repeat liver panel showed significant elevations transaminase levels to 696, 145 and uptrended to 2385 and 474, downtrended to 835, 250 as of 02/05/2025 as of 02/05/2025 - Likely patient had ischemic hepatitis in the setting of ongoing shock Plan - Patient is on CRRT in view of multiorgan dysfunction from 02/03/2025 - 02/04/1025 for about more than 20hours - Will continue to monitor liver enzymes # Hypoalbuminemia - Albumin at the time of admission is 2.5 - Patient was given 50 g of albumin at the time of admission Plan - Patient is on 25 g albumin IV every 6 hourly, 02/03 - 02/06 - Will restart as needed # Incidental finding, numerous liver masses noted on CT abdomen/pelvis - Patient was noted to have numerous liver lesions, subcentimeter masses on CT abdomen/pelvis done at the time of admission - Could be possible malignancy in the setting of cirrhosis - Tested negative for CEA, Alpha fetoprotein Plan - CT abdomen/pelvis with contrast on 02/05/2025 that showed - liver is replaced with numerous subcentimeter liver lesions # Suspected ischemic colitis - Patient was found to have abdominal distention with high peak pressures noted on the ventilator on 02/05/2025 - OG tube was connected to the low intermittent suction and was found to have 2.5 L of fluid - Also noted to have lactate elevation from 5.1-6.3 Plan - CT abdomen/pelvis was done that showed ischemic bowel, right colon, air droplets in the wall of the bowel and projecting outside the wall of the right colon - Also abnormal small bowel loops fluid distended with wall thickening is noted - General Surgeon, Dr. Rocha is consulted and he recommended no surgical intervention as of now in view of patient's clinical condition and severe coagulopathy in the setting of ongoing sepsis and severe liver failure Renal # Acute kidney injury - Baseline creatinine is 0.6 - Creatinine at the time of admission is 1.4 and patient appears to be anuric with urine output less than 50 mL in the last 24 hours - Repeat renal functions as of 02/05/2025 showed BUN 5, Cr 1 - Likely in the setting of ongoing shock, HRS cannot be ruled out at this time as the patient is having shock Plan - Dialysis catheter was placed in the right femoral vein - Circuit Board Assembler, Dr. Steward is consulted and Received CRRT on 02/03 - 02/04 - Urine electrolytes sent, FeNa is 0.5 --> Likely prerenal in the setting of Shock - Conventional HD as of 02/06/2025 - Will continue to monitor renal functions and renally dose medications # High anion gap metabolic acidosis, resolved # Lactic acidosis, resolving - Likely in the setting of ongoing shock and multiorgan dysfunction - Found to have bicarb less than 10, anion gap 22, lactate 15 at the time of admission --> 02/06, 3.9 Plan - Patient was given 2 doses of bicarb at the time of admission - Patient received CRRT - Despite CRRT patient appears to have uptrending lactate for which CT abdomen/pelvis is done and revealed ischemic colitis - Dr. Rocha is consulted and he recommended no surgical intervention as of now in view of patients clinical and hemodynamic status - Will continue to monitor renal functions and trend lactate # Mild hyponatremia, resolved - Sodium at the time of the admission is 133 likely in the setting of chronic liver disease and ongoing HIRA - Sodium levels as of 02/05/1025 is 139 Plan - Will monitor sodium levels and treat accordingly # Hypomagnesemia, resolved - Magnesium at the time of admission is 1.4, likely nutritional in the setting of suspected chronic liver disease - Magnesium as of today is 2.4 Plan - Will continue to monitor the magnesium levels Hematology # Thrombocytopenia - Platelets at the time of admission is 61,000 but patient does not appear to be actively bleeding at this point of time - Likely in the setting of sepsis and chronic liver disease - Platelets on 02/04/2025 is 16,000 --> 02/05, 22,000 --> 02/06, 20,000 Plan - 1 platelet transfusion is given on 02/04 - Transfused 1 unit of platelets on 02/06 - Will continue to monitor the platelet count and bleeding manifestations # Anemia - Hemoglobin at the time of admission is at 10.9, but her baseline hemoglobin is around 8, the hemoglobin in the admission could be due to some hemoconcentration - Hemoglobin on 02/04/2025 is 6.9, repeat hemoglobin is 6.4 - Monitor could be multifactorial, likely in the setting of multiple build with the dose and correction of hemoconcentration, suspicion of possible DIC - Hb as of 02/05 is 7.1 --> 02/06, 10.2 Plan - 2 PRBC transfusion given on 02/04 - Started on 2 PRBC transfusion on 02/05 - Will repeat H&H after the transfusion # Coagulopathy - INR at the time of admission is 1.8 - INR on 02/04/2025 is 4.7 ---> 2.2 on 02/05 --> 02/06, 3.4 - Likely multifactorial in the setting of sepsis, decompensated liver disease, suspected possible DIC - Currently patient does not noted to have any active bleeding manifestations Plan - Ordered 4 FFP's on 02/04 and 3 FFP's are transfused - Each bag contains 300 mL and patient weighs around 60 kg - Per calculation, patient needs 15 mL/kg-so patient needs 900 mL of FFP's - 1 FFP is transfused on 02/06 - Will repeat coagulation studies # Suspected DIC - Likely multifactorial in the setting of liver disease, sepsis - Patient might be having coagulopathy from the liver disease, completely cannot be ruled out but as the patient developing worsening INR, low platelet count, anemia, suspecting DIC Plan - Fibrinogen levels are ordered - 116 on 02/04, 92 on 02/05 - Patient received 2 PRBC, 3 FFP, 1 Platelet on 02/04 - 2 PRBC, 1 FFP, 1 platelet transfusion, 6 Cryoprecipitates are ordered on 02/05, received all of them except 2prbc on 02/06 - Will repeat CBC and coagulation studies after the transfusions - Will continue to monitor for bleeding manifestations and we will try to treat the underlying condition. ID # Sepsis - Blood cultures showed GNR bacteremia, E.coli Plan - Started on Zosyn, sensitive on cultures - Will wait for final cultures Musculoskeletal # No active problems as of now Endocrinology # No acute problems as of now Hospital Maintenance: Dispo: ICU for septic shock DVT ppx: SCD GI ppx: Protonix Diet: Tube feeds, trickle IV lines: Right IJV CENTRAL line, Right femoral arterial and dialysis catheter Code status: Full Patient plan of care was discussed with the Cold Rolling Supervisor Dr. Aurelia Leslie, PGY2
[2025-02-06 14:22] LABS: Lactic Acid, 3 HR 3.9 mMol/L (0.4-2.0)
[2025-02-06 15:06] LABS: Magnesium 2.4 mg/dL (1.6-2.6)
--- NOTE | 2025-02-06 15:35 | PC.SS ---
Per rounding, per rounding notes: Pt remains intubated, is needing emergent dialysis. Cardio cath today, pt will d/c home when medically cleared.
[2025-02-06 16:13] LABS: Basophils # (Auto) 0.0 Thou/mm3 (0.0-0.2); Basophils % (Auto) 1 % (0-2.5); Eosinophils # (Auto) 0.0 Thou/mm3 (0.0-0.5); Eosinophils % (Auto) 0 % (0-10); Hematocrit 32.8 % (36.0-46.0); Hemoglobin 10.4 g/dL (12.0-16.0); Immature Granulocytes Auto 0.06 Thou/mm3 (0.00-0.00); Lymphocytes # (Auto) 0.3 Thou/mm3 (1.0-4.8); Lymphocytes % (Auto) 5 % (10-50); Mean Corpuscular HGB Conc 31.7 g/dl (31.0-37.0); Mean Corpuscular Hemoglobin 31.0 pg (25.0-35.0); Mean Corpuscular Volume 98 fL (80-100); Monocytes # (Auto) 0.5 Thou/mm3 (0.0-0.8); Monocytes % (Auto) 9 % (0-12); Neutrophils # (Auto) 4.7 Thou/mm3 (1.8-7.7); Neutrophils % (Auto) 85 % (37-80); Nucleated Red Blood Cell # 0.00 Thou/mm3 (0.00-0.00); Nucleated Red Blood Cell % 0 /100 WBC (0); RDW Standard Deviation 94.8 fL (36.4-46.3); Red Blood Count 3.35 Miln/mm3 (4.00-5.20); White Blood Count 5.5 Thou/mm3 (3.6-11.0)
[2025-02-06 16:18] LABS: Fibrinogen 168 mg/dL (175-375); INR 2.2 (0.9-1.3); Partial Thromboplastin Time 39.4 Seconds (22.0-36.0); Prothrombin Time 23.1 Seconds (9.0-12.2)
[2025-02-06] MEDS: HEPARIN SOD INJ 1000 UNIT/ML VIAL 10 ML 3000 UNIT INDWELLCAT (16:25)
[2025-02-06 16:47] LABS: Alanine Aminotransferase 360 U/L (10-49); Albumin, Serum 4.6 gm/dL (3.4-4.8); Albumin/Globulin Ratio 1.9 (1.2-2.2); Alkaline Phosphatase 72 U/L (46-116); Anion Gap 14 (7-16); Aspartate Amino Transferase 1049 U/L (0-34); BUN/Creatinine Ratio 8 Ratio (12-20); Blood Urea Nitrogen 9 mg/dL (9-23); Calcium 11.0 mg/dL (8.3-10.6); Calcium (Corrected) 11.0 mg/dL (8.5-10.1); Carbon Dioxide 27.4 mMol/L (20.0-31.0); Chloride 96 mMol/L (98-107); Creatinine (Component) 1.2 mg/dL (0.6-1.3); Estimated Creatinine Clearance 35.8 mL/min (>60); Globulin 2.4 gm/dL (2.3-3.5); Glucose 101 mg/dL (74-106); Osmolality,Calculated 272 (275-295); Potassium 4.0 mMol/L (3.4-5.1); Sodium 137 mMol/L (136-145); Total Protein 7.0 gm/dL (5.7-8.2); eGFR 49 See Note
[2025-02-06 16:49] LABS: Platelet Count 39 Thou/mm3 (140-440)
[2025-02-06 17:21] LABS: Slide Review Platelets confirmed
[2025-02-06 17:22] LABS: Bilirubin,Total 18.6 mg/dL (0.3-1.2)
[2025-02-06 18:23] LABS: Slide Review Platelets confirmed
[2025-02-06] MEDS: fentaNYL 2,500 MCG/250 ML BAG 2,500 MCG/250 ML BAG 12.5 MCG IV (19:00)
[2025-02-06 22:53] LABS: Lactate (Lactic Acid) 4.5 mMol/L (0.4-2.0)
[2025-02-07] VITALS (111 sets, daily range): BP systolic 65–192; BP diastolic 31–151; PULSE 49–81; RESP 14–30; TEMP 36.2–37.1; O2SAT 90–99; BMI 28.5
[2025-02-07] MEDS: PIPER/TAZO 2.25 GM 2.25 GM/50 ML BAG IV ×5 (00:56→23:44)
[2025-02-07 01:45] LABS: Reflex Lactate? Y
[2025-02-07] MEDS: DEXMEDETOMIDINE 400 MCG IVPB 400 MCG/100 ML BAG 20.93 MCG IV ×2 (02:12→07:33)
[2025-02-07 02:47] LABS: Lactic Acid, 3 HR 5.0 mMol/L (0.4-2.0)
[2025-02-07 02:48] LABS: Basophils # (Auto) 0.0 Thou/mm3 (0.0-0.2); Basophils % (Auto) 1 % (0-2.5); Eosinophils # (Auto) 0.0 Thou/mm3 (0.0-0.5); Eosinophils % (Auto) 0 % (0-10); Hematocrit 31.7 % (36.0-46.0); Hemoglobin 10.4 g/dL (12.0-16.0); Immature Granulocytes Auto 0.06 Thou/mm3 (0.00-0.00); Lymphocytes # (Auto) 0.2 Thou/mm3 (1.0-4.8); Lymphocytes % (Auto) 5 % (10-50); Mean Corpuscular HGB Conc 32.8 g/dl (31.0-37.0); Mean Corpuscular Hemoglobin 31.4 pg (25.0-35.0); Mean Corpuscular Volume 96 fL (80-100); Monocytes # (Auto) 0.4 Thou/mm3 (0.0-0.8); Monocytes % (Auto) 9 % (0-12); Neutrophils # (Auto) 3.8 Thou/mm3 (1.8-7.7); Neutrophils % (Auto) 84 % (37-80); Nucleated Red Blood Cell # 0.00 Thou/mm3 (0.00-0.00); Nucleated Red Blood Cell % 0 /100 WBC (0); RDW Standard Deviation 91.3 fL (36.4-46.3); Red Blood Count 3.31 Miln/mm3 (4.00-5.20); White Blood Count 4.6 Thou/mm3 (3.6-11.0)
[2025-02-07 02:53] LABS: Platelet Count 25 Thou/mm3 (140-440)
[2025-02-07 02:54] LABS: Alanine Aminotransferase 332 U/L (10-49); Albumin, Serum 3.6 gm/dL (3.4-4.8); Albumin/Globulin Ratio 1.4 (1.2-2.2); Alkaline Phosphatase 57 U/L (46-116); Anion Gap 15 (7-16); Aspartate Amino Transferase 877 U/L (0-34); BUN/Creatinine Ratio 6 Ratio (12-20); Bilirubin,Total 17.8 mg/dL (0.3-1.2); Blood Urea Nitrogen 11 mg/dL (9-23); Calcium 9.3 mg/dL (8.3-10.6); Calcium (Corrected) 9.6 mg/dL (8.5-10.1); Carbon Dioxide 22.4 mMol/L (20.0-31.0); Chloride 97 mMol/L (98-107); Creatinine (Component) 1.9 mg/dL (0.6-1.3); Estimated Creatinine Clearance 22.6 mL/min (>60); Globulin 2.6 gm/dL (2.3-3.5); Glucose 95 mg/dL (74-106); Osmolality,Calculated 267 (275-295); Potassium 4.6 mMol/L (3.4-5.1); Sodium 134 mMol/L (136-145); Total Protein 6.2 gm/dL (5.7-8.2); eGFR 28 See Note
[2025-02-07 03:00] LABS: INR 2.9 (0.9-1.3); Partial Thromboplastin Time 46.4 Seconds (22.0-36.0); Prothrombin Time 29.2 Seconds (9.0-12.2)
[2025-02-07 03:24] LABS: Slide Review Platelets confirmed
--- NOTE | 2025-02-07 05:00 | XR_ITS ---
Examination: AP chest single view Technique one AP portable semiupright chest single view Date and time: February 07, 2025 0630 hours, comparison February 06, 2025 INDICATIONS: Acute hypoxic respiratory failure postintubation this week FINDINGS: Mild heart failure. Mild enlargement left ventricle, prominent vascular congestion and subtle edema at the lung bases Left base pneumonia. Endotracheal tube tip 3.5 cm above Alix. Orogastric tube in the stomach, the tip is below the level of the film. Right internal jugular central line tip right atrium Prominent osteopenia IMPRESSION: Mild heart failure. Left base pneumonia
[2025-02-07 05:07] LABS: Base Excess -1 (-3-3); HCO3 23 mEq/L (20-26); Inspired Oxygen, FIO2 21 %; O2 Saturation 98 % (91-98); PCO2 33 mmHg (32.0-48.0); PO2 88 mmHg (83-108); pH, Arterial 7.45 (7.35-7.45)
[2025-02-07 05:13] LABS: Allen Test Performed/OK; Puncture Site Right Radial
[2025-02-07] MEDS: HYDROCORTISONE SOD SUCC INJ 100 MG 2 ML VIAL 50 MG IV ×2 (08:37→20:36)
--- NOTE | 2025-02-07 09:12 | PC.SS ---
SS update: remains intubated, on catheter, receiving dialysis at bedside.
[2025-02-07] MEDS: Norepinephrine/D5W 8mg/250ml 8 MG/250 ML BAG 5.606 MG IV (09:15)
[2025-02-07] MEDS: ALBUMIN HUMAN 25% IVPB 25 GM/100 ML BTL IV (09:55)
[2025-02-07] MEDS: VASOPRESSIN IN NS IVPB 20 UNIT/100 ML BAG 9 UNIT IV ×2 (10:29→19:26)
--- NOTE | 2025-02-07 10:53 | PC.SS ---
INTERNATIONAL ACCOUNT REPRESENTATIVE spoke to patients insurance [employer] at in regards to patient contact numbers. Insurance stated that they have attempted to contact emergency contact numbers on file for patient but all numbers are disconnected.
[2025-02-07] MEDS: HEPARIN SOD INJ 1000 UNIT/ML VIAL 10 ML 3000 UNIT INDWELLCAT (12:20)
[2025-02-07 13:58] LABS: Lactate (Lactic Acid) 3.4 mMol/L (0.4-2.0)
--- NOTE | 2025-02-07 15:06 | ESPR_ITS ---
Documentation for date of: 02/07/25 Subjective Subjective Interval history: hx per chart review: Ms. Merino is a 69 yo woman with unknown past medical history, who was found down at 1 am by her neighbor, she was unresponsive and with head strike, facial contusions and fractured teeth noted, she was brought to the ED, where she had altered mental status, was febrile to 105. Pt became increasingly legargic and obtunded. Pt was assessed by the night IM team, who described her as ll- appearing, minimally responsive, with marked jaundice and right periorbital contusion. Initial labs notable for severe metabolic acidosis (pH 7.25, HCO3 8, AG 22, lactate 15), hyperbilirubinemia (15.9), transaminitis, coagulopathy (INR 1.8), HIRA (Cr 1.4 from baseline 0.7), and UA with pyuria and bacteriuria. Blood and urine cultures sent; patient started on broad-spectrum antibiotics. . CT head, cervical spine, and chest/abdomen/pelvis are pending, as is repeat ABG. Also gallbladder ultrasound still pending to rule in rule out acute cholangitis. ED gave 2.5 L fluids, and intubated pt. SHe was started on pressors, central line was placed and admitted to the ICU. ECHO demonstrated hyper dynamic LV wo pericardial effusion. SvO2 was sent off of the brown port from the central line and pt was given vanc/zosyn. A cheeta was placed for hemodynamics and PLR performed. pt was found to not be fluid responsive. There are no family available for additional information. pts s/o 2 months ago and there is no immediate family around. 02/03/2025 Nephrology consulted. Pt seen and examined at bedside in ICU. Pt with UE in restraints, severely jaundiced, sclera icteric, with + fluid wave. is intubated. R IJ and R fem line, art line with SBPs 140s. Pt on nor epi and vasopressin. Lactic acidosis uptrended to 18. Cr 2.1, egfr 25. AGMA. cirrhosis with shock liver, hep panel negative, UTI, on vanc and zosyn. Plan for CRRT today. 02/04/2025: patient seen and examined in ICU. Pt with BUE in restraints. jaundiced, remaines intubated. RIJ and R fem line, art line with SBP 110s. Pt remains on pressors, however have been weaned. Lactic acidosis downtrending to 6.4. Cr 0.9, egfr >60. AGMA, LFTs continue to uptrend in setting of shocked liver. UTI continues on vanc and zosyn. CRRT continues. 02/05/2025: Patient seen and examined in ICU. pt with BUE restraints, jaundiced, remains intubated, RIJ, and R fem line, art line with sbp SBP 70s. Pt remains on pressors. Lactic acidosis 6.3 from 5.1 uptrending. LFT downtrending AST 1363. Mag and Phos are low. No HD today 02/06/2025: Patient seen and examined in ICU. pt with BUE restraints, jaundiced, remains intubated. Art line with sbp 100s, pt remains on pressors. Lactic acidL 5.6 from 7.1, LFT now uptrending, shock liver worsening T bili 18.K 5.8, BUN 11, Cr 1.8. CTAP with ischemic bowel, not a surgical candidate given coagulopathy and pressor requirement, per Dr. Rocha. Plan for conventional HD today 02/07/2025: No overnight events. Patient seen and examined at bedside; she remains intubated and is showing more signs of edema and has not made any urine. Notable labs today include: Hgb 10.4, platelet count 25, PT 29.2, INR 2.9, APTT 46.4, Na 134, creatinine bump to 1.9 from 1.2, eGFR drop to 28 from 49, lactic acid bump to 5.0 from 3.9, total bilirubin drop to 17.8 from 18.6, AST drop to 877 from 1049, ALT drop to 332 from 360. CXR today showed mild heart failure and left base pneumonia. From nephrology's standpoint, patient will be receiving HD today. Exam Vital Signs Temp Pulse Resp BP Pulse Ox O2 Del Method O2 Flow Rate 97.9 F 58 L 30 H 92/54 L 97 Mechanical Ventilation 11 02/07/25 09:00 02/07/25 09:00 02/07/25 09:00 02/07/25 09:00 02/07/25 09:00 02/07/25 07:45 02/06/25 07:07 FiO2 45 02/07/25 09:00 Narrative Exam GENERAL: Appears more edematous today. pt intubated with UE in restraints, no acute distress. HEENT: Head AT/ NC. Mucous membranes moist. eyes icteric, R central line NECK: Supple, no lymphadenopathy, no carotid bruits. CARDIOVASCULAR: RRR. Normal S1/S2, No m/r/g. No pitting edema of bilateral LEs. RESPIRATORY: intubated on mechanical ventilation. lungs with crackles bilaterally GASTROINTESTINAL: Abdomen tense, and distended no palpable masses. Bowel sounds hypoactive, + fluid wave mildly distended , right fem cath Extremitis: BLE with mottling on upper thighs. MUSCULOSKELETAL:? No cyanosis or edema, no visible joint swelling. LE warm to touch, pulses palpable , UE with restraints, SCDs in place NEUROLOGICAL: unable to assess neuro fxn pt intubated SKIN: No obvious rashes, jaundice, normal turgor. Objective Labs 02/07/25 17:26 02/07/25 17:26 Labs: Laboratory Results - last 24 hr 02/04/25 02/06/25 02/06/25 07:32 06:20 06:20 WBC Cancelled 7.9 RBC Cancelled Hgb Hct MCV MCH MCHC RDW Std Deviation Plt Count Neut % (Auto) Lymph % (Auto) [place] % (Auto) Eos % (Auto) Baso % (Auto) Neut # (Auto) Lymph # (Auto) [place] # (Auto) Eos # (Auto) Baso # (Auto) Immature Gran # (Auto) Absolute Nucleated RBC Immature Gran % Nucleated RBC % PT INR APTT Fibrinogen Puncture Site ABG pH ABG pCO2 ABG pO2 ABG HCO3 ABG O2 Saturation ABG Base Excess FiO2 Sodium Potassium Chloride Carbon Dioxide Anion Gap BUN Creatinine Estim Creat Clear Calc eGFR BUN/Creatinine Ratio Glucose Calculated Osmolality Lactic Acid Calcium Corrected Calcium Magnesium Total Bilirubin AST ALT Alkaline Phosphatase Total Protein Albumin Globulin Albumin/Globulin Ratio Vitamin B12 Misc Test Result Blood Type O Positive Antibody Screen NEGATIVE Crossmatch See Detail Blood Bank Wristband ID Yes Blood Bank Comment FFP Ready 02/06/25 02/06/25 02/06/25 06:20 06:20 06:20 WBC RBC 3.49 L Hgb Cancelled 10.9 L D Hct Cancelled 34.3 L D MCV Cancelled MCH MCHC RDW Std Deviation Plt Count Neut % (Auto) Lymph % (Auto) [place] % (Auto) Eos % (Auto) Baso % (Auto) Neut # (Auto) Lymph # (Auto) [place] # (Auto) Eos # (Auto) Baso # (Auto) Immature Gran # (Auto) Absolute Nucleated RBC Immature Gran % Nucleated RBC % PT INR APTT Fibrinogen Puncture Site ABG pH ABG pCO2 ABG pO2 ABG HCO3 ABG O2 Saturation ABG Base Excess FiO2 Sodium Potassium Chloride Carbon Dioxide Anion Gap BUN Creatinine Estim Creat Clear Calc eGFR BUN/Creatinine Ratio Glucose Calculated Osmolality Lactic Acid Calcium Corrected Calcium Magnesium Total Bilirubin AST ALT Alkaline Phosphatase Total Protein Albumin Globulin Albumin/Globulin Ratio Vitamin B12 Misc Test Result Blood Type Antibody Screen [place] Blood Bank [facility] Blood Bank Comment 02/06/25 02/06/25 02/06/25 06:20 06:20 06:20 WBC RBC Hgb Hct MCV 98 MCH Cancelled 31.2 MCHC Cancelled 31.8 RDW Std Deviation Cancelled Plt Count Neut % (Auto) Lymph % (Auto) [place] % (Auto) Eos % (Auto) Baso % (Auto) Neut # (Auto) Lymph # (Auto) [place] # (Auto) Eos # (Auto) Baso # (Auto) Immature Gran # (Auto) Absolute Nucleated RBC Immature Gran % Nucleated RBC % PT INR APTT Fibrinogen Puncture Site ABG pH ABG pCO2 ABG pO2 ABG HCO3 ABG O2 Saturation ABG Base Excess FiO2 Sodium Potassium Chloride Carbon Dioxide Anion Gap BUN Creatinine Estim Creat Clear Calc eGFR BUN/Creatinine Ratio Glucose Calculated Osmolality Lactic Acid Calcium Corrected Calcium Magnesium Total Bilirubin AST ALT Alkaline Phosphatase Total Protein Albumin Globulin Albumin/Globulin Ratio Vitamin B12 Misc Test Result Blood Type Antibody Screen [place] Blood Bank [facility] Blood Bank Comment 02/06/25 02/06/25 02/06/25 06:20 06:20 06:20 WBC RBC Hgb Hct MCV MCH MCHC RDW Std Deviation 95.3 H Plt Count Cancelled 20 L* Neut % (Auto) Cancelled 88 H Lymph % (Auto) Cancelled [place] % (Auto) Eos % (Auto) Baso % (Auto) Neut # (Auto) Lymph # (Auto) [place] # (Auto) Eos # (Auto) Baso # (Auto) Immature Gran # (Auto) Absolute Nucleated RBC Immature Gran % Nucleated RBC % PT INR APTT Fibrinogen Puncture Site ABG pH ABG pCO2 ABG pO2 ABG HCO3 ABG O2 Saturation ABG Base Excess FiO2 Sodium Potassium Chloride Carbon Dioxide Anion Gap BUN Creatinine Estim Creat Clear Calc eGFR BUN/Creatinine Ratio Glucose Calculated Osmolality Lactic Acid Calcium Corrected Calcium Magnesium Total Bilirubin AST ALT Alkaline Phosphatase Total Protein Albumin Globulin Albumin/Globulin Ratio Vitamin B12 Misc Test Result Blood Type Antibody Screen [place] Blood Bank [facility] Blood Bank Comment 02/06/25 02/06/25 02/06/25 06:20 06:20 06:20 WBC RBC Hgb Hct MCV MCH MCHC RDW Std Deviation Plt Count Neut % (Auto) Lymph % (Auto) 3 L [place] % (Auto) Cancelled 8 Eos % (Auto) Cancelled 0 Baso % (Auto) Cancelled Neut # (Auto) Lymph # (Auto) [place] # (Auto) Eos # (Auto) Baso # (Auto) Immature Gran # (Auto) Absolute Nucleated RBC Immature Gran % Nucleated RBC % PT INR APTT Fibrinogen Puncture Site ABG pH ABG pCO2 ABG pO2 ABG HCO3 ABG O2 Saturation ABG Base Excess FiO2 Sodium Potassium Chloride Carbon Dioxide Anion Gap BUN Creatinine Estim Creat Clear Calc eGFR BUN/Creatinine Ratio Glucose Calculated Osmolality Lactic Acid Calcium Corrected Calcium Magnesium Total Bilirubin AST ALT Alkaline Phosphatase Total Protein Albumin Globulin Albumin/Globulin Ratio Vitamin B12 Misc Test Result Blood Type Antibody Screen [place] Blood [facility] Blood Bank Comment 02/06/25 02/06/25 02/06/25 06:20 06:20 06:20 WBC RBC Hgb Hct MCV MCH MCHC RDW Std Deviation Plt Count Neut % (Auto) Lymph % (Auto) [place] % (Auto) Eos % (Auto) Baso % (Auto) 1 Neut # (Auto) Cancelled 6.9 Lymph # (Auto) Cancelled 0.2 L [place] # (Auto) Cancelled Eos # (Auto) Baso # (Auto) Immature Gran # (Auto) Absolute Nucleated RBC Immature Gran % Nucleated RBC % PT INR APTT Fibrinogen Puncture Site ABG pH ABG pCO2 ABG pO2 ABG HCO3 ABG O2 Saturation ABG Base Excess FiO2 Sodium Potassium Chloride Carbon Dioxide Anion Gap BUN Creatinine Estim Creat Clear Calc eGFR BUN/Creatinine Ratio Glucose Calculated Osmolality Lactic Acid Calcium Corrected Calcium Magnesium Total Bilirubin AST ALT Alkaline Phosphatase Total Protein Albumin Globulin Albumin/Globulin Ratio Vitamin B12 Misc Test Result Blood Type Antibody Screen [place] Blood Bank [facility] Blood Bank Comment 02/06/25 02/06/25 02/06/25 06:20 06:20 06:20 WBC RBC Hgb Hct MCV MCH MCHC RDW Std Deviation Plt Count Neut % (Auto) Lymph % (Auto) [place] % (Auto) Eos % (Auto) Baso % (Auto) Neut # (Auto) Lymph # (Auto) [place] # (Auto) 0.6 Eos # (Auto) Cancelled 0.0 Baso # (Auto) Cancelled 0.1 Immature Gran # (Auto) Cancelled Absolute Nucleated RBC Immature Gran % Nucleated RBC % PT INR APTT Fibrinogen Puncture Site ABG pH ABG pCO2 ABG pO2 ABG HCO3 ABG O2 Saturation ABG Base Excess FiO2 Sodium Potassium Chloride Carbon Dioxide Anion Gap BUN Creatinine Estim Creat Clear Calc eGFR BUN/Creatinine Ratio Glucose Calculated Osmolality Lactic Acid Calcium Corrected Calcium Magnesium Total Bilirubin AST ALT Alkaline Phosphatase Total Protein Albumin Globulin Albumin/Globulin Ratio Vitamin B12 Misc Test Result Blood Type Antibody Screen [facility] Blood Bank [facility] Blood Bank Comment 02/06/25 02/06/25 02/06/25 06:20 06:20 06:20 WBC RBC Hgb Hct MCV MCH MCHC RDW Std Deviation Plt Count Neut % (Auto) Lymph % (Auto) [place] % (Auto) Eos % (Auto) Baso % (Auto) Neut # (Auto) Lymph # (Auto) [place] # (Auto) Eos # (Auto) Baso # (Auto) Immature Gran # (Auto) 0.09 H Absolute Nucleated RBC Cancelled 0.00 Immature Gran % Cancelled 1 H Nucleated RBC % Cancelled PT INR APTT Fibrinogen Puncture Site ABG pH ABG pCO2 ABG pO2 ABG HCO3 ABG O2 Saturation ABG Base Excess FiO2 Sodium Potassium Chloride Carbon Dioxide Anion Gap BUN Creatinine Estim Creat Clear Calc eGFR BUN/Creatinine Ratio Glucose Calculated Osmolality Lactic Acid Calcium Corrected Calcium Magnesium Total Bilirubin AST ALT Alkaline Phosphatase Total Protein Albumin Globulin Albumin/Globulin Ratio Vitamin B12 Misc Test Result Blood Type Antibody Screen [place] Blood Bank [facility] Blood Bank Comment 02/06/25 02/06/25 02/06/25 06:20 08:15 09:19 WBC 6.5 RBC 3.21 L Hgb 10.2 L Hct 31.5 L MCV 98 MCH 31.8 MCHC 32.4 RDW Std Deviation 93.8 H Plt Count 14 L* D Neut % (Auto) 87 H Lymph % (Auto) 4 L [place] % (Auto) 7 Eos % (Auto) 0 Baso % (Auto) 1 Neut # (Auto) 5.6 Lymph # (Auto) 0.2 L [place] # (Auto) 0.5 Eos # (Auto) 0.0 Baso # (Auto) 0.1 Immature Gran # (Auto) 0.09 H Absolute Nucleated RBC 0.00 Immature Gran % 1 H Nucleated RBC % 0 0 PT INR APTT Fibrinogen Puncture Site Arterial Line ABG pH 7.30 L ABG pCO2 46 ABG pO2 70 L ABG HCO3 23 ABG O2 Saturation 93 ABG Base Excess -4 L FiO2 50 Sodium Potassium Chloride Carbon Dioxide Anion Gap BUN Creatinine Estim Creat Clear Calc eGFR BUN/Creatinine Ratio Glucose Calculated Osmolality Lactic Acid Calcium Corrected Calcium Magnesium Total Bilirubin AST ALT Alkaline Phosphatase Total Protein Albumin Globulin Albumin/Globulin Ratio Vitamin B12 > 2000 H Misc Test Result Platelets confirmed Platelets confirmed Blood Type Antibody Screen Crossmatch Blood Bank Wristband ID Blood Bank Comment 02/06/25 02/06/25 02/06/25 14:04 14:14 22:36 WBC 5.5 RBC 3.35 L Hgb 10.4 L Hct 32.8 L MCV 98 MCH 31.0 MCHC 31.7 RDW Std Deviation 94.8 H Plt Count 39 L D Neut % (Auto) 85 H Lymph % (Auto) 5 L [place] % (Auto) 9 Eos % (Auto) 0 Baso % (Auto) 1 Neut # (Auto) 4.7 Lymph # (Auto) 0.3 L [place] # (Auto) 0.5 Eos # (Auto) 0.0 Baso # (Auto) 0.0 Immature Gran # (Auto) 0.06 H Absolute Nucleated RBC 0.00 Immature Gran % 1 H Nucleated RBC % 0 PT 23.1 H D INR 2.2 H APTT 39.4 H D Fibrinogen 168 L Puncture Site ABG pH ABG pCO2 ABG pO2 ABG HCO3 ABG O2 Saturation ABG Base Excess FiO2 Sodium 137 Potassium 4.0 D Chloride 96 L Carbon Dioxide 27.4 Anion Gap 14 BUN 9 Creatinine 1.2 D Estim Creat Clear Calc 35.8 L eGFR 49 L BUN/Creatinine Ratio 8 L Glucose 101 Calculated Osmolality 272 L Lactic Acid 3.9 H 4.5 H* Calcium 11.0 H D Corrected Calcium 11.0 H D Magnesium 2.4 Total Bilirubin 18.6 H* D AST 1049 H* ALT 360 H Alkaline Phosphatase 72 Total Protein 7.0 Albumin 4.6 D Globulin 2.4 Albumin/Globulin Ratio 1.9 Vitamin B12 Misc Test Result Platelets confirmed Blood Type Antibody Screen [place] [facility] Comment 02/07/25 02/07/25 02:10 04:55 WBC 4.6 RBC 3.31 L Hgb 10.4 L Hct 31.7 L MCV 96 MCH 31.4 MCHC 32.8 RDW Std Deviation 91.3 H Plt Count 25 L* D Neut % (Auto) 84 H Lymph % (Auto) 5 L [place] % (Auto) 9 Eos % (Auto) 0 Baso % (Auto) 1 Neut # (Auto) 3.8 Lymph # (Auto) 0.2 L [place] # (Auto) 0.4 Eos # (Auto) 0.0 Baso # (Auto) 0.0 Immature Gran # (Auto) 0.06 H Absolute Nucleated RBC 0.00 Immature Gran % 1 H Nucleated RBC % 0 PT 29.2 H D INR 2.9 H APTT 46.4 H Fibrinogen Puncture Site Right Radial ABG pH 7.45 D ABG pCO2 33 D ABG pO2 88 ABG HCO3 23 ABG O2 Saturation 98 ABG Base Excess -1 FiO2 21 Sodium 134 L Potassium 4.6 D Chloride 97 L Carbon Dioxide 22.4 Anion Gap 15 BUN 11 Creatinine 1.9 H D Estim Creat Clear Calc 22.6 L eGFR 28 L BUN/Creatinine Ratio 6 L Glucose 95 Calculated Osmolality 267 L Lactic Acid 5.0 H* Calcium 9.3 D Corrected Calcium 9.6 Magnesium Total Bilirubin 17.8 H D AST 877 H* ALT 332 H Alkaline Phosphatase 57 D Total Protein 6.2 Albumin 3.6 D Globulin 2.6 Albumin/Globulin Ratio 1.4 Vitamin B12 Misc Test Result Platelets confirmed Blood Type Antibody Screen [place] Blood Bank [facility] Blood Bank Comment ABG Interpretation ABG results: 02/03/25 02/03/25 02/03/25 02:47 06:09 07:19 ABG pH 7.25 L 7.00 L* D 7.18 L* D ABG pCO2 18 L* 63 H D 49 H D ABG pO2 192 H 149 H D 168 H ABG HCO3 8 L* 15 L 18 L ABG O2 Saturation 100 H 98 99 H ABG Base Excess -17 L -16 L -10 L VBG pH VBG pCO2 VBG pO2 VBG Base Excess 02/03/25 02/03/25 02/03/25 07:30 13:32 20:35 ABG pH 7.30 L D 7.25 L ABG pCO2 23 L D 23 L ABG pO2 159 H 145 H ABG HCO3 12 L 10 L ABG O2 Saturation 100 H 100 H ABG Base Excess -13 L -16 L VBG pH 7.28 L VBG pCO2 37 VBG pO2 110 H VBG Base Excess -9 L 02/04/25 02/04/25 02/04/25 03:51 06:42 23:10 ABG pH 7.60 H D 7.44 D 7.30 L D ABG pCO2 24 L 36 D 57 H D ABG pO2 150 H 71 L D 78 L ABG HCO3 23 25 28 H ABG O2 Saturation 101 H 95 94 ABG Base Excess 2 0 1 VBG pH VBG pCO2 VBG pO2 VBG Base Excess 02/05/25 02/05/25 02/05/25 01:20 04:34 09:20 ABG pH 7.40 D 7.42 7.39 ABG pCO2 45 D 44 44 ABG pO2 69 L 100 D 74 L D ABG HCO3 28 H 29 H 27 H ABG O2 Saturation 94 99 H 95 ABG Base Excess 3 4 H 2 VBG pH VBG pCO2 VBG pO2 VBG Base Excess 02/06/25 02/06/25 02/07/25 04:50 09:19 04:55 ABG pH 7.27 L D 7.30 L 7.45 D ABG pCO2 51 H 46 33 D ABG pO2 69 L 70 L 88 ABG HCO3 23 23 23 ABG O2 Saturation 92 93 98 ABG Base Excess -4 L -4 L -1 VBG pH VBG pCO2 VBG pO2 VBG Base Excess Quality Measures Quality Measures sepsis Current suspected stage: sepsis Possible source: genitourinary Blood cultures ordered: yes Antibiotic ordered: Yes Advance care planning discussed with:: patient Assessment & Plan Assessment Current Active Medications: Generic Name Dose Route Start Last Admin Trade Name Freq PRN Reason Stop Dose Admin Acetaminophen 650 mg 02/03/25 07:33 Acetaminophen Supp 650 Mg Supp [place] 03/05/25 07:32 Q4HR PRN PAIN SCALE 1-3 (mild Heparin Sodium (Porcine) 3,000 unit 02/04/25 10:06 02/06/25 16:25 Heparin Sod Inj 1000 Unit/Ml Vial 10 Ml INDWELLCAT 02/18/25 10:05 3,000 unit PRN PRN Administration HD catheter Hydrocortisone Sodium Succinate 50 mg 02/06/25 21:00 02/07/25 08:37 Hydrocortisone Sod Succ Inj 100 Mg 2 Ml Vial IV 03/08/25 20:59 50 mg Q12HR JAYRO Administration Norepinephrine/Dextrose 8 mg in 250 mls @ 5.606 mls/hr 02/03/25 06:02 02/06/25 17:00 Levophed In D5w 8mg/250ml IV 03/05/25 06:01 0 mcg/kg/min .Q24H PRN 0 mls/hr PER PROTOCOL Titration Protocol 0.05 MCG/KG/MIN Dexmedetomidine/Sodium Chloride 400 mcg in 100 mls @ 2.99 mls/hr 02/03/25 06:51 02/07/25 07:33 Precedex Ivpb IV 03/05/25 06:50 1.4 mcg/kg/hr .Q24H PRN 20.93 mls/hr Per PROTOCOL Administration Protocol 0.2 MCG/KG/HR Piperacillin/Tazobactam/Dextrose 2.25 gm in 50 mls @ 100 mls/hr 02/03/25 12:00 02/07/25 05:37 Zosyn IV 02/10/25 11:59 100 mls/hr Q6HR JAYRO Administration Fentanyl Citrate 2,500 mcg in 250 mls @ 2.5 mls/hr 02/03/25 15:27 02/07/25 06:00 Sublimaze Inj 2,500 Mcg/250 Ml Bag IV 02/08/25 15:26 125 mcg/hr .Q24H PRN 12.5 mls/hr PER PROTOCOL Titration Protocol 25 MCG/HR Vasopressin/Sodium Chloride 20 unit in 100 mls @ 9 mls/hr 02/03/25 16:15 02/06/25 22:51 Vasostrict/Ns Ivpb IV 03/05/25 16:14 0.03 unit/min .Q11H7M PRN 9 mls/hr PER PROTOCOL Administration Protocol 0.03 UNIT/MIN Midazolam HCl 2 mg 02/05/25 07:32 02/06/25 02:22 Midazolam Inj 1 Mg/Ml Vial 2 Ml IVP 02/10/25 07:31 2 mg Q4H PRN Administration AGITATION OR ANXIETY Ondansetron HCl 4 mg 02/03/25 02:03 Ondansetron Inj 2 Mg/Ml Inj 2 Ml IVP 03/05/25 02:02 Q6HR PRN NAUSEA OR VOMITING Protocol Pantoprazole Sodium 40 mg 02/03/25 09:00 02/07/25 08:36 Pantoprazole Inj 40 Mg Vial IVP 03/05/25 08:59 40 mg QDAY JAYRO Administration Pharmacy Consult 1 each 02/03/25 02:03 Pharmacy Renal Dose Adjustment 1 Ea XX 03/05/25 02:02 PRN PRN CONSULT Plan Ms Merino, is a 69 yo woman with an unknown PMH, who was admitted to the ICU for mgmt of distributive shock. Pt was intubated in the ED. AGAMA 2/2 Lactic acid now downtrending to 6 today. Pt remains on pressors, levofed and vasopressin, weening. Nephrology consulted. CRRT , with improvement in lactic acid. GNR bacteremia. LFT incr in setting of shock liver. From nephrology's standpoint, patient will be receiving HD today. #Anion Gap Metabolic Acidosis 2/2 lactic acidosis Lactic acidosis 5.6 from 7.2 CRRT: 02/03 started at 2100, will continue 02/04 for ~24 hrs of HD, 02/06 (conventional HD) PLAN: - conventional HD today #HIRA #query ATN type 1 vs hepatorenal syndrome given pt is in shock, cannot dx hepatorenal syndrome. pt remains on pressors see #septic shock below on 02/04 Cr. 0.9 from 1.4 , BUN 6 from 14 on 02/05 Cr 0.8, BUN <5, minimal UOP 40. on 02/06 Cr 1.8, BUN 11, mimimal UOP on 02/07 Cr 1.9, BUN 11, minimal UOP Dx - UA with 1+ protein, 2+ RBC - Urine protein Cr ratio 0.807 - strict I and O, pt has greco - renally dose medications - avoid nephrotoxic agents #Septic Shock #query 2/2 SBP vs UTI #GNR bacteremia 2/2- E Coli sofa score: 13 end organ damage: shock liver, >>LFTs 2/2 shock, acute elevation in troponin 0.077 (no st elevations or depressions on EKG) continues to uptrend, 0.369 BP 70s /40s, procal 7.74, febrile on admission on 02/04 SBP from art line 110s decreased pressure requirement on 02/05 pt remains on pressers, Lactic acid uptrending, 5.1 to 6.3. Greco catheter in place draining dark urine with blood, UOP ~40 cc arterial line in place Dx - UA with 4+ biliruben, Leuk est + and nitrities + with WBC 80 and 4+ bacteria - Urine Cx- ecoli - Blood culture ecoli - paracentesis fluid analysis: Alb 1.3, WBC 18% Tx - on vanc and zosyn - on pressors per ICU team - ICU to manage #Cirrhosis #Acute ischemic hepatitis/shock liver #Acites, SAAG >1.1 #query malignancy given numerous liver masses on CTAP acute rise in LFT likely 2/2 to hypotension in setting of septic shock coagulopathy with elevated PT, INR, PTT thrombocytopenia with PLT 14 pt is severely jaundiced on exam, sclera icteric, +abdominal fluid wave Dx - Abdominal US with mild ascites, cirrhosis, - hepatitis panel negative - Utox negative, etoh negative - Tumor markers: AFP wnl, CEA wnl Tx - albumin 25 bid - octreotide drip #ischemic bowel abdomen tense and distended. CTAP with ischemic bowel. -not surgical candidate per Dr. Rocha given coagulopathy and pressor requirement. #electrolyte abnormalities #acute hypoxic respiratory failure- intubated #acute encephalopathy (query etiology 2/2 sepsis vs shock vs acidosis) #Facial trauma 2/2 fall with headstrike, no fractures #L orbital eye contusion #Tooth fractures #macrocytic anemia - b12 elevated>>> - folate wnl Plan discussed with nephrology attending Dr. Bin Larsen, DO Internal Medicine, PGY-1 Attending Provider Attestation/Addendum Patient seen and examined with resident physician Dr. Larsen. Note reviewed, agree with findings and recommendations. Patient with septic shock, intractable lactic acidosis and HIRA. Decided to proceed with CRRT. She is currently on 2 pressors. Remains on ventilator. Currently in ICU. Patient received 2 CRRT sessions so far. Lactic acid improving. Hold off on dialysis today. Will monitor renal function and urine output closely 02/07/2025 patient remains in ICU. Multisystem organ failure- Hypoxic respiratory failure-on ventilator Ischemic liver Ischemic colitis Sepsis needing pressors Acute renal failure needing dialysis no family around. No want to make medical decisions for her. Decided to proceed with dialysis. Patient currently seen on dialysis. Tolerating dialysis without any problems. Hemodialysis for 3 hours, 2K, ultrafiltration 1-2 L, Epogen 6000, no heparin ordered. Plan of care discussed with the dialysis nurse. Please see dialysis flowsheet for further details. Insert my dialysis note Critical care time spent 45 minutes regarding plan of care and disease management Spoke to ICU team, Dr. Blake, medical center representative
--- NOTE | 2025-02-07 16:02 | PD.RESPRO ---
Documentation for date of: 02/07/25 Subjective Subjective Interval history: Patient is intubated and mechanically ventilated so most of the history is taken from the chart review. 69-year-old female with unknown past medical history was brought to the hospital in view of altered sensorium. Per nurse, patient probably had a fall the day before admission in the morning following which she was okay until the neighbors blood to recheck her in the evening, found to be unconscious for which they called the EMS and was brought to the hospital. In the ED, patient is minimally responsive with marked icterus and periorbital contusion. Patient was found to be hypoxic with oxygen saturation in the mid 80s and was initially placed on a nonrebreather mask with correction of hypoxia. Later patient was found to be tachycardic with heart rate around 140s and febrile with a temperature of 105.8 ?F. Patient was intubated in view of acute encephalopathy and hypoxia. ICU is consulted in view of acute hypoxic respiratory failure in the setting of acute encephalopathy and suspected septic shock. In the ED, patient received 1 dose of acetaminophen 650 mg per rectum. 1 L LR bolus followed by 1.5 L of NS bolus in view of suspected septic shock. Initial labs revealed hemoglobin 10.9, platelets 61, INR 1.8, sodium 133, bicarb less than 10, anion gap 22, BUN 13, creatinine 1.4, lactic acid 15, magnesium 1.4, total bilirubin 15.9, AST 241, ALT 58, albumin 2.5, procalcitonin 7.47. EKG showed sinus tachycardia with no acute ST and T wave changes chest x-ray showed bilateral increased vascularity. Abdomen/pelvis CT showed cirrhosis, mild to moderate ascites, absent gallbladder. Cervical spine CT, face CT, head CT, thoracic spine CT, lumbar spine CT did not show any acute fractures. Abdominal ultrasound showed no CBD stones. Initial chest x-ray done showed endotracheal tube tip 2.5 cm in the right mainstem bronchus with atelectasis of the left lung following which the endotracheal tube is retacted and repeat chest x-ray was done that showed minor atelectasis of the left base. Patient is admitted to ICU in view of septic shock, possible decompensated cirrhosis, HIRA. 02/04/2025: Patient is seen and examined at bedside in the ICU. Sedated and on mechanical ventilator. Overnight, patient was found to have hypoglycemic episodes blood glucose of 50 for which patient was given D50 twice. Patient was on CRRT throughout the night. Vitals are stable and patient was found to decreased vasopressors since last night. On examination, patient is found to have abdominal distention for which she was kept on low intermittent suction and later was started on trickle feeds. Labs done this morning showed hemoglobin 6.9, platelets 18,000, WBC 12.1, INR 4.7, BUN 6, creatinine 0.9, lactate 8.1, total bilirubin 16.1, AST 2385, ALT 474. Later fibrinogen is ordered to evaluate for DIC. Repeat CBC showed hemoglobin of 6.4 and platelet count of 16. Ordered 2 PRBC, 1 platelet, 3 FFP transfusions. 1 PRBC and FFP's kept on hold. Will repeat H&H after the blood transfusion. Consent for transfusion is taken from her friend Danny, could not get hold of her brother. Will continue CRRT till 7 PM. Will continue to monitor renal and liver function tests. Despite CRRT, patient is likely to have poor prognosis in the setting of acute liver failure and acute kidney failure. 02/05/2025: Patient is seen and examined at bedside in the ICU. No acute overnight events. Still anuric. Patient was on low-dose vasopressors including vasopressin and on Levophed. Early in the morning, patient is noted to have high peak pressures and noted to have severe abdominal distention for which patient was connected to the suction and found to have almost 2 to 2.5 L of residual volume. Vitals are stable. Labs done this morning showed hemoglobin 9, platelets 35, INR 2.2, sodium 135, creatinine 0.8, glucose 108, lactate 5.1, phosphorus 2.2, magnesium 1.4, total bilirubin 15.7, AST 1363, ALT 367. As patient is having abdominal distention and later found to have lactate elevation from 5.1-6.3, also noted to have multiple liver lesions on the CT abdomen/pelvis, suspected to have either malignancy or small bowel obstruction or ongoing ischemia for which repeat CT abdomen/pelvis was done with IV contrast and patient was found to have ischemic colitis in the right colon, prominent pneumonia in the left base. General surgeon, Dr. Rocha was consulted in view of ongoing ischemic colitis, recommended that in view of patient's critical illness we will hold off any surgical procedures for now. Repeat blood work was done around 3:45 PM that showed hemoglobin 7.1, platelets 22, fibrinogen 92, potassium 3.5, bicarb 19.3, creatinine 1, liver enzymes downtrended to AST 835, ALT 250, total bilirubin 11.7. Ordered 2 PRBC, 1 FFP, 1 platelet, 6 cryoprecipitate transfusion in view of suspected possible ongoing DIC. Will transfuse all these blood products which might help in improving the perfusion to the ischemic bowel. Will continue to trend lactate levels and monitor for urine output. Dr. Steward is following the patient and held off CRRT for today and wants to monitor for today. 02/06/2025: Patient is seen and examined at bedside in the ICU. No acute overnight events. Noted no urine output and bowel movements. This morning, patient is noted to have tense abdomen and peak pressures continue to elevate with patient biting the endotracheal tube, likely to have pain from the ischemic colitis. Patient was started on fentanyl drip in view of suspected pain following which the peak pressures came back to normal levels. Overnight, patient is on low-dose vasopressors Levophed 0.03 and vasopressin 0.03. Patient did get only 2 PRBC transfusion overnight. Will give the remaining blood products. Vitals are stable. On physical examination, patient noted to have mottling in bilateral lower extremities with feeble peripheral pulses. Labs done this morning showed hemoglobin 10.2, platelet count 14, WBC 6.5, INR 3.4, PT 34.2, sodium 134, potassium 5.8, creatinine 1.8, glucose 123, lactate 5.6, total bilirubin 18.1, AST 1084, ALT 360. Dr. Steward is following the patient and recommended conventional hemodialysis today at 250 mL/h as patient's blood pressure is stable. Will repeat labs in the afternoon once all the blood products are transfused. General surgeon, Dr. Rocha is following for the possible ischemic colitis and recommended no surgery as of now in view of coagulopathy and low platelet count. Talked to her friend, point of contact Rell Delgado who reported that patient had a son who lives in [facility] but does not have any contact with him and also could not get in contact with her brother who lives in [place]. Still trying to get in contact with her family members for goals of care discussion. In view of ongoing coagulopathy, DIC, acute liver failure, acute kidney failure, patient is likely to have poor prognosis. Will continue to monitor her vitals, labs and try to get in contact with the family for further decision making. Till then, patient will be given full treatment 02/07/2025: Patient is seen and examined at bedside in the ICU. No acute overnight events. Still noted to be anuric and no further bowel movements noted. On physical examination, abdomen appears to be soft today but still no bowel movements are noted. Labs done this morning showed hemoglobin 10.4, platelet count 25, INR 2.9, sodium 134, CRP 1.9, lactate 5, AST 877, ALT 332. ABG is within normal limits. Discussed about patient's condition with general surgeon, Dr. Rocha and he recommended that he can go ahead with the surgery, exploratory laparotomy after correcting her platelet count and INR. Planning to have goals of care discussion tomorrow at 9:30 AM to make a point of contact and decision maker as patient does not have any immediate family available. Still could not get hold of the brother. Ordered 4 units of platelet and 2 FFP's. Planning to transfuse them before the surgery. Patient condition is still critical and had poor prognosis in the setting of decompensated liver cirrhosis. Trying to wean her off the sedation to assess her mentation. Received hemodialysis session today Exam Vital Signs Temp Pulse Resp BP Pulse Ox O2 Del Method O2 Flow Rate 97.5 F 63 24 H 89/58 L 94 L Mechanical Ventilation 11 02/07/25 12:00 02/07/25 14:48 02/07/25 12:00 02/07/25 14:48 02/07/25 14:48 02/07/25 12:00 02/06/25 07:07 FiO2 35 02/07/25 14:48 Narrative Exam General: Sedated and mechanically ventilated HEENT: Normocephalic, atraumatic, mucous membranes moist.Noted to have right frontal hematoma and ecchymosis on the right eye. Noted to have dislocated teeth. Heart: Regular rate and rhythm, no murmurs. Lungs: Clear to auscultation with no wheezing or crackles.Noted to have decreased breath sounds on the left side Abdomen: Soft, moderately distended, nontender, positive bowel sounds. ?No guarding or rebound tenderness. Neurologic:Sedated and mechanically ventilated Extremities: No edema. Noted all peripheral pulses. noted mottling in the lower extremities Skin: Noted to have ecchymotic patches on the right side of the abdomen and also on the right hand from the IV catheterization Objective Labs 02/08/25 16:19 02/08/25 16:19 Labs: Laboratory Results - last 24 hr 02/06/25 02/06/25 02/06/25 06:20 14:14 22:36 WBC 5.5 RBC 3.35 L Hgb 10.4 L Hct 32.8 L MCV 98 MCH 31.0 MCHC 31.7 RDW Std Deviation 94.8 H Plt Count 39 L D Neut % (Auto) 85 H Lymph % (Auto) 5 L Davison % (Auto) 9 Eos % (Auto) 0 Baso % (Auto) 1 Neut # (Auto) 4.7 Lymph # (Auto) 0.3 L Davison # (Auto) 0.5 Eos # (Auto) 0.0 Baso # (Auto) 0.0 Immature Gran # (Auto) 0.06 H Absolute Nucleated RBC 0.00 Immature Gran % 1 H Nucleated RBC % 0 PT 23.1 H D INR 2.2 H APTT 39.4 H D Fibrinogen 168 L Puncture Site ABG pH ABG pCO2 ABG pO2 ABG HCO3 ABG O2 Saturation ABG Base Excess FiO2 Sodium 137 Potassium 4.0 D Chloride 96 L Carbon Dioxide 27.4 Anion Gap 14 BUN 9 Creatinine 1.2 D Estim Creat Clear Calc 35.8 L eGFR 49 L BUN/Creatinine Ratio 8 L Glucose 101 Calculated Osmolality 272 L Lactic Acid 4.5 H* Calcium 11.0 H D Corrected Calcium 11.0 H D Total Bilirubin 18.6 H* D AST 1049 H* ALT 360 H Alkaline Phosphatase 72 Total Protein 7.0 Albumin 4.6 D Globulin 2.4 Albumin/Globulin Ratio 1.9 Misc Test Result Platelets confirmed Platelets confirmed 02/07/25 02/07/25 02/07/25 02:10 04:55 13:55 WBC 4.6 RBC 3.31 L Hgb 10.4 L Hct 31.7 L MCV 96 MCH 31.4 MCHC 32.8 RDW Std Deviation 91.3 H Plt Count 25 L* D Neut % (Auto) 84 H Lymph % (Auto) 5 L Davison % (Auto) 9 Eos % (Auto) 0 Baso % (Auto) 1 Neut # (Auto) 3.8 Lymph # (Auto) 0.2 L Davison # (Auto) 0.4 Eos # (Auto) 0.0 Baso # (Auto) 0.0 Immature Gran # (Auto) 0.06 H Absolute Nucleated RBC 0.00 Immature Gran % 1 H Nucleated RBC % 0 PT 29.2 H D INR 2.9 H APTT 46.4 H Fibrinogen Puncture Site Right Radial ABG pH 7.45 D ABG pCO2 33 D ABG pO2 88 ABG HCO3 23 ABG O2 Saturation 98 ABG Base Excess -1 FiO2 21 Sodium 134 L Potassium 4.6 D Chloride 97 L Carbon Dioxide 22.4 Anion Gap 15 BUN 11 Creatinine 1.9 H D Estim Creat Clear Calc 22.6 L eGFR 28 L BUN/Creatinine Ratio 6 L Glucose 95 Calculated Osmolality 267 L Lactic Acid 5.0 H* 3.4 H Calcium 9.3 D Corrected Calcium 9.6 Total Bilirubin 17.8 H D AST 877 H* ALT 332 H Alkaline Phosphatase 57 D Total Protein 6.2 Albumin 3.6 D Globulin 2.6 Albumin/Globulin Ratio 1.4 Misc Test Result Platelets confirmed ABG Interpretation ABG results: 02/03/25 02/03/25 02/03/25 02:47 06:09 07:19 ABG pH 7.25 L 7.00 L* D 7.18 L* D ABG pCO2 18 L* 63 H D 49 H D ABG pO2 192 H 149 H D 168 H ABG HCO3 8 L* 15 L 18 L ABG O2 Saturation 100 H 98 99 H ABG Base Excess -17 L -16 L -10 L VBG pH VBG pCO2 VBG pO2 VBG Base Excess 02/03/25 02/03/25 02/03/25 07:30 13:32 20:35 ABG pH 7.30 L D 7.25 L ABG pCO2 23 L D 23 L ABG pO2 159 H 145 H ABG HCO3 12 L 10 L ABG O2 Saturation 100 H 100 H ABG Base Excess -13 L -16 L VBG pH 7.28 L VBG pCO2 37 VBG pO2 110 H VBG Base Excess -9 L 02/04/25 02/04/25 02/04/25 03:51 06:42 23:10 ABG pH 7.60 H D 7.44 D 7.30 L D ABG pCO2 24 L 36 D 57 H D ABG pO2 150 H 71 L D 78 L ABG HCO3 23 25 28 H ABG O2 Saturation 101 H 95 94 ABG Base Excess 2 0 1 VBG pH VBG pCO2 VBG pO2 VBG Base Excess 02/05/25 02/05/25 02/05/25 01:20 04:34 09:20 ABG pH 7.40 D 7.42 7.39 ABG pCO2 45 D 44 44 ABG pO2 69 L 100 D 74 L D ABG HCO3 28 H 29 H 27 H ABG O2 Saturation 94 99 H 95 ABG Base Excess 3 4 H 2 VBG pH VBG pCO2 VBG pO2 VBG Base Excess 02/06/25 02/06/25 02/07/25 04:50 09:19 04:55 ABG pH 7.27 L D 7.30 L 7.45 D ABG pCO2 51 H 46 33 D ABG pO2 69 L 70 L 88 ABG HCO3 23 23 23 ABG O2 Saturation 92 93 98 ABG Base Excess -4 L -4 L -1 VBG pH VBG pCO2 VBG pO2 VBG Base Excess Quality Measures Quality Measures sepsis Current suspected stage: septic shock (LA >4 and/or hypotension) Sepsis reassessment completed at (date): 02/07/25 Sepsis reassessment completed at (time): 16:00 Possible source: genitourinary Blood cultures ordered: yes Antibiotic ordered: Yes Advance care planning discussed with:: patient Assessment & Plan Assessment Current Active Medications: Generic Name Dose Route Start Last Admin Trade Name Freq PRN Reason Stop Dose Admin Acetaminophen 650 mg 02/03/25 07:33 Acetaminophen Supp 650 Mg Supp PA 03/05/25 07:32 Q4HR PRN PAIN SCALE 1-3 (mild Heparin Sodium (Porcine) 3,000 unit 02/04/25 10:06 02/07/25 12:20 Heparin Sod Inj 1000 Unit/Ml Vial 10 Ml INDWELLCAT 02/18/25 10:05 3,000 unit PRN PRN Administration HD catheter Hydrocortisone Sodium Succinate 50 mg 02/06/25 21:00 02/07/25 08:37 Hydrocortisone Sod Succ Inj 100 Mg 2 Ml Vial IV 03/08/25 20:59 50 mg Q12HR JAYRO Administration Norepinephrine/Dextrose 8 mg in 250 mls @ 5.606 mls/hr 02/03/25 06:02 02/07/25 15:56 Levophed In D5w 8mg/250ml IV 03/05/25 06:01 0.01 mcg/kg/min .Q24H PRN 1.121 mls/hr PER PROTOCOL Titration Protocol 0.05 MCG/KG/MIN Dexmedetomidine/Sodium Chloride 400 mcg in 100 mls @ 2.99 mls/hr 02/03/25 06:51 02/07/25 10:28 Precedex Ivpb IV 03/05/25 06:50 0 mcg/kg/hr .Q24H PRN 0 mls/hr Per PROTOCOL Titration Protocol 0.2 MCG/KG/HR Piperacillin/Tazobactam/Dextrose 2.25 gm in 50 mls @ 100 mls/hr 02/03/25 12:00 02/07/25 13:00 Zosyn IV 02/10/25 11:59 100 mls/hr Q6HR JAYRO Administration Fentanyl Citrate 2,500 mcg in 250 mls @ 2.5 mls/hr 02/03/25 15:27 02/07/25 09:17 Sublimaze Inj 2,500 Mcg/250 Ml Bag IV 02/08/25 15:26 0 mcg/hr .Q24H PRN 0 mls/hr PER PROTOCOL Titration Protocol 25 MCG/HR Vasopressin/Sodium Chloride 20 unit in 100 mls @ 9 mls/hr 02/03/25 16:15 02/07/25 15:00 Vasostrict/Ns Ivpb IV 03/05/25 16:14 0.03 unit/min .Q11H7M PRN 9 mls/hr PER PROTOCOL Titration Protocol 0.03 UNIT/MIN Albumin Human 25 gm in 100 mls @ 100 mls/min 02/07/25 09:53 02/07/25 09:55 Albuminar-25 Ivpb IV 100 mls/min PRN PRN Administration DIALYSIS Midazolam HCl 2 mg 02/05/25 07:32 02/06/25 02:22 Midazolam Inj 1 Mg/Ml Vial 2 Ml IVP 02/10/25 07:31 2 mg Q4H PRN Administration AGITATION OR ANXIETY Ondansetron HCl 4 mg 02/03/25 02:03 Ondansetron Inj 2 Mg/Ml Inj 2 Ml IVP 03/05/25 02:02 Q6HR PRN NAUSEA OR VOMITING Protocol Pantoprazole Sodium 40 mg 02/03/25 09:00 02/07/25 08:36 Pantoprazole Inj 40 Mg Vial IVP 03/05/25 08:59 40 mg QDAY JAYRO Administration Pharmacy Consult 1 each 02/03/25 02:03 Pharmacy Renal Dose Adjustment 1 Ea XX 03/05/25 02:02 PRN PRN CONSULT Plan 69-year-old female with unknown past medical history was brought to the hospital in view of altered sensorium. Per nurse, patient probably had a fall the day before admission in the morning following which she was okay until the neighbors blood to recheck her in the evening, found to be unconscious for which they called the EMS and was brought to the hospital. In the ED, patient is minimally responsive with marked icterus and periorbital contusion. Patient was found to be hypoxic with oxygen saturation in the mid 80s and was initially placed on a nonrebreather mask with correction of hypoxia. Later patient was found to be tachycardic with heart rate around 140s and febrile with a temperature of 105.8 ?F. Patient was intubated in view of acute encephalopathy and hypoxia. ICU is consulted in view of acute hypoxic respiratory failure in the setting of acute encephalopathy and suspected septic shock. 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 Could be possible cause of septic encephalopathy - Hepatic encephalopathy. Patient has stigmata of chronic liver failure. Icterus, appears chronically ill, ascites. - Metabolic encephalopathy: Patient was found to have high anion gap metabolic acidosis with lactic acidosis at the time of presentation. -Sedation: Patient received rocuronium and propofol for the intubation. In the setting of the liver failure, there will be decreased platelets that could cause the sedation but patient was noted to be in altered sensorium even before coming to the hospital. So less likely the cause of acute encephalopathy Diagnosis: - In the ED, temperature is 105.8 ?F - Labs showed bicarb less than 10, anion gap 22, lactic acid 15, total bilirubin 15.9, AST 241, ALT 58 - CT head did not show any evidence of fracture/hemorrhage. Plan: - Started on empiric antibiotics, Zosyn 2.25 g every 8 hourly [02/03- - Started on lactulose 30 g 3 times daily and increased to 45 g 3 times daily as of 02/04/2025, rifaximin 550 Mg twice daily, held as of 02/05/2025 as patient developed ischemic colitis - Currently on Precedex and fentanyl drip, will wean off if patient becomes hemodynamically stable and underlying condition is improving - For metabolic acidosis, patient was given multiple doses of bicarb despite which patient remained acidotic and was started on CRRT and was stopped on 02/04/2025 around 7PM CVS # Shock Differential diagnosis: Distributive versus hypovolemic versus obstructive versus cardiogenic - Distributive: Likely sepsis. Patient does not have any hives or airway edema which rules out anaphylaxis. Patient was noted to have temperature of 105.8 ?F with E.coli bacteremia. - Hypovolemic: History is unknown. No evidence of any recent severe GI bleed or active bleeding noted. - Obstructive versus cardiogenic:. Bedside echocardiogram was done and heart appears to be hyperdynamic without any evidence of cardiac tamponade or RV strain Diagnostic test: - Patient was found to have low MAP less than 65 mmHg despite fluid resuscitation - In the ED, temperature is 105.8 ?F - Labs showed bicarb less than 10, anion gap 22, lactic acid 15, total bilirubin 15.9, AST 241, ALT 58 - Procalcitonin is 7.47 - Blood cultures showed Gram negative bacteremia, E.coli bacteremia Plan: - Started on Zosyn [02/03- - 2.5 L of bolus was given in the ED - NICOM done at the bedside showed unresponsiveness to the fluid - Started on Levophed and vasopressin in view of low MAP - Started on albumin 25 g IV every 6 hourly, stopped as of 02/06/2025, will restart if needed - Arterial line is placed to measure blood pressure accurately - Patient was given a dose of hydrocortisone 100 mg and started on Hydrocortisone 50mg IV every 6th hrly on 02/03 --> changed to every 12th hrly as of 02/06/2025 # Sinus tachycardia, resolved - At the time of admission, patient was found to have pulse rate of 138 - EKG showed sinus tachycardia with no ST and T wave changes - Likely in response to the febrile episode. Later as patient is started on levophed, found to be tachycardic which is likely due to vasopressors Plan: - Patient was given 2.5 L of IV fluid bolus - Will continue telemetry monitoring # Elevated troponins, downtrended Likely in the setting of demand ischemia -Troponin at the time of admission is 0.077, later downtrended - EKG showed sinus tachycardia with no ST and T wave changes - Will continue Telemetry monitoring - Very low suspicion of ACS at this point of time Respiratory # Acute hypoxic respiratory failure Likely multifactorial, in the setting of Acute encephalopathy and Sepsis - Patient came in with altered sensorium and found aline having mixed metabolic and respiratory acidosis - ABG at the time of admission is pH 7.25, pCO2 18, HCO3 8 - Patient is intubated in the ED for which she received Rocuronium and propofol Plan - Will continue mechanical ventilation - Will treat the underlying sepsis and shock - On precedex and fentanyl drip, trying to wean her off. GI # Decompensated Cirrhosis with Ascites, 2/2 Alcohol # Hyperbilirubinemia # Hypoalbuminemia - Patient came in altered sensorium and couldnt get much history - Noted icterus and abdominal distension at the time of admission - Labs showed hyperbilirubinemia, 15.9, AST 241, ALT 58, albumin 2.5, INR 1.8 - Noted to have previous history of hemorrhoids - CT Abdomen showed cirrhosis with ascites - MELD score is 29, 27 to 32% mortality in the next 90 days - Child class C Plan - Ordered hepatitis panel, came back negative - Patient appears to have poor prognosis in the setting of high MELD score and Trista class C - If the patient improves after this acute setting, will recommend to follow-up for the liver transplant. - Started octreotide drip at the time of admission on 02/03 and stopped on 02/05/2025 # Transaminitis - At the time of admission, AST is 241, ALT is 58 --> 02/06, AST 1084, ALT 360 -->02/07, 872, 332 - Repeat liver panel showed significant elevations transaminase levels to 696, 145 and uptrended to 2385 and 474, downtrended to 835, 250 as of 02/05/2025 as of 02/05/2025 - Likely patient had ischemic hepatitis in the setting of ongoing shock Plan - Patient is on CRRT in view of multiorgan dysfunction from 02/03/2025 - 02/04/1025 for about more than 20hours - Will continue to monitor liver enzymes # Hypoalbuminemia - Albumin at the time of admission is 2.5 - Patient was given 50 g of albumin at the time of admission Plan - Patient is on 25 g albumin IV every 6 hourly, 02/03 - 02/06 - Will restart as needed # Incidental finding, numerous liver masses noted on CT abdomen/pelvis - Patient was noted to have numerous liver lesions, subcentimeter masses on CT abdomen/pelvis done at the time of admission - Could be possible malignancy in the setting of cirrhosis - Tested negative for CEA, Alpha fetoprotein Plan - CT abdomen/pelvis with contrast on 02/05/2025 that showed - liver is replaced with numerous subcentimeter liver lesions # Suspected ischemic colitis - Patient was found to have abdominal distention with high peak pressures noted on the ventilator on 02/05/2025 - OG tube was connected to the low intermittent suction and was found to have 2.5 L of fluid - Also noted to have lactate elevation from 5.1-6.3 Plan - CT abdomen/pelvis was done that showed ischemic bowel, right colon, air droplets in the wall of the bowel and projecting outside the wall of the right colon - Also abnormal small bowel loops fluid distended with wall thickening is noted - General Surgeon, Dr. Rocha is consulted and he recommended no surgical intervention as of now in view of patient's clinical condition and severe coagulopathy in the setting of ongoing sepsis and severe liver failure Renal # Acute kidney injury - Baseline creatinine is 0.6 - Creatinine at the time of admission is 1.4 and patient appears to be anuric with urine output less than 50 mL in the last 24 hours - Repeat renal functions as of 02/05/2025 showed BUN 5, Cr 1 - Likely in the setting of ongoing shock, HRS cannot be ruled out at this time as the patient is having shock Plan - Dialysis catheter was placed in the right femoral vein - Operations Chief, Dr. Steward is consulted and Received CRRT on 02/03 - 02/04 - Urine electrolytes sent, FeNa is 0.5 --> Likely prerenal in the setting of Shock - Conventional HD as of 02/06/2025, 02/07/2025 - Will continue to monitor renal functions and renally dose medications # High anion gap metabolic acidosis, resolved # Lactic acidosis, resolving - Likely in the setting of ongoing shock and multiorgan dysfunction - Found to have bicarb less than 10, anion gap 22, lactate 15 at the time of admission --> 02/06, 3.9 Plan - Patient was given 2 doses of bicarb at the time of admission - Patient received CRRT - Despite CRRT patient appears to have uptrending lactate for which CT abdomen/pelvis is done and revealed ischemic colitis - Dr. Rocha is consulted and he recommended he might perform surgery tomorrow if the coagulation and platelet count is corrected - Will continue to monitor renal functions and trend lactate # Mild hyponatremia, resolved - Sodium at the time of the admission is 133 likely in the setting of chronic liver disease and ongoing HIRA - Sodium levels as of 02/05/1025 is 139 Plan - Will monitor sodium levels and treat accordingly # Hypomagnesemia, resolved - Magnesium at the time of admission is 1.4, likely nutritional in the setting of suspected chronic liver disease - Magnesium as of today is 2.4 Plan - Will continue to monitor the magnesium levels Hematology # Thrombocytopenia - Platelets at the time of admission is 61,000 but patient does not appear to be actively bleeding at this point of time - Likely in the setting of sepsis and chronic liver disease - Platelets on 02/04/2025 is 16,000 --> 02/05, 22,000 --> 02/06, 20,000 Plan - 1 platelet transfusion is given on 02/04 - Transfused 1 unit of platelets on 02/06 - Will continue to monitor the platelet count and bleeding manifestations # Anemia - Hemoglobin at the time of admission is at 10.9, but her baseline hemoglobin is around 8, the hemoglobin in the admission could be due to some hemoconcentration - Hemoglobin on 02/04/2025 is 6.9, repeat hemoglobin is 6.4 - Monitor could be multifactorial, likely in the setting of multiple build with the dose and correction of hemoconcentration, suspicion of possible DIC - Hb as of 02/05 is 7.1 --> 02/06, 10.2 Plan - 2 PRBC transfusion given on 02/04 - Started on 2 PRBC transfusion on 02/05 - Will repeat H&H after the transfusion # Coagulopathy - INR at the time of admission is 1.8 - INR on 02/04/2025 is 4.7 ---> 2.2 on 02/05 --> 02/06, 3.4 - Likely multifactorial in the setting of sepsis, decompensated liver disease, suspected possible DIC - Currently patient does not noted to have any active bleeding manifestations Plan - Ordered 4 FFP's on 02/04 and 3 FFP's are transfused - Each bag contains 300 mL and patient weighs around 60 kg - Per calculation, patient needs 15 mL/kg-so patient needs 900 mL of FFP's - 1 FFP is transfused on 02/06 - Will repeat coagulation studies # Suspected DIC - Likely multifactorial in the setting of liver disease, sepsis - Patient might be having coagulopathy from the liver disease, completely cannot be ruled out but as the patient developing worsening INR, low platelet count, anemia, suspecting DIC Plan - Fibrinogen levels are ordered - 116 on 02/04, 92 on 02/05 - Patient received 2 PRBC, 3 FFP, 1 Platelet on 02/04 - 2 PRBC, 1 FFP, 1 platelet transfusion, 6 Cryoprecipitates are ordered on 02/05, received all of them except 2prbc on 02/06 - Will repeat CBC and coagulation studies after the transfusions - Will continue to monitor for bleeding manifestations and we will try to treat the underlying condition. ID # Sepsis - Blood cultures showed GNR bacteremia, E.coli Plan - Started on Zosyn, sensitive on cultures - Will wait for final cultures Musculoskeletal # No active problems as of now Endocrinology # No acute problems as of now Hospital Maintenance: Dispo: ICU for septic shock DVT ppx: SCD GI ppx: Protonix Diet: npo IV lines: Right IJV CENTRAL line, Right femoral arterial and dialysis catheter Code status: Full Patient plan of care was discussed with the Access Services Representative Dr. Aurelia Leslie, PGY2 Attending Provider Attestation/Addendum Patient seen and examined this with resident team. In brief this is a unfortunate 69-year-old female with cirrhosis and septic shock. She has an E. coli bacteremia. She is currently on Zosyn. There has been no significant change in her physical exam. Her abdomen remains firm though perhaps slightly less than yesterday. She still has no bowel movements. She remains on low intermittent suction however no significant drainage noted. She is on fentanyl and Precedex for sedation. The fentanyl will be stopped today. Have discussed with surgery for possible OR for the ischemic bowel. She is on hemodialysis today for assistance with clearance of the lactic acid. Platelets, FFP's, PRBCs and cryo will be ordered if the patient is were OR. Still unable to find anybody for decision making. The patient will be referred to ethics committee on Monday. She remains on vasopressors though significantly less than previously. Case discussed with ICU team, surgery and social work Labs, imaging and records reviewed Approximately 40 critical care minutes required evaluation, exam, review, intervention, discussion formulation of plan of care for his critically ill patient with cirrhosis, shock and acute respiratory failure at high risk for further ongoing decompensation.
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
--- NOTE | 2025-02-07 17:37 | PC.SS ---
SS follow up note; SS followed up with [facility] in regards to obtaining next of kin, they informed SS that her , Maico Camara was listed as emergency contact.
[2025-02-07 17:38] LABS: Basophils # (Auto) 0.0 Thou/mm3 (0.0-0.2); Basophils % (Auto) 1 % (0-2.5); Eosinophils # (Auto) 0.0 Thou/mm3 (0.0-0.5); Eosinophils % (Auto) 0 % (0-10); Hematocrit 32.3 % (36.0-46.0); Hemoglobin 10.7 g/dL (12.0-16.0); Immature Granulocytes Auto 0.06 Thou/mm3 (0.00-0.00); Lymphocytes # (Auto) 0.4 Thou/mm3 (1.0-4.8); Lymphocytes % (Auto) 8 % (10-50); Mean Corpuscular HGB Conc 33.1 g/dl (31.0-37.0); Mean Corpuscular Hemoglobin 31.4 pg (25.0-35.0); Mean Corpuscular Volume 95 fL (80-100); Monocytes # (Auto) 0.5 Thou/mm3 (0.0-0.8); Monocytes % (Auto) 10 % (0-12); Neutrophils # (Auto) 3.9 Thou/mm3 (1.8-7.7); Neutrophils % (Auto) 81 % (37-80); Nucleated Red Blood Cell # 0.00 Thou/mm3 (0.00-0.00); Nucleated Red Blood Cell % 0 /100 WBC (0); RDW Standard Deviation 87.6 fL (36.4-46.3); Red Blood Count 3.41 Miln/mm3 (4.00-5.20); White Blood Count 4.8 Thou/mm3 (3.6-11.0)
[2025-02-07 17:44] LABS: Platelet Count 22 Thou/mm3 (140-440)
[2025-02-07 17:54] LABS: Alanine Aminotransferase 305 U/L (10-49); Albumin, Serum 3.7 gm/dL (3.4-4.8); Albumin/Globulin Ratio 1.7 (1.2-2.2); Alkaline Phosphatase 57 U/L (46-116); Anion Gap 13 (7-16); Aspartate Amino Transferase 742 U/L (0-34); BUN/Creatinine Ratio 7 Ratio (12-20); Blood Urea Nitrogen 12 mg/dL (9-23); Calcium 8.8 mg/dL (8.3-10.6); Calcium (Corrected) 9.0 mg/dL (8.5-10.1); Carbon Dioxide 25.9 mMol/L (20.0-31.0); Chloride 95 mMol/L (98-107); Creatinine (Component) 1.7 mg/dL (0.6-1.3); Estimated Creatinine Clearance 25.8 mL/min (>60); Globulin 2.2 gm/dL (2.3-3.5); Glucose 101 mg/dL (74-106); Osmolality,Calculated 267 (275-295); Potassium 4.0 mMol/L (3.4-5.1); Sodium 134 mMol/L (136-145); Total Protein 5.9 gm/dL (5.7-8.2); eGFR 32 See Note
[2025-02-07 17:57] LABS: Bilirubin,Total 19.6 mg/dL (0.3-1.2); Slide Review Platelets confirmed
[2025-02-07 18:32] LABS: Reflex Lactate? Y
[2025-02-07] MEDS: DEXMEDETOMIDINE 400 MCG IVPB 400 MCG/100 ML BAG IV (18:39)
--- NOTE | 2025-02-07 19:07 | ESPR_ITS ---
Documentation for date of: 02/07/25 Subjective Subjective Brief History: Patient has been admitted with respiratory failure and intubated and she has been in septic shock. Patient also was requiring vasopressors to keep her blood pressure. She is not perfusing and has no urine output. Patient has a history of cirrhosis and ascites Narrative: The patient's general condition is essentially unchanged. She is still not able to show much improvement in her renal functions or urine output. Exam Vital Signs Temp Pulse Resp BP Pulse Ox O2 Del Method O2 Flow Rate 98.2 F 62 24 H 87/59 L 94 L Mechanical Ventilation 11 02/07/25 16:00 02/07/25 18:26 02/07/25 18:00 02/07/25 18:26 02/07/25 18:26 02/07/25 18:00 02/06/25 07:07 FiO2 35 02/07/25 18:26 Her vital signs are surprisingly stable even though she requires vasopressors Routine Abdominal Exam Comments: Abdominal examination shows this to be soft rather than distended Results Results: Laboratory Laboratory Narrative: Laboratory workup showed continued thrombocytopenia and DIC like picture with prolonged prothrombin time. Results: Imaging Imaging narrative: Chest x-ray shows left base pneumonia Assessment & Plan Assessment Additional comments: Impression: Continued septic shock with significant abnormal coagulation problem Plan Plan: If we can correct the coagulation problem including the low platelets I may be able to explore her to rule out any ischemia of the colon. I doubt that the eventual prognosis is going to be any different but we could rule out intra- abdominal pathology.
[2025-02-07 20:28] LABS: Lactic Acid, 3 HR 4.4 mMol/L (0.4-2.0)
[2025-02-07 20:42] LABS: Fibrinogen 133 mg/dL (175-375)
[2025-02-07 23:53] LABS: Lactate (Lactic Acid) 4.0 mMol/L (0.4-2.0)
[2025-02-08] VITALS (109 sets, daily range): BP systolic 76–198; BP diastolic 22–87; PULSE 55–71; RESP 17–31; TEMP 35.7–36.4; O2SAT 93–100; BMI 28.6
[2025-02-08 02:17] LABS: Lactate (Lactic Acid) 3.7 mMol/L (0.4-2.0)
[2025-02-08 02:45] LABS: Reflex Lactate? Y
[2025-02-08 04:16] LABS: Base Excess 2 (-3-3); HCO3 27 mEq/L (20-26); Inspired Oxygen, FIO2 21 %; O2 Saturation 94 % (91-98); PCO2 45 mmHg (32.0-48.0); PO2 73 mmHg (83-108); pH, Arterial 7.39 (7.35-7.45)
[2025-02-08 04:18] LABS: Allen Test Performed/OK; Puncture Site Arterial Line
--- NOTE | 2025-02-08 05:00 | XR_ITS ---
Examination: AP chest single view Technique one AP portable semiupright chest single view Date and time: February 08, 2025, 0745 hrs., Comparison February 07, 2025 Indications: History left lung atelectasis hypoxic respiratory failure. Findings: Mild heart failure. Enlarged cardiac contour with prominent vascular congestion and perihilar edema Left base pneumonia and atelectasis Right internal jugular central line tip satisfactory position Endotracheal tube tip 3.5 cm above marzena. Orogastric tube satisfactory position Impression: There remains atelectasis and pneumonia left base
[2025-02-08 05:15] LABS: Reflex Lactate? Y
[2025-02-08] MEDS: PIPER/TAZO 2.25 GM 2.25 GM/50 ML BAG IV ×4 (05:17→23:33)
[2025-02-08 05:44] LABS: Lactic Acid, 3 HR 3.8 mMol/L (0.4-2.0)
[2025-02-08 05:56] LABS: Basophils # (Auto) 0.1 Thou/mm3 (0.0-0.2); Basophils % (Auto) 1 % (0-2.5); Eosinophils # (Auto) 0.0 Thou/mm3 (0.0-0.5); Eosinophils % (Auto) 0 % (0-10); Hematocrit 32.9 % (36.0-46.0); Hemoglobin 11.1 g/dL (12.0-16.0); Immature Granulocytes Auto 0.15 Thou/mm3 (0.00-0.00); Lymphocytes # (Auto) 0.4 Thou/mm3 (1.0-4.8); Lymphocytes % (Auto) 4 % (10-50); Mean Corpuscular HGB Conc 33.7 g/dl (31.0-37.0); Mean Corpuscular Hemoglobin 32.2 pg (25.0-35.0); Mean Corpuscular Volume 95 fL (80-100); Monocytes # (Auto) 0.7 Thou/mm3 (0.0-0.8); Monocytes % (Auto) 7 % (0-12); Neutrophils # (Auto) 8.5 Thou/mm3 (1.8-7.7); Neutrophils % (Auto) 86 % (37-80); Nucleated Red Blood Cell # 0.00 Thou/mm3 (0.00-0.00); Nucleated Red Blood Cell % 0 /100 WBC (0); RDW Standard Deviation 87.0 fL (36.4-46.3); Red Blood Count 3.45 Miln/mm3 (4.00-5.20); White Blood Count 9.9 Thou/mm3 (3.6-11.0)
[2025-02-08 06:03] LABS: Platelet Count 28 Thou/mm3 (140-440)
[2025-02-08] MEDS: VASOPRESSIN IN NS IVPB 20 UNIT/100 ML BAG 9 UNIT IV ×2 (06:12→18:55)
[2025-02-08 06:20] LABS: Slide Review Platelets confirmed
[2025-02-08 06:36] LABS: Alanine Aminotransferase 291 U/L (10-49); Albumin, Serum 3.5 gm/dL (3.4-4.8); Albumin/Globulin Ratio 1.3 (1.2-2.2); Alkaline Phosphatase 70 U/L (46-116); Anion Gap 16 (7-16); Aspartate Amino Transferase 635 U/L (0-34); BUN/Creatinine Ratio 10 Ratio (12-20); Blood Urea Nitrogen 23 mg/dL (9-23); Calcium 8.9 mg/dL (8.3-10.6); Calcium (Corrected) 9.3 mg/dL (8.5-10.1); Carbon Dioxide 23.8 mMol/L (20.0-31.0); Chloride 94 mMol/L (98-107); Creatinine (Component) 2.2 mg/dL (0.6-1.3); Estimated Creatinine Clearance 20.0 mL/min (>60); Globulin 2.6 gm/dL (2.3-3.5); Glucose 120 mg/dL (74-106); Osmolality,Calculated 272 (275-295); Potassium 4.5 mMol/L (3.4-5.1); Sodium 134 mMol/L (136-145); Total Protein 6.1 gm/dL (5.7-8.2); eGFR 24 See Note
[2025-02-08 07:11] LABS: Bilirubin,Total 21.2 mg/dL (0.3-1.2)
[2025-02-08] MEDS: HYDROCORTISONE SOD SUCC INJ 100 MG 2 ML VIAL 50 MG IV ×2 (08:08→21:02)
[2025-02-08 08:57] LABS: INR 3.0 (0.9-1.3); Partial Thromboplastin Time 52.2 Seconds (22.0-36.0)
[2025-02-08 09:00] LABS: Prothrombin Time 30.8 Seconds (9.0-12.2)
--- NOTE | 2025-02-08 10:40 | XR_ITS ---
Examination: CT brain head without contrast. 2-D sagittal coronal reconstructions Date and time of exam:February 08, 12:01 PM Indications: Septic shock, hypoxic respiratory failure with altered mental status today CTDI: vol (mGy):48.3 DLP: (mGycm):929 Technique: Multiple CT axial sections of the brain have been obtained, 5 mm slice thickness. Contrast has not been administered. 2-D sagittal, coronal reconstructions have been obtained Low dose protocols were performed. One or more of the following dose reduction techniques were used; automated exposure control, adjustment of the mA and/or KV according to patient size, use of iterative reconstruction technique. Findings: No significant ventricular enlargement. Intra-axial or extra-axial hemorrhage density is not seen. No mass effect or midline shift Basal cisterns are not remarkable. Fourth ventricle is midline. Cranial vault intact. Impression: Negative for acute hemorrhage, mass effect or midline shift No generalized cerebral edema noted Brain MRI follow-up would best assess for anoxic or ischemic change
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
--- NOTE | 2025-02-08 11:32 | PD.RESPRO ---
Documentation for date of: 02/08/25 Subjective Subjective Interval history: hx per chart review: Ms. Merino is a 69 yo woman with unknown past medical history, who was found down at 1 am by her neighbor, she was unresponsive and with head strike, facial contusions and fractured teeth noted, she was brought to the ED, where she had altered mental status, was febrile to 105. Pt became increasingly lethargic and obtunded. Pt was assessed by the night IM team, who described her as ill-appearing, minimally responsive, with marked jaundice and right periorbital contusion. Initial labs notable for severe metabolic acidosis (pH 7.25, HCO3 8, AG 22, lactate 15), hyperbilirubinemia (15.9), transaminitis, coagulopathy (INR 1.8), HIRA (Cr 1.4 from baseline 0.7), and UA with pyuria and bacteriuria. Blood and urine cultures sent; patient started on broad-spectrum antibiotics. . CT head, cervical spine, and chest/abdomen/pelvis are pending, as is repeat ABG. Also gallbladder ultrasound still pending to rule in rule out acute cholangitis. ED gave 2.5 L fluids, and intubated pt. SHe was started on pressors, central line was placed and admitted to the ICU. ECHO demonstrated hyper dynamic LV wo pericardial effusion. SvO2 was sent off of the brown port from the central line and pt was given vanc/zosyn. A cheeta was placed for hemodynamics and PLR performed. pt was found to not be fluid responsive. There are no family available for additional information. pts s/o 2 months ago and there is no immediate family around. Interval History 02/03/2025 Nephrology consulted. Pt seen and examined at bedside in ICU. Pt with UE in restraints, severely jaundiced, sclera icteric, with + fluid wave. is intubated. R IJ and R fem line, art line with SBPs 140s. Pt on nor epi and vasopressin. Lactic acidosis uptrended to 18. Cr 2.1, egfr 25. AGMA. cirrhosis with shock liver, hep panel negative, UTI, on vanc and zosyn. Plan for CRRT today. 02/04/2025: patient seen and examined in ICU. Pt with BUE in restraints. jaundiced, remaines intubated. RIJ and R fem line, art line with SBP 110s. Pt remains on pressors, however have been weaned. Lactic acidosis downtrending to 6.4. Cr 0.9, egfr >60. AGMA, LFTs continue to uptrend in setting of shocked liver. UTI continues on vanc and zosyn. CRRT continues. 02/05/2025: Patient seen and examined in ICU. pt with BUE restraints, jaundiced, remains intubated, RIJ, and R fem line, art line with sbp SBP 70s. Pt remains on pressors. Lactic acidosis 6.3 from 5.1 uptrending. LFT downtrending AST 1363. Mag and Phos are low. No HD today 02/06/2025: Patient seen and examined in ICU. pt with BUE restraints, jaundiced, remains intubated. Art line with sbp 100s, pt remains on pressors. Lactic acidL 5.6 from 7.1, LFT now uptrending, shock liver worsening T bili 18.K 5.8, BUN 11, Cr 1.8. CTAP with ischemic bowel, not a surgical candidate given coagulopathy and pressor requirement, per Dr. Serrano. Plan for conventional HD today 02/07/2025: No overnight events. Patient seen and examined at bedside; she remains intubated and is showing more signs of edema and has not made any urine. Notable labs today include: Hgb 10.4, platelet count 25, PT 29.2, INR 2.9, APTT 46.4, Na 134, creatinine bump to 1.9 from 1.2, eGFR drop to 28 from 49, lactic acid bump to 5.0 from 3.9, total bilirubin drop to 17.8 from 18.6, AST drop to 877 from 1049, ALT drop to 332 from 360. CXR today showed mild heart failure and left base pneumonia. From nephrology's standpoint, patient will be receiving HD today. 02/08/2025: No overnight events. Patient seen and examined at bedside; she remains intubated and still has not made any urine. She is also noted to be jaundiced. Notable labs today include: Hemoglobin 11.1, platelet count bump to 28 from 22, critically elevated PTT 30.8, INR 3.0, APTT 52.2, BUN bump to 23 from 12, creatinine bump to 2.2 from 1.7, lactic acid drop to 3.8 from 4.0, total bilirubin bump to 21.2 from 19.6, AST dropped to 635 from 742, and ALT drop to 291 from 305. A meeting was held this morning with patient's landlord and another tenant who will act as her representatives for decision making. From nephrology's standpoint, patient will be taking a break from hemodialysis today. Exam Vital Signs Temp Pulse Resp BP Pulse Ox O2 Del Method O2 Flow Rate 96.8 F 58 L 24 H 90/63 96 Mechanical Ventilation 11 02/08/25 08:00 02/08/25 11:15 02/08/25 11:15 02/08/25 11:15 02/08/25 11:15 02/08/25 08:00 02/06/25 07:07 FiO2 40 02/08/25 10:34 Narrative Exam GENERAL: Generally edematous. pt intubated with UE in restraints, no acute distress. HEENT: Head AT/ NC. Mucous membranes moist. eyes icteric, R central line NECK: Supple, no lymphadenopathy, no carotid bruits. CARDIOVASCULAR: RRR. Normal S1/S2, No m/r/g. No pitting edema of bilateral LEs. RESPIRATORY: intubated on mechanical ventilation. lungs with crackles bilaterally GASTROINTESTINAL: Abdomen tense, and distended no palpable masses. Bowel sounds hypoactive, + fluid wave mildly distended , right fem cath Extremitis: BLE with mottling on upper thighs. MUSCULOSKELETAL:? No cyanosis or edema, no visible joint swelling. LE warm to touch, pulses palpable , UE with restraints, SCDs in place NEUROLOGICAL: unable to assess neuro fxn pt intubated SKIN: No obvious rashes, jaundice, normal turgor. Objective Labs 02/08/25 16:19 02/08/25 16:19 Labs: Laboratory Results - last 24 hr 02/07/25 02/07/25 02/07/25 13:55 17:26 19:34 WBC 4.8 RBC 3.41 L Hgb 10.7 L Hct 32.3 L MCV 95 MCH 31.4 MCHC 33.1 RDW Std Deviation 87.6 H Plt Count 22 L* Neut % (Auto) 81 H Lymph % (Auto) 8 L [place] % (Auto) 10 Eos % (Auto) 0 Baso % (Auto) 1 Neut # (Auto) 3.9 Lymph # (Auto) 0.4 L [place] # (Auto) 0.5 Eos # (Auto) 0.0 Baso # (Auto) 0.0 Immature Gran # (Auto) 0.06 H Absolute Nucleated RBC 0.00 Immature Gran % 1 H Nucleated RBC % 0 PT INR APTT Fibrinogen 133 L Puncture Site ABG pH ABG pCO2 ABG pO2 ABG HCO3 ABG O2 Saturation ABG Base Excess FiO2 Sodium 134 L Potassium 4.0 D Chloride 95 L Carbon Dioxide 25.9 Anion Gap 13 BUN 12 Creatinine 1.7 H Estim Creat Clear Calc 25.8 L eGFR 32 L BUN/Creatinine Ratio 7 L Glucose 101 Calculated Osmolality 267 L Lactic Acid 3.4 H 4.4 H* Calcium 8.8 Corrected Calcium 9.0 Total Bilirubin 19.6 H* D AST 742 H* ALT 305 H Alkaline Phosphatase 57 Total Protein 5.9 Albumin 3.7 Globulin 2.2 L Albumin/Globulin Ratio 1.7 Misc Test Result Platelets confirmed Blood Type O Positive Antibody Screen NEGATIVE Blood Bank Wristband ID Yes Blood Bank Comment PLATP Ready 02/07/25 02/08/25 02/08/25 23:17 02:00 04:10 WBC RBC Hgb Hct MCV MCH MCHC RDW Std Deviation Plt Count Neut % (Auto) Lymph % (Auto) [place] % (Auto) Eos % (Auto) Baso % (Auto) Neut # (Auto) Lymph # (Auto) [place] # (Auto) Eos # (Auto) Baso # (Auto) Immature Gran # (Auto) Absolute Nucleated RBC Immature Gran % Nucleated RBC % PT INR APTT Fibrinogen Puncture Site Arterial Line ABG pH 7.39 ABG pCO2 45 D ABG pO2 73 L ABG HCO3 27 H ABG O2 Saturation 94 ABG Base Excess 2 FiO2 21 Sodium Potassium Chloride Carbon Dioxide Anion Gap BUN Creatinine Estim Creat Clear Calc eGFR BUN/Creatinine Ratio Glucose Calculated Osmolality Lactic Acid 4.0 H 3.7 H Calcium Corrected Calcium Total Bilirubin AST ALT Alkaline Phosphatase Total Protein Albumin Globulin Albumin/Globulin Ratio Misc Test Result Blood Type Antibody Screen Blood Bank Wristband ID Blood Bank Comment 02/08/25 05:20 WBC 9.9 D RBC 3.45 L Hgb 11.1 L Hct 32.9 L MCV 95 MCH 32.2 MCHC 33.7 RDW Std Deviation 87.0 H Plt Count 28 L* D Neut % (Auto) 86 H Lymph % (Auto) 4 L [place] % (Auto) 7 Eos % (Auto) 0 Baso % (Auto) 1 Neut # (Auto) 8.5 H Lymph # (Auto) 0.4 L [place] # (Auto) 0.7 Eos # (Auto) 0.0 Baso # (Auto) 0.1 Immature Gran # (Auto) 0.15 H Absolute Nucleated RBC 0.00 Immature Gran % 2 H Nucleated RBC % 0 PT 30.8 H* INR 3.0 H APTT 52.2 H Fibrinogen Puncture Site ABG pH ABG pCO2 ABG pO2 ABG HCO3 ABG O2 Saturation ABG Base Excess FiO2 Sodium 134 L Potassium 4.5 D Chloride 94 L Carbon Dioxide 23.8 Anion Gap 16 BUN 23 Creatinine 2.2 H D Estim Creat Clear Calc 20.0 L eGFR 24 L BUN/Creatinine Ratio 10 L Glucose 120 H Calculated Osmolality 272 L Lactic Acid 3.8 H Calcium 8.9 Corrected Calcium 9.3 Total Bilirubin 21.2 H* D AST 635 H* ALT 291 H Alkaline Phosphatase 70 D Total Protein 6.1 Albumin 3.5 Globulin 2.6 Albumin/Globulin Ratio 1.3 Misc Test Result Platelets confirmed Blood Type Antibody Screen Blood Bank Wristband ID Blood Bank Comment ABG Interpretation ABG results: 02/03/25 02/03/25 02/03/25 02:47 06:09 07:19 ABG pH 7.25 L 7.00 L* D 7.18 L* D ABG pCO2 18 L* 63 H D 49 H D ABG pO2 192 H 149 H D 168 H ABG HCO3 8 L* 15 L 18 L ABG O2 Saturation 100 H 98 99 H ABG Base Excess -17 L -16 L -10 L VBG pH VBG pCO2 VBG pO2 VBG Base Excess 02/03/25 02/03/25 02/03/25 07:30 13:32 20:35 ABG pH 7.30 L D 7.25 L ABG pCO2 23 L D 23 L ABG pO2 159 H 145 H ABG HCO3 12 L 10 L ABG O2 Saturation 100 H 100 H ABG Base Excess -13 L -16 L VBG pH 7.28 L VBG pCO2 37 VBG pO2 110 H VBG Base Excess -9 L 02/04/25 02/04/25 02/04/25 03:51 06:42 23:10 ABG pH 7.60 H D 7.44 D 7.30 L D ABG pCO2 24 L 36 D 57 H D ABG pO2 150 H 71 L D 78 L ABG HCO3 23 25 28 H ABG O2 Saturation 101 H 95 94 ABG Base Excess 2 0 1 VBG pH VBG pCO2 VBG pO2 VBG Base Excess 02/05/25 02/05/25 02/05/25 01:20 04:34 09:20 ABG pH 7.40 D 7.42 7.39 ABG pCO2 45 D 44 44 ABG pO2 69 L 100 D 74 L D ABG HCO3 28 H 29 H 27 H ABG O2 Saturation 94 99 H 95 ABG Base Excess 3 4 H 2 VBG pH VBG pCO2 VBG pO2 VBG Base Excess 02/06/25 02/06/25 02/07/25 04:50 09:19 04:55 ABG pH 7.27 L D 7.30 L 7.45 D ABG pCO2 51 H 46 33 D ABG pO2 69 L 70 L 88 ABG HCO3 23 23 23 ABG O2 Saturation 92 93 98 ABG Base Excess -4 L -4 L -1 VBG pH VBG pCO2 VBG pO2 VBG Base Excess 02/08/25 04:10 ABG pH 7.39 ABG pCO2 45 D ABG pO2 73 L ABG HCO3 27 H ABG O2 Saturation 94 ABG Base Excess 2 VBG pH VBG pCO2 VBG pO2 VBG Base Excess Quality Measures Quality Measures sepsis Current suspected stage: severe sepsis Possible source: genitourinary Blood cultures ordered: yes Antibiotic ordered: Yes Advance care planning discussed with:: other (landlord and tenant from same building) Assessment & Plan Assessment Current Active Medications: Generic Name Dose Route Start Last Admin Trade Name Freq PRN Reason Stop Dose Admin Acetaminophen 650 mg 02/03/25 07:33 Acetaminophen Supp 650 Mg Supp AK 03/05/25 07:32 Q4HR PRN PAIN SCALE 1-3 (mild Heparin Sodium (Porcine) 3,000 unit 02/04/25 10:06 02/07/25 12:20 Heparin Sod Inj 1000 Unit/Ml Vial 10 Ml INDWELLCAT 02/18/25 10:05 3,000 unit PRN PRN Administration HD catheter Hydrocortisone Sodium Succinate 50 mg 02/06/25 21:00 02/08/25 08:08 Hydrocortisone Sod Succ Inj 100 Mg 2 Ml Vial IV 03/08/25 20:59 50 mg Q12HR JAYRO Administration Norepinephrine/Dextrose 8 mg in 250 mls @ 5.606 mls/hr 02/03/25 06:02 02/08/25 08:00 Levophed In D5w 8mg/250ml IV 03/05/25 06:01 0.01 mcg/kg/min .Q24H PRN 1.121 mls/hr PER PROTOCOL Titration Protocol 0.05 MCG/KG/MIN Dexmedetomidine/Sodium Chloride 400 mcg in 100 mls @ 2.99 mls/hr 02/03/25 06:51 02/08/25 08:00 Precedex Ivpb IV 03/05/25 06:50 0.2 mcg/kg/hr .Q24H PRN 2.99 mls/hr Per PROTOCOL Titration Protocol 0.2 MCG/KG/HR Piperacillin/Tazobactam/Dextrose 2.25 gm in 50 mls @ 100 mls/hr 02/03/25 12:00 02/08/25 05:48 Zosyn IV 02/10/25 11:59 Infused Q6HR JAYRO Infusion Fentanyl Citrate 2,500 mcg in 250 mls @ 2.5 mls/hr 02/03/25 15:27 02/07/25 09:17 Sublimaze Inj 2,500 Mcg/250 Ml Bag IV 02/08/25 15:26 0 mcg/hr .Q24H PRN 0 mls/hr PER PROTOCOL Titration Protocol 25 MCG/HR Vasopressin/Sodium Chloride 20 unit in 100 mls @ 9 mls/hr 02/03/25 16:15 02/08/25 06:12 Vasostrict/Ns Ivpb IV 03/05/25 16:14 0.03 unit/min .Q11H7M PRN 9 mls/hr PER PROTOCOL Administration Protocol 0.03 UNIT/MIN Albumin Human 25 gm in 100 mls @ 100 mls/min 02/07/25 09:53 02/08/25 07:00 Albuminar-25 Ivpb IV Infused PRN PRN Infusion DIALYSIS Midazolam HCl 2 mg 02/05/25 07:32 02/06/25 02:22 Midazolam Inj 1 Mg/Ml Vial 2 Ml IVP 02/10/25 07:31 2 mg Q4H PRN Administration AGITATION OR ANXIETY Ondansetron HCl 4 mg 02/03/25 02:03 Ondansetron Inj 2 Mg/Ml Inj 2 Ml IVP 03/05/25 02:02 Q6HR PRN NAUSEA OR VOMITING Protocol Pantoprazole Sodium 40 mg 02/03/25 09:00 02/08/25 08:08 Pantoprazole Inj 40 Mg Vial IVP 03/05/25 08:59 40 mg QDAY JAYRO Administration Pharmacy Consult 1 each 02/03/25 02:03 Pharmacy Renal Dose Adjustment 1 Ea XX 03/05/25 02:02 PRN PRN CONSULT Plan Ms Merino, is a 69 yo woman with an unknown PMH who was admitted to the ICU for management of distributive shock. Pt was intubated in the ED. AGMA 2/2 Lactic acid now downtrending to 6 today. Pt remains on pressors, levofed and vasopressin, weening. Nephrology consulted. CRRT , with improvement in lactic acid. GNR bacteremia. LFT incr in setting of shock liver. From nephrology's standpoint, patient will be taking a break from hemodialysis today. #Anion Gap Metabolic Acidosis 2/2 lactic acidosis Lactic acidosis 5.6 from 7.2 CRRT: 02/03 started at 2100, will continue 02/04 for ~24 hrs of HD, 02/06 (conventional HD) , 02/07 PLAN: -NO HD today #HIRA #query ATN type 1 vs hepatorenal syndrome given pt is in shock, cannot dx hepatorenal syndrome. pt remains on pressors see #septic shock below on 02/04 Cr. 0.9 from 1.4 , BUN 6 from 14 on 02/05 Cr 0.8, BUN <5, minimal UOP 40. on 02/06 Cr 1.8, BUN 11, minimal UOP on 02/07 Cr 1.9, BUN 11, minimal UOP on 02/08 Cr 2.2, BUN 23, minimal UOP Dx - UA with 1+ protein, 2+ RBC - Urine protein Cr ratio 0.807 - strict I and O, pt has greco - renally dose medications - avoid nephrotoxic agents #Septic Shock #query 2/2 SBP vs UTI #GNR bacteremia 2/2- E Coli sofa score: 13 end organ damage: shock liver, >>LFTs 2/2 shock, acute elevation in troponin 0.077 (no st elevations or depressions on EKG) continues to uptrend, 0.369 BP 70s /40s, procal 7.74, febrile on admission on 02/04 SBP from art line 110s decreased pressure requirement on 02/05 pt remains on pressers, Lactic acid uptrending, 5.1 to 6.3. Greco catheter in place draining dark urine with blood, UOP ~40 cc arterial line in place Dx - UA with 4+ biliruben, Leuk est + and nitrities + with WBC 80 and 4+ bacteria - Urine Cx- ecoli - Blood culture ecoli - paracentesis fluid analysis: Alb 1.3, WBC 18% Tx - on vanc and zosyn - on pressors per ICU team - ICU to manage #Cirrhosis #Acute ischemic hepatitis/shock liver #Acites, SAAG >1.1 #query malignancy given numerous liver masses on CTAP acute rise in LFT likely 2/2 to hypotension in setting of septic shock coagulopathy with elevated PT, INR, PTT thrombocytopenia with PLT 14 pt is severely jaundiced on exam, sclera icteric, +abdominal fluid wave Dx - Abdominal US with mild ascites, cirrhosis, - hepatitis panel negative - Utox negative, etoh negative - Tumor markers: AFP wnl, CEA wnl Tx - albumin 25 bid - octreotide drip #ischemic bowel abdomen tense and distended. CTAP with ischemic bowel. -not surgical candidate per Dr. Serrano given coagulopathy and pressor requirement. #electrolyte abnormalities #acute hypoxic respiratory failure- intubated #acute encephalopathy (query etiology 2/2 sepsis vs shock vs acidosis) #Facial trauma 2/2 fall with headstrike, no fractures #L orbital eye contusion #Tooth fractures #macrocytic anemia - b12 elevated>>> - folate wnl Plan discussed with nephrology attending Dr. Bin Larsen, DO Internal Medicine, PGY-1 Attending Provider Attestation/Addendum Patient seen and examined with resident physician Dr. Larsen. Note reviewed, agree with findings and recommendations. Patient with septic shock, intractable lactic acidosis and HIRA. Decided to proceed with CRRT. She is currently on 2 pressors. Remains on ventilator. Currently in ICU. Patient received 2 CRRT, 3 IHD sessions so far. Lactic acid improving. Hold off on dialysis today. Will monitor renal function and urine output closely 02/08/2025 patient remains in ICU. Multisystem organ failure- Hypoxic respiratory failure-on ventilator Ischemic liver ?? Ischemic colitis- Dr. serrano taking for exploratory laparotomy Sepsis needing pressors Acute renal failure needing dialysis no family around. No one want to make medical decisions for her. Critical care time spent 45 minutes regarding plan of care and disease management Spoke to ICU team, Dr. Blake, strategies analyst CC:
--- NOTE | 2025-02-08 13:29 | ESPR_ITS ---
Documentation for date of: 02/08/25 Subjective Subjective Interval history: This is a 69yo F who was found down at 1am in her house. A neighbor found her on the floor unresponsive and she had apparently fallen and hit her head. EMS was called and the pt was brought into the ER. On arrival she was noted to be altered and febrile with a temp of 105.8. Initial labs showed a metabolic acidosis with appropriate respiratory compensation. She became progressively more lethargic and obtunded as the night progressed. At 6am she was unresponsive and hypotensive. She was given a total of 2.5lts of IVF in the ER and intubated. She was started on vasopressor support and a central line was placed. Pt was brought up to the ICU. A bedside echo was done which showed a hyperdynamic LV with no pericardial effusion. SvO2 was sent off of the brown port from the central line and pt was given vanc/zosyn. A cheeta was placed for hemodynamics and PLR performed. pt was found to not be fluid responsive. There are no family available for additional information. pts s/o 2 months ago and there is no immediate family around. 02/04- overnight dropped h/h , no evidence of active bleed, wakes up but does not follow commands, decrease in levo needs today, 1 BM yesterday, no fever overnight, poor UOP 02/05-overnight patient had elevated peak inspiratory pressures on the ventilator. She was also noted to have increased abdominal distention. She has had no bowel movement since arrival. Her vent settings were adjusted on the ventilator and her OG tube was placed to low intermittent suction. There was a total of more than 2 L of fluid immediately suctioned from the patient's stomach consistent of gastric content. She is currently afebrile and continues with no urinary output 02/06-yesterday had a drop in her H&H with worsening coagulopathy. Her abdomen was distended and a CT was performed. This showed ischemic colitis along with question of small bowel ischemia. Surgery was consulted. Her lactic acid remains elevated, she is coagulopathic, she had a drop in her fibrinogen and platelets. FFP's, cryo, platelets and PRBCs were ordered for her. She remains anuric and when sedation is lightened she remains minimally responsive 02/08- no acute overnight events, remains virtually anuric, meeting held with representatives this morning. Patient's representatives are her landlord as well as tenant who have known her for 11 and 15 years, they have agreed to be her printing supplies sales representative for decision-making. This morning she remains jaundiced on minimal vasopressor support and afebrile. Her fentanyl and Precedex were held. On initial exam she had a GCS of 4 however later in the day she began to become more responsive with spontaneous eye opening and spontaneous movement of her right upper extremity though she still does not follow commands. Critical Care Note Critical care time (min.): 52 Exam Vital Signs Temp Pulse Resp BP Pulse Ox O2 Del Method O2 Flow Rate 97.5 F 64 25 H 96/54 L 93 L Mechanical Ventilation 11 02/08/25 13:06 02/08/25 13:15 02/08/25 13:15 02/08/25 13:15 02/08/25 13:15 02/08/25 12:09 02/06/25 07:07 FiO2 45 02/08/25 12:09 Narrative Exam Yashjuy-pjn-oicxjxpla, obese, off sedation, jaundiced HEENT-normocephalic atraumatic, pupils small and sluggish, sclera icteric, oral cavity is dry there is some lingering dried blood, ET tube and OG tube in place Chest-diminished breath sounds, few crackles at bases, heart rate regular and rhythmic, no bruits or murmurs auscultated at time of exam, no increased work of breathing Abdomen-firm however softer than it has been, bowel sounds heard today extremely sluggish, no palpable organomegaly, no guarding Extremities-edema of extremities, pulses palpable, no clubbing, some mottling on lower extremities, moves right upper extremity Drips Precedex Levophed Vasopressin Vent AC VC Physical Exam Completion Physical Exam Complete?: Yes Objective - Cardiology Nurse Practitioner Labs 02/08/25 05:20 02/08/25 05:20 Labs: Laboratory Results - last 24 hr 02/07/25 02/07/25 02/07/25 13:55 17:26 19:34 WBC 4.8 RBC 3.41 L Hgb 10.7 L Hct 32.3 L MCV 95 MCH 31.4 MCHC 33.1 RDW Std Deviation 87.6 H Plt Count 22 L* Neut % (Auto) 81 H Lymph % (Auto) 8 L [place] % (Auto) 10 Eos % (Auto) 0 Baso % (Auto) 1 Neut # (Auto) 3.9 Lymph # (Auto) 0.4 L [place] # (Auto) 0.5 Eos # (Auto) 0.0 Baso # (Auto) 0.0 Immature Gran # (Auto) 0.06 H Absolute Nucleated RBC 0.00 Immature Gran % 1 H Nucleated RBC % 0 PT INR APTT Fibrinogen 133 L Puncture Site ABG pH ABG pCO2 ABG pO2 ABG HCO3 ABG O2 Saturation ABG Base Excess FiO2 Sodium 134 L Potassium 4.0 D Chloride 95 L Carbon Dioxide 25.9 Anion Gap 13 BUN 12 Creatinine 1.7 H Estim Creat Clear Calc 25.8 L eGFR 32 L BUN/Creatinine Ratio 7 L Glucose 101 Calculated Osmolality 267 L Lactic Acid 3.4 H 4.4 H* Calcium 8.8 Corrected Calcium 9.0 Total Bilirubin 19.6 H* D AST 742 H* ALT 305 H Alkaline Phosphatase 57 Total Protein 5.9 Albumin 3.7 Globulin 2.2 L Albumin/Globulin Ratio 1.7 Misc Test Result Platelets confirmed Blood Type O Positive Antibody Screen NEGATIVE Blood Bank Wristband ID Yes Blood Bank Comment PLATP Ready 02/07/25 02/08/25 02/08/25 23:17 02:00 04:10 WBC RBC Hgb Hct MCV MCH MCHC RDW Std Deviation Plt Count Neut % (Auto) Lymph % (Auto) [place] % (Auto) Eos % (Auto) Baso % (Auto) Neut # (Auto) Lymph # (Auto) [place] # (Auto) Eos # (Auto) Baso # (Auto) Immature Gran # (Auto) Absolute Nucleated RBC Immature Gran % Nucleated RBC % PT INR APTT Fibrinogen Puncture Site Arterial Line ABG pH 7.39 ABG pCO2 45 D ABG pO2 73 L ABG HCO3 27 H ABG O2 Saturation 94 ABG Base Excess 2 FiO2 21 Sodium Potassium Chloride Carbon Dioxide Anion Gap BUN Creatinine Estim Creat Clear Calc eGFR BUN/Creatinine Ratio Glucose Calculated Osmolality Lactic Acid 4.0 H 3.7 H Calcium Corrected Calcium Total Bilirubin AST ALT Alkaline Phosphatase Total Protein Albumin Globulin Albumin/Globulin Ratio Misc Test Result Blood Type Antibody Screen Blood Bank Wristband ID Blood Bank Comment 02/08/25 05:20 WBC 9.9 D RBC 3.45 L Hgb 11.1 L Hct 32.9 L MCV 95 MCH 32.2 MCHC 33.7 RDW Std Deviation 87.0 H Plt Count 28 L* D Neut % (Auto) 86 H Lymph % (Auto) 4 L [place] % (Auto) 7 Eos % (Auto) 0 Baso % (Auto) 1 Neut # (Auto) 8.5 H Lymph # (Auto) 0.4 L [place] # (Auto) 0.7 Eos # (Auto) 0.0 Baso # (Auto) 0.1 Immature Gran # (Auto) 0.15 H Absolute Nucleated RBC 0.00 Immature Gran % 2 H Nucleated RBC % 0 PT 30.8 H* INR 3.0 H APTT 52.2 H Fibrinogen Puncture Site ABG pH ABG pCO2 ABG pO2 ABG HCO3 ABG O2 Saturation ABG Base Excess FiO2 Sodium 134 L Potassium 4.5 D Chloride 94 L Carbon Dioxide 23.8 Anion Gap 16 BUN 23 Creatinine 2.2 H D Estim Creat Clear Calc 20.0 L eGFR 24 L BUN/Creatinine Ratio 10 L Glucose 120 H Calculated Osmolality 272 L Lactic Acid 3.8 H Calcium 8.9 Corrected Calcium 9.3 Total Bilirubin 21.2 H* D AST 635 H* ALT 291 H Alkaline Phosphatase 70 D Total Protein 6.1 Albumin 3.5 Globulin 2.6 Albumin/Globulin Ratio 1.3 Misc Test Result Platelets confirmed Blood Type Antibody Screen Blood Bank Wristband ID Blood Bank Comment Assessment & Plan Additional Plan Additional Plan: In brief this is a 69yo F admitted to the ICU with 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 on vanc/zosyn, likely sepsis, bcx, sputum and ucx taken and pending. LA elevated -> given IVF - on levophed and vasopressin minimal doses - Bcx with E.coli - LA cleared with CRRT - Unable to clear lactate, CT abdomen shows bowel ischemia with pneumatosis intestinalis - Patient remains stable with the bowel ischemia for the last 2 or 3 days. Discussed with surgery and surgery is willing to take the patient to the OR for exploration today Tropinemia- likely related to demand ischemia, fu on repeat, EKG without ST elevation or depression - minimally elevated in setting of HIRA and shock - echo done and shows diastolic dysfunction with a normal EF and no wall motion abnormality - Improved Resp Acute resp failure- intubated and on MV, fu with ABG and CXR - ween as able - Plateau pressures less than 30 - Improving Renal HypoNa- mild, monitor, in the setting of cirrhosis AGMA- 2/2 LA - Continues to have an elevated lactate -Check abdomen/pelvis CT with IV contrast to evaluate for source-> appears to have ischemic colitis as well as possible small bowel ischemia HIRA- minimal UOP, monitor i/os - check urine lytes - has received IVF - Patient for hemodialysis -Still anuric -Followed by nephrology -Net +8 L since hospital arrival HypoMg-repleted GI Cirrhosis- started on lactulose and rifaxamin - elevated LFTs-> ? 2/2 ischemic hepatitis - check viral hep panel-> NTD - alcohol level added on->NTD -Trending back down - Total bili remains elevated at 21.2 today concern for the possibility of kernicterus Liver masses- check an AFP, will need eval for HCC hypoalbuminemia- in the setting of cirrhosis - check uprotein/cr ratio Abdominal distention-CT shows bowel ischemia. There appears to be pneumatosis intestinalis of the right colon and there is question of some ischemic changes in the small bowel as well - Surgical consultation was obtained - Patient is not an optimal surgical candidate at this time - Conservative management Endo Hypoglycemia-improved and on as needed D50 - Has been n.p.o. for the last 6 days may require TPN Heme Anemia macrocytic- check b12/folate-> wnl - h/h trended down overnight - no overt bleeding noted - ? dilutional v occult bleed - given 2uPRBCs on 02/04 -Given additional 2 PRBCs 02/06 - Now remained stable thrombocytopenia- in the setting of sepsis and cirrhosis -Transfused platelets with brief improvement - Platelets to be transfused today for OR Coagulopathy- INR elevated - Transfused FFP and cryo 2 days ago -To be transfused 2 units with epi today prior to OR - DVT proph- SCDs ID UTI- on vanc/zosyn - stop vanc and cont zosyn Sepsis- on zosyn with GNR bacteremia day#6 - Cultures resulted back today as E. coli from both blood and urine sensitive to Zosyn case d/w ICU team and nephrology Discussed with decision-makers Discussed with surgery and anesthesia labs, imaging, records reviewed ~ 52ccmin required for eval, exam, review, intervention, discussion and formulation of POC for this critically ill pt in septic shock at high risk for further ongoing decompensation Provider Notation Provider Notation: Although this document has been carefully reviewed, there may still be some phonetic and other typographical errors. These errors are purely grammatical due to imperfections in the software program and should not be construed in any way to compromise the substance of the patient's medical care during this visit. Thank you for the opportunity and privilege in assisting you with this patient's care and management.
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
--- NOTE | 2025-02-08 16:31 | ESOP_ITS ---
Date of Procedure 02/08/25 Pre Op Diagnosis Ischemia of the colon seen on the CT scan with septic shock Post Op Diagnosis Same Procedure Exploratory laparotomy Findings Patient was found to have advanced cirrhosis with ascites but no evidence of ischemia of the colon Procedure Description Patient was seen in consultation about 3 days ago because of abnormal CT scan showing ischemic changes in the cecum. Patient also had some severe DIC and was in septic shock with lactic acidosis. No definite cause could be seen. Patient also had an advanced cirrhosis of the liver with ascites and elevated liver function test. She was also severely thrombocytopenic with a range of about 20,000. After correcting the coagulation profile it was decided to explore her to make sure there is a there is no ischemic bowel. Therefore procedure was indicated for exploration to rule out ongoing pathology in the abdomen. This patient was intubated and was not responsive and obviously could not lend herself for an abdominal evaluation. After the patient was brought to the operating room endotracheal anesthesia was given. Abdomen was prepped with ChloraPrep solution and draped in a sterile manner. Timeout was performed. Then an incision was made starting few inches above the umbilicus down to the pubic symphysis. Exploration was carried out and I saw yellowish fluid in the peritoneal cavity as a result of severe jaundice. The small bowel was tinged yellow but there is no ischemia anywhere. I ran the small bowel and found out that it was normal. There were no adhesions. Examination of the right colon showed no abnormality. I explored the left colon also did not show any ischemia. Patient's appendix was normal. However palpation of the liver showed a typical hobnail cirrhosis with considerable dilated veins in the mesentery. Since ischemic colitis was ruled out I washed out the entire peritoneal cavity and close abdomen using interrupted 0 PDS. Subcutaneous tissue was closed with 3-0 chromic on the skin by kaur. Dressing was applied with 4 x 4 gauze and patient tolerated procedure well. She was transferred to ICU in stable condition. Anesthesia GETA Pathology / specimen None Estimated Blood Loss 50 Condition Stable Disposition ICU Surgeon Wilfred Connelly MD Surgical Staff Operation Date: 02/08/25 15:15 Case Staff Anesthesiologist: Abdulkadir Smith RNsupervisor electronics assembly: Pipo Pelayo
[2025-02-08 16:39] LABS: Basophils # (Auto) 0.0 Thou/mm3 (0.0-0.2); Basophils % (Auto) 1 % (0-2.5); Eosinophils # (Auto) 0.0 Thou/mm3 (0.0-0.5); Eosinophils % (Auto) 0 % (0-10); Hematocrit 27.9 % (36.0-46.0); Hemoglobin 9.2 g/dL (12.0-16.0); Immature Granulocytes Auto 0.12 Thou/mm3 (0.00-0.00); Lymphocytes # (Auto) 0.3 Thou/mm3 (1.0-4.8); Lymphocytes % (Auto) 5 % (10-50); Mean Corpuscular HGB Conc 33.0 g/dl (31.0-37.0); Mean Corpuscular Hemoglobin 31.5 pg (25.0-35.0); Mean Corpuscular Volume 96 fL (80-100); Monocytes # (Auto) 0.4 Thou/mm3 (0.0-0.8); Monocytes % (Auto) 6 % (0-12); Neutrophils # (Auto) 6.4 Thou/mm3 (1.8-7.7); Neutrophils % (Auto) 87 % (37-80); Nucleated Red Blood Cell # 0.00 Thou/mm3 (0.00-0.00); Nucleated Red Blood Cell % 0 /100 WBC (0); RDW Standard Deviation 86.3 fL (36.4-46.3); Red Blood Count 2.92 Miln/mm3 (4.00-5.20); White Blood Count 7.3 Thou/mm3 (3.6-11.0)
[2025-02-08 16:40] LABS: Lactate (Lactic Acid) 4.0 mMol/L (0.4-2.0)
[2025-02-08 16:46] LABS: Base Excess 1 (-3-3); HCO3 25 mEq/L (20-26); Inspired Oxygen, FIO2 21 %; O2 Saturation 100 % (91-98); PCO2 41 mmHg (32.0-48.0); PO2 205 mmHg (83-108); pH, Arterial 7.40 (7.35-7.45)
[2025-02-08 16:47] LABS: Allen Test Not Performed; Puncture Site Arterial Line
[2025-02-08 16:48] LABS: Platelet Count 39 Thou/mm3 (140-440)
[2025-02-08 16:55] LABS: Alanine Aminotransferase 210 U/L (10-49); Albumin, Serum 3.0 gm/dL (3.4-4.8); Albumin/Globulin Ratio 1.4 (1.2-2.2); Alkaline Phosphatase 59 U/L (46-116); Anion Gap 15 (7-16); Aspartate Amino Transferase 394 U/L (0-34); BUN/Creatinine Ratio 11 Ratio (12-20); Bilirubin,Total 17.9 mg/dL (0.3-1.2); Blood Urea Nitrogen 29 mg/dL (9-23); Calcium 8.2 mg/dL (8.3-10.6); Calcium (Corrected) 9.0 mg/dL (8.5-10.1); Carbon Dioxide 23.9 mMol/L (20.0-31.0); Chloride 98 mMol/L (98-107); Creatinine (Component) 2.6 mg/dL (0.6-1.3); Estimated Creatinine Clearance 16.9 mL/min (>60); Globulin 2.2 gm/dL (2.3-3.5); Glucose 137 mg/dL (74-106); Osmolality,Calculated 281 (275-295); Potassium 4.2 mMol/L (3.4-5.1); Sodium 137 mMol/L (136-145); Total Protein 5.2 gm/dL (5.7-8.2); eGFR 19 See Note
[2025-02-08 17:05] LABS: Slide Review Platelets confirmed
--- NOTE | 2025-02-08 17:26 | PC.NURSE ---
at 1724, notified by blood bank that one bag platelets to that is ready to at midnight, Dr. Leslie made aware of current platelet count no orders received at this time
--- NOTE | 2025-02-08 19:00 | PC.NURSE ---
at 1850, spoke with Kayleen Ramon at bedside pts friend of 3 years
[2025-02-08 19:29] LABS: Reflex Lactate? Y
[2025-02-08 20:54] LABS: Lactic Acid, 3 HR 3.9 mMol/L (0.4-2.0)
[2025-02-09] VITALS (103 sets, daily range): BP systolic 80–189; BP diastolic 42–117; PULSE 60–100; RESP 7–30; TEMP 36.4–37; O2SAT 92–99; BMI 28.7
--- NOTE | 2025-02-09 05:00 | XR_ITS ---
Examination: AP chest single view TECHNIQUE: AP portable semiupright chest single view Date and time: February 09, 2025 0553 hours, comparison February 08, 2025 INDICATIONS: Difficulty breathing this week, history left lung atelectasis, post intubation FINDINGS: Pneumonia and atelectasis left base Mild enlargement cardiac contour with prominent vascular congestion. Endotracheal tube tip 4 cm above Alix. Orogastric tube tip distal stomach versus duodenal bulb Right internal jugular central line tip right atrium IMPRESSION: Pneumonia and atelectasis left base Mild heart failure
[2025-02-09 05:11] LABS: Base Excess 2 (-3-3); HCO3 26 mEq/L (20-26); Inspired Oxygen, FIO2 21 %; O2 Saturation 92 % (91-98); PCO2 40 mmHg (32.0-48.0); PO2 62 mmHg (83-108); pH, Arterial 7.43 (7.35-7.45)
[2025-02-09 05:14] LABS: Allen Test Performed/OK; Puncture Site Right Femoral
[2025-02-09 05:23] LABS: Basophils # (Auto) 0.1 Thou/mm3 (0.0-0.2); Basophils % (Auto) 1 % (0-2.5); Eosinophils # (Auto) 0.0 Thou/mm3 (0.0-0.5); Eosinophils % (Auto) 0 % (0-10); Hematocrit 28.7 % (36.0-46.0); Hemoglobin 9.5 g/dL (12.0-16.0); Immature Granulocytes Auto 0.17 Thou/mm3 (0.00-0.00); Lymphocytes # (Auto) 0.6 Thou/mm3 (1.0-4.8); Lymphocytes % (Auto) 5 % (10-50); Mean Corpuscular HGB Conc 33.1 g/dl (31.0-37.0); Mean Corpuscular Hemoglobin 31.9 pg (25.0-35.0); Mean Corpuscular Volume 96 fL (80-100); Monocytes # (Auto) 0.5 Thou/mm3 (0.0-0.8); Monocytes % (Auto) 5 % (0-12); Neutrophils # (Auto) 10.2 Thou/mm3 (1.8-7.7); Neutrophils % (Auto) 88 % (37-80); Nucleated Red Blood Cell # 0.00 Thou/mm3 (0.00-0.00); Nucleated Red Blood Cell % 0 /100 WBC (0); RDW Standard Deviation 86.9 fL (36.4-46.3); Red Blood Count 2.98 Miln/mm3 (4.00-5.20); White Blood Count 11.6 Thou/mm3 (3.6-11.0)
[2025-02-09] MEDS: PIPER/TAZO 2.25 GM 2.25 GM/50 ML BAG IV ×4 (05:23→23:33)
[2025-02-09 05:24] LABS: Platelet Count 49 Thou/mm3 (140-440)
[2025-02-09 05:25] LABS: Slide Review Platelets confirmed
[2025-02-09] MEDS: VASOPRESSIN IN NS IVPB 20 UNIT/100 ML BAG 9 UNIT IV (05:41)
[2025-02-09 05:52] LABS: Alanine Aminotransferase 210 U/L (10-49); Albumin, Serum 3.2 gm/dL (3.4-4.8); Albumin/Globulin Ratio 1.3 (1.2-2.2); Alkaline Phosphatase 65 U/L (46-116); Anion Gap 14 (7-16); Aspartate Amino Transferase 352 U/L (0-34); BUN/Creatinine Ratio 14 Ratio (12-20); Blood Urea Nitrogen 43 mg/dL (9-23); Calcium 8.6 mg/dL (8.3-10.6); Calcium (Corrected) 9.2 mg/dL (8.5-10.1); Carbon Dioxide 24.7 mMol/L (20.0-31.0); Chloride 97 mMol/L (98-107); Creatinine (Component) 3.0 mg/dL (0.6-1.3); Estimated Creatinine Clearance 14.7 mL/min (>60); Globulin 2.5 gm/dL (2.3-3.5); Glucose 159 mg/dL (74-106); Osmolality,Calculated 285 (275-295); Potassium 4.4 mMol/L (3.4-5.1); Sodium 136 mMol/L (136-145); Total Protein 5.7 gm/dL (5.7-8.2); eGFR 16 See Note
[2025-02-09 06:06] LABS: Bilirubin,Total 21.1 mg/dL (0.3-1.2)
[2025-02-09] MEDS: HYDROCORTISONE SOD SUCC INJ 100 MG 2 ML VIAL 50 MG IV (08:05)
[2025-02-09] MEDS: LACTULOSE SYRUP 20 GM/30 ML UDC 45 GM NG ×4 (09:07→20:49)
--- NOTE | 2025-02-09 09:34 | PC.SS ---
Addendum entered by Anita Marino 02/09/25 11:15: SW called [phone] and made contact with a female who introduced herself as Anita Isaacs, who was patient's partner's cousin. However, they have no relationship. SW explained that the reason for call was to contact any relatives. Anita reported that her cousin and patient were not , and she had made some calls to some of his brothers; however, with no success. Anita reported that patient has a son in [facility], and the last thing she knew about him was that he was sick as well. SW provided direct line for any other information as she is going to attempt making contact with any of patient's family. Original Note: Program Services Assistant (GEOFFREY) Anita contacted a phone number ([phone]) provided by Ivania Asif. SW left generic voice messages. GEOFFREY also contacted patient's friend, Kayleen Yenny ([phone]) to discuss any information for living relatives. Per Kayleen, she is aware that patient has a brother in the [place] area. However, she is unaware of any names or phone numbers. Typewriters Functional Tester will continue to seek family members.
[2025-02-09] MEDS: CHOLESTYRAMINE/SUCROSE 1 PKT EA NG ×2 (09:42→20:49)
--- NOTE | 2025-02-09 11:08 | PD.RESPRO ---
Documentation for date of: 02/09/25 Subjective Subjective Interval history: hx per chart review: Ms. Merino is a 69 yo woman with unknown past medical history, who was found down at 1 am by her neighbor, she was unresponsive and with head strike, facial contusions and fractured teeth noted, she was brought to the ED, where she had altered mental status, was febrile to 105. Pt became increasingly lethargic and obtunded. Pt was assessed by the night IM team, who described her as ill-appearing, minimally responsive, with marked jaundice and right periorbital contusion. Initial labs notable for severe metabolic acidosis (pH 7.25, HCO3 8, AG 22, lactate 15), hyperbilirubinemia (15.9), transaminitis, coagulopathy (INR 1.8), HIRA (Cr 1.4 from baseline 0.7), and UA with pyuria and bacteriuria. Blood and urine cultures sent; patient started on broad-spectrum antibiotics. . CT head, cervical spine, and chest/abdomen/pelvis are pending, as is repeat ABG. Also gallbladder ultrasound still pending to rule in rule out acute cholangitis. ED gave 2.5 L fluids, and intubated pt. SHe was started on pressors, central line was placed and admitted to the ICU. ECHO demonstrated hyper dynamic LV wo pericardial effusion. SvO2 was sent off of the brown port from the central line and pt was given vanc/zosyn. A cheeta was placed for hemodynamics and PLR performed. pt was found to not be fluid responsive. There are no family available for additional information. pts s/o 2 months ago and there is no immediate family around. Interval History 02/03/2025 Nephrology consulted. Pt seen and examined at bedside in ICU. Pt with UE in restraints, severely jaundiced, sclera icteric, with + fluid wave. is intubated. R IJ and R fem line, art line with SBPs 140s. Pt on nor epi and vasopressin. Lactic acidosis uptrended to 18. Cr 2.1, egfr 25. AGMA. cirrhosis with shock liver, hep panel negative, UTI, on vanc and zosyn. Plan for CRRT today. 02/04/2025: patient seen and examined in ICU. Pt with BUE in restraints. jaundiced, remaines intubated. RIJ and R fem line, art line with SBP 110s. Pt remains on pressors, however have been weaned. Lactic acidosis downtrending to 6.4. Cr 0.9, egfr >60. AGMA, LFTs continue to uptrend in setting of shocked liver. UTI continues on vanc and zosyn. CRRT continues. 02/05/2025: Patient seen and examined in ICU. pt with BUE restraints, jaundiced, remains intubated, RIJ, and R fem line, art line with sbp SBP 70s. Pt remains on pressors. Lactic acidosis 6.3 from 5.1 uptrending. LFT downtrending AST 1363. Mag and Phos are low. No HD today 02/06/2025: Patient seen and examined in ICU. pt with BUE restraints, jaundiced, remains intubated. Art line with sbp 100s, pt remains on pressors. Lactic acidL 5.6 from 7.1, LFT now uptrending, shock liver worsening T bili 18.K 5.8, BUN 11, Cr 1.8. CTAP with ischemic bowel, not a surgical candidate given coagulopathy and pressor requirement, per Dr. Serrano. Plan for conventional HD today 02/07/2025: No overnight events. Patient seen and examined at bedside; she remains intubated and is showing more signs of edema and has not made any urine. Notable labs today include: Hgb 10.4, platelet count 25, PT 29.2, INR 2.9, APTT 46.4, Na 134, creatinine bump to 1.9 from 1.2, eGFR drop to 28 from 49, lactic acid bump to 5.0 from 3.9, total bilirubin drop to 17.8 from 18.6, AST drop to 877 from 1049, ALT drop to 332 from 360. CXR today showed mild heart failure and left base pneumonia. From nephrology's standpoint, patient will be receiving HD today. 02/08/2025: No overnight events. Patient seen and examined at bedside; she remains intubated and still has not made any urine. She is also noted to be jaundiced. Notable labs today include: Hemoglobin 11.1, platelet count bump to 28 from 22, critically elevated PTT 30.8, INR 3.0, APTT 52.2, BUN bump to 23 from 12, creatinine bump to 2.2 from 1.7, lactic acid drop to 3.8 from 4.0, total bilirubin bump to 21.2 from 19.6, AST dropped to 635 from 742, and ALT drop to 291 from 305. A meeting was held this morning with patient's landlord and another tenant who will act as her representatives for decision making. From nephrology's standpoint, patient will be taking a break from hemodialysis today. 02/09/2025: Patient seen and examined in the ICU, She remains intubated, greco was removed, with minimal urine output. s.p ex lap with Dr. Serrano no ischemic bowel was found, BUN 43 from 29 Cr 3.0 from 2.6. No HD today Exam Vital Signs Temp Pulse Resp BP Pulse Ox O2 Del Method O2 Flow Rate 97.5 F 90 22 H 126/70 93 L Mechanical Ventilation 11 02/09/25 08:00 02/09/25 10:00 02/09/25 10:00 02/09/25 10:00 02/09/25 10:00 02/09/25 08:00 02/06/25 07:07 FiO2 30 02/09/25 09:54 Narrative Exam GENERAL: pt intubated with UE in restraints, no acute distress. HEENT: Head AT/ NC. Mucous membranes moist. eyes icteric, R central line NECK: Supple, no lymphadenopathy, no carotid bruits. CARDIOVASCULAR: RRR. Normal S1/S2, No m/r/g. No pitting edema of bilateral LEs. RESPIRATORY: intubated on mechanical ventilation. lungs with crackles bilaterally GASTROINTESTINAL: Abdomen s/p exlap, and distended no palpable masses, incision intact no dihissence. Extremitis: BLE with mottling on upper thighs. MUSCULOSKELETAL:? No cyanosis or edema, no visible joint swelling. LE warm to touch, pulses palpable , UE with restraints, SCDs in place : greco removed yesterday NEUROLOGICAL: unable to assess neuro fxn pt intubated SKIN: No obvious rashes, jaundice, normal turgor. Objective Labs 02/09/25 04:48 02/09/25 04:48 Labs: Laboratory Results - last 24 hr 02/07/25 02/08/25 02/08/25 19:34 16:19 20:32 WBC 7.3 RBC 2.92 L Hgb 9.2 L Hct 27.9 L MCV 96 MCH 31.5 MCHC 33.0 RDW Std Deviation 86.3 H Plt Count 39 L D Neut % (Auto) 87 H Lymph % (Auto) 5 L [place] % (Auto) 6 Eos % (Auto) 0 Baso % (Auto) 1 Neut # (Auto) 6.4 Lymph # (Auto) 0.3 L [place] # (Auto) 0.4 Eos # (Auto) 0.0 Baso # (Auto) 0.0 Immature Gran # (Auto) 0.12 H Absolute Nucleated RBC 0.00 Immature Gran % 2 H Nucleated RBC % 0 Puncture Site Arterial Line ABG pH 7.40 ABG pCO2 41 ABG pO2 205 H D ABG HCO3 25 ABG O2 Saturation 100 H ABG Base Excess 1 FiO2 21 Sodium 137 Potassium 4.2 Chloride 98 Carbon Dioxide 23.9 Anion Gap 15 BUN 29 H Creatinine 2.6 H Estim Creat Clear Calc 16.9 L eGFR 19 L BUN/Creatinine Ratio 11 L Glucose 137 H Calculated Osmolality 281 Lactic Acid 4.0 H 3.9 H Calcium 8.2 L Corrected Calcium 9.0 Total Bilirubin 17.9 H D AST 394 H ALT 210 H Alkaline Phosphatase 59 Total Protein 5.2 L Albumin 3.0 L D Globulin 2.2 L Albumin/Globulin Ratio 1.4 Misc Test Result Platelets confirmed Blood Type O Positive Antibody Screen NEGATIVE Blood Bank Wristband ID Yes Blood Bank Comment PLATP Ready 02/09/25 02/09/25 04:44 04:48 WBC 11.6 H D RBC 2.98 L Hgb 9.5 L Hct 28.7 L MCV 96 MCH 31.9 MCHC 33.1 RDW Std Deviation 86.9 H Plt Count 49 L D Neut % (Auto) 88 H Lymph % (Auto) 5 L [place] % (Auto) 5 Eos % (Auto) 0 Baso % (Auto) 1 Neut # (Auto) 10.2 H Lymph # (Auto) 0.6 L [place] # (Auto) 0.5 Eos # (Auto) 0.0 Baso # (Auto) 0.1 Immature Gran # (Auto) 0.17 H Absolute Nucleated RBC 0.00 Immature Gran % 2 H Nucleated RBC % 0 Puncture Site Right Femoral ABG pH 7.43 ABG pCO2 40 ABG pO2 62 L D ABG HCO3 26 ABG O2 Saturation 92 ABG Base Excess 2 FiO2 21 Sodium 136 Potassium 4.4 Chloride 97 L Carbon Dioxide 24.7 Anion Gap 14 BUN 43 H Creatinine 3.0 H Estim Creat Clear Calc 14.7 L eGFR 16 L BUN/Creatinine Ratio 14 Glucose 159 H Calculated Osmolality 285 Lactic Acid Calcium 8.6 Corrected Calcium 9.2 Total Bilirubin 21.1 H* D AST 352 H ALT 210 H Alkaline Phosphatase 65 Total Protein 5.7 Albumin 3.2 L Globulin 2.5 Albumin/Globulin Ratio 1.3 Misc Test Result Platelets confirmed Blood Type Antibody Screen Blood Bank Wristband ID Blood Bank Comment ABG Interpretation ABG results: 02/03/25 02/03/25 02/03/25 02:47 06:09 07:19 ABG pH 7.25 L 7.00 L* D 7.18 L* D ABG pCO2 18 L* 63 H D 49 H D ABG pO2 192 H 149 H D 168 H ABG HCO3 8 L* 15 L 18 L ABG O2 Saturation 100 H 98 99 H ABG Base Excess -17 L -16 L -10 L VBG pH VBG pCO2 VBG pO2 VBG Base Excess 02/03/25 02/03/25 02/03/25 07:30 13:32 20:35 ABG pH 7.30 L D 7.25 L ABG pCO2 23 L D 23 L ABG pO2 159 H 145 H ABG HCO3 12 L 10 L ABG O2 Saturation 100 H 100 H ABG Base Excess -13 L -16 L VBG pH 7.28 L VBG pCO2 37 VBG pO2 110 H VBG Base Excess -9 L 02/04/25 02/04/25 02/04/25 03:51 06:42 23:10 ABG pH 7.60 H D 7.44 D 7.30 L D ABG pCO2 24 L 36 D 57 H D ABG pO2 150 H 71 L D 78 L ABG HCO3 23 25 28 H ABG O2 Saturation 101 H 95 94 ABG Base Excess 2 0 1 VBG pH VBG pCO2 VBG pO2 VBG Base Excess 02/05/25 02/05/25 02/05/25 01:20 04:34 09:20 ABG pH 7.40 D 7.42 7.39 ABG pCO2 45 D 44 44 ABG pO2 69 L 100 D 74 L D ABG HCO3 28 H 29 H 27 H ABG O2 Saturation 94 99 H 95 ABG Base Excess 3 4 H 2 VBG pH VBG pCO2 VBG pO2 VBG Base Excess 02/06/25 02/06/25 02/07/25 04:50 09:19 04:55 ABG pH 7.27 L D 7.30 L 7.45 D ABG pCO2 51 H 46 33 D ABG pO2 69 L 70 L 88 ABG HCO3 23 23 23 ABG O2 Saturation 92 93 98 ABG Base Excess -4 L -4 L -1 VBG pH VBG pCO2 VBG pO2 VBG Base Excess 02/08/25 02/08/25 02/09/25 04:10 16:19 04:44 ABG pH 7.39 7.40 7.43 ABG pCO2 45 D 41 40 ABG pO2 73 L 205 H D 62 L D ABG HCO3 27 H 25 26 ABG O2 Saturation 94 100 H 92 ABG Base Excess 2 1 2 VBG pH VBG pCO2 VBG pO2 VBG Base Excess Quality Measures Quality Measures sepsis Current suspected stage: sepsis Possible source: genitourinary Blood cultures ordered: yes Antibiotic ordered: Yes Advance care planning discussed with:: other (no contacts, query if landlord can help identify sound effects person ) Assessment & Plan Assessment Current Active Medications: Generic Name Dose Route Start Last Admin Trade Name Freq PRN Reason Stop Dose Admin Acetaminophen 650 mg 02/03/25 07:33 Acetaminophen Supp 650 Mg Supp KS 03/05/25 07:32 Q4HR PRN PAIN SCALE 1-3 (mild Cholestyramine Resin 1 pkt 02/09/25 09:45 02/09/25 09:42 Cholestyramine/Sucrose 1 Pkt Ea NG 03/11/25 09:44 1 pkt BID JAYRO Administration Heparin Sodium (Porcine) 3,000 unit 02/04/25 10:06 02/07/25 12:20 Heparin Sod Inj 1000 Unit/Ml Vial 10 Ml INDWELLCAT 02/18/25 10:05 3,000 unit PRN PRN Administration HD catheter Norepinephrine/Dextrose 8 mg in 250 mls @ 5.606 mls/hr 02/03/25 06:02 02/09/25 10:58 Levophed In D5w 8mg/250ml IV 03/05/25 06:01 0.05 mcg/kg/min .Q24H PRN 5.606 mls/hr PER PROTOCOL Titration Protocol 0.05 MCG/KG/MIN Dexmedetomidine/Sodium Chloride 400 mcg in 100 mls @ 2.99 mls/hr 02/03/25 06:51 02/08/25 08:26 Precedex Ivpb IV 03/05/25 06:50 0 mcg/kg/hr .Q24H PRN 0 mls/hr Per PROTOCOL Titration Protocol 0.2 MCG/KG/HR Piperacillin/Tazobactam/Dextrose 2.25 gm in 50 mls @ 100 mls/hr 02/03/25 12:00 02/09/25 06:01 Zosyn IV 02/10/25 11:59 Infused Q6HR JAYRO Infusion Vasopressin/Sodium Chloride 20 unit in 100 mls @ 9 mls/hr 02/03/25 16:15 02/09/25 10:36 Vasostrict/Ns Ivpb IV 03/05/25 16:14 0.01 unit/min .Q11H7M PRN 3 mls/hr PER PROTOCOL Titration Protocol 0.03 UNIT/MIN Albumin Human 25 gm in 100 mls @ 100 mls/min 02/07/25 09:53 02/08/25 07:00 Albuminar-25 Ivpb IV Infused PRN PRN Infusion DIALYSIS Lactulose 45 gm 02/09/25 09:15 02/09/25 09:07 Lactulose Syrup 20 Gm/30 Ml Udc NG 03/11/25 08:59 45 gm QID JAYRO Administration Protocol Midazolam HCl 2 mg 02/05/25 07:32 02/06/25 02:22 Midazolam Inj 1 Mg/Ml Vial 2 Ml IVP 02/10/25 07:31 2 mg Q4H PRN Administration AGITATION OR ANXIETY Ondansetron HCl 4 mg 02/03/25 02:03 Ondansetron Inj 2 Mg/Ml Inj 2 Ml IVP 03/05/25 02:02 Q6HR PRN NAUSEA OR VOMITING Protocol Pantoprazole Sodium 40 mg 02/03/25 09:00 02/09/25 08:05 Pantoprazole Inj 40 Mg Vial IVP 03/05/25 08:59 40 mg QDAY JAYRO Administration Pharmacy Consult 1 each 02/03/25 02:03 Pharmacy Renal Dose Adjustment 1 Ea XX 03/05/25 02:02 PRN PRN CONSULT Rifaximin 550 mg 02/09/25 09:45 02/09/25 09:42 Rifaximin 550 Mg Tablet NG 02/16/25 09:29 550 mg BID JAYRO Administration Plan Ms Merino, is a 69 yo woman with an unknown PMH who was admitted to the ICU for management of distributive shock. Pt was intubated in the ED. AGMA 2/2 Lactic acid now downtrending to 6 today. Pt remains on pressors, levofed and vasopressin, weening. Nephrology consulted. CRRT , with improvement in lactic acid. GNR bacteremia. LFTs downtrending, s/p ex lap with dr serraon, no ischemic bowel found. No HD today. #Anion Gap Metabolic Acidosis 2/2 lactic acidosis Lactic acidosis 5.6 from 7.2 CRRT: 02/03 started at 2100, will continue 02/04 for ~24 hrs of HD, 02/06 (conventional HD) , 02/07 PLAN: -NO HD today #HIRA #query ATN type 1 vs hepatorenal syndrome given pt is in shock, cannot dx hepatorenal syndrome. pt remains on pressors see #septic shock below on 02/04 Cr. 0.9 from 1.4 , BUN 6 from 14 on 02/05 Cr 0.8, BUN <5, minimal UOP 40. on 02/06 Cr 1.8, BUN 11, minimal UOP on 02/07 Cr 1.9, BUN 11, minimal UOP on 02/08 Cr 2.2, BUN 23, minimal UOP on 02/09 Cr 3.0, BUN 43, minimal UOP, greco removed Dx - UA with 1+ protein, 2+ RBC - Urine protein Cr ratio 0.807 - strict I and O, pt has greco - renally dose medications - avoid nephrotoxic agents #Septic Shock #query 2/2 SBP vs UTI #GNR bacteremia 2/2- E Coli sofa score: 13 end organ damage: shock liver, >>LFTs 2/2 shock, acute elevation in troponin 0.077 (no st elevations or depressions on EKG) continues to uptrend, 0.369 BP 70s /40s, procal 7.74, febrile on admission on 02/04 SBP from art line 110s decreased pressure requirement on 02/05 pt remains on pressers, Lactic acid uptrending, 5.1 to 6.3. Greco catheter in place draining dark urine with blood, UOP ~40 cc arterial line in place Dx - UA with 4+ biliruben, Leuk est + and nitrities + with WBC 80 and 4+ bacteria - Urine Cx- ecoli - Blood culture ecoli - paracentesis fluid analysis: Alb 1.3, WBC 18% Tx - on vanc and zosyn - on pressors per ICU team - ICU to manage #Cirrhosis #Acute ischemic hepatitis/shock liver - resolving #Acites, SAAG >1.1 #query malignancy given numerous liver masses on CTAP acute rise in LFT likely 2/2 to hypotension in setting of septic shock coagulopathy with elevated PT, INR, PTT thrombocytopenia with PLT 14 pt is severely jaundiced on exam, sclera icteric, +abdominal fluid wave Dx - Abdominal US with mild ascites, cirrhosis, - hepatitis panel negative - Utox negative, etoh negative - Tumor markers: AFP wnl, CEA wnl Tx - albumin 25 bid #ischemic bowel ruled out abdomen tense and distended, CTAP with ischemic bowel. - s/p ex lap with dr. Serrano, no ischemic bowel found #electrolyte abnormalities #acute hypoxic respiratory failure- intubated #acute encephalopathy (query etiology 2/2 sepsis vs shock vs acidosis) #Facial trauma 2/2 fall with headstrike, no fractures #L orbital eye contusion #Tooth fractures #macrocytic anemia - b12 elevated>>> - folate wnl Plan discussed with nephrology attending Dr. Bin Sagastume MD Internal Medicine PGY-1 Attending Provider Attestation/Addendum Patient seen and examined with resident physician Dr. Larsen. Note reviewed, agree with findings and recommendations. Patient with septic shock, intractable lactic acidosis and HIRA. Decided to proceed with CRRT. She is currently on 2 pressors. Remains on ventilator. Currently in ICU. Patient received 2 CRRT, 3 IHD sessions so far. Lactic acid improving. Hold off on dialysis today. Will monitor renal function and urine output closely 02/09/2025 patient remains in ICU. Multisystem organ failure- Hypoxic respiratory failure-on ventilator Ischemic liver No Ischemic colitis- Dr. serrano took her for exploratory laparotomy Sepsis needing pressors Acute renal failure needing dialysis no family around. No one want to make medical decisions for her. Critical care time spent 35 minutes regarding plan of care and disease management Spoke to ICU team, Dr. Blake. Next dialysis scheduled for tomorrow CC:
--- NOTE | 2025-02-09 12:31 | PD.INTPROG ---
Documentation for date of: 02/09/25 Subjective Subjective Interval history: This is a 69yo F who was found down at 1am in her house. A neighbor found her on the floor unresponsive and she had apparently fallen and hit her head. EMS was called and the pt was brought into the ER. On arrival she was noted to be altered and febrile with a temp of 105.8. Initial labs showed a metabolic acidosis with appropriate respiratory compensation. She became progressively more lethargic and obtunded as the night progressed. At 6am she was unresponsive and hypotensive. She was given a total of 2.5lts of IVF in the ER and intubated. She was started on vasopressor support and a central line was placed. Pt was brought up to the ICU. A bedside echo was done which showed a hyperdynamic LV with no pericardial effusion. SvO2 was sent off of the brown port from the central line and pt was given vanc/zosyn. A cheeta was placed for hemodynamics and PLR performed. pt was found to not be fluid responsive. There are no family available for additional information. pts s/o 2 months ago and there is no immediate family around. 02/04- overnight dropped h/h , no evidence of active bleed, wakes up but does not follow commands, decrease in levo needs today, 1 BM yesterday, no fever overnight, poor UOP 02/05-overnight patient had elevated peak inspiratory pressures on the ventilator. She was also noted to have increased abdominal distention. She has had no bowel movement since arrival. Her vent settings were adjusted on the ventilator and her OG tube was placed to low intermittent suction. There was a total of more than 2 L of fluid immediately suctioned from the patient's stomach consistent of gastric content. She is currently afebrile and continues with no urinary output 02/06-yesterday had a drop in her H&H with worsening coagulopathy. Her abdomen was distended and a CT was performed. This showed ischemic colitis along with question of small bowel ischemia. Surgery was consulted. Her lactic acid remains elevated, she is coagulopathic, she had a drop in her fibrinogen and platelets. FFP's, cryo, platelets and PRBCs were ordered for her. She remains anuric and when sedation is lightened she remains minimally responsive 02/08- no acute overnight events, remains virtually anuric, meeting held with representatives this morning. 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 This morning she remains jaundiced on minimal vasopressor support and afebrile. Her fentanyl and Precedex were held. On initial exam she had a GCS of 4 however later in the day she began to become more responsive with spontaneous eye opening and spontaneous movement of her right upper extremity though she still does not follow commands. 02/09-no acute overnight events, yesterday afternoon patient began to spontaneously open her eyes though does not appear to track as of yet. Did not follow commands. Patient is still virtually anuric and she is afebrile. Patient went to the OR yesterday for evaluation of ischemic bowel. The patient underwent an ex lap and there was no significant findings per surgery. She was closde and returned to the ICU. Critical Care Note Critical care time (min.): 48 Exam Vital Signs Temp Pulse Resp BP Pulse Ox O2 Del Method O2 Flow Rate 98.4 F 82 21 H 98/65 92 L Mechanical Ventilation 11 02/09/25 12:00 02/09/25 12:00 02/09/25 12:00 02/09/25 12:00 02/09/25 12:00 02/09/25 12:00 02/06/25 07:07 FiO2 30 02/09/25 12:00 Narrative Exam General-intubated, off sedation, opens eyes spontaneously, moves right upper extremity spontaneously, obese, no acute distress, jaundice HEENT-normocephalic, atraumatic, sclera icteric, pupils small and sluggish, oral mucosa is hydrated, ET tube and OG tube in place Chest-lungs clear but coarse at bases, no wheezing, no crackles, heart rate regular and rhythmic, no increased work of breathing Abdomen-soft, no apparent pain on palpation, bowel sounds very sluggish, surgical dressing in place with no significant drainage Extremities-edema, pulses palpable, no clubbing, no mottling, generalized weakness Vent AC VC Physical Exam Completion Physical Exam Complete?: Yes 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 Labs 02/09/25 04:48 02/09/25 04:48 Labs: Laboratory Results - last 24 hr 02/07/25 02/08/25 02/08/25 19:34 16:19 20:32 WBC 7.3 RBC 2.92 L Hgb 9.2 L Hct 27.9 L MCV 96 MCH 31.5 MCHC 33.0 RDW Std Deviation 86.3 H Plt Count 39 L D Neut % (Auto) 87 H Lymph % (Auto) 5 L [place] % (Auto) 6 Eos % (Auto) 0 Baso % (Auto) 1 Neut # (Auto) 6.4 Lymph # (Auto) 0.3 L [place] # (Auto) 0.4 Eos # (Auto) 0.0 Baso # (Auto) 0.0 Immature Gran # (Auto) 0.12 H Absolute Nucleated RBC 0.00 Immature Gran % 2 H Nucleated RBC % 0 Puncture Site Arterial Line ABG pH 7.40 ABG pCO2 41 ABG pO2 205 H D ABG HCO3 25 ABG O2 Saturation 100 H ABG Base Excess 1 FiO2 21 Sodium 137 Potassium 4.2 Chloride 98 Carbon Dioxide 23.9 Anion Gap 15 BUN 29 H Creatinine 2.6 H Estim Creat Clear Calc 16.9 L eGFR 19 L BUN/Creatinine Ratio 11 L Glucose 137 H Calculated Osmolality 281 Lactic Acid 4.0 H 3.9 H Calcium 8.2 L Corrected Calcium 9.0 Total Bilirubin 17.9 H D AST 394 H ALT 210 H Alkaline Phosphatase 59 Total Protein 5.2 L Albumin 3.0 L D Globulin 2.2 L Albumin/Globulin Ratio 1.4 Misc Test Result Platelets confirmed Blood Type O Positive Antibody Screen NEGATIVE Blood Bank Wristband ID Yes Blood Bank Comment PLATP Ready 02/09/25 02/09/25 04:44 04:48 WBC 11.6 H D RBC 2.98 L Hgb 9.5 L Hct 28.7 L MCV 96 MCH 31.9 MCHC 33.1 RDW Std Deviation 86.9 H Plt Count 49 L D Neut % (Auto) 88 H Lymph % (Auto) 5 L [place] % (Auto) 5 Eos % (Auto) 0 Baso % (Auto) 1 Neut # (Auto) 10.2 H Lymph # (Auto) 0.6 L [place] # (Auto) 0.5 Eos # (Auto) 0.0 Baso # (Auto) 0.1 Immature Gran # (Auto) 0.17 H Absolute Nucleated RBC 0.00 Immature Gran % 2 H Nucleated RBC % 0 Puncture Site Right Femoral ABG pH 7.43 ABG pCO2 40 ABG pO2 62 L D ABG HCO3 26 ABG O2 Saturation 92 ABG Base Excess 2 FiO2 21 Sodium 136 Potassium 4.4 Chloride 97 L Carbon Dioxide 24.7 Anion Gap 14 BUN 43 H Creatinine 3.0 H Estim Creat Clear Calc 14.7 L eGFR 16 L BUN/Creatinine Ratio 14 Glucose 159 H Calculated Osmolality 285 Lactic Acid Calcium 8.6 Corrected Calcium 9.2 Total Bilirubin 21.1 H* D AST 352 H ALT 210 H Alkaline Phosphatase 65 Total Protein 5.7 Albumin 3.2 L Globulin 2.5 Albumin/Globulin Ratio 1.3 Misc Test Result Platelets confirmed Blood Type Antibody Screen Blood Bank Wristband ID Blood Bank Comment Assessment & Plan Additional Plan Additional Plan: In brief this is a 69yo F admitted to the ICU with 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 on vanc/zosyn, likely sepsis, bcx, sputum and ucx taken and pending. LA elevated -> given IVF - on levophed and vasopressin minimal doses-> continue to wean as able - Bcx with E.coli - LA cleared with CRRT -Patient went to the OR on 02/08 with no identifiable bowel ischemia found - Lactic acid has trended down Tropinemia- likely related to demand ischemia, fu on repeat, EKG without ST elevation or depression - minimally elevated in setting of HIRA and shock - echo done and shows diastolic dysfunction with a normal EF and no wall motion abnormality - Improved Resp Acute resp failure- intubated and on MV, fu with ABG and CXR - ween as able - Plateau pressures less than 30 - Improving Renal HypoNa- mild, monitor, in the setting of cirrhosis AGMA- 2/2 LA - Continues to have an elevated lactate -Check abdomen/pelvis CT with IV contrast to evaluate for source-> appears to have ischemic colitis as well as possible small bowel ischemia HIRA- minimal UOP, monitor i/os - check urine lytes - has received IVF - Patient for hemodialysis -Still anuric -Followed by nephrology -Net +8 L since hospital arrival HypoMg-repleted GI Cirrhosis- started on lactulose and rifaxamin - elevated LFTs-> ? 2/2 ischemic hepatitis - check viral hep panel-> NTD - alcohol level added on->NTD -Trending back down - Total bili remains elevated at 21.2 today concern for the possibility of kernicterus - Will start Colesytramine Liver masses- check an AFP, will need eval for HCC hypoalbuminemia- in the setting of cirrhosis - check uprotein/cr ratio Abdominal distention-CT shows bowel ischemia. There appears to be pneumatosis intestinalis of the right colon and there is question of some ischemic changes in the small bowel as well - Surgical consultation was obtained - Patient went to the OR yesterday with no significant findings after ex lap - Today the patient's abdomen is soft - Will start trickle tube feeds once more Endo Hypoglycemia-improved and on as needed D50 - Has been n.p.o. for the last 6 days may require TPN - Will trial tube feeds today Heme Anemia macrocytic- check b12/folate-> wnl - h/h trended down overnight - no overt bleeding noted - ? dilutional v occult bleed - given 2uPRBCs on 02/04 -Given additional 2 PRBCs 02/06 - There has been a small drop in H&H from yesterday this is likely secondary to blood loss from surgery no indication for transfusion today thrombocytopenia- in the setting of sepsis and cirrhosis -Transfused platelets with brief improvement - Stable Coagulopathy- INR elevated - Transfused FFP and cryo - No active bleeding DVT proph- SCDs ID UTI-secondary to E. coli and on Zosyn Sepsis- on zosyn with GNR bacteremia day#7 - Cultures resulted back as E. coli from both blood and urine sensitive to Zosyn - Complete 7 days of antibiotics total case d/w ICU team and nephrology Discussed with surgery labs, imaging, records reviewed ~ 48ccmin required for eval, exam, review, intervention, discussion and formulation of POC for this critically ill pt in septic shock at high risk for further ongoing decompensation Provider Notation Provider Notation: Although this document has been carefully reviewed, there may still be some phonetic and other typographical errors. These errors are purely grammatical due to imperfections in the software program and should not be construed in any way to compromise the substance of the patient's medical care during this visit. Thank you for the opportunity and privilege in assisting you with this patient's care and management.
--- NOTE | 2025-02-09 12:35 | PD.RESPRO ---
Documentation for date of: 02/09/25 Subjective Subjective Interval history: Patient is intubated and mechanically ventilated so most of the history is taken from the chart review. 69-year-old female with unknown past medical history was brought to the hospital in view of altered sensorium. Per nurse, patient probably had a fall the day before admission in the morning following which she was okay until the neighbors blood to recheck her in the evening, found to be unconscious for which they called the EMS and was brought to the hospital. In the ED, patient is minimally responsive with marked icterus and periorbital contusion. Patient was found to be hypoxic with oxygen saturation in the mid 80s and was initially placed on a nonrebreather mask with correction of hypoxia. Later patient was found to be tachycardic with heart rate around 140s and febrile with a temperature of 105.8 ?F. Patient was intubated in view of acute encephalopathy and hypoxia. ICU is consulted in view of acute hypoxic respiratory failure in the setting of acute encephalopathy and suspected septic shock. In the ED, patient received 1 dose of acetaminophen 650 mg per rectum. 1 L LR bolus followed by 1.5 L of NS bolus in view of suspected septic shock. Initial labs revealed hemoglobin 10.9, platelets 61, INR 1.8, sodium 133, bicarb less than 10, anion gap 22, BUN 13, creatinine 1.4, lactic acid 15, magnesium 1.4, total bilirubin 15.9, AST 241, ALT 58, albumin 2.5, procalcitonin 7.47. EKG showed sinus tachycardia with no acute ST and T wave changes chest x-ray showed bilateral increased vascularity. Abdomen/pelvis CT showed cirrhosis, mild to moderate ascites, absent gallbladder. Cervical spine CT, face CT, head CT, thoracic spine CT, lumbar spine CT did not show any acute fractures. Abdominal ultrasound showed no CBD stones. Initial chest x-ray done showed endotracheal tube tip 2.5 cm in the right mainstem bronchus with atelectasis of the left lung following which the endotracheal tube is retacted and repeat chest x-ray was done that showed minor atelectasis of the left base. Patient is admitted to ICU in view of septic shock, possible decompensated cirrhosis, HIRA. 02/04/2025: Patient is seen and examined at bedside in the ICU. Sedated and on mechanical ventilator. Overnight, patient was found to have hypoglycemic episodes blood glucose of 50 for which patient was given D50 twice. Patient was on CRRT throughout the night. Vitals are stable and patient was found to decreased vasopressors since last night. On examination, patient is found to have abdominal distention for which she was kept on low intermittent suction and later was started on trickle feeds. Labs done this morning showed hemoglobin 6.9, platelets 18,000, WBC 12.1, INR 4.7, BUN 6, creatinine 0.9, lactate 8.1, total bilirubin 16.1, AST 2385, ALT 474. Later fibrinogen is ordered to evaluate for DIC. Repeat CBC showed hemoglobin of 6.4 and platelet count of 16. Ordered 2 PRBC, 1 platelet, 3 FFP transfusions. 1 PRBC and FFP's kept on hold. Will repeat H&H after the blood transfusion. Consent for transfusion is taken from her friend Danny, could not get hold of her brother. Will continue CRRT till 7 PM. Will continue to monitor renal and liver function tests. Despite CRRT, patient is likely to have poor prognosis in the setting of acute liver failure and acute kidney failure. 02/05/2025: Patient is seen and examined at bedside in the ICU. No acute overnight events. Still anuric. Patient was on low-dose vasopressors including vasopressin and on Levophed. Early in the morning, patient is noted to have high peak pressures and noted to have severe abdominal distention for which patient was connected to the suction and found to have almost 2 to 2.5 L of residual volume. Vitals are stable. Labs done this morning showed hemoglobin 9, platelets 35, INR 2.2, sodium 135, creatinine 0.8, glucose 108, lactate 5.1, phosphorus 2.2, magnesium 1.4, total bilirubin 15.7, AST 1363, ALT 367. As patient is having abdominal distention and later found to have lactate elevation from 5.1-6.3, also noted to have multiple liver lesions on the CT abdomen/pelvis, suspected to have either malignancy or small bowel obstruction or ongoing ischemia for which repeat CT abdomen/pelvis was done with IV contrast and patient was found to have ischemic colitis in the right colon, prominent pneumonia in the left base. General surgeon, Dr. Rocha was consulted in view of ongoing ischemic colitis, recommended that in view of patient's critical illness we will hold off any surgical procedures for now. Repeat blood work was done around 3:45 PM that showed hemoglobin 7.1, platelets 22, fibrinogen 92, potassium 3.5, bicarb 19.3, creatinine 1, liver enzymes downtrended to AST 835, ALT 250, total bilirubin 11.7. Ordered 2 PRBC, 1 FFP, 1 platelet, 6 cryoprecipitate transfusion in view of suspected possible ongoing DIC. Will transfuse all these blood products which might help in improving the perfusion to the ischemic bowel. Will continue to trend lactate levels and monitor for urine output. Dr. Steward is following the patient and held off CRRT for today and wants to monitor for today. 02/06/2025: Patient is seen and examined at bedside in the ICU. No acute overnight events. Noted no urine output and bowel movements. This morning, patient is noted to have tense abdomen and peak pressures continue to elevate with patient biting the endotracheal tube, likely to have pain from the ischemic colitis. Patient was started on fentanyl drip in view of suspected pain following which the peak pressures came back to normal levels. Overnight, patient is on low-dose vasopressors Levophed 0.03 and vasopressin 0.03. Patient did get only 2 PRBC transfusion overnight. Will give the remaining blood products. Vitals are stable. On physical examination, patient noted to have mottling in bilateral lower extremities with feeble peripheral pulses. Labs done this morning showed hemoglobin 10.2, platelet count 14, WBC 6.5, INR 3.4, PT 34.2, sodium 134, potassium 5.8, creatinine 1.8, glucose 123, lactate 5.6, total bilirubin 18.1, AST 1084, ALT 360. Dr. Steward is following the patient and recommended conventional hemodialysis today at 250 mL/h as patient's blood pressure is stable. Will repeat labs in the afternoon once all the blood products are transfused. General surgeon, Dr. Rocha is following for the possible ischemic colitis and recommended no surgery as of now in view of coagulopathy and low platelet count. Talked to her friend, point of contact Rell Delgado who reported that patient had a son who lives in [facility] but does not have any contact with him and also could not get in contact with her brother who lives in [place]. Still trying to get in contact with her family members for goals of care discussion. In view of ongoing coagulopathy, DIC, acute liver failure, acute kidney failure, patient is likely to have poor prognosis. Will continue to monitor her vitals, labs and try to get in contact with the family for further decision making. Till then, patient will be given full treatment 02/07/2025: Patient is seen and examined at bedside in the ICU. No acute overnight events. Still noted to be anuric and no further bowel movements noted. On physical examination, abdomen appears to be soft today but still no bowel movements are noted. Labs done this morning showed hemoglobin 10.4, platelet count 25, INR 2.9, sodium 134, CRP 1.9, lactate 5, AST 877, ALT 332. ABG is within normal limits. Discussed about patient's condition with general surgeon, Dr. Rocha and he recommended that he can go ahead with the surgery, exploratory laparotomy after correcting her platelet count and INR. Planning to have goals of care discussion tomorrow at 9:30 AM to make a point of contact and decision maker as patient does not have any immediate family available. Still could not get hold of the brother. Ordered 4 units of platelet and 2 FFP's. Planning to transfuse them before the surgery. Patient condition is still critical and had poor prognosis in the setting of decompensated liver cirrhosis. Trying to wean her off the sedation to assess her mentation. Received hemodialysis session today 02/09/2025: Overnight the patient underwent exploratory laparotomy with Dr. Rocha, and no ischemic bowel was found. Patient remains intubated. Precedex drip was turned off and patient was able to open eyes and move extremities spontaneously, but not follow commands. Patient saturates well on pressure support with FiO2 of 30%. Barrier to extubation remains the patient's mental status. Lactulose 45 gm QID was initiated. However later that day, patient was noted to have increasing oral secretions. Additionally vitals were showing elevated HR >110, elevated BP, and patient was visibly breath stacking on the ventilator. Therefore patient NG tube was turned on to low intermittent suction. Given Zofran. Continued suction through the night and held off on PO meds. Patient was also having elevation of HR, BP, and appearing uncomfortable, therefore precedex was turned on again. Patient still had emesis, switched to scheduled metoclopramide 5 mg q8h. Switched to AC/VC mode for overnight. Exam Vital Signs Temp Pulse Resp BP Pulse Ox O2 Del Method O2 Flow Rate 98.4 F 82 21 H 98/65 92 L Mechanical Ventilation 11 02/09/25 12:00 02/09/25 12:00 02/09/25 12:00 02/09/25 12:00 02/09/25 12:00 02/09/25 12:00 02/06/25 07:07 FiO2 30 02/09/25 12:00 Narrative Exam General: Sedated and mechanically ventilated HEENT: Normocephalic, atraumatic, mucous membranes moist.Noted to have right frontal hematoma and ecchymosis on the right eye. Noted to have dislocated teeth. Heart: Regular rate and rhythm, no murmurs. Lungs: Clear to auscultation with no wheezing or crackles.Noted to have decreased breath sounds on the left side Abdomen: Soft, moderately distended, nontender, positive bowel sounds. ?No guarding or rebound tenderness. Neurologic:Sedated and mechanically ventilated Extremities: No edema. Noted all peripheral pulses. noted mottling in the lower extremities Skin: Noted to have ecchymotic patches on the right side of the abdomen and also on the right hand from the IV catheterization Objective Labs 02/11/25 03:03 02/11/25 03:03 Labs: Laboratory Results - last 24 hr 02/07/25 02/08/25 02/08/25 19:34 16:19 20:32 WBC 7.3 RBC 2.92 L Hgb 9.2 L Hct 27.9 L MCV 96 MCH 31.5 MCHC 33.0 RDW Std Deviation 86.3 H Plt Count 39 L D Neut % (Auto) 87 H Lymph % (Auto) 5 L Imperial % (Auto) 6 Eos % (Auto) 0 Baso % (Auto) 1 Neut # (Auto) 6.4 Lymph # (Auto) 0.3 L Imperial # (Auto) 0.4 Eos # (Auto) 0.0 Baso # (Auto) 0.0 Immature Gran # (Auto) 0.12 H Absolute Nucleated RBC 0.00 Immature Gran % 2 H Nucleated RBC % 0 Puncture Site Arterial Line ABG pH 7.40 ABG pCO2 41 ABG pO2 205 H D ABG HCO3 25 ABG O2 Saturation 100 H ABG Base Excess 1 FiO2 21 Sodium 137 Potassium 4.2 Chloride 98 Carbon Dioxide 23.9 Anion Gap 15 BUN 29 H Creatinine 2.6 H Estim Creat Clear Calc 16.9 L eGFR 19 L BUN/Creatinine Ratio 11 L Glucose 137 H Calculated Osmolality 281 Lactic Acid 4.0 H 3.9 H Calcium 8.2 L Corrected Calcium 9.0 Total Bilirubin 17.9 H D AST 394 H ALT 210 H Alkaline Phosphatase 59 Total Protein 5.2 L Albumin 3.0 L D Globulin 2.2 L Albumin/Globulin Ratio 1.4 Misc Test Result Platelets confirmed Blood Type O Positive Antibody Screen NEGATIVE Blood Bank Wristband ID Yes Blood Bank Comment PLATP Ready 02/09/25 02/09/25 04:44 04:48 WBC 11.6 H D RBC 2.98 L Hgb 9.5 L Hct 28.7 L MCV 96 MCH 31.9 MCHC 33.1 RDW Std Deviation 86.9 H Plt Count 49 L D Neut % (Auto) 88 H Lymph % (Auto) 5 L Imperial % (Auto) 5 Eos % (Auto) 0 Baso % (Auto) 1 Neut # (Auto) 10.2 H Lymph # (Auto) 0.6 L Imperial # (Auto) 0.5 Eos # (Auto) 0.0 Baso # (Auto) 0.1 Immature Gran # (Auto) 0.17 H Absolute Nucleated RBC 0.00 Immature Gran % 2 H Nucleated RBC % 0 Puncture Site Right Femoral ABG pH 7.43 ABG pCO2 40 ABG pO2 62 L D ABG HCO3 26 ABG O2 Saturation 92 ABG Base Excess 2 FiO2 21 Sodium 136 Potassium 4.4 Chloride 97 L Carbon Dioxide 24.7 Anion Gap 14 BUN 43 H Creatinine 3.0 H Estim Creat Clear Calc 14.7 L eGFR 16 L BUN/Creatinine Ratio 14 Glucose 159 H Calculated Osmolality 285 Lactic Acid Calcium 8.6 Corrected Calcium 9.2 Total Bilirubin 21.1 H* D AST 352 H ALT 210 H Alkaline Phosphatase 65 Total Protein 5.7 Albumin 3.2 L Globulin 2.5 Albumin/Globulin Ratio 1.3 Misc Test Result Platelets confirmed Blood Type Antibody Screen Blood Bank Wristband ID Blood Bank Comment ABG Interpretation ABG results: 02/03/25 02/03/25 02/03/25 02:47 06:09 07:19 ABG pH 7.25 L 7.00 L* D 7.18 L* D ABG pCO2 18 L* 63 H D 49 H D ABG pO2 192 H 149 H D 168 H ABG HCO3 8 L* 15 L 18 L ABG O2 Saturation 100 H 98 99 H ABG Base Excess -17 L -16 L -10 L VBG pH VBG pCO2 VBG pO2 VBG Base Excess 02/03/25 02/03/25 02/03/25 07:30 13:32 20:35 ABG pH 7.30 L D 7.25 L ABG pCO2 23 L D 23 L ABG pO2 159 H 145 H ABG HCO3 12 L 10 L ABG O2 Saturation 100 H 100 H ABG Base Excess -13 L -16 L VBG pH 7.28 L VBG pCO2 37 VBG pO2 110 H VBG Base Excess -9 L 02/04/25 02/04/25 02/04/25 03:51 06:42 23:10 ABG pH 7.60 H D 7.44 D 7.30 L D ABG pCO2 24 L 36 D 57 H D ABG pO2 150 H 71 L D 78 L ABG HCO3 23 25 28 H ABG O2 Saturation 101 H 95 94 ABG Base Excess 2 0 1 VBG pH VBG pCO2 VBG pO2 VBG Base Excess 02/05/25 02/05/25 02/05/25 01:20 04:34 09:20 ABG pH 7.40 D 7.42 7.39 ABG pCO2 45 D 44 44 ABG pO2 69 L 100 D 74 L D ABG HCO3 28 H 29 H 27 H ABG O2 Saturation 94 99 H 95 ABG Base Excess 3 4 H 2 VBG pH VBG pCO2 VBG pO2 VBG Base Excess 02/06/25 02/06/25 02/07/25 04:50 09:19 04:55 ABG pH 7.27 L D 7.30 L 7.45 D ABG pCO2 51 H 46 33 D ABG pO2 69 L 70 L 88 ABG HCO3 23 23 23 ABG O2 Saturation 92 93 98 ABG Base Excess -4 L -4 L -1 VBG pH VBG pCO2 VBG pO2 VBG Base Excess 02/08/25 02/08/25 02/09/25 04:10 16:19 04:44 ABG pH 7.39 7.40 7.43 ABG pCO2 45 D 41 40 ABG pO2 73 L 205 H D 62 L D ABG HCO3 27 H 25 26 ABG O2 Saturation 94 100 H 92 ABG Base Excess 2 1 2 VBG pH VBG pCO2 VBG pO2 VBG Base Excess Quality Measures Quality Measures sepsis Current suspected stage: ruled out Possible source: genitourinary Blood cultures ordered: yes Antibiotic ordered: No Advance care planning discussed with:: patient Assessment & Plan Assessment Current Active Medications: Generic Name Dose Route Start Last Admin Trade Name Freq PRN Reason Stop Dose Admin Acetaminophen 650 mg 02/03/25 07:33 Acetaminophen Supp 650 Mg Supp [place] 03/05/25 07:32 Q4HR PRN PAIN SCALE 1-3 (mild Cholestyramine Resin 1 pkt 02/09/25 09:45 02/09/25 09:42 Cholestyramine/Sucrose 1 Pkt Ea NG 03/11/25 09:44 1 pkt BID JAYRO Administration Heparin Sodium (Porcine) 3,000 unit 02/04/25 10:06 02/07/25 12:20 Heparin Sod Inj 1000 Unit/Ml Vial 10 Ml INDWELLCAT 02/18/25 10:05 3,000 unit PRN PRN Administration HD catheter Dexmedetomidine/Sodium Chloride 400 mcg in 100 mls @ 2.99 mls/hr 02/03/25 06:51 02/08/25 08:26 Precedex Ivpb IV 03/05/25 06:50 0 mcg/kg/hr .Q24H PRN 0 mls/hr Per PROTOCOL Titration Protocol 0.2 MCG/KG/HR Piperacillin/Tazobactam/Dextrose 2.25 gm in 50 mls @ 100 mls/hr 02/03/25 12:00 02/09/25 12:28 Zosyn IV 02/10/25 11:59 Infused Q6HR JAYRO Infusion Vasopressin/Sodium Chloride 20 unit in 100 mls @ 9 mls/hr 02/03/25 16:15 02/09/25 11:07 Vasostrict/Ns Ivpb IV 03/05/25 16:14 0 unit/min .Q11H7M PRN 0 mls/hr PER PROTOCOL Titration Protocol 0.03 UNIT/MIN Albumin Human 25 gm in 100 mls @ 100 mls/min 02/07/25 09:53 02/08/25 07:00 Albuminar-25 Ivpb IV Infused PRN PRN Infusion DIALYSIS Norepinephrine/Dextrose 8 mg in 250 mls @ 6.056 mls/hr 02/09/25 11:25 Levophed In D5w 8mg/250ml IV 03/05/25 06:01 .Q24H PRN PER PROTOCOL Protocol 0.05 MCG/KG/MIN Lactulose 45 gm 02/09/25 09:15 02/09/25 11:12 Lactulose Syrup 20 Gm/30 Ml Udc NG 03/11/25 08:59 45 gm QID JAYRO Administration Protocol Midazolam HCl 2 mg 02/05/25 07:32 02/06/25 02:22 Midazolam Inj 1 Mg/Ml Vial 2 Ml IVP 02/10/25 07:31 2 mg Q4H PRN Administration AGITATION OR ANXIETY Ondansetron HCl 4 mg 02/03/25 02:03 Ondansetron Inj 2 Mg/Ml Inj 2 Ml IVP 03/05/25 02:02 Q6HR PRN NAUSEA OR VOMITING Protocol Pantoprazole Sodium 40 mg 02/03/25 09:00 02/09/25 08:05 Pantoprazole Inj 40 Mg Vial IVP 03/05/25 08:59 40 mg QDAY JAYRO Administration Pharmacy Consult 1 each 02/03/25 02:03 Pharmacy Renal Dose Adjustment 1 Ea XX 03/05/25 02:02 PRN PRN CONSULT Rifaximin 550 mg 02/09/25 09:45 02/09/25 09:42 Rifaximin 550 Mg Tablet NG 02/16/25 09:29 550 mg BID JAYRO Administration Plan 69-year-old female with unknown past medical history was brought to the hospital in view of altered sensorium. Per nurse, patient probably had a fall the day before admission in the morning following which she was okay until the neighbors blood to recheck her in the evening, found to be unconscious for which they called the EMS and was brought to the hospital. In the ED, patient is minimally responsive with marked icterus and periorbital contusion. Patient was found to be hypoxic with oxygen saturation in the mid 80s and was initially placed on a nonrebreather mask with correction of hypoxia. Later patient was found to be tachycardic with heart rate around 140s and febrile with a temperature of 105.8 ?F. Patient was intubated in view of acute encephalopathy and hypoxia. ICU is consulted in view of acute hypoxic respiratory failure in the setting of acute encephalopathy and suspected septic shock. [employer] # Acute encephalopathy Differential diagnosis: Septic encephalopathy versus hepatic encephalopathy versus metabolic versus sedation versus multifactorial -Septic encephalopathy: Patient is found to have temperature of 105.8 degrees on heat at the time of admission. Could be possible cause of septic encephalopathy - Hepatic encephalopathy. Patient has stigmata of chronic liver failure. Icterus, appears chronically ill, ascites. - Metabolic encephalopathy: Patient was found to have high anion gap metabolic acidosis with lactic acidosis at the time of presentation. -Sedation: Patient received rocuronium and propofol for the intubation. In the setting of the liver failure, there will be decreased platelets that could cause the sedation but patient was noted to be in altered sensorium even before coming to the hospital. So less likely the cause of acute encephalopathy Diagnosis: - In the ED, temperature is 105.8 ?F - Labs showed bicarb less than 10, anion gap 22, lactic acid 15, total bilirubin 15.9, AST 241, ALT 58 - CT head did not show any evidence of fracture/hemorrhage. Plan: - Started on empiric antibiotics, Zosyn 2.25 g every 8 hourly [02/03- - Started on lactulose 30 g 3 times daily and increased to 45 g 3 times daily as of 02/04/2025, rifaximin 550 Mg twice daily, held as of 02/05/2025 as patient developed ischemic colitis - Currently on Precedex and fentanyl drip, will wean off if patient becomes hemodynamically stable and underlying condition is improving - For metabolic acidosis, patient was given multiple doses of bicarb despite which patient remained acidotic and was started on CRRT and was stopped on 02/04/2025 around 7PM CVS # Shock Differential diagnosis: Distributive versus hypovolemic versus obstructive versus cardiogenic - Distributive: Likely sepsis. Patient does not have any hives or airway edema which rules out anaphylaxis. Patient was noted to have temperature of 105.8 ?F with E.coli bacteremia. - Hypovolemic: History is unknown. No evidence of any recent severe GI bleed or active bleeding noted. - Obstructive versus cardiogenic:. Bedside echocardiogram was done and heart appears to be hyperdynamic without any evidence of cardiac tamponade or RV strain Diagnostic test: - Patient was found to have low MAP less than 65 mmHg despite fluid resuscitation - In the ED, temperature is 105.8 ?F - Labs showed bicarb less than 10, anion gap 22, lactic acid 15, total bilirubin 15.9, AST 241, ALT 58 - Procalcitonin is 7.47 - Blood cultures showed Gram negative bacteremia, E.coli bacteremia Plan: - Started on Zosyn [02/03- - 2.5 L of bolus was given in the ED - NICOM done at the bedside showed unresponsiveness to the fluid - Started on Levophed and vasopressin in view of low MAP - Started on albumin 25 g IV every 6 hourly, stopped as of 02/06/2025, will restart if needed - Arterial line is placed to measure blood pressure accurately - Patient was given a dose of hydrocortisone 100 mg and started on Hydrocortisone 50mg IV every 6th hrly on 02/03 --> changed to every 12th hrly as of 02/06/2025 # Sinus tachycardia, resolved - At the time of admission, patient was found to have pulse rate of 138 - EKG showed sinus tachycardia with no ST and T wave changes - Likely in response to the febrile episode. Later as patient is started on levophed, found to be tachycardic which is likely due to vasopressors Plan: - Patient was given 2.5 L of IV fluid bolus - Will continue telemetry monitoring # Elevated troponins, downtrended Likely in the setting of demand ischemia -Troponin at the time of admission is 0.077, later downtrended - EKG showed sinus tachycardia with no ST and T wave changes - Will continue Telemetry monitoring - Very low suspicion of ACS at this point of time Respiratory # Acute hypoxic respiratory failure Likely multifactorial, in the setting of Acute encephalopathy and Sepsis - Patient came in with altered sensorium and found aline having mixed metabolic and respiratory acidosis - ABG at the time of admission is pH 7.25, pCO2 18, HCO3 8 - Patient is intubated in the ED for which she received Rocuronium and propofol Plan - Will continue mechanical ventilation - Will treat the underlying sepsis and shock - On precedex and fentanyl drip, trying to wean her off. GI # Decompensated Cirrhosis with Ascites, 2/2 Alcohol # Hyperbilirubinemia # Hypoalbuminemia - Patient came in altered sensorium and couldnt get much history - Noted icterus and abdominal distension at the time of admission - Labs showed hyperbilirubinemia, 15.9, AST 241, ALT 58, albumin 2.5, INR 1.8 - Noted to have previous history of hemorrhoids - CT Abdomen showed cirrhosis with ascites - MELD score is 29, 27 to 32% mortality in the next 90 days - Child class C Plan - Ordered hepatitis panel, came back negative - Patient appears to have poor prognosis in the setting of high MELD score and Trista class C - If the patient improves after this acute setting, will recommend to follow-up for the liver transplant. - Started octreotide drip at the time of admission on 02/03 and stopped on 02/05/2025 # Transaminitis - At the time of admission, AST is 241, ALT is 58 --> 02/06, AST 1084, ALT 360 -->02/07, 872, 332 - Repeat liver panel showed significant elevations transaminase levels to 696, 145 and uptrended to 2385 and 474, downtrended to 835, 250 as of 02/05/2025 as of 02/05/2025 - Likely patient had ischemic hepatitis in the setting of ongoing shock Plan - Patient is on CRRT in view of multiorgan dysfunction from 02/03/2025 - 02/04/1025 for about more than 20hours - Will continue to monitor liver enzymes # Hypoalbuminemia - Albumin at the time of admission is 2.5 - Patient was given 50 g of albumin at the time of admission Plan - Patient is on 25 g albumin IV every 6 hourly, 02/03 - 02/06 - Will restart as needed # Incidental finding, numerous liver masses noted on CT abdomen/pelvis - Patient was noted to have numerous liver lesions, subcentimeter masses on CT abdomen/pelvis done at the time of admission - Could be possible malignancy in the setting of cirrhosis - Tested negative for CEA, Alpha fetoprotein Plan - CT abdomen/pelvis with contrast on 02/05/2025 that showed - liver is replaced with numerous subcentimeter liver lesions # Suspected ischemic colitis - Patient was found to have abdominal distention with high peak pressures noted on the ventilator on 02/05/2025 - OG tube was connected to the low intermittent suction and was found to have 2.5 L of fluid - Also noted to have lactate elevation from 5.1-6.3 Plan - CT abdomen/pelvis was done that showed ischemic bowel, right colon, air droplets in the wall of the bowel and projecting outside the wall of the right colon - Also abnormal small bowel loops fluid distended with wall thickening is noted - General Surgeon, Dr. Rocha is consulted and he recommended no surgical intervention as of now in view of patient's clinical condition and severe coagulopathy in the setting of ongoing sepsis and severe liver failure Renal # Acute kidney injury - Baseline creatinine is 0.6 - Creatinine at the time of admission is 1.4 and patient appears to be anuric with urine output less than 50 mL in the last 24 hours - Repeat renal functions as of 02/05/2025 showed BUN 5, Cr 1 - Likely in the setting of ongoing shock, HRS cannot be ruled out at this time as the patient is having shock Plan - Dialysis catheter was placed in the right femoral vein - Dredge Worker, Dr. Steward is consulted and Received CRRT on 02/03 - 02/04 - Urine electrolytes sent, FeNa is 0.5 --> Likely prerenal in the setting of Shock - Conventional HD as of 02/06/2025, 02/07/2025 - Will continue to monitor renal functions and renally dose medications # High anion gap metabolic acidosis, resolved # Lactic acidosis, resolving - Likely in the setting of ongoing shock and multiorgan dysfunction - Found to have bicarb less than 10, anion gap 22, lactate 15 at the time of admission --> 02/06, 3.9 Plan - Patient was given 2 doses of bicarb at the time of admission - Patient received CRRT - Despite CRRT patient appears to have uptrending lactate for which CT abdomen/pelvis is done and revealed ischemic colitis - Dr. Rocha is consulted and he recommended he might perform surgery tomorrow if the coagulation and platelet count is corrected - Will continue to monitor renal functions and trend lactate # Mild hyponatremia, resolved - Sodium at the time of the admission is 133 likely in the setting of chronic liver disease and ongoing HIRA - Sodium levels as of 02/05/1025 is 139 Plan - Will monitor sodium levels and treat accordingly # Hypomagnesemia, resolved - Magnesium at the time of admission is 1.4, likely nutritional in the setting of suspected chronic liver disease - Magnesium as of today is 2.4 Plan - Will continue to monitor the magnesium levels Hematology # Thrombocytopenia - Platelets at the time of admission is 61,000 but patient does not appear to be actively bleeding at this point of time - Likely in the setting of sepsis and chronic liver disease - Platelets on 02/04/2025 is 16,000 --> 02/05, 22,000 --> 02/06, 20,000 Plan - 1 platelet transfusion is given on 02/04 - Transfused 1 unit of platelets on 02/06 - Will continue to monitor the platelet count and bleeding manifestations # Anemia - Hemoglobin at the time of admission is at 10.9, but her baseline hemoglobin is around 8, the hemoglobin in the admission could be due to some hemoconcentration - Hemoglobin on 02/04/2025 is 6.9, repeat hemoglobin is 6.4 - Monitor could be multifactorial, likely in the setting of multiple build with the dose and correction of hemoconcentration, suspicion of possible DIC - Hb as of 02/05 is 7.1 --> 02/06, 10.2 Plan - 2 PRBC transfusion given on 02/04 - Started on 2 PRBC transfusion on 02/05 - Will repeat H&H after the transfusion # Coagulopathy - INR at the time of admission is 1.8 - INR on 02/04/2025 is 4.7 ---> 2.2 on 02/05 --> 02/06, 3.4 - Likely multifactorial in the setting of sepsis, decompensated liver disease, suspected possible DIC - Currently patient does not noted to have any active bleeding manifestations Plan - Ordered 4 FFP's on 02/04 and 3 FFP's are transfused - Each bag contains 300 mL and patient weighs around 60 kg - Per calculation, patient needs 15 mL/kg-so patient needs 900 mL of FFP's - 1 FFP is transfused on 02/06 - Will repeat coagulation studies # Suspected DIC - Likely multifactorial in the setting of liver disease, sepsis - Patient might be having coagulopathy from the liver disease, completely cannot be ruled out but as the patient developing worsening INR, low platelet count, anemia, suspecting DIC Plan - Fibrinogen levels are ordered - 116 on 02/04, 92 on 02/05 - Patient received 2 PRBC, 3 FFP, 1 Platelet on 02/04 - 2 PRBC, 1 FFP, 1 platelet transfusion, 6 Cryoprecipitates are ordered on 02/05, received all of them except 2prbc on 02/06 - Will repeat CBC and coagulation studies after the transfusions - Will continue to monitor for bleeding manifestations and we will try to treat the underlying condition. ID # Sepsis - Blood cultures showed GNR bacteremia, E.coli Plan - Started on Zosyn, sensitive on cultures - Will wait for final cultures Musculoskeletal # No active problems as of now Endocrinology # No acute problems as of now Hospital Maintenance: Dispo: ICU for septic shock DVT ppx: SCD GI ppx: Protonix Diet: npo IV lines: Right IJV CENTRAL line, Right femoral arterial and dialysis catheter Code status: Full Patient plan of care was discussed with the attending preschool aide Dr. Blake. Tracey Barnes, PGY-3
--- NOTE | 2025-02-09 13:03 | PC.NURSE ---
pt having moderate amount of clear secretions from mouth, pt heart increased to 90s, Dr. Barnes notified, pt NG currently clamped per juaquin Luna, no orders received at this time
--- NOTE | 2025-02-09 14:57 | PC.NURSE ---
at 1456, Dr. Barnes notified of pt vomit, pt NG set to LIS per orders
[2025-02-09] MEDS: DEXMEDETOMIDINE 400 MCG IVPB 400 MCG/100 ML BAG IV ×2 (16:53→17:02)
[2025-02-09] MEDS: METOCLOPRAMIDE INJ 5 MG/ML VIAL 2 ML IVP (21:04)
[2025-02-10] VITALS (109 sets, daily range): BP systolic 0–192; BP diastolic 0–123; PULSE 73–120; RESP 13–37; TEMP 37–37.9; O2SAT 91–100; BMI 28.7
[2025-02-10 05:02] LABS: Base Excess 1 (-3-3); HCO3 25 mEq/L (20-26); Inspired Oxygen, FIO2 97 %; O2 Saturation 96 % (91-98); PCO2 36 mmHg (32.0-48.0); PO2 77 mmHg (83-108); pH, Arterial 7.44 (7.35-7.45)
[2025-02-10 05:03] LABS: Allen Test Not Performed
[2025-02-10 05:11] LABS: Puncture Site Right Femoral
[2025-02-10] MEDS: LACTULOSE SYRUP 20 GM/30 ML UDC 45 GM NG ×2 (05:35→21:55)
[2025-02-10] MEDS: PIPER/TAZO 2.25 GM 2.25 GM/50 ML BAG IV (05:36)
[2025-02-10] MEDS: METOCLOPRAMIDE INJ 5 MG/ML VIAL 2 ML IVP ×3 (05:36→21:55)
[2025-02-10 06:20] LABS: Basophils # (Auto) 0.2 Thou/mm3 (0.0-0.2); Basophils % (Auto) 1 % (0-2.5); Eosinophils # (Auto) 0.0 Thou/mm3 (0.0-0.5); Eosinophils % (Auto) 0 % (0-10); Hematocrit 29.8 % (36.0-46.0); Hemoglobin 10.0 g/dL (12.0-16.0); Immature Granulocytes Auto 0.45 Thou/mm3 (0.00-0.00); Lymphocytes # (Auto) 0.6 Thou/mm3 (1.0-4.8); Lymphocytes % (Auto) 3 % (10-50); Mean Corpuscular HGB Conc 33.6 g/dl (31.0-37.0); Mean Corpuscular Hemoglobin 32.2 pg (25.0-35.0); Mean Corpuscular Volume 96 fL (80-100); Monocytes # (Auto) 0.8 Thou/mm3 (0.0-0.8); Monocytes % (Auto) 4 % (0-12); Neutrophils # (Auto) 17.5 Thou/mm3 (1.8-7.7); Neutrophils % (Auto) 90 % (37-80); Nucleated Red Blood Cell # 0.00 Thou/mm3 (0.00-0.00); Nucleated Red Blood Cell % 0 /100 WBC (0); RDW Standard Deviation 86.1 fL (36.4-46.3); Red Blood Count 3.11 Miln/mm3 (4.00-5.20); White Blood Count 19.5 Thou/mm3 (3.6-11.0)
--- NOTE | 2025-02-10 06:29 | PC.NURSE ---
DR. ARANGO NOTIFIED OF PT'S NO BOWEL MOVEMENT, NO NEW ORDER.
[2025-02-10 06:58] LABS: Platelet Count 34 Thou/mm3 (140-440)
[2025-02-10 07:11] LABS: Alanine Aminotransferase 205 U/L (10-49); Albumin, Serum 3.3 gm/dL (3.4-4.8); Albumin/Globulin Ratio 1.1 (1.2-2.2); Alkaline Phosphatase 97 U/L (46-116); Anion Gap 20 (7-16); Aspartate Amino Transferase 256 U/L (0-34); BUN/Creatinine Ratio 21 Ratio (12-20); Blood Urea Nitrogen 68 mg/dL (9-23); Calcium 9.2 mg/dL (8.3-10.6); Calcium (Corrected) 9.8 mg/dL (8.5-10.1); Carbon Dioxide 22.4 mMol/L (20.0-31.0); Chloride 98 mMol/L (98-107); Creatinine (Component) 3.3 mg/dL (0.6-1.3); Estimated Creatinine Clearance 13.3 mL/min (>60); Globulin 3.1 gm/dL (2.3-3.5); Glucose 167 mg/dL (74-106); Osmolality,Calculated 303 (275-295); Potassium 4.1 mMol/L (3.4-5.1); Sodium 140 mMol/L (136-145); Total Protein 6.4 gm/dL (5.7-8.2); eGFR 15 See Note
[2025-02-10 07:18] LABS: Bilirubin,Total 26.4 mg/dL (0.3-1.2)
[2025-02-10 07:48] LABS: Slide Review Platelets confirmed
[2025-02-10] MEDS: OCTREOTIDE ACET INJ 1,000 MCG in SODIUM CHLORIDE 0.9% 100 ML 5.1 MCG IV (09:14)
[2025-02-10 09:37] LABS: Basophils # (Auto) 0.1 Thou/mm3 (0.0-0.2); Basophils % (Auto) 0 % (0-2.5); Eosinophils # (Auto) 0.0 Thou/mm3 (0.0-0.5); Eosinophils % (Auto) 0 % (0-10); Hematocrit 28.2 % (36.0-46.0); Hemoglobin 9.4 g/dL (12.0-16.0); Immature Granulocytes Auto 0.33 Thou/mm3 (0.00-0.00); Lactate (Lactic Acid) 5.5 mMol/L (0.4-2.0); Lymphocytes # (Auto) 0.4 Thou/mm3 (1.0-4.8); Lymphocytes % (Auto) 2 % (10-50); Mean Corpuscular HGB Conc 33.3 g/dl (31.0-37.0); Mean Corpuscular Hemoglobin 31.4 pg (25.0-35.0); Mean Corpuscular Volume 94 fL (80-100); Monocytes # (Auto) 0.6 Thou/mm3 (0.0-0.8); Monocytes % (Auto) 4 % (0-12); Neutrophils # (Auto) 14.8 Thou/mm3 (1.8-7.7); Neutrophils % (Auto) 91 % (37-80); Nucleated Red Blood Cell # 0.00 Thou/mm3 (0.00-0.00); Nucleated Red Blood Cell % 0 /100 WBC (0); RDW Standard Deviation 82.3 fL (36.4-46.3); Red Blood Count 2.99 Miln/mm3 (4.00-5.20); White Blood Count 16.3 Thou/mm3 (3.6-11.0)
[2025-02-10 09:40] LABS: Platelet Count 24 Thou/mm3 (140-440)
[2025-02-10 09:41] LABS: Slide Review Platelets confirmed
--- NOTE | 2025-02-10 10:06 | ESPR_ITS ---
Documentation for date of: 02/10/25 Subjective Subjective Interval history: hx per chart review: Ms. Merino is a 69 yo woman with unknown past medical history, who was found down at 1 am by her neighbor, she was unresponsive and with head strike, facial contusions and fractured teeth noted, she was brought to the ED, where she had altered mental status, was febrile to 105. Pt became increasingly lethargic and obtunded. Pt was assessed by the night IM team, who described her as ill- appearing, minimally responsive, with marked jaundice and right periorbital contusion. Initial labs notable for severe metabolic acidosis (pH 7.25, HCO3 8, AG 22, lactate 15), hyperbilirubinemia (15.9), transaminitis, coagulopathy (INR 1.8), HIRA (Cr 1.4 from baseline 0.7), and UA with pyuria and bacteriuria. Blood and urine cultures sent; patient started on broad-spectrum antibiotics. . CT head, cervical spine, and chest/abdomen/pelvis are pending, as is repeat ABG. Also gallbladder ultrasound still pending to rule in rule out acute cholangitis. ED gave 2.5 L fluids, and intubated pt. SHe was started on pressors, central line was placed and admitted to the ICU. ECHO demonstrated hyper dynamic LV wo pericardial effusion. SvO2 was sent off of the brown port from the central line and pt was given vanc/zosyn. A cheeta was placed for hemodynamics and PLR performed. pt was found to not be fluid responsive. There are no family available for additional information. pts s/o 2 months ago and there is no immediate family around. Interval History 02/07/2025: No overnight events. Patient seen and examined at bedside; she remains intubated and is showing more signs of edema and has not made any urine. Notable labs today include: Hgb 10.4, platelet count 25, PT 29.2, INR 2.9, APTT 46.4, Na 134, creatinine bump to 1.9 from 1.2, eGFR drop to 28 from 49, lactic acid bump to 5.0 from 3.9, total bilirubin drop to 17.8 from 18.6, AST drop to 877 from 1049, ALT drop to 332 from 360. CXR today showed mild heart failure and left base pneumonia. From nephrology's standpoint, patient will be receiving HD today. 02/08/2025: No overnight events. Patient seen and examined at bedside; she remains intubated and still has not made any urine. She is also noted to be jaundiced. Notable labs today include: Hemoglobin 11.1, platelet count bump to 28 from 22, critically elevated PTT 30.8, INR 3.0, APTT 52.2, BUN bump to 23 from 12, creatinine bump to 2.2 from 1.7, lactic acid drop to 3.8 from 4.0, total bilirubin bump to 21.2 from 19.6, AST dropped to 635 from 742, and ALT drop to 291 from 305. A meeting was held this morning with patient's landlord and another tenant who will act as her representatives for decision making. From nephrology's standpoint, patient will be taking a break from hemodialysis today. 02/09/2025: Patient seen and examined in the ICU, She remains intubated, greco was removed, with minimal urine output. s.p ex lap with Dr. Serrano no ischemic bowel was found, BUN 43 from 29 Cr 3.0 from 2.6. No HD today 02/10/2025: Patient seen and examined in the ICU, She remains intubated, minimal urine output, abdomen dressed with abd, no pus or dihissence noted on exam. BUN 68 from 43, Cr 3.3 from 3.0, WBC 19 from 11. holding HD, in setting of upcoming goals of care discussion per ICU team. Exam Vital Signs Temp Pulse Resp BP Pulse Ox O2 Del Method O2 Flow Rate 98.8 F 85 20 144/93 H 95 Mechanical Ventilation 11 02/10/25 04:00 02/10/25 07:00 02/10/25 07:00 02/10/25 07:00 02/10/25 07:00 02/10/25 04:00 02/06/25 07:07 FiO2 30 02/10/25 07:00 Narrative Exam GENERAL: pt intubated with UE in restraints, no acute distress. HEENT: Head AT/ NC. Mucous membranes moist. eyes icteric, R central line, partially opened CARDIOVASCULAR: RRR. Normal S1/S2, No m/r/g. No pitting edema of bilateral LEs. RESPIRATORY: intubated on mechanical ventilation. lungs with crackles bilaterally GASTROINTESTINAL: Abdomen s/p exlap, and distended no palpable masses,dressing in place. incision was not visualized on exam, MUSCULOSKELETAL:? No cyanosis or edema, no visible joint swelling. LE warm to touch, pulses palpable , UE with restraints, SCDs in place NEUROLOGICAL: unable to assess neuro fxn pt intubated SKIN: No obvious rashes, jaundice, normal turgor. Objective Labs 02/11/25 03:03 02/11/25 03:03 Labs: Laboratory Results - last 24 hr 02/07/25 02/10/25 02/10/25 19:34 04:44 05:35 WBC 19.5 H D RBC 3.11 L Hgb 10.0 L Hct 29.8 L MCV 96 MCH 32.2 MCHC 33.6 RDW Std Deviation 86.1 H Plt Count 34 L D Neut % (Auto) 90 H Lymph % (Auto) 3 L [place] % (Auto) 4 Eos % (Auto) 0 Baso % (Auto) 1 Neut # (Auto) 17.5 H Lymph # (Auto) 0.6 L [place] # (Auto) 0.8 Eos # (Auto) 0.0 Baso # (Auto) 0.2 Immature Gran # (Auto) 0.45 H Absolute Nucleated RBC 0.00 Immature Gran % 2 H Nucleated RBC % 0 Puncture Site Right Femoral ABG pH 7.44 ABG pCO2 36 ABG pO2 77 L ABG HCO3 25 ABG O2 Saturation 96 ABG Base Excess 1 FiO2 97 Sodium 140 Potassium 4.1 Chloride 98 Carbon Dioxide 22.4 Anion Gap 20 H BUN 68 H Creatinine 3.3 H Estim Creat Clear Calc 13.3 L eGFR 15 L BUN/Creatinine Ratio 21 H Glucose 167 H Calculated Osmolality 303 H Lactic Acid Calcium 9.2 Corrected Calcium 9.8 Total Bilirubin 26.4 H* D AST 256 H ALT 205 H Alkaline Phosphatase 97 D Total Protein 6.4 Albumin 3.3 L Globulin 3.1 Albumin/Globulin Ratio 1.1 L Misc Test Result Platelets confirmed Blood Type O Positive Antibody Screen NEGATIVE Crossmatch See Detail Blood Bank Wristband ID Yes Blood Bank Comment PLATP Ready 02/10/25 09:06 WBC 16.3 H RBC 2.99 L Hgb 9.4 L Hct 28.2 L MCV 94 MCH 31.4 MCHC 33.3 RDW Std Deviation 82.3 H Plt Count 24 L* D Neut % (Auto) 91 H Lymph % (Auto) 2 L [place] % (Auto) 4 Eos % (Auto) 0 Baso % (Auto) 0 Neut # (Auto) 14.8 H Lymph # (Auto) 0.4 L [place] # (Auto) 0.6 Eos # (Auto) 0.0 Baso # (Auto) 0.1 Immature Gran # (Auto) 0.33 H Absolute Nucleated RBC 0.00 Immature Gran % 2 H Nucleated RBC % 0 Puncture Site ABG pH ABG pCO2 ABG pO2 ABG HCO3 ABG O2 Saturation ABG Base Excess FiO2 Sodium Potassium Chloride Carbon Dioxide Anion Gap BUN Creatinine Estim Creat Clear Calc eGFR BUN/Creatinine Ratio Glucose Calculated Osmolality Lactic Acid 5.5 H* Calcium Corrected Calcium Total Bilirubin AST ALT Alkaline Phosphatase Total Protein Albumin Globulin Albumin/Globulin Ratio Misc Test Result Platelets confirmed Blood Type Antibody Screen Crossmatch Blood Bank Wristband ID Blood Bank Comment ABG Interpretation ABG results: 02/03/25 02/03/25 02/03/25 02:47 06:09 07:19 ABG pH 7.25 L 7.00 L* D 7.18 L* D ABG pCO2 18 L* 63 H D 49 H D ABG pO2 192 H 149 H D 168 H ABG HCO3 8 L* 15 L 18 L ABG O2 Saturation 100 H 98 99 H ABG Base Excess -17 L -16 L -10 L VBG pH VBG pCO2 VBG pO2 VBG Base Excess 02/03/25 02/03/25 02/03/25 07:30 13:32 20:35 ABG pH 7.30 L D 7.25 L ABG pCO2 23 L D 23 L ABG pO2 159 H 145 H ABG HCO3 12 L 10 L ABG O2 Saturation 100 H 100 H ABG Base Excess -13 L -16 L VBG pH 7.28 L VBG pCO2 37 VBG pO2 110 H VBG Base Excess -9 L 02/04/25 02/04/25 02/04/25 03:51 06:42 23:10 ABG pH 7.60 H D 7.44 D 7.30 L D ABG pCO2 24 L 36 D 57 H D ABG pO2 150 H 71 L D 78 L ABG HCO3 23 25 28 H ABG O2 Saturation 101 H 95 94 ABG Base Excess 2 0 1 VBG pH VBG pCO2 VBG pO2 VBG Base Excess 02/05/25 02/05/25 02/05/25 01:20 04:34 09:20 ABG pH 7.40 D 7.42 7.39 ABG pCO2 45 D 44 44 ABG pO2 69 L 100 D 74 L D ABG HCO3 28 H 29 H 27 H ABG O2 Saturation 94 99 H 95 ABG Base Excess 3 4 H 2 VBG pH VBG pCO2 VBG pO2 VBG Base Excess 02/06/25 02/06/25 02/07/25 04:50 09:19 04:55 ABG pH 7.27 L D 7.30 L 7.45 D ABG pCO2 51 H 46 33 D ABG pO2 69 L 70 L 88 ABG HCO3 23 23 23 ABG O2 Saturation 92 93 98 ABG Base Excess -4 L -4 L -1 VBG pH VBG pCO2 VBG pO2 VBG Base Excess 02/08/25 02/08/25 02/09/25 04:10 16:19 04:44 ABG pH 7.39 7.40 7.43 ABG pCO2 45 D 41 40 ABG pO2 73 L 205 H D 62 L D ABG HCO3 27 H 25 26 ABG O2 Saturation 94 100 H 92 ABG Base Excess 2 1 2 VBG pH VBG pCO2 VBG pO2 VBG Base Excess 02/10/25 04:44 ABG pH 7.44 ABG pCO2 36 ABG pO2 77 L ABG HCO3 25 ABG O2 Saturation 96 ABG Base Excess 1 VBG pH VBG pCO2 VBG pO2 VBG Base Excess Quality Measures Quality Measures sepsis Current suspected stage: sepsis Possible source: genitourinary Blood cultures ordered: yes Antibiotic ordered: Yes Advance care planning discussed with:: other Assessment & Plan Assessment Current Active Medications: Generic Name Dose Route Start Last Admin Trade Name Freq PRN Reason Stop Dose Admin Acetaminophen 650 mg 02/03/25 07:33 Acetaminophen Supp 650 Mg Supp [place] 03/05/25 07:32 Q4HR PRN PAIN SCALE 1-3 (mild Cholestyramine Resin 1 pkt 02/09/25 09:45 02/10/25 08:43 Cholestyramine/Sucrose 1 Pkt Ea NG 03/11/25 09:44 Not Given BID JAYRO Heparin Sodium (Porcine) 3,000 unit 02/04/25 10:06 02/07/25 12:20 Heparin Sod Inj 1000 Unit/Ml Vial 10 Ml INDWELLCAT 02/18/25 10:05 3,000 unit PRN PRN Administration HD catheter Piperacillin/Tazobactam/Dextrose 2.25 gm in 50 mls @ 100 mls/hr 02/03/25 12:00 02/10/25 06:09 Zosyn IV 02/10/25 11:59 Infused Q6HR JAYRO Infusion Vasopressin/Sodium Chloride 20 unit in 100 mls @ 9 mls/hr 02/03/25 16:15 02/09/25 11:07 Vasostrict/Ns Ivpb IV 03/05/25 16:14 0 unit/min .Q11H7M PRN 0 mls/hr PER PROTOCOL Titration Protocol 0.03 UNIT/MIN Albumin Human 25 gm in 100 mls @ 100 mls/min 02/07/25 09:53 02/08/25 07:00 Albuminar-25 Ivpb IV Infused PRN PRN Infusion DIALYSIS Norepinephrine/Dextrose 8 mg in 250 mls @ 6.056 mls/hr 02/09/25 11:25 Levophed In D5w 8mg/250ml IV 03/05/25 06:01 .Q24H PRN PER PROTOCOL Protocol 0.05 MCG/KG/MIN Dexmedetomidine/Sodium Chloride 400 mcg in 100 mls @ 3.23 mls/hr 02/09/25 16:59 02/10/25 07:00 Precedex Ivpb IV 03/05/25 06:50 0.6 mcg/kg/hr .Q24H PRN 9.69 mls/hr Per PROTOCOL Titration Protocol 0.2 MCG/KG/HR Octreotide Acetate 1,000 mcg/ 102 mls @ 5.1 mls/hr 02/10/25 08:42 02/10/25 09:14 Sodium Chloride IV 02/15/25 08:42 50 mcg/hr .Q20H JAYRO 5.1 mls/hr Administration Protocol 50 MCG/HR Lactulose 45 gm 02/09/25 09:15 02/10/25 05:35 Lactulose Syrup 20 Gm/30 Ml Udc NG 03/11/25 08:59 45 gm QID JAYRO Administration Protocol Metoclopramide HCl 5 mg 02/09/25 22:00 02/10/25 05:36 Metoclopramide Inj 5 Mg/Ml Vial 2 Ml IVP 03/11/25 21:59 5 mg Q8HR [facility] Administration Protocol Pantoprazole Sodium 40 mg 02/03/25 09:00 02/10/25 08:58 Pantoprazole Inj 40 Mg Vial IVP 03/05/25 08:59 40 mg QDAY JAYRO Administration Pharmacy Consult 1 each 02/03/25 02:03 Pharmacy Renal Dose Adjustment 1 Ea XX 03/05/25 02:02 PRN PRN CONSULT Rifaximin 550 mg 02/09/25 09:45 02/10/25 08:43 Rifaximin 550 Mg Tablet NG 02/16/25 09:29 Not Given BID [facility] Plan Ms Merino, is a 69 yo woman with an unknown PMH who was admitted to the ICU for management of distributive shock. Pt was intubated in the ED. AGMA 2/2 Lactic acid 5.5 today, she remains on pressors,s/p ex lap no ischemic bowel found, pending GOC per primary team, holding HD. #Anion Gap Metabolic Acidosis 2/2 lactic acidosis Lactic acidosis 5.6 from 7.2 On 02/10 Lactic acid 5.5 from 3.9 CRRT: 02/03 started at 2100, will continue 02/04 for ~24 hrs of HD, 02/06 (conventional HD) , 02/07, PLAN: -holding hd pending GOC conversation per primary team. #HIRA #query ATN type 1 vs hepatorenal syndrome given pt is in shock, cannot dx hepatorenal syndrome. pt remains on pressors see #septic shock below on 02/04 Cr. 0.9 from 1.4 , BUN 6 from 14 on 02/05 Cr 0.8, BUN <5, minimal UOP 40. on 02/06 Cr 1.8, BUN 11, minimal UOP on 02/07 Cr 1.9, BUN 11, minimal UOP on 02/08 Cr 2.2, BUN 23, minimal UOP on 02/09 Cr 3.0, BUN 43, minimal UOP, greco removed on 02/10 Cr 3.3, BUN 68, minimal UOP Dx - UA with 1+ protein, 2+ RBC - Urine protein Cr ratio 0.807 - strict I and O, greco d/c - renally dose medications - avoid nephrotoxic agents #Septic Shock #query 2/2 SBP vs UTI #GNR bacteremia 2/2- E Coli #leukocytosis - uptrending sofa score: 13 end organ damage: shock liver, >>LFTs 2/2 shock, acute elevation in troponin 0.077 (no st elevations or depressions on EKG) continues to uptrend, 0.369 BP 70s /40s, procal 7.74, febrile on admission on 02/04 SBP from art line 110s decreased pressure requirement on 02/05 pt remains on pressers, Lactic acid uptrending, 5.1 to 6.3. on 02/10 pt remains on norepi, Lactic acid 5.5 from 3.6, BUN 68 from 43, Cr 3.3 from 3.0 greco catheter removed, scant UOP arterial line in place Dx - UA with 4+ biliruben, Leuk est + and nitrities + with WBC 80 and 4+ bacteria - Urine Cx- ecoli - Blood culture ecoli - paracentesis fluid analysis: Alb 1.3, WBC 18% Tx - on zosyn - on rifaximin 550 BID for sbp ppx - on pressors per ICU team - ICU to manage #Cirrhosis #Acute ischemic hepatitis/shock liver - resolving #Acites, SAAG >1.1 #query malignancy given numerous liver masses on CTAP acute rise in LFT likely 2/2 to hypotension in setting of septic shock coagulopathy with elevated PT, INR, PTT thrombocytopenia with PLT 14 pt is severely jaundiced on exam, sclera icteric, +abdominal fluid wave s/p ex lap Dx - Abdominal US with mild ascites, cirrhosis - hepatitis panel negative - Utox negative, etoh negative - Tumor markers: AFP wnl, CEA wnl Tx - albumin 25 bid - octreotide drip #ischemic bowel-s/p ex lap- ruled out abdomen was noted to be tense and distended, CTAP with c/f ischemic bowel. - s/p ex lap with dr. Serrano, no ischemic bowel found #electrolyte abnormalities #acute hypoxic respiratory failure- intubated #acute encephalopathy (query etiology 2/2 sepsis vs shock vs acidosis) #Facial trauma 2/2 fall with headstrike, no fractures #L orbital eye contusion #Tooth fractures #macrocytic anemia - b12 elevated>>> - folate wnl #thrombocytopenia -PLT 24. #Coagulopathy -PT 31.5, INR 3.1, PTT 49.7 - management per primary team Plan discussed with nephrology attending Dr. Bin Sagastume MD Internal Medicine PGY-1 Attending Provider Attestation/Addendum Patient seen and examined with resident physician Dr. Sagastume. Note reviewed, agree with findings and recommendations. Patient with septic shock, intractable lactic acidosis and HIRA. Decided to proceed with CRRT. She is currently on 2 pressors. Remains on ventilator. Currently in ICU. Patient received 2 CRRT, 3 IHD sessions so far. Lactic acid improving. Will monitor renal function and urine output closely. 02/10/2025 patient remains in ICU. Multisystem organ failure- Hypoxic respiratory failure-on ventilator Ischemic liver No Ischemic colitis- Dr. serrano took her for exploratory laparotomy Sepsis needing pressors Acute renal failure needing dialysis no family around. No one want to make medical decisions for her. Prognosis guarded Patient currently seen on dialysis. Tolerating dialysis without any problems. Hemodialysis for 3 hours, 2K, ultrafiltration 2-3 L, Epogen 6000, no heparin ordered. Plan of care discussed with the dialysis nurse. Please see dialysis flowsheet for further details. Critical care time spent 35 minutes regarding plan of care and disease management Spoke to ICU team, Dr. Blake. CC:
[2025-02-10 10:08] LABS: INR 3.1 (0.9-1.3); Partial Thromboplastin Time 49.7 Seconds (22.0-36.0)
[2025-02-10 10:10] LABS: Prothrombin Time 31.5 Seconds (9.0-12.2)
[2025-02-10 12:25] LABS: Reflex Lactate? Y
--- NOTE | 2025-02-10 12:48 | PC.SS ---
[facility] meeting scheduled for 03:[address] CONDUCTOR confirmed that Rell Merino will be available at bedside and that Ivania Suarez will be available by phone for discussion. ICU residential team, ICU nitrocellulose maker bedside nurse updated.
[2025-02-10 13:00] LABS: Lactic Acid, 3 HR 5.7 mMol/L (0.4-2.0)
[2025-02-10] MEDS: fentaNYL 2,500 MCG/250 ML BAG 2,500 MCG/250 ML BAG IV (14:35)
[2025-02-10] MEDS: MIDAZOLAM INJ 1 MG/ML VIAL 2 ML 2 MG IVP ×2 (15:10→22:58)
[2025-02-10] MEDS: DEXMEDETOMIDINE 400 MCG IVPB 400 MCG/100 ML BAG IV (15:10)
--- NOTE | 2025-02-10 15:39 | PC.NURSE ---
at 1520, pt decision maker ruth ann at bedside and marine on phone, valeria pimentel and tawnya and beryl tony at bedside for goals of care discussion, Pt decision makers do not want to make the decision to transition pt to comfort care, per BERYL tony, ethics comittee to be called
--- NOTE | 2025-02-10 15:44 | ESPR_ITS ---
Documentation for date of: 02/10/25 Subjective Subjective Interval history: This is a 69yo F who was found down at 1am in her house. A neighbor found her on the floor unresponsive and she had apparently fallen and hit her head. EMS was called and the pt was brought into the ER. On arrival she was noted to be altered and febrile with a temp of 105.8. Initial labs showed a metabolic acidosis with appropriate respiratory compensation. She became progressively more lethargic and obtunded as the night progressed. At 6am she was unresponsive and hypotensive. She was given a total of 2.5lts of IVF in the ER and intubated. She was started on vasopressor support and a central line was placed. Pt was brought up to the ICU. A bedside echo was done which showed a hyperdynamic LV with no pericardial effusion. SvO2 was sent off of the brown port from the central line and pt was given vanc/zosyn. A cheeta was placed for hemodynamics and PLR performed. pt was found to not be fluid responsive. There are no family available for additional information. pts s/o 2 months ago and there is no immediate family around. 02/04- overnight dropped h/h , no evidence of active bleed, wakes up but does not follow commands, decrease in levo needs today, 1 BM yesterday, no fever overnight, poor UOP 02/05-overnight patient had elevated peak inspiratory pressures on the ventilator. She was also noted to have increased abdominal distention. She has had no bowel movement since arrival. Her vent settings were adjusted on the ventilator and her OG tube was placed to low intermittent suction. There was a total of more than 2 L of fluid immediately suctioned from the patient's stomach consistent of gastric content. She is currently afebrile and continues with no urinary output 02/06-yesterday had a drop in her H&H with worsening coagulopathy. Her abdomen was distended and a CT was performed. This showed ischemic colitis along with question of small bowel ischemia. Surgery was consulted. Her lactic acid remains elevated, she is coagulopathic, she had a drop in her fibrinogen and platelets. FFP's, cryo, platelets and PRBCs were ordered for her. She remains anuric and when sedation is lightened she remains minimally responsive 02/08- no acute overnight events, remains virtually anuric, meeting held with representatives this morning. Patient's representatives are her landlord as well as tenant who have known her for 11 and 15 years, they have agreed to be her client relations representative for decision-making. This morning she remains jaundiced on minimal vasopressor support and afebrile. Her fentanyl and Precedex were held. On initial exam she had a GCS of 4 however later in the day she began to become more responsive with spontaneous eye opening and spontaneous movement of her right upper extremity though she still does not follow commands. 02/09-no acute overnight events, yesterday afternoon patient began to spontaneously open her eyes though does not appear to track as of yet. Did not follow commands. Patient is still virtually anuric and she is afebrile. Patient went to the OR yesterday for evaluation of ischemic bowel. The patient underwent an ex lap and there was no significant findings per surgery. She was closde and returned to the ICU. 02/10-overnight the patient had increasing abdominal distention. This morning the NG tube was placed to suction and over 500 cc of blood were suctioned patient continues to have 0 bowel movements. She underwent surgical intervention which did not reveal any bowel ischemia or bowel obstruction. At this point in time the patient has a very poor prognosis. Goals of care meeting was held with the 2 individuals who had agreed to make decisions for her earlier Rell and Ivania. Today decided that they would not like to make decisions. Will refer to ethics Critical Care Note Critical care time (min.): 49 Exam Vital Signs Temp Pulse Resp BP Pulse Ox O2 Del Method O2 Flow Rate 98.8 F 87 19 148/67 H 96 Mechanical Ventilation 11 02/10/25 12:00 02/10/25 14:11 02/10/25 13:15 02/10/25 14:11 02/10/25 14:11 02/10/25 12:00 02/06/25 07:07 FiO2 30 02/10/25 14:11 Narrative Exam Tldryof-jzt-rhsnzpatn, appears uncomfortable, obese, HEENT-normocephalic, atraumatic, sclera icteric, roving eye movements, OG tube ET tube in place Chest-lungs clear but diminished anteriorly, crackles posterior base, heart rate regular rhythmic, no bruits murmurs auscultated times exam, increased work of breathing noted Abdomen-firm, distended, midline surgical dressing intact with some seepage noted, extremely hypoactive bowel sounds Extremities-edema, pulses palpable, no clubbing, subtle mottling of the bilateral lower extremities, does not withdraw to noxious stimuli Vent AC VC Drips Precedex Physical Exam Completion Physical Exam Complete?: Yes Objective - Box Sealing Machine Catcher Labs 02/10/25 09:06 02/10/25 05:35 Labs: Laboratory Results - last 24 hr 02/07/25 02/10/25 02/10/25 19:34 04:44 05:35 WBC 19.5 H D RBC 3.11 L Hgb 10.0 L Hct 29.8 L MCV 96 MCH 32.2 MCHC 33.6 RDW Std Deviation 86.1 H Plt Count 34 L D Neut % (Auto) 90 H Lymph % (Auto) 3 L Potter % (Auto) 4 Eos % (Auto) 0 Baso % (Auto) 1 Neut # (Auto) 17.5 H Lymph # (Auto) 0.6 L Potter # (Auto) 0.8 Eos # (Auto) 0.0 Baso # (Auto) 0.2 Immature Gran # (Auto) 0.45 H Absolute Nucleated RBC 0.00 Immature Gran % 2 H Nucleated RBC % 0 PT INR APTT Puncture Site Right Femoral ABG pH 7.44 ABG pCO2 36 ABG pO2 77 L ABG HCO3 25 ABG O2 Saturation 96 ABG Base Excess 1 FiO2 97 Sodium 140 Potassium 4.1 Chloride 98 Carbon Dioxide 22.4 Anion Gap 20 H BUN 68 H Creatinine 3.3 H Estim Creat Clear Calc 13.3 L eGFR 15 L BUN/Creatinine Ratio 21 H Glucose 167 H Calculated Osmolality 303 H Lactic Acid Calcium 9.2 Corrected Calcium 9.8 Total Bilirubin 26.4 H* D AST 256 H ALT 205 H Alkaline Phosphatase 97 D Total Protein 6.4 Albumin 3.3 L Globulin 3.1 Albumin/Globulin Ratio 1.1 L Misc Test Result Platelets confirmed Blood Type O Positive Antibody Screen NEGATIVE Crossmatch See Detail Blood Bank Wristband ID Yes Blood Bank Comment PLATP Ready 02/10/25 02/10/25 09:06 12:42 WBC 16.3 H RBC 2.99 L Hgb 9.4 L Hct 28.2 L MCV 94 MCH 31.4 MCHC 33.3 RDW Std Deviation 82.3 H Plt Count 24 L* D Neut % (Auto) 91 H Lymph % (Auto) 2 L Potter % (Auto) 4 Eos % (Auto) 0 Baso % (Auto) 0 Neut # (Auto) 14.8 H Lymph # (Auto) 0.4 L Potter # (Auto) 0.6 Eos # (Auto) 0.0 Baso # (Auto) 0.1 Immature Gran # (Auto) 0.33 H Absolute Nucleated RBC 0.00 Immature Gran % 2 H Nucleated RBC % 0 PT 31.5 H* INR 3.1 H APTT 49.7 H Puncture Site ABG pH ABG pCO2 ABG pO2 ABG HCO3 ABG O2 Saturation ABG Base Excess FiO2 Sodium Potassium Chloride Carbon Dioxide Anion Gap BUN Creatinine Estim Creat Clear Calc eGFR BUN/Creatinine Ratio Glucose Calculated Osmolality Lactic Acid 5.5 H* 5.7 H* Calcium Corrected Calcium Total Bilirubin AST ALT Alkaline Phosphatase Total Protein Albumin Globulin Albumin/Globulin Ratio Misc Test Result Platelets confirmed Blood Type Antibody Screen Crossmatch Blood Bank Wristband ID Blood Bank Comment Assessment & Plan Additional Plan Additional Plan: In brief this is a 69yo F admitted to the ICU with distributive shock 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 Acute encephalopathy- multifactorial and 2/2 sepsis, shock, acidosis and hepatic etiologies - Patient is unable to tolerate lactulose, rifaximin or Colesytramine -No improvement Facial Trauma- CT without fx CV Shock-resolved and off vasopressors -Patient went to the OR on 02/08 with no identifiable bowel ischemia found - Lactic acid has trended down Tropinemia- likely related to demand ischemia, fu on repeat, EKG without ST elevation or depression - minimally elevated in setting of HIRA and shock - echo done and shows diastolic dysfunction with a normal EF and no wall motion abnormality - Improved Resp Acute resp failure- intubated and on MV, fu with ABG and CXR - ween as able - Plateau pressures less than 30 - Improving - Not a candidate for extubation Renal HypoNa- mild, monitor, in the setting of cirrhosis AGMA- 2/2 LA - Continues to have an elevated lactate -Check abdomen/pelvis CT with IV contrast to evaluate for source-> appears to have ischemic colitis as well as possible small bowel ischemia HIRA-remains with no urinary output and dialysis dependent -Followed by nephrology HypoMg-repleted GI Cirrhosis- started on lactulose and rifaxamin however not able to tolerate - elevated LFTs-> ? 2/2 ischemic hepatitis - check viral hep panel-> NTD - alcohol level added on->NTD -Trending back down - Total bili remains elevated at 21.2 today concern for the possibility of kernicterus - Unable to tolerate cholestyramine GI bleed-patient has blood aspirated from stomach -Repeat H&H shows slight trend down -Started on octreotide drip Liver masses-AFP and CEA negative hypoalbuminemia- in the setting of cirrhosis - check uprotein/cr ratio Abdominal distention-CT shows bowel ischemia. There appears to be pneumatosis intestinalis of the right colon and there is question of some ischemic changes in the small bowel as well - Surgical consultation was obtained - Patient went to the OR with no significant findings after ex lap - Patient has severe ileus - Has had no bowel movement since arrival Endo Hypoglycemia-improved and on as needed D50 - Has been n.p.o. for the last 6 days may require TPN - Will trial tube feeds today Heme Anemia macrocytic- check b12/folate-> wnl - h/h trended down overnight - ? dilutional v occult bleed - given 2uPRBCs on 02/04 -Given additional 2 PRBCs 02/06 - There has been a small drop in H&H from yesterday this is likely secondary to blood loss from surgery no indication for transfusion today thrombocytopenia- in the setting of sepsis and cirrhosis -Transfused platelets with brief improvement - Stable Coagulopathy- INR elevated - Transfused FFP and cryo - No active bleeding DVT proph- SCDs ID UTI-secondary to E. coli and on Zosyn Sepsis- on zosyn with GNR bacteremia day#7 - Cultures resulted back as E. coli from both blood and urine sensitive to Zosyn - Complete 7 days of antibiotics total case d/w ICU team and nephrology Goals of care discussion held with Ivania and Rell today. At the end of an extensive discussion neither republican seems willing to assist with decision making. Patient will be referred to ethics. At this point in time I do feel that the patient has a very poor short-term prognosis. She has shown no signs of recovery. At this point in time I do believe that we are just prolonging the patient's corporeal suffering. labs, imaging, records reviewed ~ 49ccmin required for eval, exam, review, intervention, discussion and formulation of POC for this critically ill pt in septic shock at high risk for further ongoing decompensation Provider Notation Provider Notation: Although this document has been carefully reviewed, there may still be some phonetic and other typographical errors. These errors are purely grammatical due to imperfections in the software program and should not be construed in any way to compromise the substance of the patient's medical care during this visit. Thank you for the opportunity and privilege in assisting you with this patient's care and management.
--- NOTE | 2025-02-10 17:30 | PC.SS ---
Goals of care meeting conducted with ICU medical team and patient?s designated surrogate medical decision makers: Ivania Suarez and Rell Delgado .? Rell Delgado present at bedside.? Ivania Sierra participated by phone.? Medical team members present included: ICU skimmer scoop operator, ICU residential team, bedside nurse and undersigned.? ICU skimmer scoop operator provided an overview on the patient?s medical condition.? Surrogate medical decision makers informed that patient is experiencing multi-organ failure to liver, kidney, lungs and heart.? It was relayed to surrogate medical decision makers that patient?s current condition is guarded due to multi system failure.? Medical recommendation is to transition the patient to comfort care services.? Both surrogate medical decision makers informed ICU medical team that they do not wish to resume responsibility of transitioning the patient to comfort care since neither is a relative of the patient.? ICU skimmer scoop operator informed both surrogate medical decision makers that on the 02-09-25 family meeting it was agreed that if a decision could not be reached by both surrogate medical decision makers then ethics committee would be initiated to address comfort care recommendation.? Both surrogate medical decision makers acknowledged plan to convene ethics committee for decision.? FIELD ENUMERATOR updated correction officer supervisor to initiate plan for ethics committee review.?
--- NOTE | 2025-02-10 18:02 | PC.SS ---
AUTO HEATER MECHANIC contacted APS staff, Lisa Rios. AUTO HEATER MECHANIC provided update regarding patient. AUTO HEATER MECHANIC informed by APS staff case assignment remains pending. APS staff will contact AUTO HEATER MECHANIC once case is assigned. APS has not initiated search for patient's contacts.
--- NOTE | 2025-02-10 18:07 | PC.NURSE ---
at 1800, Dr. Leslie made aware of pt BP and 1 liter of dark red output from NG for day, no further orders at this time
--- NOTE | 2025-02-10 18:30 | PD.RESPRO ---
Documentation for date of: 02/10/25 Subjective Subjective Interval history: Patient is intubated and mechanically ventilated so most of the history is taken from the chart review. 69-year-old female with unknown past medical history was brought to the hospital in view of altered sensorium. Per nurse, patient probably had a fall the day before admission in the morning following which she was okay until the neighbors blood to recheck her in the evening, found to be unconscious for which they called the EMS and was brought to the hospital. In the ED, patient is minimally responsive with marked icterus and periorbital contusion. Patient was found to be hypoxic with oxygen saturation in the mid 80s and was initially placed on a nonrebreather mask with correction of hypoxia. Later patient was found to be tachycardic with heart rate around 140s and febrile with a temperature of 105.8 ?F. Patient was intubated in view of acute encephalopathy and hypoxia. ICU is consulted in view of acute hypoxic respiratory failure in the setting of acute encephalopathy and suspected septic shock. In the ED, patient received 1 dose of acetaminophen 650 mg per rectum. 1 L LR bolus followed by 1.5 L of NS bolus in view of suspected septic shock. Initial labs revealed hemoglobin 10.9, platelets 61, INR 1.8, sodium 133, bicarb less than 10, anion gap 22, BUN 13, creatinine 1.4, lactic acid 15, magnesium 1.4, total bilirubin 15.9, AST 241, ALT 58, albumin 2.5, procalcitonin 7.47. EKG showed sinus tachycardia with no acute ST and T wave changes chest x-ray showed bilateral increased vascularity. Abdomen/pelvis CT showed cirrhosis, mild to moderate ascites, absent gallbladder. Cervical spine CT, face CT, head CT, thoracic spine CT, lumbar spine CT did not show any acute fractures. Abdominal ultrasound showed no CBD stones. Initial chest x-ray done showed endotracheal tube tip 2.5 cm in the right mainstem bronchus with atelectasis of the left lung following which the endotracheal tube is retacted and repeat chest x-ray was done that showed minor atelectasis of the left base. Patient is admitted to ICU in view of septic shock, possible decompensated cirrhosis, HIRA. 02/04/2025: Patient is seen and examined at bedside in the ICU. Sedated and on mechanical ventilator. Overnight, patient was found to have hypoglycemic episodes blood glucose of 50 for which patient was given D50 twice. Patient was on CRRT throughout the night. Vitals are stable and patient was found to decreased vasopressors since last night. On examination, patient is found to have abdominal distention for which she was kept on low intermittent suction and later was started on trickle feeds. Labs done this morning showed hemoglobin 6.9, platelets 18,000, WBC 12.1, INR 4.7, BUN 6, creatinine 0.9, lactate 8.1, total bilirubin 16.1, AST 2385, ALT 474. Later fibrinogen is ordered to evaluate for DIC. Repeat CBC showed hemoglobin of 6.4 and platelet count of 16. Ordered 2 PRBC, 1 platelet, 3 FFP transfusions. 1 PRBC and FFP's kept on hold. Will repeat H&H after the blood transfusion. Consent for transfusion is taken from her friend aDnny, could not get hold of her brother. Will continue CRRT till 7 PM. Will continue to monitor renal and liver function tests. Despite CRRT, patient is likely to have poor prognosis in the setting of acute liver failure and acute kidney failure. 02/05/2025: Patient is seen and examined at bedside in the ICU. No acute overnight events. Still anuric. Patient was on low-dose vasopressors including vasopressin and on Levophed. Early in the morning, patient is noted to have high peak pressures and noted to have severe abdominal distention for which patient was connected to the suction and found to have almost 2 to 2.5 L of residual volume. Vitals are stable. Labs done this morning showed hemoglobin 9, platelets 35, INR 2.2, sodium 135, creatinine 0.8, glucose 108, lactate 5.1, phosphorus 2.2, magnesium 1.4, total bilirubin 15.7, AST 1363, ALT 367. As patient is having abdominal distention and later found to have lactate elevation from 5.1-6.3, also noted to have multiple liver lesions on the CT abdomen/pelvis, suspected to have either malignancy or small bowel obstruction or ongoing ischemia for which repeat CT abdomen/pelvis was done with IV contrast and patient was found to have ischemic colitis in the right colon, prominent pneumonia in the left base. General surgeon, Dr. Rocha was consulted in view of ongoing ischemic colitis, recommended that in view of patient's critical illness we will hold off any surgical procedures for now. Repeat blood work was done around 3:45 PM that showed hemoglobin 7.1, platelets 22, fibrinogen 92, potassium 3.5, bicarb 19.3, creatinine 1, liver enzymes downtrended to AST 835, ALT 250, total bilirubin 11.7. Ordered 2 PRBC, 1 FFP, 1 platelet, 6 cryoprecipitate transfusion in view of suspected possible ongoing DIC. Will transfuse all these blood products which might help in improving the perfusion to the ischemic bowel. Will continue to trend lactate levels and monitor for urine output. Dr. Steward is following the patient and held off CRRT for today and wants to monitor for today. 02/06/2025: Patient is seen and examined at bedside in the ICU. No acute overnight events. Noted no urine output and bowel movements. This morning, patient is noted to have tense abdomen and peak pressures continue to elevate with patient biting the endotracheal tube, likely to have pain from the ischemic colitis. Patient was started on fentanyl drip in view of suspected pain following which the peak pressures came back to normal levels. Overnight, patient is on low-dose vasopressors Levophed 0.03 and vasopressin 0.03. Patient did get only 2 PRBC transfusion overnight. Will give the remaining blood products. Vitals are stable. On physical examination, patient noted to have mottling in bilateral lower extremities with feeble peripheral pulses. Labs done this morning showed hemoglobin 10.2, platelet count 14, WBC 6.5, INR 3.4, PT 34.2, sodium 134, potassium 5.8, creatinine 1.8, glucose 123, lactate 5.6, total bilirubin 18.1, AST 1084, ALT 360. Dr. Steward is following the patient and recommended conventional hemodialysis today at 250 mL/h as patient's blood pressure is stable. Will repeat labs in the afternoon once all the blood products are transfused. General surgeon, Dr. Rocha is following for the possible ischemic colitis and recommended no surgery as of now in view of coagulopathy and low platelet count. Talked to her friend, point of contact Rell Delgado who reported that patient had a son who lives in [facility] but does not have any contact with him and also could not get in contact with her brother who lives in [place]. Still trying to get in contact with her family members for goals of care discussion. In view of ongoing coagulopathy, DIC, acute liver failure, acute kidney failure, patient is likely to have poor prognosis. Will continue to monitor her vitals, labs and try to get in contact with the family for further decision making. Till then, patient will be given full treatment 02/07/2025: Patient is seen and examined at bedside in the ICU. No acute overnight events. Still noted to be anuric and no further bowel movements noted. On physical examination, abdomen appears to be soft today but still no bowel movements are noted. Labs done this morning showed hemoglobin 10.4, platelet count 25, INR 2.9, sodium 134, CRP 1.9, lactate 5, AST 877, ALT 332. ABG is within normal limits. Discussed about patient's condition with general surgeon, Dr. Rocha and he recommended that he can go ahead with the surgery, exploratory laparotomy after correcting her platelet count and INR. Planning to have goals of care discussion tomorrow at 9:30 AM to make a point of contact and decision maker as patient does not have any immediate family available. Still could not get hold of the brother. Ordered 4 units of platelet and 2 FFP's. Planning to transfuse them before the surgery. Patient condition is still critical and had poor prognosis in the setting of decompensated liver cirrhosis. Trying to wean her off the sedation to assess her mentation. Received hemodialysis session today 02/08- no acute overnight events, remains virtually anuric, meeting held with representatives this morning. Patient's representatives are her landlord as well as tenant who have known her for 11 and 15 years, they have agreed to be her vaccine customer representative for decision-making. This morning she remains jaundiced on minimal vasopressor support and afebrile. Her fentanyl and Precedex were held. On initial exam she had a GCS of 4 however later in the day she began to become more responsive with spontaneous eye opening and spontaneous movement of her right upper extremity though she still does not follow commands. 02/10/2025: Patient is seen and examined at bedside in the ICU. No acute overnight events. Patient is still anuric and not responding despite being on minimal sedation. On physical examination, the icterus appears to be more deep in and noted to have nystagmus. GCS is around 4T. Noted to have tense abdominal distention for which patient was connected to the intermittent suction and noted to have georgina blood of around 400 mL. Repeat CBC was done that showed hemoglobin of 9.4, platelet count 24, repeat coagulation studies showed INR 3.1. Patient was given 2 units of FFP. As patient is bleeding actively and connected to the suction, could not give rifaximin and lactulose as of now in view of distended and tense abdomen. Patient did not get lactulose and rifaximin for the hepatic encephalopathy as patient noted to have ischemic colitis and later found to have this ongoing bleeding G-tube which patient mental status is not recovering well. Also started on octreotide drip. Goals of care discussion was done with the decision maker, Rell Delgado in person and [employer] solar panel installation supervisor with the psychosocial rehabilitation counselor, agricultural equipment sales manager, Dr. Blake, Dr. Barnes, PGY 2. They denied taking the decision for comfort care/hospice. But in the setting of ongoing multiorgan dysfunction including liver failure, kidney failure, respiratory failure, GI bleed patient has very poor prognosis and there are very less chances of recovery in her condition. Also not a candidate of liver transplant at this point of time because of the poor social relationships. For now, we will continue current management and will have 6 meeting tomorrow to decide on further care of management. Exam Vital Signs Temp Pulse Resp BP Pulse Ox O2 Del Method O2 Flow Rate 99.9 F 103 H 24 H 113/67 93 L Mechanical Ventilation 11 02/10/25 16:00 02/10/25 18:00 02/10/25 18:00 02/10/25 18:00 02/10/25 18:00 02/10/25 16:00 02/06/25 07:07 FiO2 30 02/10/25 16:00 Narrative Exam General: Sedated and mechanically ventilated. Noted icterus all over the body HEENT: Normocephalic, atraumatic, mucous membranes moist.Noted to have right frontal hematoma and ecchymosis on the right eye. Noted to have dislocated teeth. Icterus Heart: Regular rate and rhythm, no murmurs. Lungs: Clear to auscultation with no wheezing or crackles.Noted to have decreased breath sounds on the left side Abdomen: Soft, moderately distended,tense, nontender, positive bowel sounds. ?No guarding or rebound tenderness. noted midline surgical scar and also noted soaking of the dressing. Neurologic: Sedated and mechanically ventilated Extremities: No edema. Noted all peripheral pulses. noted mottling in the lower extremities Skin: Noted to have ecchymotic patches on the right side of the abdomen and also on the right hand from the IV catheterization Objective Labs 02/10/25 09:06 02/10/25 05:35 Labs: Laboratory Results - last 24 hr 02/07/25 02/10/25 02/10/25 19:34 04:44 05:35 WBC 19.5 H D RBC 3.11 L Hgb 10.0 L Hct 29.8 L MCV 96 MCH 32.2 MCHC 33.6 RDW Std Deviation 86.1 H Plt Count 34 L D Neut % (Auto) 90 H Lymph % (Auto) 3 L Sawyer % (Auto) 4 Eos % (Auto) 0 Baso % (Auto) 1 Neut # (Auto) 17.5 H Lymph # (Auto) 0.6 L Sawyer # (Auto) 0.8 Eos # (Auto) 0.0 Baso # (Auto) 0.2 Immature Gran # (Auto) 0.45 H Absolute Nucleated RBC 0.00 Immature Gran % 2 H Nucleated RBC % 0 PT INR APTT Puncture Site Right Femoral ABG pH 7.44 ABG pCO2 36 ABG pO2 77 L ABG HCO3 25 ABG O2 Saturation 96 ABG Base Excess 1 FiO2 97 Sodium 140 Potassium 4.1 Chloride 98 Carbon Dioxide 22.4 Anion Gap 20 H BUN 68 H Creatinine 3.3 H Estim Creat Clear Calc 13.3 L eGFR 15 L BUN/Creatinine Ratio 21 H Glucose 167 H Calculated Osmolality 303 H Lactic Acid Calcium 9.2 Corrected Calcium 9.8 Total Bilirubin 26.4 H* D AST 256 H ALT 205 H Alkaline Phosphatase 97 D Total Protein 6.4 Albumin 3.3 L Globulin 3.1 Albumin/Globulin Ratio 1.1 L Misc Test Result Platelets confirmed Blood Type O Positive Antibody Screen NEGATIVE Crossmatch See Detail Blood Bank Wristband ID Yes Blood Bank Comment PLATP Ready 02/10/25 02/10/25 09:06 12:42 WBC 16.3 H RBC 2.99 L Hgb 9.4 L Hct 28.2 L MCV 94 MCH 31.4 MCHC 33.3 RDW Std Deviation 82.3 H Plt Count 24 L* D Neut % (Auto) 91 H Lymph % (Auto) 2 L Sawyer % (Auto) 4 Eos % (Auto) 0 Baso % (Auto) 0 Neut # (Auto) 14.8 H Lymph # (Auto) 0.4 L Sawyer # (Auto) 0.6 Eos # (Auto) 0.0 Baso # (Auto) 0.1 Immature Gran # (Auto) 0.33 H Absolute Nucleated RBC 0.00 Immature Gran % 2 H Nucleated RBC % 0 PT 31.5 H* INR 3.1 H APTT 49.7 H Puncture Site ABG pH ABG pCO2 ABG pO2 ABG HCO3 ABG O2 Saturation ABG Base Excess FiO2 Sodium Potassium Chloride Carbon Dioxide Anion Gap BUN Creatinine Estim Creat Clear Calc eGFR BUN/Creatinine Ratio Glucose Calculated Osmolality Lactic Acid 5.5 H* 5.7 H* Calcium Corrected Calcium Total Bilirubin AST ALT Alkaline Phosphatase Total Protein Albumin Globulin Albumin/Globulin Ratio Misc Test Result Platelets confirmed Blood Type Antibody Screen Crossmatch Blood Bank Wristband ID Blood Bank Comment ABG Interpretation ABG results: 02/03/25 02/03/25 02/03/25 02:47 06:09 07:19 ABG pH 7.25 L 7.00 L* D 7.18 L* D ABG pCO2 18 L* 63 H D 49 H D ABG pO2 192 H 149 H D 168 H ABG HCO3 8 L* 15 L 18 L ABG O2 Saturation 100 H 98 99 H ABG Base Excess -17 L -16 L -10 L VBG pH VBG pCO2 VBG pO2 VBG Base Excess 02/03/25 02/03/25 02/03/25 07:30 13:32 20:35 ABG pH 7.30 L D 7.25 L ABG pCO2 23 L D 23 L ABG pO2 159 H 145 H ABG HCO3 12 L 10 L ABG O2 Saturation 100 H 100 H ABG Base Excess -13 L -16 L VBG pH 7.28 L VBG pCO2 37 VBG pO2 110 H VBG Base Excess -9 L 02/04/25 02/04/25 02/04/25 03:51 06:42 23:10 ABG pH 7.60 H D 7.44 D 7.30 L D ABG pCO2 24 L 36 D 57 H D ABG pO2 150 H 71 L D 78 L ABG HCO3 23 25 28 H ABG O2 Saturation 101 H 95 94 ABG Base Excess 2 0 1 VBG pH VBG pCO2 VBG pO2 VBG Base Excess 02/05/25 02/05/25 02/05/25 01:20 04:34 09:20 ABG pH 7.40 D 7.42 7.39 ABG pCO2 45 D 44 44 ABG pO2 69 L 100 D 74 L D ABG HCO3 28 H 29 H 27 H ABG O2 Saturation 94 99 H 95 ABG Base Excess 3 4 H 2 VBG pH VBG pCO2 VBG pO2 VBG Base Excess 02/06/25 02/06/25 02/07/25 04:50 09:19 04:55 ABG pH 7.27 L D 7.30 L 7.45 D ABG pCO2 51 H 46 33 D ABG pO2 69 L 70 L 88 ABG HCO3 23 23 23 ABG O2 Saturation 92 93 98 ABG Base Excess -4 L -4 L -1 VBG pH VBG pCO2 VBG pO2 VBG Base Excess 02/08/25 02/08/25 02/09/25 04:10 16:19 04:44 ABG pH 7.39 7.40 7.43 ABG pCO2 45 D 41 40 ABG pO2 73 L 205 H D 62 L D ABG HCO3 27 H 25 26 ABG O2 Saturation 94 100 H 92 ABG Base Excess 2 1 2 VBG pH VBG pCO2 VBG pO2 VBG Base Excess 02/10/25 04:44 ABG pH 7.44 ABG pCO2 36 ABG pO2 77 L ABG HCO3 25 ABG O2 Saturation 96 ABG Base Excess 1 VBG pH VBG pCO2 VBG pO2 VBG Base Excess Quality Measures Quality Measures sepsis Current suspected stage: ruled out Possible source: genitourinary Blood cultures ordered: yes Antibiotic ordered: No Advance care planning discussed with:: other Assessment & Plan Assessment Current Active Medications: Generic Name Dose Route Start Last Admin Trade Name Freq PRN Reason Stop Dose Admin Acetaminophen 650 mg 02/03/25 07:33 Acetaminophen Supp 650 Mg Supp UT 03/05/25 07:32 Q4HR PRN PAIN SCALE 1-3 (mild Cholestyramine Resin 1 pkt 02/09/25 09:45 02/10/25 08:43 Cholestyramine/Sucrose 1 Pkt Ea NG 03/11/25 09:44 Not Given BID JAYRO Heparin Sodium (Porcine) 3,000 unit 02/04/25 10:06 02/07/25 12:20 Heparin Sod Inj 1000 Unit/Ml Vial 10 Ml INDWELLCAT 02/18/25 10:05 3,000 unit PRN PRN Administration HD catheter Vasopressin/Sodium Chloride 20 unit in 100 mls @ 9 mls/hr 02/03/25 16:15 02/09/25 11:07 Vasostrict/Ns Ivpb IV 03/05/25 16:14 0 unit/min .Q11H7M PRN 0 mls/hr PER PROTOCOL Titration Protocol 0.03 UNIT/MIN Albumin Human 25 gm in 100 mls @ 100 mls/min 02/07/25 09:53 02/08/25 07:00 Albuminar-25 Ivpb IV Infused PRN PRN Infusion DIALYSIS Norepinephrine/Dextrose 8 mg in 250 mls @ 6.056 mls/hr 02/09/25 11:25 Levophed In D5w 8mg/250ml IV 03/05/25 06:01 .Q24H PRN PER PROTOCOL Protocol 0.05 MCG/KG/MIN Octreotide Acetate 1,000 mcg/ 102 mls @ 5.1 mls/hr 02/10/25 08:42 02/10/25 09:14 Sodium Chloride IV 02/15/25 08:42 50 mcg/hr .Q20H JAYRO 5.1 mls/hr Administration Protocol 50 MCG/HR Fentanyl Citrate 2,500 mcg in 250 mls @ 2.5 mls/hr 02/10/25 14:28 02/10/25 15:00 Sublimaze Inj 2,500 Mcg/250 Ml Bag IV 02/15/25 14:27 225 mcg/hr .Q24H PRN 22.5 mls/hr PER PROTOCOL Titration Protocol 25 MCG/HR Dexmedetomidine/Sodium Chloride 400 mcg in 100 mls @ 3.235 mls/hr 02/10/25 15:03 02/10/25 15:55 Precedex Ivpb IV 03/12/25 15:02 0.4 mcg/kg/hr .Q24H PRN 6.47 mls/hr Per PROTOCOL Titration Protocol 0.2 MCG/KG/HR Lactulose 45 gm 02/09/25 09:15 02/10/25 16:15 Lactulose Syrup 20 Gm/30 Ml Udc NG 03/11/25 08:59 Not Given QID JAYRO Protocol Metoclopramide HCl 5 mg 02/09/25 22:00 02/10/25 14:51 Metoclopramide Inj 5 Mg/Ml Vial 2 Ml IVP 03/11/25 21:59 5 mg Q8HR JAYRO Administration Protocol Pantoprazole Sodium 40 mg 02/03/25 09:00 02/10/25 08:58 Pantoprazole Inj 40 Mg Vial IVP 03/05/25 08:59 40 mg QDAY JAYRO Administration Pharmacy Consult 1 each 02/03/25 02:03 Pharmacy Renal Dose Adjustment 1 Ea XX 03/05/25 02:02 PRN PRN CONSULT Rifaximin 550 mg 02/09/25 09:45 02/10/25 08:43 Rifaximin 550 Mg Tablet NG 02/16/25 09:29 Not Given BID JAYRO Plan 69-year-old female with unknown past medical history was brought to the hospital in view of altered sensorium. Per nurse, patient probably had a fall the day before admission in the morning following which she was okay until the neighbors blood to recheck her in the evening, found to be unconscious for which they called the EMS and was brought to the hospital. In the ED, patient is minimally responsive with marked icterus and periorbital contusion. Patient was found to be hypoxic with oxygen saturation in the mid 80s and was initially placed on a nonrebreather mask with correction of hypoxia. Later patient was found to be tachycardic with heart rate around 140s and febrile with a temperature of 105.8 ?F. Patient was intubated in view of acute encephalopathy and hypoxia. ICU is consulted in view of acute hypoxic respiratory failure in the setting of acute encephalopathy and suspected septic shock. FUR LINER # Acute encephalopathy Differential diagnosis: Septic encephalopathy versus hepatic encephalopathy versus metabolic versus sedation versus multifactorial - Septic encephalopathy: Patient is found to have temperature of 105.8 degrees on heat at the time of admission. Could be possible cause of septic encephalopathy - Hepatic encephalopathy. Patient has stigmata of chronic liver failure. Icterus, appears chronically ill, ascites. - Metabolic encephalopathy: Patient was found to have high anion gap metabolic acidosis with lactic acidosis at the time of presentation. -Sedation: Patient received rocuronium and propofol for the intubation. In the setting of the liver failure, there will be decreased platelets that could cause the sedation but patient was noted to be in altered sensorium even before coming to the hospital. So less likely the cause of acute encephalopathy - Patient was treated with adequate doses of antibiotics, corrected her metabolic condition, weaned off the sedation but despite of which patient did not show any improvement in mental status, at this point the acute encephalopathy is likely due to hepatic encephalopathy Diagnosis: - In the ED, temperature is 105.8 ?F - Labs showed bicarb less than 10, anion gap 22, lactic acid 15, total bilirubin 15.9, AST 241, ALT 58 - CT head did not show any evidence of fracture/hemorrhage. Plan: - Started on empiric antibiotics, Zosyn 2.25 g every 8 hourly (02/03 - 02/09 ) - Started on lactulose 30 g 3 times daily and increased to 45 g 3 times daily as of 02/04/2025, rifaximin 550 Mg twice daily, held as of 02/05/2025 as patient developed ischemic colitis - tried to restart on 02/09/2025, but patient noted to have severe abdominal distention on 02/10 and noted to have severe GI bleed following which we could not give any lactulose for the patient. - Currently on Precedex and fentanyl drip, as patient is breathing over the ventilator and appears to be in pain but still doesnt follow commands. - For metabolic acidosis, patient was given multiple doses of bicarb despite which patient remained acidotic and was started on CRRT and was stopped on 02/04/2025 around 7PM CVS # Shock, resolved Differential diagnosis: Distributive versus hypovolemic versus obstructive versus cardiogenic - Distributive: Likely sepsis. Patient does not have any hives or airway edema which rules out anaphylaxis. Patient was noted to have temperature of 105.8 ?F with E.coli bacteremia. - Hypovolemic: History is unknown. No evidence of any recent severe GI bleed or active bleeding noted at the time of admission. - Obstructive versus cardiogenic:. Bedside echocardiogram was done and heart appears to be hyperdynamic without any evidence of cardiac tamponade or RV strain Diagnostic test: - Patient was found to have low MAP less than 65 mmHg despite fluid resuscitation - In the ED, temperature is 105.8 ?F - Labs showed bicarb less than 10, anion gap 22, lactic acid 15, total bilirubin 15.9, AST 241, ALT 58 - Procalcitonin is 7.47 - Blood cultures showed Gram negative bacteremia, E.coli bacteremia Plan: - Started on Zosyn (02/03- 02/09) - 2.5 L of bolus was given in the ED - Started on Levophed and vasopressin in view of low MAP - Started on albumin 25 g IV every 6 hourly, stopped as of 02/06/2025, will restart if needed - Arterial line is placed to measure blood pressure accurately - Patient was given a dose of hydrocortisone 100 mg and started on Hydrocortisone 50mg IV every 6th hrly on 02/03 --> changed to every 12th hrly as of 02/06/2025 and discontinued later as her shock resolved # Sinus tachycardia, resolved - At the time of admission, patient was found to have pulse rate of 138 - EKG showed sinus tachycardia with no ST and T wave changes - Likely in response to the febrile episode. Later as patient is started on levophed, found to be tachycardic which is likely due to vasopressors Plan: - Patient was given 2.5 L of IV fluid bolus at the time of admission - Will continue telemetry monitoring # Elevated troponins, downtrended Likely in the setting of demand ischemia -Troponin at the time of admission is 0.077, later downtrended - EKG showed sinus tachycardia with no ST and T wave changes - Will continue Telemetry monitoring - Very low suspicion of ACS at this point of time Respiratory # Acute hypoxic respiratory failure Likely multifactorial, in the setting of Acute encephalopathy and Sepsis - Patient came in with altered sensorium and found aline having mixed metabolic and respiratory acidosis - ABG at the time of admission is pH 7.25, pCO2 18, HCO3 8 - Patient is intubated in the ED for which she received Rocuronium and propofol Plan - Will continue mechanical ventilation - On precedex and fentanyl drip, trying to wean her off. GI # Decompensated Cirrhosis with Ascites, 2/2 Alcohol # Hyperbilirubinemia # Hypoalbuminemia - Patient came in altered sensorium and couldnt get much history - Noted icterus and abdominal distension at the time of admission - Labs at the time of admission showed hyperbilirubinemia, 15.9, AST 241, ALT 58, albumin 2.5, INR 1.8 ---> 26.4, 256, 205 - Noted to have previous history of hemorrhoids - CT Abdomen showed cirrhosis with ascites - MELD score at the time of admission is 29, 27 to 32% mortality in the next 90 days - Child class C Plan - Ordered hepatitis panel, came back negative - Patient appears to have poor prognosis in the setting of high MELD score and Trista class C - If the patient improves after this acute setting, will recommend to follow-up for the liver transplant. - Started octreotide drip at the time of admission on 02/03 and stopped on 02/05/2025, restarted on 02/10/2025 # Transaminitis - At the time of admission, AST is 241, ALT is 58 --> 02/06, AST 1084, ALT 360 -->02/07, 872, 332 - Repeat liver panel showed significant elevations transaminase levels to 696, 145 and uptrended to 2385 and 474 --> 02/10, 256, 205 - Likely patient had ischemic hepatitis in the setting of ongoing shock Plan - Patient is on CRRT in view of multiorgan dysfunction from 02/03/2025 - 02/04/1025 for about more than 20hours - Will continue to monitor liver enzymes # Hypoalbuminemia - Albumin at the time of admission is 2.5 - Patient was given 50 g of albumin at the time of admission Plan - Patient is on 25 g albumin IV every 6 hourly, 02/03 - 02/06 - Will restart as needed # Incidental finding, numerous liver masses noted on CT abdomen/pelvis - Patient was noted to have numerous liver lesions, subcentimeter masses on CT abdomen/pelvis done at the time of admission - Could be possible malignancy in the setting of cirrhosis - Tested negative for CEA, Alpha fetoprotein Plan - CT abdomen/pelvis with contrast on 02/05/2025 that showed - liver is replaced with numerous subcentimeter liver lesions # Suspected ischemic colitis - Patient was found to have abdominal distention with high peak pressures noted on the ventilator on 02/05/2025 - OG tube was connected to the low intermittent suction and was found to have 2.5 L of fluid - Also noted to have lactate elevation from 5.1-6.3 Plan - CT abdomen/pelvis was done that showed ischemic bowel, right colon, air droplets in the wall of the bowel and projecting outside the wall of the right colon - Also abnormal small bowel loops fluid distended with wall thickening is noted - General Surgeon, Dr. Rocha is consulted and he did exploratory laparotomy on 02/08/2025 but did not found any ischemic colitis and abdomen is closed Renal # Acute kidney injury - Baseline creatinine is 0.6 - Creatinine at the time of admission is 1.4 and patient appears to be anuric with urine output less than 50 mL in the last 24 hours - Repeat renal functions as of 02/05/2025 showed BUN 5, Cr 1 - Likely in the setting of ongoing shock, HRS cannot be ruled out at this time as the patient is having shock Plan - Dialysis catheter was placed in the right femoral vein - Lead Ramp Service Man, Dr. Steward is consulted and Received CRRT on 02/03 - 02/04 - Urine electrolytes sent, FeNa is 0.5 --> Likely prerenal in the setting of Shock - Conventional HD as of 02/06/2025, 02/07/2025, 02/09/2025 - Will continue to monitor renal functions and renally dose medications # High anion gap metabolic acidosis, # Lactic acidosis, resolving - Likely in the setting of ongoing shock and multiorgan dysfunction - Found to have bicarb less than 10, anion gap 22, lactate 15 at the time of admission --> 02/06, 3.9 Plan - Patient was given 2 doses of bicarb at the time of admission - Patient received CRRT - Despite CRRT patient appears to have uptrending lactate for which CT abdomen/pelvis is done and revealed ischemic colitis - Patient is noted to have again developed anion gap metabolic acidosis and lactic acidosis likely in the setting of ongoing worsening liver failure and renal failure - Will trend levels for now, will restart dialysis if needed # Mild hyponatremia, resolved - Sodium at the time of the admission is 133 likely in the setting of chronic liver disease and ongoing HIRA - Sodium levels as of 02/05/1025 is 139 Plan - Will monitor sodium levels and treat accordingly # Hypomagnesemia, resolved - Magnesium at the time of admission is 1.4, likely nutritional in the setting of suspected chronic liver disease - Magnesium as of today is 2.4 Plan - Will continue to monitor the magnesium levels Hematology # Thrombocytopenia - Platelets at the time of admission is 61,000 but patient does not appear to be actively bleeding at this point of time - Likely in the setting of sepsis and chronic liver disease - Platelets on 02/04/2025 is 16,000 --> 02/05, 22,000 --> 02/06, 20,000 --> 02/10, 24,000 Plan - 1 platelet transfusion is given on 02/04 - Transfused 1 unit of platelets on 02/06, 2 platelets transfused on 02/08/2025 at the time of surgery - Will continue to monitor the platelet count and bleeding manifestations # Anemia - Hemoglobin at the time of admission is at 10.9, but her baseline hemoglobin is around 8, the hemoglobin in the admission could be due to some hemoconcentration - Hemoglobin on 02/04/2025 is 6.9, repeat hemoglobin is 6.4 - Monitor could be multifactorial, likely in the setting of multiple build with the dose and correction of hemoconcentration, suspicion of possible DIC - Hb as of 02/05 is 7.1 --> 02/06, 10.2 Plan - 2 PRBC transfusion given on 02/04 - Started on 2 PRBC transfusion on 02/05 - 1 unit PRBC transfusion is given on 02/10/2025 and we have bleed noted on OG tube suction. # Coagulopathy - INR at the time of admission is 1.8 - INR on 02/04/2025 is 4.7 ---> 2.2 on 02/05 --> 01/24 8, 3.1 - Likely multifactorial in the setting of sepsis, decompensated liver disease, suspected possible DIC - Currently patient does not noted to have any active bleeding manifestations Plan - Ordered 4 FFP's on 02/04 and 3 FFP's are transfused - Each bag contains 300 mL and patient weighs around 60 kg - Per calculation, patient needs 15 mL/kg-so patient needs 900 mL of FFP's - 1 FFP is transfused on 02/06, 2 more FFP's transfused on 02/08/2025 at the time of surgery. 2 more FFP's transfused on 02/10/2025 # Suspected DIC - Likely multifactorial in the setting of liver disease, sepsis - Patient might be having coagulopathy from the liver disease, completely cannot be ruled out but as the patient developing worsening INR, low platelet count, anemia, suspecting DIC Plan - Fibrinogen levels are ordered - 116 on 02/04, 92 on 02/05 - Patient received 2 PRBC, 3 FFP, 1 Platelet on 02/04 - 2 PRBC, 1 FFP, 1 platelet transfusion, 6 Cryoprecipitates are ordered on 02/05, received all of them except 2prbc on 02/06 - Received 2 FFP's on 02/08/2025 and 02/10/2025 - Will repeat CBC and coagulation studies after the transfusions - Will continue to monitor for bleeding manifestations and we will try to treat the underlying condition. ID # Sepsis - Blood cultures showed GNR bacteremia, E.coli Plan -Blood culture showed E. coli which is sensitive to Zosyn completed the antibiotic course. Musculoskeletal # No active problems as of now Endocrinology # No acute problems as of now Hospital Maintenance: Dispo: ICU for septic shock DVT ppx: SCD GI ppx: Protonix Diet: npo IV lines: Right IJV CENTRAL line, Right femoral arterial and dialysis catheter Code status: Full Patient plan of care was discussed with the Card Reader Dr. Aurelia Leslie, PGY2
[2025-02-10] MEDS: CHOLESTYRAMINE/SUCROSE 1 PKT EA NG (21:55)
[2025-02-10] MEDS: levETIRAcetam INJ 100 MG/ML VIAL 5ML 1000 MG IVP (23:12)
[2025-02-10 23:15] LABS: Base Excess -9 (-3-3); HCO3 17 mEq/L (20-26); Inspired Oxygen, FIO2 30 %; O2 Saturation 96 % (91-98); PCO2 40 mmHg (32.0-48.0); PO2 96 mmHg (83-108); pH, Arterial 7.25 (7.35-7.45)
[2025-02-10 23:20] LABS: Allen Test Not Performed; Puncture Site Arterial Line
[2025-02-11] VITALS (167 sets, daily range): BP systolic 0–213; BP diastolic 0–174; PULSE 41–125; RESP 0–50; TEMP 35–38; O2SAT 74–100; BMI 29.0
[2025-02-11] MEDS: MIDAZOLAM INJ 1 MG/ML VIAL 2 ML 2 MG IVP ×2 (00:09→00:34)
[2025-02-11] MEDS: fentaNYL 2,500 MCG/250 ML BAG 2,500 MCG/250 ML BAG 22.5 MCG IV (00:39)
[2025-02-11] MEDS: Norepinephrine/D5W 8mg/250ml 8 MG/250 ML BAG 6.056 MG IV (00:43)
[2025-02-11] MEDS: MIDAZOLAM/NS 100 MG IVPB 100 MG/100 ML BAG IV (00:44)
[2025-02-11] MEDS: Sodium Bicarb Inj 8.4% SYR 50 ML SYRINGE IV (00:56)
[2025-02-11] MEDS: DEXTROSE 50%-WATER INJ 50 ML SYRINGE IVP ×2 (01:03→16:41)
[2025-02-11] MEDS: PROPOFOL 1,000 MG IVPB 1,000 MG/100 ML VIAL 1.941 MG IV (01:08)
[2025-02-11] MEDS: OCTREOTIDE ACET INJ 1,000 MCG in SODIUM CHLORIDE 0.9% 100 ML 5.1 MCG IV (01:26)
[2025-02-11 03:26] LABS: Lactate (Lactic Acid) 14.3 mMol/L (0.4-2.0)
[2025-02-11 03:31] LABS: Basophils # (Auto) 0.1 Thou/mm3 (0.0-0.2); Basophils % (Auto) 1 % (0-2.5); Eosinophils # (Auto) 0.0 Thou/mm3 (0.0-0.5); Eosinophils % (Auto) 0 % (0-10); Hematocrit 29.2 % (36.0-46.0); Hemoglobin 9.2 g/dL (12.0-16.0); Immature Granulocytes Auto 0.78 Thou/mm3 (0.00-0.00); Lymphocytes # (Auto) 0.8 Thou/mm3 (1.0-4.8); Lymphocytes % (Auto) 6 % (10-50); Mean Corpuscular HGB Conc 31.5 g/dl (31.0-37.0); Mean Corpuscular Hemoglobin 31.0 pg (25.0-35.0); Mean Corpuscular Volume 98 fL (80-100); Monocytes # (Auto) 0.2 Thou/mm3 (0.0-0.8); Monocytes % (Auto) 1 % (0-12); Neutrophils # (Auto) 10.6 Thou/mm3 (1.8-7.7); Neutrophils % (Auto) 85 % (37-80); Nucleated Red Blood Cell # 0.14 Thou/mm3 (0.00-0.00); Nucleated Red Blood Cell % 1 /100 WBC (0); RDW Standard Deviation 84.3 fL (36.4-46.3); Red Blood Count 2.97 Miln/mm3 (4.00-5.20); White Blood Count 12.4 Thou/mm3 (3.6-11.0)
[2025-02-11 03:35] LABS: Platelet Count 24 Thou/mm3 (140-440)
[2025-02-11 03:57] LABS: Alanine Aminotransferase 160 U/L (10-49); Albumin, Serum 2.9 gm/dL (3.4-4.8); Albumin/Globulin Ratio 1.1 (1.2-2.2); Alkaline Phosphatase 223 U/L (46-116); Anion Gap 27 (7-16); Aspartate Amino Transferase 180 U/L (0-34); BUN/Creatinine Ratio 18 Ratio (12-20); Blood Urea Nitrogen 79 mg/dL (9-23); Calcium 8.7 mg/dL (8.3-10.6); Calcium (Corrected) 9.6 mg/dL (8.5-10.1); Carbon Dioxide 16.5 mMol/L (20.0-31.0); Chloride 100 mMol/L (98-107); Creatinine (Component) 4.3 mg/dL (0.6-1.3); Estimated Creatinine Clearance 10.2 mL/min (>60); Globulin 2.7 gm/dL (2.3-3.5); Glucose 103 mg/dL (74-106); Magnesium 2.2 mg/dL (1.6-2.6); Osmolality,Calculated 308 (275-295); Phosphorous 7.1 mg/dL (2.4-5.1); Potassium 4.5 mMol/L (3.4-5.1); Sodium 143 mMol/L (136-145); Total Protein 5.6 gm/dL (5.7-8.2); eGFR 11 See Note
[2025-02-11 04:17] LABS: Bilirubin,Total 23.6 mg/dL (0.3-1.2)
[2025-02-11 04:21] LABS: Slide Review Platelets confirmed
[2025-02-11] MEDS: DEXTROSE 50%-WATER INJ 50 ML SYRINGE 100 ML IVP (04:21)
[2025-02-11 04:54] LABS: Base Excess -15 (-3-3); HCO3 15 mEq/L (20-26); Inspired Oxygen, FIO2 100 %; O2 Saturation 100 % (91-98); PCO2 56 mmHg (32.0-48.0); PO2 291 mmHg (83-108)
[2025-02-11 05:00] LABS: Allen Test Not Performed; Puncture Site Arterial Line; pH, Arterial 7.03 (7.35-7.45)
[2025-02-11] MEDS: DEXMEDETOMIDINE 400 MCG IVPB 400 MCG/100 ML BAG 6.47 MCG IV (05:42)
[2025-02-11] MEDS: Norepinephrine/D5W 8mg/250ml 8 MG/250 ML BAG 92.055 MG IV (05:52)
[2025-02-11] MEDS: METOCLOPRAMIDE INJ 5 MG/ML VIAL 2 ML IVP ×2 (06:12→13:12)
[2025-02-11 06:22] LABS: Reflex Lactate? Y
[2025-02-11] MEDS: PROPOFOL 1,000 MG IVPB 1,000 MG/100 ML VIAL 19.41 MG IV (06:47)
[2025-02-11] MEDS: MIDAZOLAM/NS 100 MG IVPB 100 MG/100 ML BAG 10 MG IV (08:00)
[2025-02-11] MEDS: levETIRAcetam INJ 100 MG/ML VIAL 5ML 1000 MG IVP (08:01)
--- NOTE | 2025-02-11 08:22 | ESPR_ITS ---
Documentation for date of: 02/11/25 Subjective Subjective Interval history: This is a 69yo F who was found down at 1am in her house. A neighbor found her on the floor unresponsive and she had apparently fallen and hit her head. EMS was called and the pt was brought into the ER. On arrival she was noted to be altered and febrile with a temp of 105.8. Initial labs showed a metabolic acidosis with appropriate respiratory compensation. She became progressively more lethargic and obtunded as the night progressed. At 6am she was unresponsive and hypotensive. She was given a total of 2.5lts of IVF in the ER and intubated. She was started on vasopressor support and a central line was placed. Pt was brought up to the ICU. A bedside echo was done which showed a hyperdynamic LV with no pericardial effusion. SvO2 was sent off of the brown port from the central line and pt was given vanc/zosyn. A cheeta was placed for hemodynamics and PLR performed. pt was found to not be fluid responsive. There are no family available for additional information. pts s/o 2 months ago and there is no immediate family around. 02/04- overnight dropped h/h , no evidence of active bleed, wakes up but does not follow commands, decrease in levo needs today, 1 BM yesterday, no fever overnight, poor UOP 02/05-overnight patient had elevated peak inspiratory pressures on the ventilator. She was also noted to have increased abdominal distention. She has had no bowel movement since arrival. Her vent settings were adjusted on the ventilator and her OG tube was placed to low intermittent suction. There was a total of more than 2 L of fluid immediately suctioned from the patient's stomach consistent of gastric content. She is currently afebrile and continues with no urinary output 02/06-yesterday had a drop in her H&H with worsening coagulopathy. Her abdomen was distended and a CT was performed. This showed ischemic colitis along with question of small bowel ischemia. Surgery was consulted. Her lactic acid remains elevated, she is coagulopathic, she had a drop in her fibrinogen and platelets. FFP's, cryo, platelets and PRBCs were ordered for her. She remains anuric and when sedation is lightened she remains minimally responsive 02/08- no acute overnight events, remains virtually anuric, meeting held with representatives this morning. Patient's representatives are her landlord as well as tenant who have known her for 11 and 15 years, they have agreed to be her assistance representative for decision-making. This morning she remains jaundiced on minimal vasopressor support and afebrile. Her fentanyl and Precedex were held. On initial exam she had a GCS of 4 however later in the day she began to become more responsive with spontaneous eye opening and spontaneous movement of her right upper extremity though she still does not follow commands. 02/09-no acute overnight events, yesterday afternoon patient began to spontaneously open her eyes though does not appear to track as of yet. Did not follow commands. Patient is still virtually anuric and she is afebrile. Patient went to the OR yesterday for evaluation of ischemic bowel. The patient underwent an ex lap and there was no significant findings per surgery. She was closde and returned to the ICU. 02/10-overnight the patient had increasing abdominal distention. This morning the NG tube was placed to suction and over 500 cc of blood were suctioned patient continues to have 0 bowel movements. She underwent surgical intervention which did not reveal any bowel ischemia or bowel obstruction. At this point in time the patient has a very poor prognosis. Goals of care meeting was held with the 2 individuals who had agreed to make decisions for her earlier Rell and Ivania. Today decided that they would not like to make decisions. Will refer to ethics 02/11- yesterday started with bleeding from the OGT and UGIB -> initiated on octreotide gtt, has had intermittent arrhythmias overnight, increasing vasopressor needs, pending ethics meeting today, remains anuric, no BM since arrival. had sz activity overnight and was started on midazolam along with keppra overnight. was transitioned from PSV to AC VC once more overnight. Respiratory acidosis noted on patient's ABG from this morning Critical Care Note Critical care time (min.): 49 Exam Vital Signs Temp Pulse Resp BP Pulse Ox O2 Del Method O2 Flow Rate 97.7 F 104 H 24 H 93/44 L 95 Mechanical Ventilation 11 02/11/25 07:01 02/11/25 08:01 02/11/25 08:01 02/11/25 08:01 02/11/25 08:01 02/11/25 07:01 02/06/25 07:07 FiO2 100 02/11/25 07:29 Narrative Exam Gen- intubated, off sedation, obese, ill appearing, jaundice HEENT- NC/AT, mucosa hydrated, ETT/OGT in place, sclera icteric, pupils midsize R reactive, L unreactive Chest- diminished, coarse, HRRR, tachy, no increase in WOB Abd- distended, absent bowel sounds, surgical site intact, Ext- edema, pulses palp, no clubbing, no withdrawal to pain Vent AC VC Drips levo octreotide Vasopressin Midazolam Propofol Fentanyl Precedex Physical Exam Completion Physical Exam Complete?: Yes Objective - [employer]ed [employer] Labs 02/11/25 03:03 02/11/25 03:03 Labs: Laboratory Results - last 24 hr 02/07/25 02/10/25 02/10/25 19:34 09:06 12:42 WBC 16.3 H RBC 2.99 L Hgb 9.4 L Hct 28.2 L MCV 94 MCH 31.4 MCHC 33.3 RDW Std Deviation 82.3 H Plt Count 24 L* D Neut % (Auto) 91 H Lymph % (Auto) 2 L [place] % (Auto) 4 Eos % (Auto) 0 Baso % (Auto) 0 Neut # (Auto) 14.8 H Lymph # (Auto) 0.4 L [place] # (Auto) 0.6 Eos # (Auto) 0.0 Baso # (Auto) 0.1 Immature Gran # (Auto) 0.33 H Absolute Nucleated RBC 0.00 Immature Gran % 2 H Nucleated RBC % 0 PT 31.5 H* INR 3.1 H APTT 49.7 H Puncture Site ABG pH ABG pCO2 ABG pO2 ABG HCO3 ABG O2 Saturation ABG Base Excess FiO2 Sodium Potassium Chloride Carbon Dioxide Anion Gap BUN Creatinine Estim Creat Clear Calc eGFR BUN/Creatinine Ratio Glucose Calculated Osmolality Lactic Acid 5.5 H* 5.7 H* Calcium Corrected Calcium Phosphorus Magnesium Total Bilirubin AST ALT Alkaline Phosphatase Total Protein Albumin Globulin Albumin/Globulin Ratio Misc Test Result Platelets confirmed Blood Type O Positive Antibody Screen NEGATIVE Crossmatch See Detail Blood Bank Wristband ID Yes Blood Bank Comment PLATP Ready 02/10/25 02/10/25 02/11/25 20:23 23:06 03:03 WBC 12.4 H RBC 2.97 L Hgb 9.2 L Hct 29.2 L MCV 98 MCH 31.0 MCHC 31.5 RDW Std Deviation 84.3 H Plt Count 24 L* Neut % (Auto) 85 H Lymph % (Auto) 6 L [place] % (Auto) 1 Eos % (Auto) 0 Baso % (Auto) 1 Neut # (Auto) 10.6 H Lymph # (Auto) 0.8 L [place] # (Auto) 0.2 Eos # (Auto) 0.0 Baso # (Auto) 0.1 Immature Gran # (Auto) 0.78 H Absolute Nucleated RBC 0.14 H Immature Gran % 6 H Nucleated RBC % 1 H PT INR APTT Puncture Site Arterial Line ABG pH 7.25 L D ABG pCO2 40 ABG pO2 96 ABG HCO3 17 L ABG O2 Saturation 96 ABG Base Excess -9 L FiO2 30 Sodium 143 Potassium 4.5 Chloride 100 Carbon Dioxide 16.5 L Anion Gap 27 H BUN 79 H Creatinine 4.3 H* D Estim Creat Clear Calc 10.2 L eGFR 11 L* BUN/Creatinine Ratio 18 Glucose 103 D Calculated Osmolality 308 H Lactic Acid 14.3 H* Calcium 8.7 Corrected Calcium 9.6 Phosphorus 7.1 H Magnesium 2.2 Total Bilirubin 23.6 H* D AST 180 H ALT 160 H Alkaline Phosphatase 223 H D Total Protein 5.6 L Albumin 2.9 L Globulin 2.7 Albumin/Globulin Ratio 1.1 L Misc Test Result Platelets confirmed Blood Type O Positive Antibody Screen NEGATIVE Crossmatch See Detail Blood Bank Wristband ID Yes Blood Bank Comment 02/11/25 04:44 WBC RBC Hgb Hct MCV MCH MCHC RDW Std Deviation Plt Count Neut % (Auto) Lymph % (Auto) [place] % (Auto) Eos % (Auto) Baso % (Auto) Neut # (Auto) Lymph # (Auto) [place] # (Auto) Eos # (Auto) Baso # (Auto) Immature Gran # (Auto) Absolute Nucleated RBC Immature Gran % Nucleated RBC % PT INR APTT Puncture Site Arterial Line ABG pH 7.03 L* D ABG pCO2 56 H D ABG pO2 291 H D ABG HCO3 15 L ABG O2 Saturation 100 H ABG Base Excess -15 L FiO2 100 Sodium Potassium Chloride Carbon Dioxide Anion Gap BUN Creatinine Estim Creat Clear Calc eGFR BUN/Creatinine Ratio Glucose Calculated Osmolality Lactic Acid Calcium Corrected Calcium Phosphorus Magnesium Total Bilirubin AST ALT Alkaline Phosphatase Total Protein Albumin Globulin Albumin/Globulin Ratio Misc Test Result Blood Type Antibody Screen Crossmatch Blood Bank Wristband ID Blood Bank Comment Assessment & Plan Additional Plan Additional Plan: In brief this is a 69yo F admitted to the ICU with distributive shock 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 Acute encephalopathy- multifactorial and 2/2 sepsis, shock, acidosis and hepatic etiologies - Patient is unable to tolerate lactulose, rifaximin or Colesytramine -No improvement - repeat HCT on 02/08 without new changes Facial Trauma- CT without fx CV Shock-Patient went to the OR on 02/08 with no identifiable bowel ischemia found - has been restarted on levophed overnight - hypotension likely due to ongoing blood loss from GIB - likely hypovolemic shock with distributive component secondary to nitric oxide and cirrhosis Tropinemia- likely related to demand ischemia, fu on repeat, EKG without ST elevation or depression - minimally elevated in setting of HIRA and shock - echo done and shows diastolic dysfunction with a normal EF and no wall motion abnormality - Improved Resp Acute resp failure- intubated and on MV, fu with ABG and CXR - today with resp acidosis - adjust vent Renal HypoNa- mild, monitor, in the setting of cirrhosis AGMA- 2/2 LA - Continues to have an elevated lactate-> no bowel ischemia found -mixed resp and metabolic acidosis today - LA elevated in the setting of shock HIRA-remains with no urinary output and dialysis dependent -Followed by nephrology -At this time she is on 2 vasopressors and unable to tolerate regular dialysis HypoMg-repleted GI Cirrhosis- started on lactulose and rifaxamin however not able to tolerate - elevated LFTs-> ? 2/2 ischemic hepatitis - check viral hep panel-> NTD - alcohol level added on->NTD -Trending back down - Total bili remains elevated at 21.2 today concern for the possibility of kernicterus - Unable to tolerate cholestyramine GI bleed-patient has blood aspirated from stomach -Repeat H&H shows slight trend down -Started on octreotide drip - transfused 1uPRBC overnight Liver masses-AFP and CEA negative hypoalbuminemia- in the setting of cirrhosis - check uprotein/cr ratio Abdominal distention-CT shows bowel ischemia. There appears to be pneumatosis intestinalis of the right colon and there is question of some ischemic changes in the small bowel as well - Surgical consultation was obtained - Patient went to the OR with no significant findings after ex lap - Patient has severe ileus - Has had no bowel movement since arrival Endo Hypoglycemia-improved and on as needed D50 - Has been n.p.o. for the last 6 days may require TPN - Will trial tube feeds today Heme Anemia macrocytic- check b12/folate-> wnl - given 5u PRBCs since hospital arrival - has ongoing GIB thrombocytopenia- in the setting of sepsis and cirrhosis -Transfused platelets with brief improvement - Stable Coagulopathy- INR elevated - Transfused FFP and cryo during her stay - Active GI bleed DVT proph- SCDs ID UTI-secondary to E. coli and on Zosyn Sepsis- on zosyn with GNR bacteremia day#7 - Cultures resulted back as E. coli from both blood and urine sensitive to Zosyn - Complete 7 days of antibiotics total - case d/w ICU team and nephrology Awaiting ethics committee today, patient is extremely poor prognosis. She currently has multiorgan failure with a sofa score of 21 which predicts a mortality rate greater than 95% labs, imaging, records reviewed ~ 49ccmin required for eval, exam, review, intervention, discussion and formulation of POC for this critically ill pt in septic shock at high risk for further ongoing decompensation Provider Notation Provider Notation: Although this document has been carefully reviewed, there may still be some phonetic and other typographical errors. These errors are purely grammatical due to imperfections in the software program and should not be construed in any way to compromise the substance of the patient's medical care during this visit. Thank you for the opportunity and privilege in assisting you with this patient's care and management.
[2025-02-11 08:43] LABS: Lactic Acid, 3 HR 18.0 mMol/L (0.4-2.0)
[2025-02-11] MEDS: Norepinephrine/D5W 8mg/250ml 8 MG/250 ML BAG 60.563 MG IV (08:44)
[2025-02-11] MEDS: RINGERS LACTATED 1000 ML 1,000 ML 999 ML IV (09:27)
--- NOTE | 2025-02-11 09:50 | PC.CC ---
Late entry for, 02/08/25 1015 THOM and BOONE Lacey met with Ivania Asif and Rell Delgado. Role and reason for the contact was explained. Both individuals alleged knowing the patient 10+ years. Both individuals were explained the mandated responsibilities of the hospital and efforts that have to be made to attempt to look for family; both parties appeared to understand the information provided. HASH SLINGER inquired about any concerns any of the individuals may have on either of them being identified as decision makers; no concerns/information was disclosed at the time of the meeting. HASH SLINGER also explained the goal of today?s meeting and the decision maker role and responsibilities; both parties acknowledged the information provided. HASH SLINGER inquired about the patient having an advance directive. Both parties reported that to their knowledge the patient did not have an advance directive. Both parties also reported that they would not gain any financial advantage from the patient?s . Both individuals reported that they would continue to make efforts in looking for family. Ivania reports that she would attempt to look for a notebook that can potentially have the contact information to the patient?s son and/or brother. During the meeting, Mr. Delgado did bring in the patient?s bank card and cellphone. Cell phone did not contain contact information to the patient?s family. Dr. Blake met with the Ms. Asif and Mr. Delgado. Patient?s condition was explained. Both individuals reported that they would be in agreement to make decision for the patient in the event she needed consent for a procedure but they would decline to place the patient on comfort care measures. Both individuals agreed on having the patient be full code.
[2025-02-11 09:58] LABS: Base Excess -19 (-3-3); HCO3 10 mEq/L (20-26); Inspired Oxygen, FIO2 60 %; O2 Saturation 98 % (91-98); PCO2 38 mmHg (32.0-48.0); PO2 136 mmHg (83-108)
--- NOTE | 2025-02-11 09:59 | PC.CM ---
Late entry for 02/08/25 1015 HEALTH INFORMATICS ADVISOR and BOONE Lacey met with Ivania Asif and Rell Delgado. Role and reason for the contact was explained. Both individuals alleged knowing the patient 10+ years. Both individuals were explained the mandated responsibilities of the hospital and efforts that have to be made to attempt to look for family; both individuals appeared to understand the information provided. HEALTH INFORMATICS ADVISOR inquired about any concerns any of the individuals may have on either of them being identified as decision makers; no concerns/information was disclosed at the time of the meeting. HEALTH INFORMATICS ADVISOR also explained the goal of today?s meeting and the decision maker role and responsibilities; both individuals acknowledged the information provided. HEALTH INFORMATICS ADVISOR inquired about the patient having an advance directive. Both parties reported that to their knowledge the patient did not have an advance directive. Both individuals also reported that they would not have any financial gain from the patient?s . Both individuals reported that they would continue to make efforts in looking for family. Ivania reports that she would attempt to look for a notebook that can potentially have the contact information to the patient?s son and/or brother. During the meeting, Mr. Delgado did bring in the patient?s bank card and cellphone. Cell phone did not contain contact information to the patient?s family. Dr. Blake met with the Ms. Asif and Mr. Delgado. Patient?s condition was explained. Both individuals reported that they would be in agreement to make decision for the patient in the event she needed consent for a procedure but they would decline to place the patient on comfort care measures. Both individuals agreed on having the patient be full code.
[2025-02-11 10:04] LABS: pH, Arterial 7.03 (7.35-7.45)
[2025-02-11 10:18] LABS: Allen Test Not Performed; Puncture Site Arterial Line
--- NOTE | 2025-02-11 10:43 | ESPR_ITS ---
Documentation for date of: 02/11/25 Subjective Subjective Interval history: hx per chart review: Ms. Merino is a 69 yo woman with unknown past medical history, who was found down at 1 am by her neighbor, she was unresponsive and with head strike, facial contusions and fractured teeth noted, she was brought to the ED, where she had altered mental status, was febrile to 105. Pt became increasingly lethargic and obtunded. Pt was assessed by the night IM team, who described her as ill- appearing, minimally responsive, with marked jaundice and right periorbital contusion. Initial labs notable for severe metabolic acidosis (pH 7.25, HCO3 8, AG 22, lactate 15), hyperbilirubinemia (15.9), transaminitis, coagulopathy (INR 1.8), HIRA (Cr 1.4 from baseline 0.7), and UA with pyuria and bacteriuria. Blood and urine cultures sent; patient started on broad-spectrum antibiotics. . CT head, cervical spine, and chest/abdomen/pelvis are pending, as is repeat ABG. Also gallbladder ultrasound still pending to rule in rule out acute cholangitis. ED gave 2.5 L fluids, and intubated pt. SHe was started on pressors, central line was placed and admitted to the ICU. ECHO demonstrated hyper dynamic LV wo pericardial effusion. SvO2 was sent off of the brown port from the central line and pt was given vanc/zosyn. A cheeta was placed for hemodynamics and PLR performed. pt was found to not be fluid responsive. There are no family available for additional information. pts s/o 2 months ago and there is no immediate family around. Interval History 02/07/2025: No overnight events. Patient seen and examined at bedside; she remains intubated and is showing more signs of edema and has not made any urine. Notable labs today include: Hgb 10.4, platelet count 25, PT 29.2, INR 2.9, APTT 46.4, Na 134, creatinine bump to 1.9 from 1.2, eGFR drop to 28 from 49, lactic acid bump to 5.0 from 3.9, total bilirubin drop to 17.8 from 18.6, AST drop to 877 from 1049, ALT drop to 332 from 360. CXR today showed mild heart failure and left base pneumonia. From nephrology's standpoint, patient will be receiving HD today. 02/08/2025: No overnight events. Patient seen and examined at bedside; she remains intubated and still has not made any urine. She is also noted to be jaundiced. Notable labs today include: Hemoglobin 11.1, platelet count bump to 28 from 22, critically elevated PTT 30.8, INR 3.0, APTT 52.2, BUN bump to 23 from 12, creatinine bump to 2.2 from 1.7, lactic acid drop to 3.8 from 4.0, total bilirubin bump to 21.2 from 19.6, AST dropped to 635 from 742, and ALT drop to 291 from 305. A meeting was held this morning with patient's landlord and another tenant who will act as her representatives for decision making. From nephrology's standpoint, patient will be taking a break from hemodialysis today. 02/09/2025: Patient seen and examined in the ICU, She remains intubated, greco was removed, with minimal urine output. s.p ex lap with Dr. Serrano no ischemic bowel was found, BUN 43 from 29 Cr 3.0 from 2.6. No HD today 02/10/2025: Patient seen and examined in the ICU, She remains intubated, minimal urine output, abdomen dressed with abd, no pus or dihissence noted on exam. BUN 68 from 43, Cr 3.3 from 3.0, WBC 19 from 11. holding HD, in setting of upcoming goals of care discussion per ICU team. 02/11/2025: Patient seen and examined in the ICU. she remains intubated, minimal urine output, abdomen apears more distended than prior. WBC 12.4 from 19, BUN 79, Cr 4.3 from 3.3, LA 18 from 14. T bili 23.6 ICU team is pending another [facility] and ethics committee discussion Holding HD. Exam Vital Signs Temp Pulse Resp BP Pulse Ox O2 Del Method O2 Flow Rate 95.7 F L 89 30 H 138/39 H 94 L Mechanical Ventilation 11 02/11/25 10:00 02/11/25 10:00 02/11/25 10:00 02/11/25 10:00 02/11/25 10:00 02/11/25 09:00 02/06/25 07:07 FiO2 60 02/11/25 09:00 Narrative Exam GENERAL: pt intubated with UE in restraints, no acute distress. HEENT: Head AT/ NC. Mucous membranes moist. eyes icteric, R central line, partially opened CARDIOVASCULAR: RRR. Normal S1/S2, No m/r/g. No pitting edema of bilateral LEs. RESPIRATORY: intubated on mechanical ventilation. lungs with crackles bilaterally GASTROINTESTINAL: Abdomen s/p exlap, and notably more distended than prior no palpable masses,dressing in place. incision was not visualized on exam, MUSCULOSKELETAL:? No cyanosis or edema, no visible joint swelling. LE warm to touch, pulses palpable , UE with restraints, SCDs in place NEUROLOGICAL: unable to assess neuro fxn pt intubated SKIN: No obvious rashes, jaundice, normal turgor. Objective Labs 02/11/25 03:03 02/11/25 03:03 Labs: Laboratory Results - last 24 hr 02/07/25 02/10/25 02/10/25 19:34 12:42 20:23 WBC RBC Hgb Hct MCV MCH MCHC RDW Std Deviation Plt Count Neut % (Auto) Lymph % (Auto) [place] % (Auto) Eos % (Auto) Baso % (Auto) Neut # (Auto) Lymph # (Auto) [place] # (Auto) Eos # (Auto) Baso # (Auto) Immature Gran # (Auto) Absolute Nucleated RBC Immature Gran % Nucleated RBC % Puncture Site ABG pH ABG pCO2 ABG pO2 ABG HCO3 ABG O2 Saturation ABG Base Excess FiO2 Sodium Potassium Chloride Carbon Dioxide Anion Gap BUN Creatinine Estim Creat Clear Calc eGFR BUN/Creatinine Ratio Glucose Calculated Osmolality Lactic Acid 5.7 H* Calcium Corrected Calcium Phosphorus Magnesium Total Bilirubin AST ALT Alkaline Phosphatase Total Protein Albumin Globulin Albumin/Globulin Ratio Misc Test Result Blood Type O Positive O Positive Antibody Screen NEGATIVE NEGATIVE Crossmatch See Detail See Detail Blood Bank Wristband ID Yes Yes Blood Bank Comment PLATP Ready 02/10/25 02/11/25 02/11/25 23:06 03:03 04:44 WBC 12.4 H RBC 2.97 L Hgb 9.2 L Hct 29.2 L MCV 98 MCH 31.0 MCHC 31.5 RDW Std Deviation 84.3 H Plt Count 24 L* Neut % (Auto) 85 H Lymph % (Auto) 6 L [place] % (Auto) 1 Eos % (Auto) 0 Baso % (Auto) 1 Neut # (Auto) 10.6 H Lymph # (Auto) 0.8 L [place] # (Auto) 0.2 Eos # (Auto) 0.0 Baso # (Auto) 0.1 Immature Gran # (Auto) 0.78 H Absolute Nucleated RBC 0.14 H Immature Gran % 6 H Nucleated RBC % 1 H Puncture Site Arterial Line Arterial Line ABG pH 7.25 L D 7.03 L* D ABG pCO2 40 56 H D ABG pO2 96 291 H D ABG HCO3 17 L 15 L ABG O2 Saturation 96 100 H ABG Base Excess -9 L -15 L FiO2 30 100 Sodium 143 Potassium 4.5 Chloride 100 Carbon Dioxide 16.5 L Anion Gap 27 H BUN 79 H Creatinine 4.3 H* D Estim Creat Clear Calc 10.2 L eGFR 11 L* BUN/Creatinine Ratio 18 Glucose 103 D Calculated Osmolality 308 H Lactic Acid 14.3 H* Calcium 8.7 Corrected Calcium 9.6 Phosphorus 7.1 H Magnesium 2.2 Total Bilirubin 23.6 H* D AST 180 H ALT 160 H Alkaline Phosphatase 223 H D Total Protein 5.6 L Albumin 2.9 L Globulin 2.7 Albumin/Globulin Ratio 1.1 L Misc Test Result Platelets confirmed Blood Type Antibody Screen [facility] Blood Bank [facility] Blood Bank Comment 02/11/25 02/11/25 08:29 09:42 WBC RBC Hgb Hct MCV MCH MCHC RDW Std Deviation Plt Count Neut % (Auto) Lymph % (Auto) [place] % (Auto) Eos % (Auto) Baso % (Auto) Neut # (Auto) Lymph # (Auto) [place] # (Auto) Eos # (Auto) Baso # (Auto) Immature Gran # (Auto) Absolute Nucleated RBC Immature Gran % Nucleated RBC % Puncture Site Arterial Line ABG pH 7.03 L* ABG pCO2 38 D ABG pO2 136 H D ABG HCO3 10 L ABG O2 Saturation 98 ABG Base Excess -19 L FiO2 60 Sodium Potassium Chloride Carbon Dioxide Anion Gap BUN Creatinine Estim Creat Clear Calc eGFR BUN/Creatinine Ratio Glucose Calculated Osmolality Lactic Acid 18.0 H* Calcium Corrected Calcium Phosphorus Magnesium Total Bilirubin AST ALT Alkaline Phosphatase Total Protein Albumin Globulin Albumin/Globulin Ratio Misc Test Result Blood Type Antibody Screen [facility] Blood Bank [facility] Blood Bank Comment ABG Interpretation ABG results: 02/03/25 02/03/25 02/03/25 02:47 06:09 07:19 ABG pH 7.25 L 7.00 L* D 7.18 L* D ABG pCO2 18 L* 63 H D 49 H D ABG pO2 192 H 149 H D 168 H ABG HCO3 8 L* 15 L 18 L ABG O2 Saturation 100 H 98 99 H ABG Base Excess -17 L -16 L -10 L VBG pH VBG pCO2 VBG pO2 VBG Base Excess 02/03/25 02/03/25 02/03/25 07:30 13:32 20:35 ABG pH 7.30 L D 7.25 L ABG pCO2 23 L D 23 L ABG pO2 159 H 145 H ABG HCO3 12 L 10 L ABG O2 Saturation 100 H 100 H ABG Base Excess -13 L -16 L VBG pH 7.28 L VBG pCO2 37 VBG pO2 110 H VBG Base Excess -9 L 02/04/25 02/04/25 02/04/25 03:51 06:42 23:10 ABG pH 7.60 H D 7.44 D 7.30 L D ABG pCO2 24 L 36 D 57 H D ABG pO2 150 H 71 L D 78 L ABG HCO3 23 25 28 H ABG O2 Saturation 101 H 95 94 ABG Base Excess 2 0 1 VBG pH VBG pCO2 VBG pO2 VBG Base Excess 02/05/25 02/05/25 02/05/25 01:20 04:34 09:20 ABG pH 7.40 D 7.42 7.39 ABG pCO2 45 D 44 44 ABG pO2 69 L 100 D 74 L D ABG HCO3 28 H 29 H 27 H ABG O2 Saturation 94 99 H 95 ABG Base Excess 3 4 H 2 VBG pH VBG pCO2 VBG pO2 VBG Base Excess 02/06/25 02/06/25 02/07/25 04:50 09:19 04:55 ABG pH 7.27 L D 7.30 L 7.45 D ABG pCO2 51 H 46 33 D ABG pO2 69 L 70 L 88 ABG HCO3 23 23 23 ABG O2 Saturation 92 93 98 ABG Base Excess -4 L -4 L -1 VBG pH VBG pCO2 VBG pO2 VBG Base Excess 02/08/25 02/08/2502/09/25 04:10 16:19 04:44 ABG pH 7.39 7.40 7.43 ABG pCO2 45 D 41 40 ABG pO2 73 L 205 H D 62 L D ABG HCO3 27 H 25 26 ABG O2 Saturation 94 100 H 92 ABG Base Excess 2 1 2 VBG pH VBG pCO2 VBG pO2 VBG Base Excess 02/10/25 02/10/25 02/11/25 04:44 23:06 04:44 ABG pH 7.44 7.25 L D 7.03 L* D ABG pCO2 36 40 56 H D ABG pO2 77 L 96 291 H D ABG HCO3 25 17 L 15 L ABG O2 Saturation 96 96 100 H ABG Base Excess 1 -9 L -15 L VBG pH VBG pCO2 VBG pO2 VBG Base Excess 02/11/25 09:42 ABG pH 7.03 L* ABG pCO2 38 D ABG pO2 136 H D ABG HCO3 10 L ABG O2 Saturation 98 ABG Base Excess -19 L VBG pH VBG pCO2 VBG pO2 VBG Base Excess Quality Measures Quality Measures sepsis Current suspected stage: septic shock (LA >4 and/or hypotension) Sepsis reassessment completed at (date): 02/11/25 Sepsis reassessment completed at (time): 07:30 Possible source: genitourinary Blood cultures ordered: yes Antibiotic ordered: Yes Advance care planning discussed with:: other Assessment & Plan Assessment Current Active Medications: Generic Name Dose Route Start Last Admin Trade Name Freq PRN Reason Stop Dose Admin Acetaminophen 650 mg 02/03/25 07:33 Acetaminophen Supp 650 Mg Supp NC 03/05/25 07:32 Q4HR PRN PAIN SCALE 1-3 (mild Cholestyramine Resin 1 pkt 02/09/25 09:45 02/10/25 21:55 Cholestyramine/Sucrose 1 Pkt Ea NG 03/11/25 09:44 1 pkt BID JAYRO Administration Heparin Sodium (Porcine) 3,000 unit 02/04/25 10:06 02/07/25 12:20 Heparin Sod Inj 1000 Unit/Ml Vial 10 Ml INDWELLCAT 02/18/25 10:05 3,000 unit PRN PRN Administration HD catheter Vasopressin/Sodium Chloride 20 unit in 100 mls @ 9 mls/hr 02/03/25 16:15 02/09/25 11:07 Vasostrict/Ns Ivpb IV 03/05/25 16:14 0 unit/min .Q11H7M PRN 0 mls/hr PER PROTOCOL Titration Protocol 0.03 UNIT/MIN Albumin Human 25 gm in 100 mls @ 100 mls/min 02/07/25 09:53 02/08/25 07:00 Albuminar-25 Ivpb IV Infused PRN PRN Infusion DIALYSIS Norepinephrine/Dextrose 8 mg in 250 mls @ 6.056 mls/hr 02/09/25 11:25 02/11/25 10:42 Levophed In D5w 8mg/250ml IV 03/05/25 06:01 0.32 mcg/kg/min .Q24H PRN 38.76 mls/hr PER PROTOCOL Titration Protocol 0.05 MCG/KG/MIN Octreotide Acetate 1,000 mcg/ 102 mls @ 5.1 mls/hr 02/10/25 08:42 02/11/25 01:26 Sodium Chloride IV 02/15/25 08:42 50 mcg/hr .Q20H JAYRO 5.1 mls/hr Administration Protocol 50 MCG/HR Fentanyl Citrate 2,500 mcg in 250 mls @ 2.5 mls/hr 02/10/25 14:28 02/11/25 10:30 Sublimaze Inj 2,500 Mcg/250 Ml Bag IV 02/15/25 14:27 175 mcg/hr .Q24H PRN 17.5 mls/hr PER PROTOCOL Titration Protocol 25 MCG/HR Dexmedetomidine/Sodium Chloride 400 mcg in 100 mls @ 3.235 mls/hr 02/10/25 15:03 02/11/25 10:00 Precedex Ivpb IV 03/12/25 15:02 0 mcg/kg/hr .Q24H PRN 0 mls/hr Per PROTOCOL Titration Protocol 0.2 MCG/KG/HR Midazolam HCl 100 mg in 100 mls @ 1 mls/hr 02/11/25 00:33 02/11/25 08:50 Versed Pf Inj In Ns Premix IV 02/16/25 00:32 0 mg/hr .Q24H PRN 0 mls/hr PER PROTOCOL Titration Protocol 1 MG/HR Propofol 1,000 mg in 100 mls @ 1.941 mls/hr 02/11/25 01:09 02/11/25 10:27 Diprivan Ivpb IV 03/13/25 01:08 45 mcg/kg/min .Q24H PRN 17.469 mls/hr PER PROTOCOL Titration Protocol 5 MCG/KG/MIN Lactulose 45 gm 02/09/25 09:15 02/11/25 06:02 Lactulose Syrup 20 Gm/30 Ml Udc NG 03/11/25 08:59 Not Given QID JAYRO Protocol Levetiracetam 1,000 mg 02/10/25 23:05 02/11/25 08:01 Levetiracetam Inj 100 Mg/Ml Vial 5ml IVP 03/12/25 23:04 1,000 mg Q12HR JAYRO Administration Metoclopramide HCl 5 mg 02/09/25 22:00 02/11/25 06:12 Metoclopramide Inj 5 Mg/Ml Vial 2 Ml IVP 03/11/25 21:59 5 mg Q8HR JAYRO Administration Protocol Midazolam HCl 2 mg 02/10/25 23:07 02/11/25 00:09 Midazolam Inj 1 Mg/Ml Vial 2 Ml IVP 02/15/25 23:06 2 mg X1 PRN Administration Seizure Pantoprazole Sodium 40 mg 02/03/25 09:00 02/10/25 08:58 Pantoprazole Inj 40 Mg Vial IVP 03/05/25 08:59 40 mg QDAY JAYRO Administration Pharmacy Consult 1 each 02/03/25 02:03 Pharmacy Renal Dose Adjustment 1 Ea XX 03/05/25 02:02 PRN PRN CONSULT Rifaximin 550 mg 02/09/25 09:45 02/10/25 21:55 Rifaximin 550 Mg Tablet NG 02/16/25 09:29 550 mg BID JAYRO Administration Plan Ms Merino, is a 69 yo woman with an unknown PMH who was admitted to the ICU for management of distributive shock. Pt was intubated in the ED. AGMA 2/2 Lactic acid 5.5 today, she remains on pressors,s/p ex lap no ischemic bowel found, abdomen is more distended than prior, Lactic acid increasing, pending GOC per primary team and ethics meeting, holding HD. #Anion Gap Metabolic Acidosis 2/2 lactic acidosis -worsening Lactic acidosis 5.6 from 7.2 On 02/10 Lactic acid 5.5 from 3.9 On 02/11 Lactic aacid 18 from 14 CRRT: 02/03 started at 2100, will continue 02/04 for ~24 hrs of HD, 02/06 (conventional HD) , 02/07, PLAN: -holding hd pending [facility] conversation per primary team and ethics meeting #HIRA- worsening #query ATN type 1 vs hepatorenal syndrome given pt is in shock, cannot dx hepatorenal syndrome. pt remains on pressors see #septic shock below on 02/04 Cr. 0.9 from 1.4 , BUN 6 from 14 on 02/05 Cr 0.8, BUN <5, minimal UOP 40. on 02/06 Cr 1.8, BUN 11, minimal UOP on 02/07 Cr 1.9, BUN 11, minimal UOP on 02/08 Cr 2.2, BUN 23, minimal UOP on 02/09 Cr 3.0, BUN 43, minimal UOP, greco removed on 02/10 Cr 3.3, BUN 68, minimal UOP on 02/11 Cr 4.3, BUN 79, minimal UOP Dx - UA with 1+ protein, 2+ RBC - Urine protein Cr ratio 0.807 - strict I and O, greco d/c - renally dose medications - avoid nephrotoxic agents #Septic Shock #query 2/2 SBP vs UTI #GNR bacteremia 2/2- E Coli #leukocytosis - uptrending sofa score: 13 end organ damage: shock liver, >>LFTs 2/2 shock, acute elevation in troponin 0.077 (no st elevations or depressions on EKG) continues to uptrend, 0.369 BP 70s /40s, procal 7.74, febrile on admission on 02/04 SBP from art line 110s decreased pressure requirement on 02/05 pt remains on pressers, Lactic acid uptrending, 5.1 to 6.3. on 02/10 pt remains on norepi, Lactic acid 5.5 from 3.6, BUN 68 from 43, Cr 3.3 from 3.0 on 02/11 pt remains on pressors, LA uptrending, BUN uptrending, Cr uptrending greco catheter removed, scant UOP arterial line in place Dx - UA with 4+ biliruben, Leuk est + and nitrities + with WBC 80 and 4+ bacteria - Urine Cx- ecoli - Blood culture ecoli - paracentesis fluid analysis: Alb 1.3, WBC 18% Tx - on zosyn - on rifaximin 550 BID for sbp ppx - on pressors per ICU team - ICU to manage #Cirrhosis #Acute ischemic hepatitis/shock liver - resolving #Acites, SAAG >1.1 #query malignancy given numerous liver masses on CTAP acute rise in LFT likely 2/2 to hypotension in setting of septic shock coagulopathy with elevated PT, INR, PTT thrombocytopenia with PLT 14 pt is severely jaundiced on exam, sclera icteric, +abdominal fluid wave s/p ex lap, abdomen more distended on exam Dx - Abdominal US with mild ascites, cirrhosis - hepatitis panel negative - Utox negative, etoh negative - Tumor markers: AFP wnl, CEA wnl Tx - albumin 25 bid - octreotide drip #ischemic bowel-s/p ex lap- ruled out abdomen was noted to be tense and distended, CTAP with c/f ischemic bowel. - s/p ex lap with dr. Serrano, no ischemic bowel found #electrolyte abnormalities #acute hypoxic respiratory failure- intubated #acute encephalopathy (query etiology 2/2 sepsis vs shock vs acidosis) #Facial trauma 2/2 fall with headstrike, no fractures #L orbital eye contusion #Tooth fractures #macrocytic anemia - b12 elevated - folate wnl #thrombocytopenia #Coagulopathy -PT 31.5, INR 3.1, PTT 49.7 - management per primary team Plan discussed with nephrology attending Dr. Bin Sagastume MD Internal Medicine PGY-1 Attending Provider Attestation/Addendum Patient seen and examined with resident physician Dr. Sagsatume. Note reviewed, agree with findings and recommendations. Patient with septic shock, intractable lactic acidosis and HIRA. Decided to proceed with CRRT. She is currently on 2 pressors. Remains on ventilator. Currently in ICU. Patient received 2 CRRT, 3 IHD sessions so far. Lactic acid improving. Will monitor renal function and urine output closely. 02/11/2025 patient remains in ICU. Multisystem organ failure- Hypoxic respiratory failure-on ventilator Ischemic liver Anemia, severe thrombocytopenia No Ischemic colitis- Dr. serrano took her for exploratory laparotomy Sepsis needing pressors Acute renal failure needing dialysis no family around. No one want to make medical decisions for her. Prognosis guarded. No meaningful recovery. seems to be imminent. Hold off on dialysis pending ethics meeting today. Critical care time spent 35 minutes regarding plan of care and disease management Spoke to ICU team, Dr. Blake. CC:
[2025-02-11] MEDS: VASOPRESSIN IN NS IVPB 20 UNIT/100 ML BAG 9 UNIT IV (11:04)
[2025-02-11] MEDS: fentaNYL 2,500 MCG/250 ML BAG 2,500 MCG/250 ML BAG 15 MCG IV (11:55)
[2025-02-11] MEDS: PROPOFOL 1,000 MG IVPB 1,000 MG/100 ML VIAL 9.705 MG IV (13:00)
[2025-02-11] MEDS: Norepinephrine/D5W 8mg/250ml 8 MG/250 ML BAG 75.098 MG IV (14:52)
[2025-02-11] MEDS: Norepinephrine/D5W 8mg/250ml 8 MG/250 ML BAG 112.125 MG IV (16:21)
--- NOTE | 2025-02-11 16:38 | PC.SS ---
TEACHER'S ASSISTANT met with patient's friend, Kiran Dc ; at patient's bedside. Friend informed TEACHER'S ASSISTANT that he has been friends with patient for approximately 6 years. Friend confirmed that patient possessed a brother in [place] and a son in [facility]. Friend informed TEACHER'S ASSISTANT that he did not possess contact information for the patient's brother nor for the patient's son. Friend stated that he was departing back to [place] today and in the event he comes across any information regarding patient's brother he will notify TEACHER'S ASSISTANT. Friend was informed by TEACHER'S ASSISTANT that patient's medical updates would need to be obtained through patient's surrogate medical decision maker Rell Delgado or Ivania Mitchell. Friend confirmed acquaintance with Rell Delgado.
--- NOTE | 2025-02-11 17:02 | PC.SS ---
Update: Patient remains intubated/sedated. Patient is NPO. Patient receiving pressor support. Ethics committee review remains pending.
[2025-02-11] MEDS: Norepinephrine/D5W 8mg/250ml 8 MG/250 ML BAG 56.063 MG IV (18:00)
--- NOTE | 2025-02-11 18:26 | PD.RESPRO ---
Documentation for date of: 02/11/25 Subjective Subjective Interval history: Patient is intubated and mechanically ventilated so most of the history is taken from the chart review. 69-year-old female with unknown past medical history was brought to the hospital in view of altered sensorium. Per nurse, patient probably had a fall the day before admission in the morning following which she was okay until the neighbors blood to recheck her in the evening, found to be unconscious for which they called the EMS and was brought to the hospital. In the ED, patient is minimally responsive with marked icterus and periorbital contusion. Patient was found to be hypoxic with oxygen saturation in the mid 80s and was initially placed on a nonrebreather mask with correction of hypoxia. Later patient was found to be tachycardic with heart rate around 140s and febrile with a temperature of 105.8 ?F. Patient was intubated in view of acute encephalopathy and hypoxia. ICU is consulted in view of acute hypoxic respiratory failure in the setting of acute encephalopathy and suspected septic shock. In the ED, patient received 1 dose of acetaminophen 650 mg per rectum. 1 L LR bolus followed by 1.5 L of NS bolus in view of suspected septic shock. Initial labs revealed hemoglobin 10.9, platelets 61, INR 1.8, sodium 133, bicarb less than 10, anion gap 22, BUN 13, creatinine 1.4, lactic acid 15, magnesium 1.4, total bilirubin 15.9, AST 241, ALT 58, albumin 2.5, procalcitonin 7.47. EKG showed sinus tachycardia with no acute ST and T wave changes chest x-ray showed bilateral increased vascularity. Abdomen/pelvis CT showed cirrhosis, mild to moderate ascites, absent gallbladder. Cervical spine CT, face CT, head CT, thoracic spine CT, lumbar spine CT did not show any acute fractures. Abdominal ultrasound showed no CBD stones. Initial chest x-ray done showed endotracheal tube tip 2.5 cm in the right mainstem bronchus with atelectasis of the left lung following which the endotracheal tube is retacted and repeat chest x-ray was done that showed minor atelectasis of the left base. Patient is admitted to ICU in view of septic shock, possible decompensated cirrhosis, HIRA. 02/04/2025: Patient is seen and examined at bedside in the ICU. Sedated and on mechanical ventilator. Overnight, patient was found to have hypoglycemic episodes blood glucose of 50 for which patient was given D50 twice. Patient was on CRRT throughout the night. Vitals are stable and patient was found to decreased vasopressors since last night. On examination, patient is found to have abdominal distention for which she was kept on low intermittent suction and later was started on trickle feeds. Labs done this morning showed hemoglobin 6.9, platelets 18,000, WBC 12.1, INR 4.7, BUN 6, creatinine 0.9, lactate 8.1, total bilirubin 16.1, AST 2385, ALT 474. Later fibrinogen is ordered to evaluate for DIC. Repeat CBC showed hemoglobin of 6.4 and platelet count of 16. Ordered 2 PRBC, 1 platelet, 3 FFP transfusions. 1 PRBC and FFP's kept on hold. Will repeat H&H after the blood transfusion. Consent for transfusion is taken from her friend Danny, could not get hold of her brother. Will continue CRRT till 7 PM. Will continue to monitor renal and liver function tests. Despite CRRT, patient is likely to have poor prognosis in the setting of acute liver failure and acute kidney failure. 02/05/2025: Patient is seen and examined at bedside in the ICU. No acute overnight events. Still anuric. Patient was on low-dose vasopressors including vasopressin and on Levophed. Early in the morning, patient is noted to have high peak pressures and noted to have severe abdominal distention for which patient was connected to the suction and found to have almost 2 to 2.5 L of residual volume. Vitals are stable. Labs done this morning showed hemoglobin 9, platelets 35, INR 2.2, sodium 135, creatinine 0.8, glucose 108, lactate 5.1, phosphorus 2.2, magnesium 1.4, total bilirubin 15.7, AST 1363, ALT 367. As patient is having abdominal distention and later found to have lactate elevation from 5.1-6.3, also noted to have multiple liver lesions on the CT abdomen/pelvis, suspected to have either malignancy or small bowel obstruction or ongoing ischemia for which repeat CT abdomen/pelvis was done with IV contrast and patient was found to have ischemic colitis in the right colon, prominent pneumonia in the left base. General surgeon, Dr. Rocha was consulted in view of ongoing ischemic colitis, recommended that in view of patient's critical illness we will hold off any surgical procedures for now. Repeat blood work was done around 3:45 PM that showed hemoglobin 7.1, platelets 22, fibrinogen 92, potassium 3.5, bicarb 19.3, creatinine 1, liver enzymes downtrended to AST 835, ALT 250, total bilirubin 11.7. Ordered 2 PRBC, 1 FFP, 1 platelet, 6 cryoprecipitate transfusion in view of suspected possible ongoing DIC. Will transfuse all these blood products which might help in improving the perfusion to the ischemic bowel. Will continue to trend lactate levels and monitor for urine output. Dr. Steward is following the patient and held off CRRT for today and wants to monitor for today. 02/06/2025: Patient is seen and examined at bedside in the ICU. No acute overnight events. Noted no urine output and bowel movements. This morning, patient is noted to have tense abdomen and peak pressures continue to elevate with patient biting the endotracheal tube, likely to have pain from the ischemic colitis. Patient was started on fentanyl drip in view of suspected pain following which the peak pressures came back to normal levels. Overnight, patient is on low-dose vasopressors Levophed 0.03 and vasopressin 0.03. Patient did get only 2 PRBC transfusion overnight. Will give the remaining blood products. Vitals are stable. On physical examination, patient noted to have mottling in bilateral lower extremities with feeble peripheral pulses. Labs done this morning showed hemoglobin 10.2, platelet count 14, WBC 6.5, INR 3.4, PT 34.2, sodium 134, potassium 5.8, creatinine 1.8, glucose 123, lactate 5.6, total bilirubin 18.1, AST 1084, ALT 360. Dr. Steward is following the patient and recommended conventional hemodialysis today at 250 mL/h as patient's blood pressure is stable. Will repeat labs in the afternoon once all the blood products are transfused. General surgeon, Dr. Rocha is following for the possible ischemic colitis and recommended no surgery as of now in view of coagulopathy and low platelet count. Talked to her friend, point of contact Rell Delgado who reported that patient had a son who lives in [place] but does not have any contact with him and also could not get in contact with her brother who lives in [place]. Still trying to get in contact with her family members for goals of care discussion. In view of ongoing coagulopathy, DIC, acute liver failure, acute kidney failure, patient is likely to have poor prognosis. Will continue to monitor her vitals, labs and try to get in contact with the family for further decision making. Till then, patient will be given full treatment 02/07/2025: Patient is seen and examined at bedside in the ICU. No acute overnight events. Still noted to be anuric and no further bowel movements noted. On physical examination, abdomen appears to be soft today but still no bowel movements are noted. Labs done this morning showed hemoglobin 10.4, platelet count 25, INR 2.9, sodium 134, CRP 1.9, lactate 5, AST 877, ALT 332. ABG is within normal limits. Discussed about patient's condition with general surgeon, Dr. Rocha and he recommended that he can go ahead with the surgery, exploratory laparotomy after correcting her platelet count and INR. Planning to have goals of care discussion tomorrow at 9:30 AM to make a point of contact and decision maker as patient does not have any immediate family available. Still could not get hold of the brother. Ordered 4 units of platelet and 2 FFP's. Planning to transfuse them before the surgery. Patient condition is still critical and had poor prognosis in the setting of decompensated liver cirrhosis. Trying to wean her off the sedation to assess her mentation. Received hemodialysis session today 02/08- no acute overnight events, remains virtually anuric, meeting held with representatives this morning. Patient's representatives are her landlord as well as tenant who have known her for 11 and 15 years, they have agreed to be her industrial relations representative for decision-making. This morning she remains jaundiced on minimal vasopressor support and afebrile. Her fentanyl and Precedex were held. On initial exam she had a GCS of 4 however later in the day she began to become more responsive with spontaneous eye opening and spontaneous movement of her right upper extremity though she still does not follow commands. 02/10/2025: Patient is seen and examined at bedside in the ICU. No acute overnight events. Patient is still anuric and not responding despite being on minimal sedation. On physical examination, the icterus appears to be more deep in and noted to have nystagmus. GCS is around 4T. Noted to have tense abdominal distention for which patient was connected to the intermittent suction and noted to have georgina blood of around 400 mL. Repeat CBC was done that showed hemoglobin of 9.4, platelet count 24, repeat coagulation studies showed INR 3.1. Patient was given 2 units of FFP. As patient is bleeding actively and connected to the suction, could not give rifaximin and lactulose as of now in view of distended and tense abdomen. Patient did not get lactulose and rifaximin for the hepatic encephalopathy as patient noted to have ischemic colitis and later found to have this ongoing bleeding G-tube which patient mental status is not recovering well. Also started on octreotide drip. Goals of care discussion was done with the decision maker, Rell Delgado in person and [employer] computer numeric control setter with the manager social responsibility, correctional therapy director, Dr. Blake, Dr. Barnes, PGY 2. They denied taking the decision for comfort care/hospice. But in the setting of ongoing multiorgan dysfunction including liver failure, kidney failure, respiratory failure, GI bleed patient has very poor prognosis and there are very less chances of recovery in her condition. Also not a candidate of liver transplant at this point of time because of the poor social relationships. For now, we will continue current management and will have ethics committee meeting tomorrow to decide on further care of management. 02/11/2025: Patient is seen and examined at bedside in the ICU. Overnight, patient was found to have multiple seizure episode for which patient was given multiple doses of midazolam, a dose of Keppra and was started on midazolam drip. Patient found to be agitated for which she was started on propofol and fentanyl and as patient continued to have low blood pressures likely secondary to combined distributive and hypovolemic shock due to ongoing upper GI bleed, patient was restarted on vasopressors again. Patient is able to maintain MAP greater than 65 mmHg with all these vasopressors. On physical examination, patient is noted to have bleeding from the OG tube, mouth, also noted to have clots at the site of incision and noted severe tense abdominal distention. Labs from this morning showed WBC 12.4, platelets 24,000, bicarb 16.5, anion gap 27, lactate 18, total bilirubin 23.6. Patient had very bad prognosis at this point of time but could not get decision making for further management as she does not have any immediate family. So will continue full treatment for now. Still waiting for ethics committee meeting. Exam Vital Signs Temp Pulse Resp BP Pulse Ox O2 Del Method O2 Flow Rate 95 F L 83 32 H 88/24 L 89 L Mechanical Ventilation 11 02/11/25 18:01 02/11/25 18:16 02/11/25 18:16 02/11/25 18:00 02/11/25 18:16 02/11/25 17:01 02/06/25 07:07 FiO2 100 02/11/25 17:52 Narrative Exam General: Sedated and mechanically ventilated. Noted icterus all over the body HEENT: Normocephalic, atraumatic, mucous membranes moist.Noted to have right frontal hematoma and ecchymosis on the right eye. Noted to have dislocated teeth. Icterus Heart: Regular rate and rhythm, no murmurs. Lungs: Clear to auscultation with no wheezing or crackles.Noted to have decreased breath sounds on the left side Abdomen: Severe, distended, tense and noted blood clots at the site of incision. No guarding or rebound tenderness. noted midline surgical scar and also noted soaking of the dressing. Neurologic: Sedated and mechanically ventilated Extremities: No edema. Noted all peripheral pulses. noted mottling in the lower extremities Skin: Noted to have ecchymotic patches on the right side of the abdomen and also on the right hand from the IV catheterization Objective Labs 02/11/25 03:03 02/11/25 03:03 Labs: Laboratory Results - last 24 hr 02/07/25 02/10/25 02/10/25 19:34 20:23 23:06 WBC RBC Hgb Hct MCV MCH MCHC RDW Std Deviation Plt Count Neut % (Auto) Lymph % (Auto) [place] % (Auto) Eos % (Auto) Baso % (Auto) Neut # (Auto) Lymph # (Auto) [place] # (Auto) Eos # (Auto) Baso # (Auto) Immature Gran # (Auto) Absolute Nucleated RBC Immature Gran % Nucleated RBC % Puncture Site Arterial Line ABG pH 7.25 L D ABG pCO2 40 ABG pO2 96 ABG HCO3 17 L ABG O2 Saturation 96 ABG Base Excess -9 L FiO2 30 Sodium Potassium Chloride Carbon Dioxide Anion Gap BUN Creatinine Estim Creat Clear Calc eGFR BUN/Creatinine Ratio Glucose Calculated Osmolality Lactic Acid Calcium Corrected Calcium Phosphorus Magnesium Total Bilirubin AST ALT Alkaline Phosphatase Total Protein Albumin Globulin Albumin/Globulin Ratio Misc Test Result Blood Type O Positive Antibody Screen NEGATIVE Crossmatch See Detail See Detail Blood Bank Wristband ID Yes 02/11/25 02/11/25 02/11/25 03:03 04:44 08:29 WBC 12.4 H RBC 2.97 L Hgb 9.2 L Hct 29.2 L MCV 98 MCH 31.0 MCHC 31.5 RDW Std Deviation 84.3 H Plt Count 24 L* Neut % (Auto) 85 H Lymph % (Auto) 6 L [place] % (Auto) 1 Eos % (Auto) 0 Baso % (Auto) 1 Neut # (Auto) 10.6 H Lymph # (Auto) 0.8 L [place] # (Auto) 0.2 Eos # (Auto) 0.0 Baso # (Auto) 0.1 Immature Gran # (Auto) 0.78 H Absolute Nucleated RBC 0.14 H Immature Gran % 6 H Nucleated RBC % 1 H Puncture Site Arterial Line ABG pH 7.03 L* D ABG pCO2 56 H D ABG pO2 291 H D ABG HCO3 15 L ABG O2 Saturation 100 H ABG Base Excess -15 L FiO2 100 Sodium 143 Potassium 4.5 Chloride 100 Carbon Dioxide 16.5 L Anion Gap 27 H BUN 79 H Creatinine 4.3 H* D Estim Creat Clear Calc 10.2 L eGFR 11 L* BUN/Creatinine Ratio 18 Glucose 103 D Calculated Osmolality 308 H Lactic Acid 14.3 H* 18.0 H* Calcium 8.7 Corrected Calcium 9.6 Phosphorus 7.1 H Magnesium 2.2 Total Bilirubin 23.6 H* D AST 180 H ALT 160 H Alkaline Phosphatase 223 H D Total Protein 5.6 L Albumin 2.9 L Globulin 2.7 Albumin/Globulin Ratio 1.1 L Misc Test Result Platelets confirmed Blood Type Antibody Screen Crossmatch Blood Bank Wristband ID 02/11/25 09:42 WBC RBC Hgb Hct MCV MCH MCHC RDW Std Deviation Plt Count Neut % (Auto) Lymph % (Auto) [place] % (Auto) Eos % (Auto) Baso % (Auto) Neut # (Auto) Lymph # (Auto) [place] # (Auto) Eos # (Auto) Baso # (Auto) Immature Gran # (Auto) Absolute Nucleated RBC Immature Gran % Nucleated RBC % Puncture Site Arterial Line ABG pH 7.03 L* ABG pCO2 38 D ABG pO2 136 H D ABG HCO3 10 L ABG O2 Saturation 98 ABG Base Excess -19 L FiO2 60 Sodium Potassium Chloride Carbon Dioxide Anion Gap BUN Creatinine Estim Creat Clear Calc eGFR BUN/Creatinine Ratio Glucose Calculated Osmolality Lactic Acid Calcium Corrected Calcium Phosphorus Magnesium Total Bilirubin AST ALT Alkaline Phosphatase Total Protein Albumin Globulin Albumin/Globulin Ratio Misc Test Result Blood Type Antibody Screen Crossmatch Blood Bank Wristband ID ABG Interpretation ABG results: 02/03/25 02/03/25 02/03/25 02:47 06:09 07:19 ABG pH 7.25 L 7.00 L* D 7.18 L* D ABG pCO2 18 L* 63 H D 49 H D ABG pO2 192 H 149 H D 168 H ABG HCO3 8 L* 15 L 18 L ABG O2 Saturation 100 H 98 99 H ABG Base Excess -17 L -16 L -10 L VBG pH VBG pCO2 VBG pO2 VBG Base Excess 02/03/25 02/03/25 02/03/25 07:30 13:32 20:35 ABG pH 7.30 L D 7.25 L ABG pCO2 23 L D 23 L ABG pO2 159 H 145 H ABG HCO3 12 L 10 L ABG O2 Saturation 100 H 100 H ABG Base Excess -13 L -16 L VBG pH 7.28 L VBG pCO2 37 VBG pO2 110 H VBG Base Excess -9 L 02/04/25 02/04/25 02/04/25 03:51 06:42 23:10 ABG pH 7.60 H D 7.44 D 7.30 L D ABG pCO2 24 L 36 D 57 H D ABG pO2 150 H 71 L D 78 L ABG HCO3 23 25 28 H ABG O2 Saturation 101 H 95 94 ABG Base Excess 2 0 1 VBG pH VBG pCO2 VBG pO2 VBG Base Excess 02/05/25 02/05/25 02/05/25 01:20 04:34 09:20 ABG pH 7.40 D 7.42 7.39 ABG pCO2 45 D 44 44 ABG pO2 69 L 100 D 74 L D ABG HCO3 28 H 29 H 27 H ABG O2 Saturation 94 99 H 95 ABG Base Excess 3 4 H 2 VBG pH VBG pCO2 VBG pO2 VBG Base Excess 02/06/25 02/06/25 02/07/25 04:50 09:19 04:55 ABG pH 7.27 L D 7.30 L 7.45 D ABG pCO2 51 H 46 33 D ABG pO2 69 L 70 L 88 ABG HCO3 23 23 23 ABG O2 Saturation 92 93 98 ABG Base Excess -4 L -4 L -1 VBG pH VBG pCO2 VBG pO2 VBG Base Excess 02/08/25 02/08/25 02/09/25 04:10 16:19 04:44 ABG pH 7.39 7.40 7.43 ABG pCO2 45 D 41 40 ABG pO2 73 L 205 H D 62 L D ABG HCO3 27 H 25 26 ABG O2 Saturation 94 100 H 92 ABG Base Excess 2 1 2 VBG pH VBG pCO2 VBG pO2 VBG Base Excess 02/10/25 02/10/25 02/11/25 04:44 23:06 04:44 ABG pH 7.44 7.25 L D 7.03 L* D ABG pCO2 36 40 56 H D ABG pO2 77 L 96 291 H D ABG HCO3 25 17 L 15 L ABG O2 Saturation 96 96 100 H ABG Base Excess 1 -9 L -15 L VBG pH VBG pCO2 VBG pO2 VBG Base Excess 02/11/25 09:42 ABG pH 7.03 L* ABG pCO2 38 D ABG pO2 136 H D ABG HCO3 10 L ABG O2 Saturation 98 ABG Base Excess -19 L VBG pH VBG pCO2 VBG pO2 VBG Base Excess Quality Measures Quality Measures sepsis Current suspected stage: ruled out Possible source: genitourinary Blood cultures ordered: yes Antibiotic ordered: No Advance care planning discussed with:: other Assessment & Plan Assessment Current Active Medications: Generic Name Dose Route Start Last Admin Trade Name Freq PRN Reason Stop Dose Admin Acetaminophen 650 mg 02/03/25 07:33 Acetaminophen Supp 650 Mg Supp AK 03/05/25 07:32 Q4HR PRN PAIN SCALE 1-3 (mild Cholestyramine Resin 1 pkt 02/09/25 09:45 02/11/25 11:19 Cholestyramine/Sucrose 1 Pkt Ea NG 03/11/25 09:44 Not Given BID JAYRO Heparin Sodium (Porcine) 3,000 unit 02/04/25 10:06 02/07/25 12:20 Heparin Sod Inj 1000 Unit/Ml Vial 10 Ml INDWELLCAT 02/18/25 10:05 3,000 unit PRN PRN Administration HD catheter Vasopressin/Sodium Chloride 20 unit in 100 mls @ 9 mls/hr 02/03/25 16:15 02/11/25 11:04 Vasostrict/Ns Ivpb IV 03/05/25 16:14 0.03 unit/min .Q11H7M PRN 9 mls/hr PER PROTOCOL Administration Protocol 0.03 UNIT/MIN Albumin Human 25 gm in 100 mls @ 100 mls/min 02/07/25 09:53 02/08/25 07:00 Albuminar-25 Ivpb IV Infused PRN PRN Infusion DIALYSIS Octreotide Acetate 1,000 mcg/ 102 mls @ 5.1 mls/hr 02/10/25 08:42 02/11/25 01:26 Sodium Chloride IV 02/15/25 08:42 50 mcg/hr .Q20H JAYRO 5.1 mls/hr Administration Protocol 50 MCG/HR Fentanyl Citrate 2,500 mcg in 250 mls @ 2.5 mls/hr 02/10/25 14:28 02/11/25 17:00 Sublimaze Inj 2,500 Mcg/250 Ml Bag IV 02/15/25 14:27 50 mcg/hr .Q24H PRN 5 mls/hr PER PROTOCOL Titration Protocol 25 MCG/HR Dexmedetomidine/Sodium Chloride 400 mcg in 100 mls @ 3.235 mls/hr 02/10/25 15:03 02/11/25 10:00 Precedex Ivpb IV 03/12/25 15:02 0 mcg/kg/hr .Q24H PRN 0 mls/hr Per PROTOCOL Titration Protocol 0.2 MCG/KG/HR Midazolam HCl 100 mg in 100 mls @ 1 mls/hr 02/11/25 00:33 02/11/25 08:50 Versed Pf Inj In Ns Premix IV 02/16/25 00:32 0 mg/hr .Q24H PRN 0 mls/hr PER PROTOCOL Titration Protocol 1 MG/HR Propofol 1,000 mg in 100 mls @ 1.941 mls/hr 02/11/25 01:09 02/11/25 17:00 Diprivan Ivpb IV 03/13/25 01:08 15 mcg/kg/min .Q24H PRN 5.823 mls/hr PER PROTOCOL Titration Protocol 5 MCG/KG/MIN Norepinephrine/Dextrose 8 mg in 250 mls @ 5.606 mls/hr 02/11/25 16:21 02/11/25 18:20 Levophed In D5w 8mg/250ml IV 03/05/25 06:01 0.56 mcg/kg/min .Q24H PRN 62.79 mls/hr PER PROTOCOL Titration Protocol 0.05 MCG/KG/MIN Lactulose 45 gm 02/09/25 09:15 02/11/25 06:02 Lactulose Syrup 20 Gm/30 Ml Udc NG 03/11/25 08:59 Not Given QID JAYRO Protocol Levetiracetam 1,000 mg 02/10/25 23:05 02/11/25 08:01 Levetiracetam Inj 100 Mg/Ml Vial 5ml IVP 03/12/25 23:04 1,000 mg Q12HR JAYRO Administration Metoclopramide HCl 5 mg 02/09/25 22:00 02/11/25 13:12 Metoclopramide Inj 5 Mg/Ml Vial 2 Ml IVP 03/11/25 21:59 5 mg Q8HR JAYRO Administration Protocol Midazolam HCl 2 mg 02/10/25 23:07 02/11/25 00:09 Midazolam Inj 1 Mg/Ml Vial 2 Ml IVP 02/15/25 23:06 2 mg X1 PRN Administration Seizure Pantoprazole Sodium 40 mg 02/03/25 09:00 02/11/25 11:23 Pantoprazole Inj 40 Mg Vial IVP 03/05/25 08:59 40 mg QDAY JAYRO Administration Pharmacy Consult 1 each 02/03/25 02:03 Pharmacy Renal Dose Adjustment 1 Ea XX 03/05/25 02:02 PRN PRN CONSULT Rifaximin 550 mg 02/09/25 09:45 02/10/25 21:55 Rifaximin 550 Mg Tablet NG 02/16/25 09:44 550 mg BID JAYRO Administration Plan 69-year-old female with unknown past medical history was brought to the hospital in view of altered sensorium. Per nurse, patient probably had a fall the day before admission in the morning following which she was okay until the neighbors blood to recheck her in the evening, found to be unconscious for which they called the EMS and was brought to the hospital. In the ED, patient is minimally responsive with marked icterus and periorbital contusion. Patient was found to be hypoxic with oxygen saturation in the mid 80s and was initially placed on a nonrebreather mask with correction of hypoxia. Later patient was found to be tachycardic with heart rate around 140s and febrile with a temperature of 105.8 ?F. Patient was intubated in view of acute encephalopathy and hypoxia. ICU is consulted in view of acute hypoxic respiratory failure in the setting of acute encephalopathy and suspected septic shock. ROAD ADVISOR # Acute encephalopathy Differential diagnosis: Septic encephalopathy versus hepatic encephalopathy versus metabolic versus sedation versus multifactorial - Septic encephalopathy: Patient is found to have temperature of 105.8 degrees on heat at the time of admission. Could be possible cause of septic encephalopathy - Hepatic encephalopathy. Patient has stigmata of chronic liver failure. Icterus, appears chronically ill, ascites. - Metabolic encephalopathy: Patient was found to have high anion gap metabolic acidosis with lactic acidosis at the time of presentation. -Sedation: Patient received rocuronium and propofol for the intubation. In the setting of the liver failure, there will be decreased platelets that could cause the sedation but patient was noted to be in altered sensorium even before coming to the hospital. So less likely the cause of acute encephalopathy - Patient was treated with adequate doses of antibiotics, corrected her metabolic condition, weaned off the sedation but despite of which patient did not show any improvement in mental status, at this point the acute encephalopathy is likely due to hepatic encephalopathy - Patient also noted to develop seizures overnight on 02/11/2025 for which patient was given multiple doses of midazolam, levetiracetam and started on midazolam drip. Diagnosis: - In the ED, temperature is 105.8 ?F - Labs showed bicarb less than 10, anion gap 22, lactic acid 15, total bilirubin 15.9, AST 241, ALT 58 - CT head did not show any evidence of fracture/hemorrhage. Plan: - Started on empiric antibiotics, Zosyn 2.25 g every 8 hourly (02/03 - 02/09 ) - Started on lactulose 30 g 3 times daily and increased to 45 g 3 times daily as of 02/04/2025, rifaximin 550 Mg twice daily, held as of 02/05/2025 as patient developed ischemic colitis - tried to restart on 02/09/2025, but patient noted to have severe abdominal distention on 02/10 and noted to have severe GI bleed following which we could not give any lactulose for the patient. - Currently on Precedex and fentanyl drip, as patient is breathing over the ventilator and appears to be in pain but still doesnt follow commands. - For metabolic acidosis, patient was given multiple doses of bicarb despite which patient remained acidotic and was started on CRRT, stopped on 02/04/2025 around 7PM - Will continue midazolam drip and levetiracetam 1000 mg IV twice daily CVS # Shock Differential diagnosis: Distributive versus hypovolemic (hemorrhagic) versus combined - Distributive: Likely sepsis. Patient does not have any hives or airway edema which rules out anaphylaxis. Patient was noted to have temperature of 105.8 ?F with E.coli bacteremia. - Hypovolemic: History is unknown. No evidence of any recent severe GI bleed or active bleeding noted at the time of admission. - Obstructive versus cardiogenic:. Bedside echocardiogram was done and heart appears to be hyperdynamic without any evidence of cardiac tamponade or RV strain Diagnostic test: - Patient was found to have low MAP less than 65 mmHg despite fluid resuscitation - In the ED, temperature is 105.8 ?F - Labs showed bicarb less than 10, anion gap 22, lactic acid 15, total bilirubin 15.9, AST 241, ALT 58 - Procalcitonin is 7.47 - Blood cultures showed Gram negative bacteremia, E.coli bacteremia Plan: - Started on Zosyn (02/03- 02/09) - 2.5 L of bolus was given in the ED - Started on albumin 25 g IV every 6 hourly, stopped as of 02/06/2025, will restart if needed - Started on Levophed and vasopressin in view of low MAP and patient is off vasopressors for 2 days, again restarted on vasopressors on 02/11 in view of suspected combined hemorrhagic and distributive shock - Arterial line is placed to measure blood pressure accurately - Patient was given a dose of hydrocortisone 100 mg and started on Hydrocortisone 50mg IV every 6th hrly on 02/03 --> changed to every 12th hrly as of 02/06/2025 and discontinued later as her shock resolved # Sinus tachycardia, resolved - At the time of admission, patient was found to have pulse rate of 138 - EKG showed sinus tachycardia with no ST and T wave changes - Likely in response to the febrile episode. Later as patient is started on levophed, found to be tachycardic which is likely due to vasopressors Plan: - Patient was given 2.5 L of IV fluid bolus at the time of admission - Will continue telemetry monitoring # Elevated troponins, downtrended Likely in the setting of demand ischemia -Troponin at the time of admission is 0.077, later downtrended - EKG showed sinus tachycardia with no ST and T wave changes - Will continue Telemetry monitoring - Very low suspicion of ACS at this point of time Respiratory # Acute hypoxic respiratory failure Likely multifactorial, in the setting of Acute encephalopathy and Sepsis - Patient came in with altered sensorium and found aline having mixed metabolic and respiratory acidosis - ABG at the time of admission is pH 7.25, pCO2 18, HCO3 8 - Patient is intubated in the ED for which she received Rocuronium and propofol Plan - Will continue mechanical ventilation - Currently on propofol and fentanyl drip GI # Decompensated Cirrhosis with Ascites, 2/2 Alcohol # Hyperbilirubinemia # Hypoalbuminemia - Patient came in altered sensorium and couldnt get much history - Noted icterus and abdominal distension at the time of admission - Labs at the time of admission showed hyperbilirubinemia, 15.9, AST 241, ALT 58, albumin 2.5, INR 1.8 ---> 26.4, 256, 205 - Noted to have previous history of hemorrhoids - CT Abdomen showed cirrhosis with ascites - MELD score at the time of admission is 29, 27 to 32% mortality in the next 90 days - Child class C Plan - Ordered hepatitis panel, came back negative - Patient appears to have poor prognosis in the setting of high MELD score and Trista class C - If the patient improves after this acute setting, will recommend to follow-up for the liver transplant. - Started octreotide drip at the time of admission on 02/03 and stopped on 02/05/2025, restarted on 02/10/2025 # Transaminitis - At the time of admission, AST is 241, ALT is 58 --> 02/06, AST 1084, ALT 360 -->02/07, 872, 332 - Repeat liver panel showed significant elevations transaminase levels to 696, 145 and uptrended to 2385 and 474 --> /, 256, 205 - Likely patient had ischemic hepatitis in the setting of ongoing shock Plan - Patient is on CRRT in view of multiorgan dysfunction from 02/03/2025 - 02/04/1025 for about more than 20hours - Will continue to monitor liver enzymes # Hypoalbuminemia - Albumin at the time of admission is 2.5 - Patient was given 50 g of albumin at the time of admission Plan - Patient is on 25 g albumin IV every 6 hourly, 02/03 - 02/06 - Will restart as needed # Incidental finding, numerous liver masses noted on CT abdomen/pelvis - Patient was noted to have numerous liver lesions, subcentimeter masses on CT abdomen/pelvis done at the time of admission - Could be possible malignancy in the setting of cirrhosis - Tested negative for CEA, Alpha fetoprotein Plan - CT abdomen/pelvis with contrast on 02/05/2025 that showed - liver is replaced with numerous subcentimeter liver lesions # Suspected ischemic colitis - Patient was found to have abdominal distention with high peak pressures noted on the ventilator on 02/05/2025 - OG tube was connected to the low intermittent suction and was found to have 2.5 L of fluid - Also noted to have lactate elevation from 5.1-6.3 Plan - CT abdomen/pelvis was done that showed ischemic bowel, right colon, air droplets in the wall of the bowel and projecting outside the wall of the right colon - Also abnormal small bowel loops fluid distended with wall thickening is noted - General Surgeon, Dr. Rocha is consulted and he did exploratory laparotomy on 02/08/2025 but did not found any ischemic colitis and abdomen is closed Renal # Acute kidney injury - Baseline creatinine is 0.6 - Creatinine at the time of admission is 1.4 and patient appears to be anuric with urine output less than 50 mL in the last 24 hours - Repeat renal functions as of 02/05/2025 showed BUN 5, Cr 1 - Likely in the setting of ongoing shock, HRS cannot be labelled at this time as the patient is having shock Plan - Dialysis catheter was placed in the right femoral vein - Facilities Custodian, Dr. Steward is consulted and Received CRRT on 02/03 - 02/04 - Urine electrolytes sent, FeNa is 0.5 --> Likely prerenal in the setting of Shock - Conventional HD as of 02/06/2025, 02/07/2025, 02/09/2025 - Will continue to monitor renal functions and renally dose medications # High anion gap metabolic acidosis # Lactic acidosis - Likely in the setting of ongoing shock and multiorgan dysfunction - Found to have bicarb less than 10, anion gap 22, lactate 15 at the time of admission --> 02/06, 3.9 Plan - Patient was given 2 doses of bicarb at the time of admission - Patient received CRRT - Despite CRRT patient appears to have uptrending lactate for which CT abdomen/pelvis is done and revealed ischemic colitis - Patient is noted to have again developed anion gap metabolic acidosis and lactic acidosis likely in the setting of ongoing worsening liver failure and renal failure and severe shock # Mild hyponatremia, resolved - Sodium at the time of the admission is 133 likely in the setting of chronic liver disease and ongoing HIRA - Sodium levels as of 02/05/1025 is 139 Plan - Will monitor sodium levels and treat accordingly # Hypomagnesemia, resolved - Magnesium at the time of admission is 1.4, likely nutritional in the setting of suspected chronic liver disease - Magnesium as of today is 2.4 Plan - Will continue to monitor the magnesium levels Hematology # Thrombocytopenia - Platelets at the time of admission is 61,000 but patient does not appear to be actively bleeding at this point of time - Likely in the setting of sepsis and chronic liver disease - Platelets on 02/04/2025 is 16,000 --> 02/05, 22,000 --> 02/06, 20,000 --> 02/10, 24,000 ---> 02/11, 24,000 Plan - 1 platelet transfusion is given on 02/04 - Transfused 1 unit of platelets on 02/06, 2 platelets transfused on 02/08/2025 at the time of surgery - Will continue to monitor the platelet count and bleeding manifestations # Anemia - Hemoglobin at the time of admission is at 10.9, but her baseline hemoglobin is around 8, the hemoglobin in the admission could be due to some hemoconcentration - Hemoglobin on 02/04/2025 is 6.9, repeat hemoglobin is 6.4 - Monitor could be multifactorial, likely in the setting of multiple build with the dose and correction of hemoconcentration, suspicion of possible DIC - Hb as of 02/05 is 7.1 --> 02/06, 10.2 Plan - 2 PRBC transfusion given on 02/04 - Started on 2 PRBC transfusion on 02/05 - 1 unit PRBC transfusion is given on 02/10/2025 and we have bleed noted on OG tube suction. # Coagulopathy - INR at the time of admission is 1.8 - INR on 02/04/2025 is 4.7 ---> 2.2 on 02/05 --> 02/10, 3.1 - Likely multifactorial in the setting of sepsis, decompensated liver disease, suspected possible DIC - Currently patient does not noted to have any active bleeding manifestations Plan - Ordered 4 FFP's on 02/04 and 3 FFP's are transfused - Each bag contains 300 mL and patient weighs around 60 kg - Per calculation, patient needs 15 mL/kg-so patient needs 900 mL of FFP's - 1 FFP is transfused on 02/06, 2 more FFP's transfused on 02/08/2025 at the time of surgery. 2 more FFP's transfused on 02/10/2025 # Suspected DIC - Likely multifactorial in the setting of liver disease, sepsis - Patient might be having coagulopathy from the liver disease, completely cannot be ruled out but as the patient developing worsening INR, low platelet count, anemia, suspecting DIC Plan - Fibrinogen levels are ordered - 116 on 02/04, 92 on 02/05 - Patient received 2 PRBC, 3 FFP, 1 Platelet on 02/04 - 2 PRBC, 1 FFP, 1 platelet transfusion, 6 Cryoprecipitates are ordered on 02/05, received all of them except 2prbc on 02/06 - Received 2 FFP's on 02/08/2025 and 02/10/2025 - Will repeat CBC and coagulation studies after the transfusions - Will continue to monitor for bleeding manifestations and we will try to treat the underlying condition. ID # Sepsis - Blood cultures showed GNR bacteremia, E.coli Plan -Blood culture showed E. coli which is sensitive to Zosyn completed the antibiotic course. Musculoskeletal # No active problems as of now Endocrinology # No acute problems as of now Hospital Maintenance: Dispo: ICU for septic shock DVT ppx: SCD GI ppx: Protonix Diet: npo IV lines: Right IJV CENTRAL line, Right femoral arterial and dialysis catheter Code status: Full Patient plan of care was discussed with the Lard Mixer Dr. Aurelia Leslie, PGY2
[2025-02-11] MEDS: Norepinephrine/D5W 8mg/250ml 8 MG/250 ML BAG 183.656 MG IV (19:00)
--- NOTE | 2025-02-11 19:19 | PD.RESEVENT ---
Documentation for date of: 02/11/25 Event Note Event Note: CODE BLUE First CODE BOZENA called at 19:11 for loss of pulses. Rhythm PEA. 00:00 Compressions started, Epi #1 given 01:00 Bicarb given 02:00 Pulse check, no pulse 03:00 Epi #2 given, bicarb amp given 04:00 Pulse check, no pulse 06:00 Pulse check, ROSC achieved, arterial wave form seen, femoral pulse audible on Doppler Second CODE BOZENA called at 19:21 for again loss of pulses 00:00 Compressions started 01:00 Epi #1 given, bicarb amp given 02:00 Pulse check, no pulse 04:00 Epi #2 given, pulse check, no pulse. Code called. Patient was examined, no pulses could be felt, no cardiac sounds were heard after 1 continuous minute of auscultation, no breath sounds heard, and pupils were fixed and dilated. Patient pronounced at 19:26. Point of contact, friend Rell Delgado was contacted regarding events, condolences given. Code run with Dr. Leslie, PGY-2 and supervising hospitalist attending, Dr. Barnes. Tracey Barnes, PGY-3
--- NOTE | 2025-02-11 22:00 | DES_ITS ---
Documentation for date of: 02/11/25 Summary Date and Time Date of admission: 02/03/25 07:33 Date of : 02/11/25 Time of : 19:26 Summary Hospital Course: 69-year-old female with significant alcohol use disorder, unknown past medical history was brought to the hospital in view of altered sensorium and was admitted for acute hypoxic respiratory failure, Shock, Acute encephalopathy, Acute liver injury, Acute kidney injury Hospital course: Patient is immediately intubated in the emergency department, later noted to have endotracheal tube in the right mainstem bronchus leading to left lung atelectasis later the endotracheal tube is retracted and repeat chest x-ray showed improvement in the atelectasis. Labs at the time of initial hospitalization showed severe anemia, thrombocytopenia, leukocytosis but noted no bleeding manifestations at that time. Video Arcade Manager, Dr. Steward is consulted in view of acute kidney injury in the setting of the shock. Patient was started on CRRT . Patient was given 2 PRBC, 1 platelet and 3 FFP transfusion on 02/04/2025. Patient was treated with antibiotics, vasopressors, mechanical v entilation. Later patient was found to be in severe DIC on 02/05 for which patient was given 2 PRBCs, 1 FFP, 1 platelet, 6 cryoprecipitate on 02/05. On 02/05/2025, patient noted to have high peak pressures on the ventilator noted to have severe abdominal distention and when connected to suction patient was found to have almost 2 to 2.5 L of residual volume, also noted to have a lactate elevation from 5.1-6.3 despite of decreasing vasopressor needs for which CT abdomen was ordered and found to have ischemic colitis for which general surgeon, Dr. Rocha was consulted. He recommended no procedure as of that time as patient is critically ill. Patient does not have any immediate family and talk to her friend who is the point of contact Rell Delgado during this hospital stay. Tried to get in contact with her immediate family members including son and does [place] and brother in [place] but could not get hold of them. Patient is anuric throughout the hospitalization. Received HD on 02/06, 02/07. Did not have any bowel movements throughout the hospitalization and could not give lactulose and rifaximin because of ischemic colitis. No further episodes of dialysis were done. General surgeon, Dr. Rocha explored her abdomen on 02/08/2025 did not find any evidence of ischemia of colon except for severe advanced cirrhosis. On 02/10/2025 patient GCS was severely depressed and found to have abdominal distention for which patient was connected to the suction and noted to have almost 1000 mL of the blood coming from the suction for which patient was given PRBC transfusion, started on octreotide drip and noted to have severe worsening in lactic acidosis. Overnight on 02/11/2025, patient found to have multiple seizure episodes and also became hemodynamically unstable for which patient was restarted on vasopressors including Levophed, vasopressin, midazolam drip, propofol and fentanyl. Patient appears to have very poor prognosis in that setting but could not come to goals of care discussion with the decision maker, Ivania and Rell Delgado as they do not want to take any decisions at this point of time to keep her on comfort measures. So full treatment was done and on 02/11/2025, patient had cardiac arrest around 7:11 PM and 2 rounds of chest compressions, epinephrine and bicarb was given following which achieved ROSC in 6 minutes. Again 1 more CODE BLUE was called at 7:21 PM because of cardiac arrest and chest compressions were done again and after 4 minutes, code was called, Noted no breath sounds on 1 continuous minute auscultation, heart sounds, pupils are bilaterally dilated, fixed and not reacting to light, no pulses and patient was pronounced at 7:26 PM. Patient plan of care was discussed with the Applications Engineer, Dr. 

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
--- NOTE | 2025-02-12 09:04 | PC.SS ---
TEST BORER contacted assigned APS staff, Juani Back ; to notify that patient had on 02-11-25.
--- NOTE | 2025-02-14 16:04 | PC.CC ---
[id number]-ASW received a call from Rell Delgado [phone] asking that we give him the bank card because he needs the pts money to pay for the services. Rell stated that geriatric social worker has the card and is not releasing it. However, he is asking for the card so he can use the money to pay for the pts services. Rell asked for a call back [phone].
--- NOTE | 2025-02-14 16:08 | PC.CC ---
Addendum entered by Miguelina Abdi 02/14/25 16:45: 1637-Pts friend named Saira [phone] asked if they could get the debit card to pay for the and ASW informed Saira that if they can provide proof that she is on the bank account then the card can be released, otherwise, the card will not be released. Saira asked what will happen to the card and ASW informed her that I would need to ask Risk management on monday and I would have an answer for her at that time. Saira understood. Original Note: [id number]-ASW contacted Rell Delgado [phone] and informed him that the hospital cannot release the pts bank card, unless he was on her bank account as a deemed person to access her account. ASW informed Rell that it would be illegal for the hospital to give him her bank card if he was not on her account. Rell asked if the hospital could use pts card to pay for her serivces and ASW explained that if the hosptial is not on her bank account, it would be illegal for the hospital as well to use her card if not listed on her bank account. Rell asked advice of what he needed to do to access her money and ASW stated, I have no idea, that is something you need to figure out on your own and the hospital cannot get involved with a personal matter. Rell stated he understood.
== END 2025-02-11 19:26 | disposition expired | DRG 710 ==
LOC: SERX 07:43 → SERHOLD 07:54 → S2SX 08:48
PROVIDERS: Emergency Medicine; Internal Medicine; Psychiatry & Neurology Neurology; Student in an Organized Health Care Education/Training Program; Surgery; Admitting Provider Internal Medicine; Emergency Provider Family Medicine; PCP Family Medicine; Visit Provider Internal Medicine
PROC: (CPT 49000; principal; 2025-02-08 15:00)
DX: A41.9 Sepsis, unspecified organism (principal); E87.29 Other acidosis; I24.89 Other forms of acute ischemic heart disease; J96.01 Acute respiratory failure with hypoxia; E87.1 Hypo-osmolality and hyponatremia; K74.60 Unspecified cirrhosis of liver; N17.9 Acute kidney failure, unspecified; E83.42 Hypomagnesemia; D53.9 Nutritional anemia, unspecified; D68.9 Coagulation defect, unspecified; N39.0 Urinary tract infection, site not specified; R18.8 Other ascites; S00.83XA Contusion of other part of head, initial encounter; Z78.1 Physical restraint status; K72.00 Acute and subacute hepatic failure without coma; W19.XXXA Unspecified fall, initial encounter; R57.8 Other shock; D65 Disseminated intravascular coagulation [defibrination syndrome]; E87.4 Mixed disorder of acid-base balance; E88.09 Other disorders of plasma-protein metabolism, not elsewhere classified; F10.10 Alcohol abuse, uncomplicated; I50.9 Heart failure, unspecified; G93.41 Metabolic encephalopathy; J18.9 Pneumonia, unspecified organism; J98.11 Atelectasis; K56.7 Ileus, unspecified; S00.11XA Contusion of right eyelid and periocular area, initial encounter; K72.01 Acute and subacute hepatic failure with coma; K83.1 Obstruction of bile duct; R56.9 Unspecified convulsions; S02.5XXA Fracture of tooth (traumatic), initial encounter for closed fracture; Z99.2 Dependence on renal dialysis; K63.89 Other specified diseases of intestine; I46.8 Cardiac arrest due to other underlying condition
CPT/HCPCS: 36415; 36600; 70450; 70486; 71045; 72125; 72128; 72131; 74176; 74177; 76705; 80048; 80053; 80069; 80074; 80076; 80320; 81001; 82042; 82105; 82140; 82150; 82378; 82436; 82570; 82607; 82746; 82803; 82945; 83605; 83615; 83690; 83735; 83880; 84100; 84145; 84156; 84157; 84300; 84484; 85007; 85014; 85018; 85025; 85027; 85379; 85384; 85610; 85730; 86850; 86900; 86901; 86923; 86927; 86965; 87040; 87070; 87077; 87081; 87086; 87186; 87205; 87400; 87811; 89051; 93005; 93306; 94002; 94003; 96365; 96366; 96375; 99284; A4217; A4649; A9270; J1643; J1720; J1953; J2250; J2251; J2354; J2470; J2543; J2598; J2704; J2765; J3010; J3375; J3430; J3475; J3480; J3490; J7050; J7060; J7120; J7999; P9012; P9016; P9035; P9047; P9060; Q9967; G0480